=== PATIENT | female | born 1950 | race African-American/Black ===

== ENCOUNTER 2016-08-28 09:10 | Inpatient (IN) | payer MEDICARE, OTHER ==
[~2016-08-28] VITALS: Ht 160 cm; Wt 51.3 kg
[~2016-08-28 09:10] MED LIST: ACET325T9 PEG; ACET650S19 PEG; ALBU2.5V5 NEB; ALPR0.5T6 PO; AMLO5TAB2 PO; ASPI325T4 PO; ASPI81TA2 PO; ATOR20TA58 PO; CALC500T50 PO; CARV12.52 PO; CHOL100013 PO; CIPR250T30 PO; CLON0.2T PO; CLON1PAT3 TD; DEXT50DI3 IV; ENAL1.25 IV; ERGO500012 PO; FAMO20TA5 PO; FAMO20VI3 IVP; FURO20TA3 GT; FURO20TA3 PO; Ferrous Sulfate PEG; HYDR-2868 PO; HYDR20VI5 IV; INSU100I17 SQ; LISI40TA PO; METO10SO GT; METO25TA4 PO; Metoprolol Tartrate IV; ONDA4VIA4 IV; POTA20LI PEG; PRAV10TA2 PO; PRAV20TA2 PO; PRAZ1CAP PO; PRED20TA PO; SIMV20TA3 PEG; TIOT4MIS2 IH; VERA120T5 PEG; VERA180T4 PO; VERA240C2 PO; inhaler
[2016-08-28] MEDS ORDERED: DILTIAZEM 125 MG in IV DEXTROSE 5% 100 ML IV PRN (09:30)
[2016-08-28] MEDS ORDERED: ALBUTEROL SULFATE 2.5 MG/3 ML NEBU. NEB ONE (09:30)
[2016-08-28] MEDS ORDERED: methylPREDNISolone SOD SUCC PF 125 MG/2 ML VIAL. IV ONE (09:30)
[2016-08-28] MEDS ORDERED: IPRATRPIUM/ALBUTEROL 0.5/2.5MG 3 ML NEBU. NEB ONE (09:30)
--- NOTE | 2016-08-28 09:32 | PHYS DOC ---
Past Medical History Past Medical History: COPD, CVA, High Cholesterol, Hypertension, Other Additional Past Medical Histor: undergoing testing for COPD diagnosis, home oxygen @ [facility] Past Surgical History: Other Additional Past Surgical Histo: Pt states none - Gtube placement visualized Alcohol Use: None Drug Use: None Adult General Chief Complaint Chief Complaint: SHORTNESS OF BREATH HPI HPI Patient is a 66 year old female who presents with complaint of severe shortness of breath. Patient brought to the emergency department by EMS after they were contacted by patient's family. The patient was having shortness of breath at home. While laying in bed using a breathing treatment, EMS stated that the patient's O2 sats were 98%. However upon attempting to get up and walk the patient decided into the low 80s. Patient has history of COPD and follows a Dr. Fletcher for primary care. The patient denies any chest pain or fever but states that she is having severe difficulty breathing. Patient states that breathing treatments at home and by EMS have not help with symptoms. Review of Systems Review of Systems Constitutional: Denies fever or chills [] Eyes: Denies change in visual acuity, redness, or eye pain [] HENT: Denies nasal congestion or sore throat [] Respiratory: Shortness of breath, cough [] Cardiovascular: Denies chest pain or edema [] GI: Denies abdominal pain, nausea, vomiting, bloody stools or diarrhea [] : Denies dysuria or hematuria [] Musculoskeletal: Denies back pain or joint pain [] Integument: Denies rash or skin lesions [] Neurologic: Denies headache, focal weakness or sensory changes [] Current Medications Current Medications Current Medications Medications (Trade) Dose Ordered Sig/Michael Start Time Stop Time Status Last Admin Dose Admin Albuterol Sulfate 2.5 mg 2.5 mg 1X ONCE 08/28/16 09:30 08/28/16 09:31 DC Albuterol/ Ipratropium (Duoneb) 3 ml 1X ONCE 08/28/16 09:30 08/28/16 09:31 DC Diltiazem HCl/ Dextrose (Cardizem) 125 ml @ 0 mls/hr CONT PRN 08/28/16 09:30 UNV Methylprednisolone Sodium Succinate (Solu-Medrol 125mg Vial) 125 mg 1X ONCE 08/28/16 09:30 08/28/16 09:31 DC 08/28/16 09:38 125 MG Allergies Allergies Allergies Coded Allergies Type Severity Reaction Last Updated Verified I S O L A T I O N *CONTACT* Allergy Unknown 09/01/15 Yes No Known Medication Allergies Allergy Unknown 09/01/15 Yes Physical Exam Physical Exam Constitutional: Alert, afebrile, appears in moderate to severe respiratory distress. [] HENT: Normocephalic, atraumatic, bilateral external ears normal, oropharynx moist, no oral exudates, nose normal. [] Eyes: PERRLA, EOMI, conjunctiva normal, no discharge. [] Neck: Normal range of motion, no tenderness, supple, no stridor. [] Cardiovascular: Tachycardia, regular rhythm, no murmur [] Lungs & Thorax: Severely restricted air movement bilaterally, accessory muscle usage present, expiratory wheezes bilaterally [] Abdomen: Bowel sounds normal, soft, no tenderness, no masses, no pulsatile masses. [] Skin: Warm, dry, no erythema, no rash. [] Back: No tenderness, no CVA tenderness. [] Extremities: No tenderness, no cyanosis, no clubbing, ROM intact, no edema. [] Neurologic: Alert and oriented X 3, normal motor function, normal sensory function, no focal deficits noted. [] Current Patient Data Vital Signs Vital Signs Date Time Temp Pulse Resp B/P Pulse Ox O2 Delivery O2 Flow Rate FiO2 08/28/16 09:10 96.7 111 33 166/85 82 Aerosol Mask 10 96.7 EKG EKG Interpreted by me: Heart rate 102, sinus tachycardia, normal intervals, normal axis, no acute ST/T-wave abnormalities present [] Radiology/Procedures Radiology/Procedures [facility] [address] [place] [address] IMAGING REPORT Signed PATIENT: KATHY HARVEY ACCOUNT: [id number] : 1950 LOCATION: ER AGE: 66 SEX: F EXAM STATUS: PRE ER ORD. PHYSICIAN: FLO HANSON MD REASON: shortness of breath PROCEDURE: PORTABLE CHEST 1V Single view chest History:Shortness of breath for one day An AP view of the chest is submitted. Comparison: 02/24/2016 Findings: There is now small left pleural effusion. There is increased interstitial opacity bilaterally. Pericardial cardiac silhouette appears slightly more prominent. There is again likely emphysema. Impression: There is now small left pleural effusion. There is increased interstitial opacity which may be due to edema. Pericardial cardiac silhouette appears somewhat more prominent. There is again likely emphysema. DICTATED and SIGNED BY: MOHAN SIMON MD DATE: 08/28/16 0952 CC: FLO HANSON MD; OFELIA FLETCHER MD ~ [] Course & Med Decision Making Course & Med Decision Making Pertinent Labs and Imaging studies reviewed. (See chart for details) Patient was severely dyspneic and was initiated on BiPAP therapy which helped improve patient's oxygenation and work of breathing in the emergency department. ABG shows both hypercapnia and hypoxia. Patient will be admitted the hospital for further treatment with BiPAP, breathing treatments, and IV steroids. I spoke with Dr. Renee who is on-call for Dr. Fletcher and he accepted care patient in hospital. Consults were placed to Dr. Lion of cardiology and Dr. Hutchinson of pulmonology to follow patient in hospital. Critical care time excluding procedures: 55 minutes Dragon Disclaimer Dragon Disclaimer This electronic medical record was generated, in whole or in part, using a voice recognition dictation system. Departure Departure Impression: Primary Impression: Acute respiratory failure with hypoxia and hypercapnia Additional Impressions: COPD exacerbation Congestive heart failure Disposition: ADMITTED INPATIENT Admitting Physician: Mayra Renee Condition: CRITICAL Referrals: OFELIA FLETCHER MD (PCP) Problem Qualifiers Additional Impressions: Congestive heart failure Congestive heart failure type: unspecified congestive heart failure type Congestive heart failure chronicity: acute on chronic Qualified Code: I50.9 - Heart failure, unspecified FLO HANSON MD Aug 28, 2016 09:31
--- NOTE | 2016-08-28 09:55 | RAD ---
Single view chest History:Shortness of breath for one day An AP view of the chest is submitted. Comparison: 02/24/2016 Findings: There is now small left pleural effusion. There is increased interstitial opacity bilaterally. Pericardial cardiac silhouette appears slightly more prominent. There is again likely emphysema. Impression: There is now small left pleural effusion. There is increased interstitial opacity which may be due to edema. Pericardial cardiac silhouette appears somewhat more prominent. There is again likely emphysema.
[2016-08-28 10:54] LABS: HCO3 ABG 42 mmol/L (21-28); PH ABG 7.34 (7.35-7.45); PO2 ABG 99 mmHg (65-108); SAT O2 ABG 97 % (92-99)
[2016-08-28 10:55] LABS: PCO2 ABG 80 mmHg (35-46)
[2016-08-28 10:56] LABS: FIO2 ABG 100
--- NOTE | 2016-08-28 12:23 | EKG ---
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
[2016-08-28 12:36] LABS: CALCIUM 9.8 mg/dL (8.5-10.1); CREATININE 0.9 mg/dL (0.6-1.0); POTASSIUM 5.2 mmol/L (3.5-5.1)
[2016-08-28 12:39] LABS: BASO % 0 % (0-3); EOS % 0 % (0-3); HEMATOCRIT 38.3 % (36.0-47.0); HEMOGLOBIN 11.5 g/dL (12.0-15.5); LYMPH # 0.5 x10^3/uL (1.0-4.8); LYMPH % 4 % (24-48); MEAN CORPUSCULAR HEMOGLOBIN 26 pg (25-35); MEAN CORPUSCULAR HGB CONC 30 g/dL (31-37); MEAN CORPUSCULAR VOLUME 86 fL (79-100); MONO % 2 % (0-9); NEUT % 94 % (31-73); PLATELET COUNT 182 x10^3/uL (140-400); RED BLOOD COUNT 4.46 x10^6/uL (3.50-5.40); RED CELL DISTRIBUTION WIDTH 14.2 % (11.5-14.5); WHITE BLOOD COUNT 12.7 x10^3/uL (4.0-11.0)
[2016-08-28 12:43] LABS: TOTAL BILIRUBIN 0.7 mg/dL (0.2-1.0)
[2016-08-28 12:50] LABS: CKMB INDEX 1.1 % (0-4); CKMB MASS < 0.5 ng/mL (0.0-3.6); CREATINE KINASE 47 U/L (26-192)
[2016-08-28 13:16] LABS: ALBUMIN 3.6 g/dL (3.4-5.0); ALBUMIN/GLOBULIN RATIO 0.7 (1.0-1.7); TOTAL PROTEIN 8.5 g/dL (6.4-8.2)
--- NOTE | 2016-08-28 13:20 | ACF ---
Admission Forms Criteria RESPIRATORY FAILURE [facility] Clinical Indications for Admission to Inpatient Care (Place 'X' for any and all applicable criteria): Hospital admission is needed for appropriate care of the patient because of acute respiratory failure or insufficiency as indicated by ANY ONE of the following(1)(2)(3)(4)(5)(6)(7)(8): [X]I. Mechanical ventilation needed (acute invasive or noninvasive) [X]II. Severe ventilation deficit as indicated by ANY ONE of the following (9) [ ]a) Respiratory acidosis (pH less than 7.32 and partial pressure of carbon dioxide greater than 40 mm Hg (5.3 kPa)) [X]b) Partial pressure of carbon dioxide greater than 44 mm Hg (5.9 kPa ) (new) [ ]c) Airflow measurements less than 25% of predicted (eg, peak expiratory flow rate less than 100 L/minute) [ ]d) Forced vital capacity less than 15 mL/kg of ideal body weight, or 50% decrease in vital capacity from baseline [ ]III. Noncardiac pulmonary edema not resolving with rapid emergency treatment (8) [ ]IV. Severe respiratory distress as indicated by ANY ONE of the following: [ ]a) Severe tachypnea (respiratory rate greater than 30, greater than 45 for 6-month-old, greater than 60 for ) [ ]b) Severe hypoxemia (partial pressure of oxygen less than 50 mm Hg ( 6.7 kPa) on greater than 50% oxygen or partial pressure of oxygen to FIO2 ratio less than 200) [ ]c) Mental status deterioration from respiratory disease [ ]V. Airway obstruction or inadequate protection [A](10)(11) The original [employer] content created by [employer] has been revised. The portions of the content which have been revised are identified through the use of italic text or in bold, and [employer] has neither reviewed nor approved the modified material. All other unmodified content is copyright [employer]. Please see references footnoted in the original [employer] edition 2016 Admission Criteria Met?: Yes SHIVAM BELLAMY Aug 28, 2016 13:20
[2016-08-28 13:28] LABS: PLT ESTIMATE ADEQUATE (ADEQUATE)
[2016-08-28] MEDS ORDERED: IV NORMAL SALINE 1000ML BAG 1,000 ML IV SCH (13:55)
[2016-08-28] MEDS ORDERED: ONDANSETRON PF 4 MG/2 ML VIAL. IV PRN (14:00)
[2016-08-28] MEDS ORDERED: FUROSEMIDE 40 MG/4 ML VIAL IVP ONE (14:00)
[2016-08-28] MEDS ORDERED: ACETAMINOPHEN 650 MG/20.3 ML SOLUTION. PEG PRN (14:45)
[2016-08-28] MEDS ORDERED: ALBUTEROL SULFATE 2.5 MG/3 ML NEBU. ONE (14:49)
[2016-08-28] MEDS ORDERED: IPRATRPIUM/ALBUTEROL 0.5/2.5MG 3 ML NEBU. ONE (14:49)
[2016-08-28] MEDS: FUROSEMIDE 40 MG/4 ML VIAL IVP SCH (15:00)
--- NOTE | 2016-08-28 15:16 | PDOC ---
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
[2016-08-28] MEDS ORDERED: IPRATRPIUM/ALBUTEROL 0.5/2.5MG 3 ML NEBU. NEB SCH (16:00)
[2016-08-28] MEDS: CEFTRIAXONE SODIUM 1 GM in IV NORMAL SALINE 50ML 50 ML IV SCH (16:25)
[2016-08-28 17:23] VITALS: BP 134/76
[2016-08-28 19:15] VITALS: BP 135/77
[2016-08-28] MEDS: BUDESONIDE 0.5 MG/2 ML NEBU NEB SCH (20:47)
[2016-08-28] MEDS: IPRATRPIUM/ALBUTEROL 0.5/2.5MG 3 ML NEBU. NEB SCH (20:47)
[2016-08-28] MEDS: CARVEDILOL 12.5 MG TABLET PO SCH (21:03)
[2016-08-28] MEDS: FAMOTIDINE 20 MG TABLET. PO SCH (21:03)
[2016-08-28] MEDS: LISINOPRIL 40 MG TABLET. PO SCH (21:04)
[2016-08-28] MEDS: ATORVASTATIN CALCIUM 20 MG TABLET PO SCH (21:04)
[2016-08-28] MEDS: AMLODIPINE BESYLATE 5 MG TABLET PO SCH (21:04)
[2016-08-28 23:00] VITALS: BP 104/68
--- NOTE | 2016-08-28 23:29 | HP ---
ADMIT DATE: 08/28/2016 ADMISSION DIAGNOSIS: Acute on chronic systolic/diastolic heart failure. HISTORY OF PRESENT ILLNESS: This is a 66-year-old female with known emphysema and heart failure, who was brought in by EMS after her called because of shortness of breath. Her oxygen sats at home dropped into the 80s. Her turned up oxygen and got them to come back up, but with any activity they dropped again into the 80s. She has been having increased respiratory symptoms over the past 2 days despite using her nebulizer. The nebulizer has been ineffective in helping as has the treatment by EMS on the way to the ER. She denies any chest pain or acute cardiac symptoms though. PAST MEDICAL HISTORY: Significant for emphysema, past stroke, hyperlipidemia, hypertension, chronic respiratory failure on home oxygen, usually at 4 liters. PAST SURGICAL HISTORY: Includes a G-tube placement. She does eat despite the tube. Her really has not noticed any aspiration symptoms, but does admit that she has had some recent choking with oral feeds. She does have soft oral diet. Her PEG tube has been placed due to a neurogenic dysphagia after a prior stroke. She also has a history of osteoporosis and has a 20-year smoking history. SOCIAL HISTORY: Positive for tobacco use, being . FAMILY HISTORY: Noncontributory. VACCINES: Flu and pneumonia vaccines are up-to-date as of 02/2016. ALLERGIES: No known medication allergies. HOME MEDICATIONS: Tylenol p.r.n., albuterol neb solution q.i.d., amlodipine 5 mg b.i.d., aspirin 325 daily, atorvastatin 20 at bedtime, carvedilol 25 b.i.d., famotidine 20 b.i.d., furosemide 20 daily, lisinopril 40 b.i.d., potassium chloride 20 mEq per PEG daily. She did receive 40 mg Lasix IV in the ER along with being placed on BiPAP and is receiving methylprednisolone and neb treatment. REVIEW OF SYSTEMS: No recent cough or cold symptoms. Per her , she does not talk because of the BiPAP. He says she just has not had any chest pain. He did note some choking. He has not noted any other GI symptoms. He denies that she has had any falls or any focal weakness. He is unaware of her having any urinary troubles. She did not have any issues with her PEG. Her mental state has been baseline and she has been sleeping at baseline. LABORATORY DATA: White count is 12.7, hemoglobin is 11.5, platelets 182. ABG showed a pH of 7.34 with a pCO2 of 80, FiO2 of 100% and a pO2 of 99. Chemistries show an elevated potassium of 5.2, BUN of 26, creatinine 0.9, glucose 144. Troponins negative. Cardiac [place] [address], albumin is 3.7. IMAGING STUDIES: Chest x-ray shows some small left pleural effusion and interstitial opacity, likely due to edema. Emphysematous changes are present. Her cardiac silhouette is somewhat prominent. ASSESSMENT: 1. Acute on chronic respiratory failure. 2. Acute on chronic systolic/diastolic heart failure with elevated proBNP without evidence of acute myocardial infarction. 3. Emphysema with exacerbation. 4. Leukocytosis in a patient with the PEG that had some recent choking, cannot rule out aspiration pneumonia. 5. History of cerebrovascular accident with neurogenic dysphagia. PLAN: She is admitted. Cardiac and pulmonary consults have been requested. We will continue Lasix 40 mg IV due to her hyperkalemia and signs of heart failure. We will use budesonide and DuoNeb nebulized for her lungs. I do not see a need to continue IV Solu-Medrol at this point. We will cover with antibiotics. Continue her home meds with some minor changes. She is currently on BiPAP. She was initially to be sent to the ICU, but appears to be stable for CVC. She is not having much anxiety with the BiPAP. W Chance FLORENTINO MD DR: MATT/angela JOB#: [id number] / [id number]
[2016-08-29 03:00] VITALS: BP 105/57
[2016-08-29 05:49] LABS: BASO % 0 % (0-3); EOS % 0 % (0-3); LYMPH # 0.6 x10^3/uL (1.0-4.8); LYMPH % 4 % (24-48); MEAN CORPUSCULAR HEMOGLOBIN 26 pg (25-35); MEAN CORPUSCULAR HGB CONC 31 g/dL (31-37); MEAN CORPUSCULAR VOLUME 83 fL (79-100); MONO % 6 % (0-9); NEUT % 90 % (31-73); PLATELET COUNT 206 x10^3/uL (140-400); RED BLOOD COUNT 3.49 x10^6/uL (3.50-5.40); RED CELL DISTRIBUTION WIDTH 13.7 % (11.5-14.5); WHITE BLOOD COUNT 13.7 x10^3/uL (4.0-11.0)
[2016-08-29 06:10] LABS: GFR 67.3
[2016-08-29] MEDS: CARVEDILOL 12.5 MG TABLET PO SCH ×2 (06:26→21:17)
[2016-08-29 07:00] VITALS: BP 146/70
--- NOTE | 2016-08-29 08:10 | PDOC ---
PROGRESS NOTES Subjective Subjective Patient on Bipap and asking to have it removed. Feels she is breathing OK. Objective Objective Vital Signs Date Time Temp Pulse Resp B/P Pulse Ox O2 Delivery O2 Flow Rate FiO2 08/29/16 07:00 98.2 98 20 146/70 100 BiPAP/CPAP 98.2 08/28/16 23:00 10.0 Intake and Output 08/29/16 07:00 Intake Total 0 ml Balance 0 ml Intake Oral 0 ml # Voids 3 Physical Exam Abdomen: Normal bowel sounds, Soft, No tenderness Heart: Regular rate Extremities: No edema General: Alert, Oriented X3, No acute distress Lungs: Other (BS decreased throughout, no wheezes heard) Assessment Assessment Problems Medical Problems: (1) Acute respiratory failure with hypoxia and hypercapnia Status: Acute (2) Congestive heart failure Status: Acute (3) COPD exacerbation Status: Acute Plan Plan of Care 1. AE diastolic CHF - BNP quite elevated at admission and some fluid present on CXR. Now on Lasix 40IV BID. I's and O's inaccurate so difficult to determine amount of diuresis. Await further Cardiology input. Last Echo showed preserved EF and moderate pulmonary HTN. 2. Acute on chronic respiratory failure with COPD - hypoxic at admission and required Bipap. Appears to be doing better, hope to wean off Bipap to her usual O2 per NC. Continue nebs. Pulmonary consult pending. 3. chronic dysphagia from previous CVA - most recent video swallow showed aspiration with all liquids and foods. Continue NPO with TF, free water flushes added. 4. HTN - controlled, continue present meds. Comment Review of Relevant I have reviewed the following items chon (where applicable) has been applied. Labs Laboratory Tests Test 08/28/16 10:40 08/28/16 12:05 08/28/16 12:16 08/29/16 05:15 O2 Saturation 97% (92-99) Arterial Blood pH 7.34 (7.35-7.45) Arterial Blood pCO2 at Patient Temp 80mmHg (35-46) Arterial Blood pO2 at Patient Temp 99mmHg (65-108) Arterial Blood HCO3 42mmol/L (21-28) Arterial Blood Base Excess 13mmol/L (-3-3) FiO2 100 Troponin I Quantitative < 0.017ng/mL (0.000-0.055) White Blood Count 12.7x10^3/uL (4.0-11.0) 13.7x10^3/uL (4.0-11.0) Red Blood Count 4.46x10^6/uL (3.50-5.40) 3.49x10^6/uL (3.50-5.40) Hemoglobin 11.5g/dL (12.0-15.5) 9.0g/dL (12.0-15.5) Hematocrit 38.3% (36.0-47.0) 29.0% (36.0-47.0) Mean Corpuscular Volume 86fL (79-100) 83fL (79-100) Mean Corpuscular Hemoglobin 26pg (25-35) 26pg (25-35) Mean Corpuscular Hemoglobin Concent 30g/dL (31-37) 31g/dL (31-37) Red Cell Distribution Width 14.2% (11.5-14.5) 13.7% (11.5-14.5) Platelet Count 182x10^3/uL (140-400) 206x10^3/uL (140-400) Neutrophils (%) (Auto) 94% (31-73) 90% (31-73) Lymphocytes (%) (Auto) 4% (24-48) 4% (24-48) Monocytes (%) (Auto) 2% (0-9) 6% (0-9) Eosinophils (%) (Auto) 0% (0-3) 0% (0-3) Basophils (%) (Auto) 0% (0-3) 0% (0-3) Neutrophils # (Auto) 11.9x10^3uL (1.8-7.7) 12.4x10^3uL (1.8-7.7) Lymphocytes # (Auto) 0.5x10^3/uL (1.0-4.8) 0.6x10^3/uL (1.0-4.8) Monocytes # (Auto) 0.3x10^3/uL (0.0-1.1) 0.8x10^3/uL (0.0-1.1) Eosinophils # (Auto) 0.0x10^3/uL (0.0-0.7) 0.0x10^3/uL (0.0-0.7) Basophils # (Auto) 0.0x10^3/uL (0.0-0.2) 0.0x10^3/uL (0.0-0.2) Segmented Neutrophils % 90% (35-66) Band Neutrophils % 2% (0-9) Lymphocytes % 2% (24-48) Monocytes % 6% (0-10) Platelet Estimate Adequate (ADEQUATE) Sodium Level 142mmol/L (136-145) 147mmol/L (136-145) Potassium Level 5.2mmol/L (3.5-5.1) 4.0mmol/L (3.5-5.1) Chloride Level 101mmol/L (98-107) 101mmol/L (98-107) Carbon Dioxide Level 39mmol/L (21-32) 40mmol/L (21-32) Anion Gap 2 (6-14) 6 (6-14) Blood Urea Nitrogen 26mg/dL (7-20) 38mg/dL (7-20) Creatinine 0.9mg/dL (0.6-1.0) 1.0mg/dL (0.6-1.0) Estimated GFR (Cockcroft-Gault) 76.0 67.3 BUN/Creatinine Ratio 29 (6-20) Glucose Level 144mg/dL (70-99) 132mg/dL (70-99) Lactic Acid Level 1.9mmol/L (0.4-2.0) Calcium Level 9.8mg/dL (8.5-10.1) 9.0mg/dL (8.5-10.1) Total Bilirubin 0.7mg/dL (0.2-1.0) Aspartate Amino Transf (AST/SGOT) 14U/L (15-37) Alanine Aminotransferase (ALT/SGPT) 12U/L (14-59) Alkaline Phosphatase 55U/L (46-116) Creatine Kinase 47U/L (26-192) Creatine Kinase MB (Mass) < 0.5ng/mL (0.0-3.6) Creatine Kinase MB Relative Index 1.1% (0-4) SG-Pbk-S-Type Natriuretic Peptide 4659pg/mL (0-124) Total Protein 8.5g/dL (6.4-8.2) Albumin 3.6g/dL (3.4-5.0) Albumin/Globulin Ratio 0.7 (1.0-1.7) Laboratory Tests Test 08/28/16 10:40 08/28/16 12:05 08/28/16 12:16 08/29/16 05:15 O2 Saturation 97% (92-99) Arterial Blood pH 7.34 (7.35-7.45) Arterial Blood pCO2 at Patient Temp 80mmHg (35-46) Arterial Blood pO2 at Patient Temp 99mmHg (65-108) Arterial Blood HCO3 42mmol/L (21-28) Arterial Blood Base Excess 13mmol/L (-3-3) FiO2 100 Troponin I Quantitative < 0.017ng/mL (0.000-0.055) White Blood Count 12.7x10^3/uL (4.0-11.0) 13.7x10^3/uL (4.0-11.0) Red Blood Count 4.46x10^6/uL (3.50-5.40) 3.49x10^6/uL (3.50-5.40) Hemoglobin 11.5g/dL (12.0-15.5) 9.0g/dL (12.0-15.5) Hematocrit 38.3% (36.0-47.0) 29.0% (36.0-47.0) Mean Corpuscular Volume 86fL (79-100) 83fL (79-100) Mean Corpuscular Hemoglobin 26pg (25-35) 26pg (25-35) Mean Corpuscular Hemoglobin Concent 30g/dL (31-37) 31g/dL (31-37) Red Cell Distribution Width 14.2% (11.5-14.5) 13.7% (11.5-14.5) Platelet Count 182x10^3/uL (140-400) 206x10^3/uL (140-400) Neutrophils (%) (Auto) 94% (31-73) 90% (31-73) Lymphocytes (%) (Auto) 4% (24-48) 4% (24-48) Monocytes (%) (Auto) 2% (0-9) 6% (0-9) Eosinophils (%) (Auto) 0% (0-3) 0% (0-3) Basophils (%) (Auto) 0% (0-3) 0% (0-3) Neutrophils # (Auto) 11.9x10^3uL (1.8-7.7) 12.4x10^3uL (1.8-7.7) Lymphocytes # (Auto) 0.5x10^3/uL (1.0-4.8) 0.6x10^3/uL (1.0-4.8) Monocytes # (Auto) 0.3x10^3/uL (0.0-1.1) 0.8x10^3/uL (0.0-1.1) Eosinophils # (Auto) 0.0x10^3/uL (0.0-0.7) 0.0x10^3/uL (0.0-0.7) Basophils # (Auto) 0.0x10^3/uL (0.0-0.2) 0.0x10^3/uL (0.0-0.2) Segmented Neutrophils % 90% (35-66) Band Neutrophils % 2% (0-9) Lymphocytes % 2% (24-48) Monocytes % 6% (0-10) Platelet Estimate Adequate (ADEQUATE) Sodium Level 142mmol/L (136-145) 147mmol/L (136-145) Potassium Level 5.2mmol/L (3.5-5.1) 4.0mmol/L (3.5-5.1) Chloride Level 101mmol/L (98-107) 101mmol/L (98-107) Carbon Dioxide Level 39mmol/L (21-32) 40mmol/L (21-32) Anion Gap 2 (6-14) 6 (6-14) Blood Urea Nitrogen 26mg/dL (7-20) 38mg/dL (7-20) Creatinine 0.9mg/dL (0.6-1.0) 1.0mg/dL (0.6-1.0) Estimated GFR (Cockcroft-Gault) 76.0 67.3 BUN/Creatinine Ratio 29 (6-20) Glucose Level 144mg/dL (70-99) 132mg/dL (70-99) Lactic Acid Level 1.9mmol/L (0.4-2.0) Calcium Level 9.8mg/dL (8.5-10.1) 9.0mg/dL (8.5-10.1) Total Bilirubin 0.7mg/dL (0.2-1.0) Aspartate Amino Transf (AST/SGOT) 14U/L (15-37) Alanine Aminotransferase (ALT/SGPT) 12U/L (14-59) Alkaline Phosphatase 55U/L (46-116) Creatine Kinase 47U/L (26-192) Creatine Kinase MB (Mass) < 0.5ng/mL (0.0-3.6) Creatine Kinase MB Relative Index 1.1% (0-4) HZ-Tzr-S-Type Natriuretic Peptide 4659pg/mL (0-124) Total Protein 8.5g/dL (6.4-8.2) Albumin 3.6g/dL (3.4-5.0) Albumin/Globulin Ratio 0.7 (1.0-1.7) Medications Current Medications Albuterol/ Ipratropium (Duoneb) 3 ml 1X ONCE NEB Last administered on 15:03; Start 08/28/16 at 09:30; Stop 08/28/16 at 09:31; Status DC Methylprednisolone Sodium Succinate (Solu-Medrol 125mg Vial) 125 mg 1X ONCE IV Last administered on 08/28/16 09:38; Start 08/28/16 at 09:30; Stop 08/28/16 at 09:31; Status DC Albuterol Sulfate 2.5 mg 2.5 mg 1X ONCE NEB Last administered on 08/28/16 15: 04; Start 08/28/16 at 09:30; Stop 08/28/16 at 09:31; Status DC Diltiazem HCl/ Dextrose (Cardizem) 125 ml @ 0 mls/hr CONT PRN IV SEE I/O RECORD ; Start 08/28/16 at 09:30; Status UNV Ondansetron HCl 4 mg 4 mg PRN Q8HRS PRN IV NAUSEA/VOMITING; Start 08/28/16 at 14:00; Stop 08/29/16 at 13:59 Sodium Chloride (Iv Sodium Chloride 0.9% 1000ml Bag) 1,000 ml @ 50 mls/hr Q20H IV ; Start 08/28/16 at 13:55; Stop 08/28/16 at 17:54; Status DC Albuterol/ Ipratropium (Duoneb) 3 ml RTQID NEB ; Start 08/28/16 at 16:00; Stop 08/28/16 at 16:00; Status DC Furosemide (Lasix) 60 mg 1X ONCE IVP Last administered on 08/28/16 15:04; Start 08/28/16 at 14:00; Stop 08/28/16 at 14:07; Status DC Acetaminophen (Tylenol) 325 mg PRN Q6HRS PRN PEG MILD PAIN / TEMP; Start at 14:45 Amlodipine Besylate (Norvasc) 5 mg BID PO Last administered on 08/28/16 21:04 ; Start 08/28/16 at 21:00 Aspirin (Tobi Aspirin) 325 mg DAILYWBKFT PO ; Start 08/29/16 at 08:00 Atorvastatin Calcium (Lipitor) 20 mg QHS PO Last administered on 08/28/16 21: 04; Start 08/28/16 at 21:00 Carvedilol (Coreg) 25 mg BID@07,19 PO Last administered on 08/29/16 06:26; Start 08/28/16 at 19:00 Famotidine (Pepcid) 20 mg BID PO Last administered on 08/28/16 21:03; Start at 21:00 Lisinopril (Prinivil) 40 mg BID PO Last administered on 08/28/16 21:04; Start 08/28/16 at 21:00 Potassium Chloride (KCl Oral Soln) 20 meq DAILY PEG ; Start 08/29/16 at 09:00 Albuterol/ Ipratropium (Duoneb) 3 ml RTQID NEB Last administered on 08/28/16 20:47; Start 08/28/16 at 16:00 Budesonide (Pulmicort) 0.5 mg RTBID NEB Last administered on 08/28/16 20:47; Start 08/28/16 at 20:00 Furosemide (Lasix) 40 mg BID92 IVP Last administered on 08/28/16 15:00; Start 08/28/16 at 15:00 Albuterol/ Ipratropium (Duoneb) 3 ml STK-MED ONCE .ROUTE ; Start 08/28/16 at 14: 49; Stop 08/28/16 at 14:50; Status DC Albuterol Sulfate 2.5 mg 2.5 mg STK-MED ONCE .ROUTE ; Start 08/28/16 at 14:49; Stop 08/28/16 at 14:50; Status DC Ceftriaxone Sodium/Sodium Chloride (Rocephin/Iv Sodium Chloride 0.9% 50ml) 50 ml @ 100 mls/hr Q24H IV Last administered on 08/28/16t 16:25; Start 08/28/16 at 16:00 Active Scripts Active Cipro (Ciprofloxacin Hcl) 250 Mg Tablet 1 Tab PO BID 5 Days Atorvastatin Calcium 20 Mg Tablet 20 Mg PO QHS 30 Days Aspirin 325 Mg Tablet 325 Mg PO DAILYWBKFT 30 Days Furosemide 20 Mg Tablet 20 Mg GT DAILY 30 Days Potassium Chloride Oral Liquid (Potassium Chloride) 20 Meq/15 Ml Liquid 20 Meq PEG DAILY 30 Days Famotidine 20 Mg Tablet 20 Mg PO BID 30 Days Carvedilol 12.5 Mg Tablet 25 Mg PO BID@, 30 Days Acetaminophen 650 Mg/20.3 Ml Solution 325 Mg PEG PRN Q6HRS PRN 30 Days Albuterol Sulfate Neb Soln (Albuterol Sulfate) 2.5 Mg/3 Ml Vial.neb 2.5 Mg NEB RTQID 30 Days Vitals/I & O Vital Sign - Last 24 Hours 08/28/16 08/28/16 08/28/16 08/28/16 09:10 10:00 10:00 11:00 Temp 96.7 96.7 Pulse 111 102 106 Resp 33 28 23 B/P 166/85 158/97 140/73 Pulse Ox 82 100 98 95 O2 Delivery Aerosol Mask BiPAP/CPAP O2 Flow Rate 10 08/28/16 08/28/16 08/28/16 08/28/16 11:00 12:00 13:00 14:00 Pulse 100 104 106 Resp 23 22 26 B/P 91/60 124/70 128/77 Pulse Ox 100 95 94 96 O2 Delivery BiPAP/CPAP 08/28/16 08/28/16 08/28/16 08/28/16 15:07 17:14 17:23 17:57 Temp 98.4 98.4 Pulse 106 Resp 22 B/P 134/76 Pulse Ox 96 98 88 O2 Delivery BiPAP/CPAP BiPAP/CPAP BiPAP/CPAP Bi-pap 08/28/16 08/28/16 08/28/16 08/28/16 19:15 20:00 20:44 21:03 Temp 98.7 98.7 Pulse 96 96 Resp 22 B/P 135/77 135/77 Pulse Ox 86 88 O2 Delivery BiPAP/CPAP Bi-pap BiPAP/CPAP 08/28/16 08/28/16 08/28/16 08/28/16 21:04 21:04 23:00 23:43 Temp 98.5 98.5 Pulse 96 96 91 B/P 135/77 135/77 104/68 Pulse Ox 91 92 O2 Delivery BiPAP/CPAP BiPAP/CPAP O2 Flow Rate 10.0 08/29/16 08/29/16 08/29/16 08/29/16 02:15 03:00 04:24 06:26 Temp 98.5 98.5 Pulse 65 65 Resp 16 B/P 105/57 105/57 Pulse Ox 91 96 94 O2 Delivery BiPAP/CPAP BiPAP/CPAP BiPAP/CPAP 08/29/16 07:00 Temp 98.2 98.2 Pulse 98 Resp 20 B/P 146/70 Pulse Ox 100 O2 Delivery BiPAP/CPAP Intake and Output 08/28/16 08/28/16 08/29/16 15:00 23:00 07:00 Intake Total 0 ml Balance 0 ml OFELIA WISE MD Aug 29, 2016 08:10
[2016-08-29] MEDS: IPRATRPIUM/ALBUTEROL 0.5/2.5MG 3 ML NEBU. NEB SCH ×4 (08:27→18:08)
[2016-08-29] MEDS: BUDESONIDE 0.5 MG/2 ML NEBU NEB SCH ×2 (08:27→18:08)
[2016-08-29 08:42] LABS: HCO3 ABG 38 mmol/L (21-28); PCO2 ABG 50 mmHg (35-46); PO2 ABG 66 mmHg (65-108); SAT O2 ABG 92 % (92-99)
[2016-08-29 08:45] LABS: FIO2 ABG 55
[2016-08-29] MEDS: LISINOPRIL 40 MG TABLET. PO SCH ×2 (08:49→21:18)
[2016-08-29] MEDS: ASPIRIN 325 MG TABLET PO SCH (08:49)
[2016-08-29] MEDS: FAMOTIDINE 20 MG TABLET. PO SCH ×2 (08:49→21:17)
[2016-08-29] MEDS: AMLODIPINE BESYLATE 5 MG TABLET PO SCH ×2 (08:49→21:17)
[2016-08-29] MEDS: FUROSEMIDE 40 MG/4 ML VIAL IVP SCH ×2 (08:50→14:00)
[2016-08-29] MEDS: POTASSIUM CHLORIDE 20 MEQ/15 ML ORAL LIQUID. PEG SCH (08:50)
[2016-08-29 10:18] VITALS: BP 126/58
--- NOTE | 2016-08-29 11:32 | PDOC2 ---
RUBEN HENDRIX [employer] 08/29/16 1132: CARDIAC CONSULT DATE OF CONSULT Date of Consult DATE: 08/29/16 TIME: 11:22 REASON FOR CONSULT Reason for Consult: CHF REFERRING PHYSICIAN Referring Physician: Dr. Resendez SOURCE Source: Chart review, Patient HISTORY OF PRESENT ILLNESS HISTORY OF PRESENT ILLNESS This is a 66 yo female, with a history of oxygen dependent COPD and diastolic heart failure, who presented with complaints of shortness of breath. HPI obtain mainly from as patient is answering "no" to all questions and asking when she can go home. reports that she was using bathroom and became short of breath. Oxygen saturation dipped to the 60's. used home nebulizer treatment and called EMS. Patient denies any CP, palpitations, SOA, orthopnea, LE edema, dizziness, diaphoresis, or recent illness/fevers. reports breathing has been at baseline prior to this morning. Compliant with medications at home. Is on chronic tube feedings due to dysphagia. Presently requiring venti mask. PAST MEDICAL HISTORY Cardiovascular: CHF, HTN, Hyperlipidemia Pulmonary: COPD (4L NC ), Pneumonia CENTRAL NERVOUS SYSTEM: CVA Heme/Onc: Anemia NOS Hepatobiliary: No pertinent hx Psych: No pertinent hx Musculoskeletal: Osteoarthritis Rheumatologic: No pertinent hx Infectious disease: No pertinent hx ENT: No pertinent hx Renal/: No pertinent hx Endocrine: No pertinent hx Dermatology: No pertinent hx PAST SURGICAL HISTORY Past Surgical History PEG placement FAMILY HISTORY Family History: Hypertension SOCIAL HISTORY Smoke: No ALCOHOL: none Drugs: None Lives: with Family CURRENT MEDICATIONS CURRENT MEDICATIONS Current Medications Medications (Trade) Dose Ordered Sig/Michael Route PRN Reason Start Time Stop Time Status Last Admin Dose Admin Furosemide (Lasix) 60 mg 1X ONCE IVP 08/28/16 14:00 08/28/16 14:07 DC 08/28/16 15:04 Amlodipine Besylate (Norvasc) 5 mg BID PO 08/28/16 21:00 08/29/16 08:49 Aspirin (Tobi Aspirin) 325 mg DAILYWBKFT PO 08/29/16 08:00 08/29/16 08:49 Atorvastatin Calcium (Lipitor) 20 mg QHS PO 08/28/16 21:00 08/28/16 21:04 Carvedilol (Coreg) 25 mg BID@07,19 PO 08/28/16 19:00 08/29/16 06:26 Famotidine (Pepcid) 20 mg BID PO 08/28/16 21:00 08/29/16 08:49 Lisinopril (Prinivil) 40 mg BID PO 08/28/16 21:00 08/29/16 08:49 Potassium Chloride (KCl Oral Soln) 20 meq DAILY PEG 08/29/16 09:00 08/29/16 08:50 Albuterol/ Ipratropium (Duoneb) 3 ml RTQID NEB 08/28/16 16:00 08/29/16 10:57 Budesonide (Pulmicort) 0.5 mg RTBID NEB 08/28/16 20:00 08/29/16 08:27 Furosemide 40 mg 40 mg BID92 IVP 08/28/16 15:00 08/29/16 08:50 Ceftriaxone Sodium/Sodium Chloride (Rocephin/Iv Sodium Chloride 0.9% 50ml) 50 ml @ 100 mls/hr Q24H IV 08/28/16 16:00 08/28/16 16:25 ALLERGIES ALLERGIES: Coded Allergies: I S O L A T I O N *CONTACT* (Verified Allergy, Unknown, 09/01/15) vre + No Known Medication Allergies (Verified Allergy, Unknown, 09/01/15) ROS Review of System 4 point ROS conducted with pertinent positives noted above in HPI although patient somewhat uncooperative PHYSICAL EXAM General: Alert, Oriented X3, Cooperative, No acute distress HEENT: Atraumatic, Mucous membr. moist/pink Lungs: Clear to auscultation, Other (diminished bases ) Heart: Regular rate, Other (heart tones difficult to appreciate ) Abdomen: Soft, No tenderness Extremities: No edema, Normal pulses Skin: No significant lesion Neuro: Normal speech, Sensation intact Psych/Mental Status: Mental status NL, Mood NL MUSCULOSKELETAL: Osteoarthritic changes both hands VITALS VITALS Vital Signs Date Time Temp Pulse Resp B/P Pulse Ox O2 Delivery O2 Flow Rate FiO2 08/29/16 10:59 80 Venturi Mask 15.0 08/29/16 10:18 98.4 98 18 126/58 98.4 LABS Lab: Laboratory Tests Test 08/28/16 12:05 08/28/16 12:16 08/29/16 05:15 08/29/16 07:50 Troponin I Quantitative < 0.017ng/mL (0.000-0.055) White Blood Count 12.7x10^3/uL (4.0-11.0) 13.7x10^3/uL (4.0-11.0) Red Blood Count 4.46x10^6/uL (3.50-5.40) 3.49x10^6/uL (3.50-5.40) Hemoglobin 11.5g/dL (12.0-15.5) 9.0g/dL (12.0-15.5) Hematocrit 38.3% (36.0-47.0) 29.0% (36.0-47.0) Mean Corpuscular Volume 86fL (79-100) 83fL (79-100) Mean Corpuscular Hemoglobin 26pg (25-35) 26pg (25-35) Mean Corpuscular Hemoglobin Concent 30g/dL (31-37) 31g/dL (31-37) Red Cell Distribution Width 14.2% (11.5-14.5) 13.7% (11.5-14.5) Platelet Count 182x10^3/uL (140-400) 206x10^3/uL (140-400) Neutrophils (%) (Auto) 94% (31-73) 90% (31-73) Lymphocytes (%) (Auto) 4% (24-48) 4% (24-48) Monocytes (%) (Auto) 2% (0-9) 6% (0-9) Eosinophils (%) (Auto) 0% (0-3) 0% (0-3) Basophils (%) (Auto) 0% (0-3) 0% (0-3) Neutrophils # (Auto) 11.9x10^3uL (1.8-7.7) 12.4x10^3uL (1.8-7.7) Lymphocytes # (Auto) 0.5x10^3/uL (1.0-4.8) 0.6x10^3/uL (1.0-4.8) Monocytes # (Auto) 0.3x10^3/uL (0.0-1.1) 0.8x10^3/uL (0.0-1.1) Eosinophils # (Auto) 0.0x10^3/uL (0.0-0.7) 0.0x10^3/uL (0.0-0.7) Basophils # (Auto) 0.0x10^3/uL (0.0-0.2) 0.0x10^3/uL (0.0-0.2) Segmented Neutrophils % 90% (35-66) Band Neutrophils % 2% (0-9) Lymphocytes % 2% (24-48) Monocytes % 6% (0-10) Platelet Estimate Adequate (ADEQUATE) Sodium Level 142mmol/L (136-145) 147mmol/L (136-145) Potassium Level 5.2mmol/L (3.5-5.1) 4.0mmol/L (3.5-5.1) Chloride Level 101mmol/L (98-107) 101mmol/L (98-107) Carbon Dioxide Level 39mmol/L (21-32) 40mmol/L (21-32) Anion Gap 2 (6-14) 6 (6-14) Blood Urea Nitrogen 26mg/dL (7-20) 38mg/dL (7-20) Creatinine 0.9mg/dL (0.6-1.0) 1.0mg/dL (0.6-1.0) Estimated GFR (Cockcroft-Gault) 76.0 67.3 BUN/Creatinine Ratio 29 (6-20) Glucose Level 144mg/dL (70-99) 132mg/dL (70-99) Lactic Acid Level 1.9mmol/L (0.4-2.0) Calcium Level 9.8mg/dL (8.5-10.1) 9.0mg/dL (8.5-10.1) Total Bilirubin 0.7mg/dL (0.2-1.0) Aspartate Amino Transf (AST/SGOT) 14U/L (15-37) Alanine Aminotransferase (ALT/SGPT) 12U/L (14-59) Alkaline Phosphatase 55U/L (46-116) Creatine Kinase 47U/L (26-192) Creatine Kinase MB (Mass) < 0.5ng/mL (0.0-3.6) Creatine Kinase MB Relative Index 1.1% (0-4) ME-Lcw-D-Type Natriuretic Peptide 4659pg/mL (0-124) Total Protein 8.5g/dL (6.4-8.2) Albumin 3.6g/dL (3.4-5.0) Albumin/Globulin Ratio 0.7 (1.0-1.7) O2 Saturation 92% (92-99) Arterial Blood pH 7.50 (7.35-7.45) Arterial Blood pCO2 at Patient Temp 50mmHg (35-46) Arterial Blood pO2 at Patient Temp 66mmHg (65-108) Arterial Blood HCO3 38mmol/L (21-28) Arterial Blood Base Excess 13mmol/L (-3-3) FiO2 55 ECHOCARDIOGRAM ECHOCARDIOGRAM <Conclusion> Normal LV/RV systolic function. EF 65% Moderate pulmonary HTN. RVSP 58 mm Hg No significant valvular disease. Mild diastolic dysfunction. Suspect dyspnea/hypercapnea is related to underlying COPD rather than cardiac disease. DATE: 07/22/152004 ASSESSMENT/PLAN ASSESSMENT/PLAN 1. Acute on chronic diastolic heart failure 2. Acute on chronic respiratory failure 3. AE COPD 4. Hypertension 5. Prior CVA with dysphagia Recommendations Continue diuresis with monitoring of renal function repeat echo Supportive care from cardiovascular perspective management of respiratory failure/COPD exac per pulmonary Problems: BENITA REAGAN MD 08/29/16 2205: CARDIAC CONSULT ALLERGIES ALLERGIES: Coded Allergies: I S O L A T I O N *CONTACT* (Verified Allergy, Unknown, 09/01/15) vre + No Known Medication Allergies (Verified Allergy, Unknown, 09/01/15) ASSESSMENT/PLAN ASSESSMENT/PLAN Pt. seen and examined. Agree with above [employer] note. No acute cardiac issues. Presents with wheezing. Echo with severe pulmonary HTN Supportive care from CV perspective. Will follow along. Problems: RUBEN HENDRIX APRN Aug 29, 2016 11:32 BENITA REAGAN MD Aug 29, 2016 22:05
[2016-08-29 14:21] VITALS: BP 121/58
[2016-08-29] MEDS: CEFTRIAXONE SODIUM 1 GM in IV NORMAL SALINE 50ML 50 ML IV SCH (15:44)
--- NOTE | 2016-08-29 16:53 | CARD ---
APPROVED REPORT EXAM: Two-dimensional and M-mode echocardiogram with Doppler and color Doppler. Other Information Quality : Technically LimitedHR: 111bpm INDICATION CHF, COPD 2D DIMENSIONS RVDd2.3 (2.9-3.5cm)Left Atrium(2D)2.5 (1.6-4.0cm) IVSd1.0 (0.7-1.1cm)Aortic Root(2D)2.8 (2.0-3.7cm) LVDd3.7 (3.9-5.9cm)LVOT Diameter2.4 (1.8-2.4cm) PWd0.7 (0.7-1.1cm)LVDs2.1 (2.5-4.0cm) FS (%) 44.2 %SV45.5 ml LVEF(%)76.3 (>50%) Aortic Valve AoV Peak Luis.125.6cm/sAoV VTI24.0cm AO Peak GR.6.3mmHgLVOT VTI 22.69cm AO Mean GR.3mmHg Mitral Valve MV E [place]77.3cm/sMV DECEL [id number] MV A Foivopeb74.4cm/sE/A Ratio0.8 MV A [id number] TDI Medial E' P. V8.62cm/sE/Medial E'9.1 Tricuspid Valve TR P. Pljdswag253wb/sRAP AXEWPGVR1uvLy TR Peak Gr.89mmHg LEFT VENTRICLE The left ventricle cavity is small. There is normal left ventricular wall thickness. The Ejection Fra ction is >70%. Echo imaging reveals no regional wall motion abnormalities. Transmitral Doppler flow p attern is Grade I-abnormal relaxation pattern. RIGHT VENTRICLE The right ventricle is normal size. There is normal right ventricular wall thickness. The right ventr icular systolic function is normal. ATRIA The left atrium size is normal. The right atrium size is normal. The interatrial septum is intact wit h no evidence for an atrial septal defect or patent foramen ovale as noted on 2-D or Doppler imaging. AORTIC VALVE The aortic valve is poorly seen. Doppler and Color Flow revealed no significant aortic regurgitation. There is no significant aortic valvular stenosis. MITRAL VALVE The mitral valve is also poorly seen. There is no evidence of mitral valve prolapse. There is no mitr al valve stenosis. Doppler and Color Flow revealed no mitral valve regurgitation noted. TRICUSPID VALVE Doppler and Color Flow revealed mild to moderate tricuspid regurgitation.The pulmonary artery systoli c pressure is estimated at 94 mmHg. There is severe pulmonary hypertension. PULMONIC VALVE Doppler and Color Flow revealed no pulmonic valvular regurgitation. There is no pulmonic valvular jeremy nosis. GREAT VESSELS The aortic root is normal in size. The ascending aorta is normal in size. The pulmonary artery is nor mal. The IVC is normal in size and collapses >50% with inspiration. PERICARDIAL EFFUSION There is no evidence of significant pericardial effusion. Critical Notification Critical Value: No <Conclusion> The Ejection Fraction is >70%. Echo imaging reveals no regional wall motion abnormalities. Doppler and Color Flow revealed mild to moderate tricuspid regurgitation.The pulmonary artery systoli c pressure is estimated at 94 mmHg. There is severe pulmonary hypertension.
--- NOTE | 2016-08-29 17:17 | PDOC ---
PULMONARY PROGRESS NOTES Vitals Vital Signs Date Time Temp Pulse Resp B/P Pulse Ox O2 Delivery O2 Flow Rate FiO2 08/29/16 15:32 80 Venturi Mask 15.0 08/29/16 14:21 98.7 96 20 121/58 98.7 General: Alert, Oriented X4, No acute distress Lungs: Other Cardiovascular: S1 Abdomen: Soft, Non-tender Extremities: No Edema Labs Laboratory Tests Test 08/28/16 10:40 08/28/16 12:05 08/28/16 12:16 08/29/16 05:15 O2 Saturation 97% (92-99) Arterial Blood pH 7.34 (7.35-7.45) Arterial Blood pCO2 at Patient Temp 80mmHg (35-46) Arterial Blood pO2 at Patient Temp 99mmHg (65-108) Arterial Blood HCO3 42mmol/L (21-28) Arterial Blood Base Excess 13mmol/L (-3-3) FiO2 100 Troponin I Quantitative < 0.017ng/mL (0.000-0.055) White Blood Count 12.7x10^3/uL (4.0-11.0) 13.7x10^3/uL (4.0-11.0) Red Blood Count 4.46x10^6/uL (3.50-5.40) 3.49x10^6/uL (3.50-5.40) Hemoglobin 11.5g/dL (12.0-15.5) 9.0g/dL (12.0-15.5) Hematocrit 38.3% (36.0-47.0) 29.0% (36.0-47.0) Mean Corpuscular Volume 86fL (79-100) 83fL (79-100) Mean Corpuscular Hemoglobin 26pg (25-35) 26pg (25-35) Mean Corpuscular Hemoglobin Concent 30g/dL (31-37) 31g/dL (31-37) Red Cell Distribution Width 14.2% (11.5-14.5) 13.7% (11.5-14.5) Platelet Count 182x10^3/uL (140-400) 206x10^3/uL (140-400) Neutrophils (%) (Auto) 94% (31-73) 90% (31-73) Lymphocytes (%) (Auto) 4% (24-48) 4% (24-48) Monocytes (%) (Auto) 2% (0-9) 6% (0-9) Eosinophils (%) (Auto) 0% (0-3) 0% (0-3) Basophils (%) (Auto) 0% (0-3) 0% (0-3) Neutrophils # (Auto) 11.9x10^3uL (1.8-7.7) 12.4x10^3uL (1.8-7.7) Lymphocytes # (Auto) 0.5x10^3/uL (1.0-4.8) 0.6x10^3/uL (1.0-4.8) Monocytes # (Auto) 0.3x10^3/uL (0.0-1.1) 0.8x10^3/uL (0.0-1.1) Eosinophils # (Auto) 0.0x10^3/uL (0.0-0.7) 0.0x10^3/uL (0.0-0.7) Basophils # (Auto) 0.0x10^3/uL (0.0-0.2) 0.0x10^3/uL (0.0-0.2) Segmented Neutrophils % 90% (35-66) Band Neutrophils % 2% (0-9) Lymphocytes % 2% (24-48) Monocytes % 6% (0-10) Platelet Estimate Adequate (ADEQUATE) Sodium Level 142mmol/L (136-145) 147mmol/L (136-145) Potassium Level 5.2mmol/L (3.5-5.1) 4.0mmol/L (3.5-5.1) Chloride Level 101mmol/L (98-107) 101mmol/L (98-107) Carbon Dioxide Level 39mmol/L (21-32) 40mmol/L (21-32) Anion Gap 2 (6-14) 6 (6-14) Blood Urea Nitrogen 26mg/dL (7-20) 38mg/dL (7-20) Creatinine 0.9mg/dL (0.6-1.0) 1.0mg/dL (0.6-1.0) Estimated GFR (Cockcroft-Gault) 76.0 67.3 BUN/Creatinine Ratio 29 (6-20) Glucose Level 144mg/dL (70-99) 132mg/dL (70-99) Lactic Acid Level 1.9mmol/L (0.4-2.0) Calcium Level 9.8mg/dL (8.5-10.1) 9.0mg/dL (8.5-10.1) Total Bilirubin 0.7mg/dL (0.2-1.0) Aspartate Amino Transf (AST/SGOT) 14U/L (15-37) Alanine Aminotransferase (ALT/SGPT) 12U/L (14-59) Alkaline Phosphatase 55U/L (46-116) Creatine Kinase 47U/L (26-192) Creatine Kinase MB (Mass) < 0.5ng/mL (0.0-3.6) Creatine Kinase MB Relative Index 1.1% (0-4) GM-Klq-F-Type Natriuretic Peptide 4659pg/mL (0-124) Total Protein 8.5g/dL (6.4-8.2) Albumin 3.6g/dL (3.4-5.0) Albumin/Globulin Ratio 0.7 (1.0-1.7) Test 08/29/16 07:50 O2 Saturation 92% (92-99) Arterial Blood pH 7.50 (7.35-7.45) Arterial Blood pCO2 at Patient Temp 50mmHg (35-46) Arterial Blood pO2 at Patient Temp 66mmHg (65-108) Arterial Blood HCO3 38mmol/L (21-28) Arterial Blood Base Excess 13mmol/L (-3-3) FiO2 55 Laboratory Tests Test 08/29/16 05:15 08/29/16 07:50 White Blood Count 13.7x10^3/uL (4.0-11.0) Red Blood Count 3.49x10^6/uL (3.50-5.40) Hemoglobin 9.0g/dL (12.0-15.5) Hematocrit 29.0% (36.0-47.0) Mean Corpuscular Volume 83fL (79-100) Mean Corpuscular Hemoglobin 26pg (25-35) Mean Corpuscular Hemoglobin Concent 31g/dL (31-37) Red Cell Distribution Width 13.7% (11.5-14.5) Platelet Count 206x10^3/uL (140-400) Neutrophils (%) (Auto) 90% (31-73) Lymphocytes (%) (Auto) 4% (24-48) Monocytes (%) (Auto) 6% (0-9) Eosinophils (%) (Auto) 0% (0-3) Basophils (%) (Auto) 0% (0-3) Neutrophils # (Auto) 12.4x10^3uL (1.8-7.7) Lymphocytes # (Auto) 0.6x10^3/uL (1.0-4.8) Monocytes # (Auto) 0.8x10^3/uL (0.0-1.1) Eosinophils # (Auto) 0.0x10^3/uL (0.0-0.7) Basophils # (Auto) 0.0x10^3/uL (0.0-0.2) Sodium Level 147mmol/L (136-145) Potassium Level 4.0mmol/L (3.5-5.1) Chloride Level 101mmol/L (98-107) Carbon Dioxide Level 40mmol/L (21-32) Anion Gap 6 (6-14) Blood Urea Nitrogen 38mg/dL (7-20) Creatinine 1.0mg/dL (0.6-1.0) Estimated GFR (Cockcroft-Gault) 67.3 Glucose Level 132mg/dL (70-99) Calcium Level 9.0mg/dL (8.5-10.1) O2 Saturation 92% (92-99) Arterial Blood pH 7.50 (7.35-7.45) Arterial Blood pCO2 at Patient Temp 50mmHg (35-46) Arterial Blood pO2 at Patient Temp 66mmHg (65-108) Arterial Blood HCO3 38mmol/L (21-28) Arterial Blood Base Excess 13mmol/L (-3-3) FiO2 55 Medications Active Scripts Medications Dose Route/Sig Days Date Category Cipro (Ciprofloxacin Hcl) 250 Mg Tablet 1 Tab PO BID 5 02/26/16 Rx Atorvastatin Calcium 20 Mg Tablet 20 Mg PO QHS 30 02/26/16 Rx Aspirin 325 Mg Tablet 325 Mg PO DAILYWBKFT 30 02/26/16 Rx Furosemide 20 Mg Tablet 20 Mg GT DAILY 30 09/09/15 Rx Potassium Chloride Oral Liquid (Potassium Chloride) 20 Meq/15 Ml Liquid 20 Meq PEG DAILY 30 08/27/15 Rx Famotidine 20 Mg Tablet 20 Mg PO BID 30 08/27/15 Rx Carvedilol 12.5 Mg Tablet 25 Mg PO BID@, 30 08/27/15 Rx Acetaminophen 650 Mg/20.3 Ml Solution 325 Mg PEG PRN Q6HRS PRN 30 08/27/15 Rx Albuterol Sulfate Neb Soln (Albuterol Sulfate) 2.5 Mg/3 Ml Vial.neb 2.5 Mg NEB RTQID 30 08/04/15 Rx Impression . FULL CONSULT DICATED A/C RESP FAILURE MULTIFACTORIAL ACUTE HEART FAILURE POSSIBLE ASPIRATION PNEUMONIA THANKS LAUREL HAMILTON MD Aug 29, 2016 17:16
[2016-08-29 19:00] VITALS: BP 130/80
[2016-08-29] MEDS: ATORVASTATIN CALCIUM 20 MG TABLET PO SCH (21:17)
[2016-08-29 23:00] VITALS: BP 110/57
[2016-08-30] MEDS ORDERED: ALBUTEROL SULFATE 2.5 MG/3 ML NEBU. NEB ONE (02:15)
[2016-08-30 03:10] VITALS: BP 118/59
--- NOTE | 2016-08-30 05:54 | CONS ---
DATE OF CONSULTATION: 08/29/2016 ATTENDING PHYSICIAN: Mayra Renee MD. REASON FOR CONSULTATION: The patient is seen in pulmonary consultation at the request of Dr. Renee for acute on chronic hypercapnic hypoxemic respiratory failure. The patient initially presented, her pH was 7.34, PaCO2 of 80, pO2 of 99, bicarb of 42. The patient is a 66-year-old female well known to us from previous hospitalization in the Outpatient Department, presented with a 2-3 day history of increasing shortness of breath, decreased saturations at home. She normally wears 4 liters of oxygen supplementation. She presented and had a chest x-ray which revealed bilateral infiltrates compatible with CHF, left-sided effusion. She had an arterial blood gas as indicated above. She was placed on BiPAP. She is currently off of BiPAP. She states that she is feeling better. I was asked to see her in consultation. PAST MEDICAL HISTORY: 1. Chronic respiratory failure on 4 liters of oxygen supplementation secondary to COPD of the emphysematous type. 2. Tobacco dependence, quit many years ago. 3. Hyperlipidemia. 4. Hypertension. 5. Previous CVA, status post PEG tube placement. PAST SURGICAL HISTORY: Status post G-tube placement. SOCIAL HISTORY: She quit tobacco many years ago. CURRENT MEDICATIONS: List was reviewed. Please see the MRAD. REVIEW OF SYSTEMS: As indicated above, otherwise, a 10-point system was reviewed and negative. ALLERGIES: No known drug allergies. PHYSICAL EXAMINATION: VITAL SIGNS: The patient was off her BiPAP. She was on a Venturi mask, O2 saturation currently greater than 92%. HEENT: Eyes, the sclerae were nonicteric. NECK: Jugular venous distention was not elevated. No lymphadenopathy. CHEST: Full expansion. LUNGS: Crackles throughout both lung sanderson. No wheezes. CARDIOVASCULAR: Regular rate and rhythm with S1, S2, no S3. ABDOMEN: Soft, nontender, nondistended. PEG tube in place. EXTREMITIES: No clubbing, cyanosis or edema. NEUROLOGIC: The patient was awake, alert, following commands. A detailed neuro exam was not performed. LABORATORY DATA: White count was 12,000, hemoglobin and hematocrit were noted. Arterial blood gas as indicated above. Electrolytes were deranged. BUN was elevated. Creatinine was normal. BNP was elevated. Chest x-ray as indicated above. IMPRESSION: 1. Acute on chronic respiratory failure, multifactorial. 2. Acute on chronic systolic and diastolic heart failure. 3. Acute exacerbation of chronic obstructive pulmonary disease. 4. Leukocytosis. Possible aspiration pneumonia. 5. Cerebrovascular accident with subsequent neurogenic dysphagia, status post PEG tube placement. PLAN: 1. Recommend continued diuresis. 2. P.r.n. BiPAP. 3. Avoid increasing oxygen supplementation. 4. Agree with Dr. Renee, no need for steroids. 5. Continue empiric antibiotics. 6. Avoid salty foods, apparently the patient has been eating lots of at home. 7. Consult cardiology, already performed. I do appreciate the privilege in sharing this patient's care. LAUREL HAMILTON MD DR: PATRICIA/angela JOB#: [id number] / [id number]
--- NOTE | 2016-08-30 06:20 | PDOC ---
PULMONARY PROGRESS NOTES Subjective PT FEELS BETTER Vitals Vital Signs Date Time Temp Pulse Resp B/P Pulse Ox O2 Delivery O2 Flow Rate FiO2 08/30/16 03:10 97.2 84 22 118/59 96 Venturi Mask 97.2 08/30/16 02:12 15.0 ROS: No Nausea, No Chest Pain, No Abdominal Pain, No Increase Cough General: Alert, Oriented X4, No acute distress Lungs: Crackles Cardiovascular: S1, S2 Abdomen: Soft, Non-tender Neuro Exam: Alert Extremities: No Edema Skin: Warm Labs Laboratory Tests Test 08/28/16 10:40 08/28/16 12:05 08/28/16 12:16 08/29/16 05:15 O2 Saturation 97% (92-99) Arterial Blood pH 7.34 (7.35-7.45) Arterial Blood pCO2 at Patient Temp 80mmHg (35-46) Arterial Blood pO2 at Patient Temp 99mmHg (65-108) Arterial Blood HCO3 42mmol/L (21-28) Arterial Blood Base Excess 13mmol/L (-3-3) FiO2 100 Troponin I Quantitative < 0.017ng/mL (0.000-0.055) White Blood Count 12.7x10^3/uL (4.0-11.0) 13.7x10^3/uL (4.0-11.0) Red Blood Count 4.46x10^6/uL (3.50-5.40) 3.49x10^6/uL (3.50-5.40) Hemoglobin 11.5g/dL (12.0-15.5) 9.0g/dL (12.0-15.5) Hematocrit 38.3% (36.0-47.0) 29.0% (36.0-47.0) Mean Corpuscular Volume 86fL (79-100) 83fL (79-100) Mean Corpuscular Hemoglobin 26pg (25-35) 26pg (25-35) Mean Corpuscular Hemoglobin Concent 30g/dL (31-37) 31g/dL (31-37) Red Cell Distribution Width 14.2% (11.5-14.5) 13.7% (11.5-14.5) Platelet Count 182x10^3/uL (140-400) 206x10^3/uL (140-400) Neutrophils (%) (Auto) 94% (31-73) 90% (31-73) Lymphocytes (%) (Auto) 4% (24-48) 4% (24-48) Monocytes (%) (Auto) 2% (0-9) 6% (0-9) Eosinophils (%) (Auto) 0% (0-3) 0% (0-3) Basophils (%) (Auto) 0% (0-3) 0% (0-3) Neutrophils # (Auto) 11.9x10^3uL (1.8-7.7) 12.4x10^3uL (1.8-7.7) Lymphocytes # (Auto) 0.5x10^3/uL (1.0-4.8) 0.6x10^3/uL (1.0-4.8) Monocytes # (Auto) 0.3x10^3/uL (0.0-1.1) 0.8x10^3/uL (0.0-1.1) Eosinophils # (Auto) 0.0x10^3/uL (0.0-0.7) 0.0x10^3/uL (0.0-0.7) Basophils # (Auto) 0.0x10^3/uL (0.0-0.2) 0.0x10^3/uL (0.0-0.2) Segmented Neutrophils % 90% (35-66) Band Neutrophils % 2% (0-9) Lymphocytes % 2% (24-48) Monocytes % 6% (0-10) Platelet Estimate Adequate (ADEQUATE) Sodium Level 142mmol/L (136-145) 147mmol/L (136-145) Potassium Level 5.2mmol/L (3.5-5.1) 4.0mmol/L (3.5-5.1) Chloride Level 101mmol/L (98-107) 101mmol/L (98-107) Carbon Dioxide Level 39mmol/L (21-32) 40mmol/L (21-32) Anion Gap 2 (6-14) 6 (6-14) Blood Urea Nitrogen 26mg/dL (7-20) 38mg/dL (7-20) Creatinine 0.9mg/dL (0.6-1.0) 1.0mg/dL (0.6-1.0) Estimated GFR (Cockcroft-Gault) 76.0 67.3 BUN/Creatinine Ratio 29 (6-20) Glucose Level 144mg/dL (70-99) 132mg/dL (70-99) Lactic Acid Level 1.9mmol/L (0.4-2.0) Calcium Level 9.8mg/dL (8.5-10.1) 9.0mg/dL (8.5-10.1) Total Bilirubin 0.7mg/dL (0.2-1.0) Aspartate Amino Transf (AST/SGOT) 14U/L (15-37) Alanine Aminotransferase (ALT/SGPT) 12U/L (14-59) Alkaline Phosphatase 55U/L (46-116) Creatine Kinase 47U/L (26-192) Creatine Kinase MB (Mass) < 0.5ng/mL (0.0-3.6) Creatine Kinase MB Relative Index 1.1% (0-4) BJ-Tde-S-Type Natriuretic Peptide 4659pg/mL (0-124) Total Protein 8.5g/dL (6.4-8.2) Albumin 3.6g/dL (3.4-5.0) Albumin/Globulin Ratio 0.7 (1.0-1.7) Test 08/29/16 07:50 O2 Saturation 92% (92-99) Arterial Blood pH 7.50 (7.35-7.45) Arterial Blood pCO2 at Patient Temp 50mmHg (35-46) Arterial Blood pO2 at Patient Temp 66mmHg (65-108) Arterial Blood HCO3 38mmol/L (21-28) Arterial Blood Base Excess 13mmol/L (-3-3) FiO2 55 Laboratory Tests Test 08/29/16 07:50 O2 Saturation 92% (92-99) Arterial Blood pH 7.50 (7.35-7.45) Arterial Blood pCO2 at Patient Temp 50mmHg (35-46) Arterial Blood pO2 at Patient Temp 66mmHg (65-108) Arterial Blood HCO3 38mmol/L (21-28) Arterial Blood Base Excess 13mmol/L (-3-3) FiO2 55 Medications Active Scripts Medications Dose Route/Sig Days Date Category Cipro (Ciprofloxacin Hcl) 250 Mg Tablet 1 Tab PO BID 5 02/26/16 Rx Atorvastatin Calcium 20 Mg Tablet 20 Mg PO QHS 30 02/26/16 Rx Aspirin 325 Mg Tablet 325 Mg PO DAILYWBKFT 30 02/26/16 Rx Furosemide 20 Mg Tablet 20 Mg GT DAILY 30 09/09/15 Rx Potassium Chloride Oral Liquid (Potassium Chloride) 20 Meq/15 Ml Liquid 20 Meq PEG DAILY 30 08/27/15 Rx Famotidine 20 Mg Tablet 20 Mg PO BID 30 08/27/15 Rx Carvedilol 12.5 Mg Tablet 25 Mg PO BID@ 30 08/27/15 Rx Acetaminophen 650 Mg/20.3 Ml Solution 325 Mg PEG PRN Q6HRS PRN 30 08/27/15 Rx Albuterol Sulfate Neb Soln (Albuterol Sulfate) 2.5 Mg/3 Ml Vial.neb 2.5 Mg NEB RTQID 30 08/04/15 Rx Impression . 1. Acute on chronic respiratory failure, multifactorial. 2. Acute on chronic systolic and diastolic heart failure. 3. Acute exacerbation of chronic obstructive pulmonary disease. 4. Leukocytosis. Possible aspiration pneumonia. 5. Cerebrovascular accident with subsequent neurogenic dysphagia, status post PEG tube placement. Plan . CONTINUE THE SAME FOR NOW I THINK THIS IS MORE HEART FAILURE PT IMPROVING LAUREL HAMILTON MD Aug 30, 2016 06:20
[2016-08-30 06:26] LABS: CALCIUM 9.2 mg/dL (8.5-10.1); CREATININE 1.1 mg/dL (0.6-1.0); GFR 60.3; POTASSIUM 3.6 mmol/L (3.5-5.1)
[2016-08-30 07:00] VITALS: BP 114/69
--- NOTE | 2016-08-30 07:26 | PDOC ---
PROGRESS NOTES Subjective Subjective Patient reports breathing is a little better, admits she still has some cough and SOA. Objective Objective Vital Signs Date Time Temp Pulse Resp B/P Pulse Ox O2 Delivery O2 Flow Rate FiO2 08/30/16 03:10 97.2 84 22 118/59 96 Venturi Mask 97.2 08/30/16 02:12 15.0 Intake and Output 08/30/16 07:00 Intake Total 900 ml Output Total 1150 ml Balance -250 ml Intake Oral 0 ml Tube Feeding 500 ml Other 400 ml Output Urine Total 1150 ml # Voids 2 Physical Exam Abdomen: Normal bowel sounds, Soft, No tenderness Heart: Regular rate Extremities: No edema General: Alert, Oriented X3, No acute distress Lungs: Other (BS decreased throughout, otherwise CTA) Assessment Assessment Problems Medical Problems: (1) Acute respiratory failure with hypoxia and hypercapnia Status: Acute (2) Congestive heart failure Status: Acute (3) COPD exacerbation Status: Acute Plan Plan of Care 1. Acute on chronic respiratory failure with COPD - slowly improving, now tolerating Venti mask with 15L O2. Continue tx as per Pulmonary. 2. acute exacerbation of diastolic CHF - repeat Echo shows preserved EF and severe pulmonary HTN. Mild amount of diuresis charted yesterday. BUN increasing , will decrease Lasix to 1x daily and follow. Cardiology following. 3. HTN - controlled, continue present meds. 4. dysphagia, s/p CVA - stable, continue NPO with TF. Bedside swallow eval when her condition allows. Comment Review of Relevant I have reviewed the following items chon (where applicable) has been applied. Labs Laboratory Tests Test 08/28/16 10:40 08/28/16 12:05 08/28/16 12:16 08/29/16 05:15 O2 Saturation 97% (92-99) Arterial Blood pH 7.34 (7.35-7.45) Arterial Blood pCO2 at Patient Temp 80mmHg (35-46) Arterial Blood pO2 at Patient Temp 99mmHg (65-108) Arterial Blood HCO3 42mmol/L (21-28) Arterial Blood Base Excess 13mmol/L (-3-3) FiO2 100 Troponin I Quantitative < 0.017ng/mL (0.000-0.055) White Blood Count 12.7x10^3/uL (4.0-11.0) 13.7x10^3/uL (4.0-11.0) Red Blood Count 4.46x10^6/uL (3.50-5.40) 3.49x10^6/uL (3.50-5.40) Hemoglobin 11.5g/dL (12.0-15.5) 9.0g/dL (12.0-15.5) Hematocrit 38.3% (36.0-47.0) 29.0% (36.0-47.0) Mean Corpuscular Volume 86fL (79-100) 83fL (79-100) Mean Corpuscular Hemoglobin 26pg (25-35) 26pg (25-35) Mean Corpuscular Hemoglobin Concent 30g/dL (31-37) 31g/dL (31-37) Red Cell Distribution Width 14.2% (11.5-14.5) 13.7% (11.5-14.5) Platelet Count 182x10^3/uL (140-400) 206x10^3/uL (140-400) Neutrophils (%) (Auto) 94% (31-73) 90% (31-73) Lymphocytes (%) (Auto) 4% (24-48) 4% (24-48) Monocytes (%) (Auto) 2% (0-9) 6% (0-9) Eosinophils (%) (Auto) 0% (0-3) 0% (0-3) Basophils (%) (Auto) 0% (0-3) 0% (0-3) Neutrophils # (Auto) 11.9x10^3uL (1.8-7.7) 12.4x10^3uL (1.8-7.7) Lymphocytes # (Auto) 0.5x10^3/uL (1.0-4.8) 0.6x10^3/uL (1.0-4.8) Monocytes # (Auto) 0.3x10^3/uL (0.0-1.1) 0.8x10^3/uL (0.0-1.1) Eosinophils # (Auto) 0.0x10^3/uL (0.0-0.7) 0.0x10^3/uL (0.0-0.7) Basophils # (Auto) 0.0x10^3/uL (0.0-0.2) 0.0x10^3/uL (0.0-0.2) Segmented Neutrophils % 90% (35-66) Band Neutrophils % 2% (0-9) Lymphocytes % 2% (24-48) Monocytes % 6% (0-10) Platelet Estimate Adequate (ADEQUATE) Sodium Level 142mmol/L (136-145) 147mmol/L (136-145) Potassium Level 5.2mmol/L (3.5-5.1) 4.0mmol/L (3.5-5.1) Chloride Level 101mmol/L (98-107) 101mmol/L (98-107) Carbon Dioxide Level 39mmol/L (21-32) 40mmol/L (21-32) Anion Gap 2 (6-14) 6 (6-14) Blood Urea Nitrogen 26mg/dL (7-20) 38mg/dL (7-20) Creatinine 0.9mg/dL (0.6-1.0) 1.0mg/dL (0.6-1.0) Estimated GFR (Cockcroft-Gault) 76.0 67.3 BUN/Creatinine Ratio 29 (6-20) Glucose Level 144mg/dL (70-99) 132mg/dL (70-99) Lactic Acid Level 1.9mmol/L (0.4-2.0) Calcium Level 9.8mg/dL (8.5-10.1) 9.0mg/dL (8.5-10.1) Total Bilirubin 0.7mg/dL (0.2-1.0) Aspartate Amino Transf (AST/SGOT) 14U/L (15-37) Alanine Aminotransferase (ALT/SGPT) 12U/L (14-59) Alkaline Phosphatase 55U/L (46-116) Creatine Kinase 47U/L (26-192) Creatine Kinase MB (Mass) < 0.5ng/mL (0.0-3.6) Creatine Kinase MB Relative Index 1.1% (0-4) TC-Qke-S-Type Natriuretic Peptide 4659pg/mL (0-124) Total Protein 8.5g/dL (6.4-8.2) Albumin 3.6g/dL (3.4-5.0) Albumin/Globulin Ratio 0.7 (1.0-1.7) Test 08/29/16 07:50 08/30/16 04:20 O2 Saturation 92% (92-99) Arterial Blood pH 7.50 (7.35-7.45) Arterial Blood pCO2 at Patient Temp 50mmHg (35-46) Arterial Blood pO2 at Patient Temp 66mmHg (65-108) Arterial Blood HCO3 38mmol/L (21-28) Arterial Blood Base Excess 13mmol/L (-3-3) FiO2 55 Sodium Level 146mmol/L (136-145) Potassium Level 3.6mmol/L (3.5-5.1) Chloride Level 99mmol/L (98-107) Carbon Dioxide Level 42mmol/L (21-32) Anion Gap 5 (6-14) Blood Urea Nitrogen 44mg/dL (7-20) Creatinine 1.1mg/dL (0.6-1.0) Estimated GFR (Cockcroft-Gault) 60.3 Glucose Level 84mg/dL (70-99) Calcium Level 9.2mg/dL (8.5-10.1) Laboratory Tests Test 08/29/16 07:50 08/30/16 04:20 O2 Saturation 92% (92-99) Arterial Blood pH 7.50 (7.35-7.45) Arterial Blood pCO2 at Patient Temp 50mmHg (35-46) Arterial Blood pO2 at Patient Temp 66mmHg (65-108) Arterial Blood HCO3 38mmol/L (21-28) Arterial Blood Base Excess 13mmol/L (-3-3) FiO2 55 Sodium Level 146mmol/L (136-145) Potassium Level 3.6mmol/L (3.5-5.1) Chloride Level 99mmol/L (98-107) Carbon Dioxide Level 42mmol/L (21-32) Anion Gap 5 (6-14) Blood Urea Nitrogen 44mg/dL (7-20) Creatinine 1.1mg/dL (0.6-1.0) Estimated GFR (Cockcroft-Gault) 60.3 Glucose Level 84mg/dL (70-99) Calcium Level 9.2mg/dL (8.5-10.1) Microbiology 08/28/16 Blood Culture - Preliminary, Resulted NO GROWTH AFTER 1 DAY Medications Current Medications Albuterol/ Ipratropium (Duoneb) 3 ml 1X ONCE NEB Last administered on 15:03; Start 08/28/16 at 09:30; Stop 08/28/16 at 09:31; Status DC Methylprednisolone Sodium Succinate (Solu-Medrol 125mg Vial) 125 mg 1X ONCE IV Last administered on 08/28/16 09:38; Start 08/28/16 at 09:30; Stop 08/28/16 at 09:31; Status DC Albuterol Sulfate 2.5 mg 2.5 mg 1X ONCE NEB Last administered on 08/28/16 15: 04; Start 08/28/16 at 09:30; Stop 08/28/16 at 09:31; Status DC Diltiazem HCl/ Dextrose (Cardizem) 125 ml @ 0 mls/hr CONT PRN IV SEE I/O RECORD ; Start 08/28/16 at 09:30; Status UNV Ondansetron HCl 4 mg 4 mg PRN Q8HRS PRN IV NAUSEA/VOMITING; Start 08/28/16 at 14:00; Stop 08/29/16 at 13:59; Status DC Sodium Chloride (Iv Sodium Chloride 0.9% 1000ml Bag) 1,000 ml @ 50 mls/hr Q20H IV ; Start 08/28/16 at 13:55; Stop 08/28/16 at 17:54; Status DC Albuterol/ Ipratropium (Duoneb) 3 ml RTQID NEB ; Start 08/28/16 at 16:00; Stop 08/28/16 at 16:00; Status DC Furosemide (Lasix) 60 mg 1X ONCE IVP Last administered on 08/28/16 15:04; Start 08/28/16 at 14:00; Stop 08/28/16 at 14:07; Status DC Acetaminophen (Tylenol) 325 mg PRN Q6HRS PRN PEG MILD PAIN / TEMP; Start at 14:45 Amlodipine Besylate (Norvasc) 5 mg BID PO Last administered on 08/29/16 21:17 ; Start 08/28/16 at 21:00 Aspirin (Tobi Aspirin) 325 mg DAILYWBKFT PO Last administered on 08/29/16 08: 49; Start 08/29/16 at 08:00 Atorvastatin Calcium (Lipitor) 20 mg QHS PO Last administered on 08/29/16 21: 17; Start 08/28/16 at 21:00 Carvedilol (Coreg) 25 mg BID@07,19 PO Last administered on 08/29/16 21:17; Start 08/28/16 at 19:00 Famotidine (Pepcid) 20 mg BID PO Last administered on 08/29/16 21:17; Start at 21:00 Lisinopril (Prinivil) 40 mg BID PO Last administered on 08/29/16 21:18; Start 08/28/16 at 21:00 Potassium Chloride (KCl Oral Soln) 20 meq DAILY PEG Last administered on 08:50; Start 08/29/16 at 09:00 Albuterol/ Ipratropium (Duoneb) 3 ml RTQID NEB Last administered on 08/29/16 18:08; Start 08/28/16 at 16:00 Budesonide (Pulmicort) 0.5 mg RTBID NEB Last administered on 08/29/16 18:08; Start 08/28/16 at 20:00 Furosemide (Lasix) 40 mg BID92 IVP Last administered on 08/29/16 14:00; Start 08/28/16 at 15:00 Albuterol/ Ipratropium (Duoneb) 3 ml STK-MED ONCE .ROUTE ; Start 08/28/16 at 14: 49; Stop 08/28/16 at 14:50; Status DC Albuterol Sulfate 2.5 mg 2.5 mg STK-MED ONCE .ROUTE ; Start 08/28/16 at 14:49; Stop 08/28/16 at 14:50; Status DC Ceftriaxone Sodium/Sodium Chloride (Rocephin/Iv Sodium Chloride 0.9% 50ml) 50 ml @ 100 mls/hr Q24H IV Last administered on 08/29/16 15:44; Start 08/28/16 at 16:00 Albuterol Sulfate (Ventolin Neb Soln) 2.5 mg 1X ONCE NEB Last administered on 08/30/16 02:17; Start 08/30/16 at 02:15; Stop 08/30/16 at 02:34; Status DC Active Scripts Active Cipro (Ciprofloxacin Hcl) 250 Mg Tablet 1 Tab PO BID 5 Days Atorvastatin Calcium 20 Mg Tablet 20 Mg PO QHS 30 Days Aspirin 325 Mg Tablet 325 Mg PO DAILYWBKFT 30 Days Furosemide 20 Mg Tablet 20 Mg GT DAILY 30 Days Potassium Chloride Oral Liquid (Potassium Chloride) 20 Meq/15 Ml Liquid 20 Meq PEG DAILY 30 Days Famotidine 20 Mg Tablet 20 Mg PO BID 30 Days Carvedilol 12.5 Mg Tablet 25 Mg PO BID@ 30 Days Acetaminophen 650 Mg/20.3 Ml Solution 325 Mg PEG PRN Q6HRS PRN 30 Days Albuterol Sulfate Neb Soln (Albuterol Sulfate) 2.5 Mg/3 Ml Vial.neb 2.5 Mg NEB RTQID 30 Days Vitals/I & O Vital Sign - Last 24 Hours 08/29/16 08/29/16 08/29/16 08/29/16 07:51 08:28 08:49 08:49 Pulse 98 98 B/P 146/70 146/70 Pulse Ox 100 O2 Delivery Bi-pap Nasal Cannula O2 Flow Rate 4.0 4.0 08/29/16 08/29/16 08/29/16 08/29/16 10:18 10:59 14:21 15:32 Temp 98.4 98.7 98.4 98.7 Pulse 98 96 Resp 18 20 B/P 126/58 121/58 Pulse Ox 74 80 82 80 O2 Delivery Venturi Mask Venturi Mask Venturi Mask Venturi Mask O2 Flow Rate 15.0 15.0 08/29/16 08/29/16 08/29/16 08/29/16 18:09 19:00 20:00 21:17 Temp 97.9 97.9 Pulse 84 84 Resp 16 B/P 130/80 130/80 Pulse Ox 85 91 O2 Delivery Venturi Mask Venturi Mask Venturi Mask O2 Flow Rate 15.0 15.0 08/29/16 08/29/16 08/29/16 08/30/16 21:17 21:18 23:00 02:12 Temp 97.9 97.9 Pulse 84 84 88 Resp 22 B/P 130/80 130/80 110/57 Pulse Ox 89 93 O2 Delivery Venturi Mask Venturi Mask O2 Flow Rate 15.0 15.0 08/30/16 03:10 Temp 97.2 97.2 Pulse 84 Resp 22 B/P 118/59 Pulse Ox 96 O2 Delivery Venturi Mask Intake and Output 08/29/16 08/29/16 08/30/16 15:00 23:00 07:00 Intake Total 900 ml 0 ml Output Total 500 ml 200 ml 450 ml Balance 400 ml -200 ml -450 ml OFELIA WISE MD Aug 30, 2016 07:26
[2016-08-30] MEDS: IPRATRPIUM/ALBUTEROL 0.5/2.5MG 3 ML NEBU. NEB SCH ×4 (08:24→19:33)
[2016-08-30] MEDS: BUDESONIDE 0.5 MG/2 ML NEBU NEB SCH ×2 (08:25→19:33)
[2016-08-30] MEDS: FUROSEMIDE 40 MG/4 ML VIAL IVP SCH (09:14)
[2016-08-30] MEDS: CARVEDILOL 12.5 MG TABLET PO SCH ×2 (09:14→16:53)
[2016-08-30] MEDS: ASPIRIN 325 MG TABLET PO SCH (09:15)
[2016-08-30] MEDS: FAMOTIDINE 20 MG TABLET. PO SCH ×2 (09:16→20:25)
[2016-08-30] MEDS: AMLODIPINE BESYLATE 5 MG TABLET PO SCH ×2 (09:16→20:26)
[2016-08-30] MEDS: POTASSIUM CHLORIDE 20 MEQ/15 ML ORAL LIQUID. PEG SCH (09:17)
[2016-08-30] MEDS: LISINOPRIL 40 MG TABLET. PO SCH ×2 (09:18→20:25)
[2016-08-30 11:01] VITALS: BP 106/66
--- NOTE | 2016-08-30 11:05 | PDOC ---
RUBEN HENDRIX [place] APPRENTICE 08/30/16 1105: CARDIO Progress Notes Date and Time Date of Service 08/30/16 Time of Evaluation 1015 Subjective Subjective: No Chest Pain, Other (denies SOA, requiring venti mask. wanting to go home) Vitals Vitals Vital Signs Date Time Temp Pulse Resp B/P Pulse Ox O2 Delivery O2 Flow Rate FiO2 08/30/16 09:18 85 114/69 08/30/16 08:25 95 Venturi Mask 15.0 08/30/16 07:00 97.8 26 97.8 Weight Weight [ ] Input and Output Intake and Output Intake and Output 08/30/16 07:00 Intake Total 900 ml Output Total 1300 ml Balance -400 ml Intake Oral 0 ml Tube Feeding 500 ml Other 400 ml Output Urine Total 1300 ml # Voids 2 Laboratory Labs Laboratory Tests Test 08/30/16 04:20 Sodium Level 146mmol/L (136-145) Potassium Level 3.6mmol/L (3.5-5.1) Chloride Level 99mmol/L (98-107) Carbon Dioxide Level 42mmol/L (21-32) Anion Gap 5 (6-14) Blood Urea Nitrogen 44mg/dL (7-20) Creatinine 1.1mg/dL (0.6-1.0) Estimated GFR (Cockcroft-Gault) 60.3 Glucose Level 84mg/dL (70-99) Calcium Level 9.2mg/dL (8.5-10.1) Microbiology Micro Microbiology 08/28/16 Blood Culture - Preliminary, Resulted NO GROWTH AFTER 1 DAY Physical Exam HEENT: Neck Supple W Full Motion Chest: Symmetric LUNGS: Other (diminished bases ) Heart: S1S2, RRR Abdomen: Soft N/T Extremities: 2+ Dorsalis Pedis, Negative Nancy's Sign, No Calf Tenderness Neurology: alert, oriented, follow commands Assessment Assessment 1. Acute on chronic diastolic heart failure 2. Acute on chronic respiratory failure 3. AE COPD 4. Severe pulmonary hypertension 5. Prior CVA with dysphagia s/p PEG placement 6. ? aspiration PNA Recommendations repeat echo with preserved LV function and severe pulHTN continue diuresis/supportive care from cardiovascular perspective Will follow along BENITA REAGAN MD 08/30/16 1607: CARDIO Progress Notes Plan Plan Patient seen and examined. Agree with above nurse practitioner note. No acute events overnight. On 50% Ventimask she is saturating approximately 97% . She has decreased breath sounds throughout. No RV heave present. Labs and medications reviewed. Continue supportive care and diuresis as tolerated. She may ultimately benefit from repeat evaluation for consideration of pulmonary hypertension therapy for symptomatic benefit rather than any or telemetry benefit. Could consider right heart cath if requested by pulmonary service. Otherwise we will follow along peripherally. Thank you for this consultation. RUBEN HENDRIX APRN Aug 30, 2016 11:05 BENITA REAGAN MD Aug 30, 2016 16:07
[2016-08-30 15:01] VITALS: BP 105/61
[2016-08-30] MEDS: CEFTRIAXONE SODIUM 1 GM in IV NORMAL SALINE 50ML 50 ML IV SCH (16:52)
[2016-08-30 19:22] VITALS: BP 119/56
[2016-08-30] MEDS: ATORVASTATIN CALCIUM 20 MG TABLET PO SCH (20:25)
[2016-08-30 23:57] VITALS: BP 116/65
[2016-08-31] VITALS (7 sets, daily range): BP systolic 99–144; BP diastolic 53–71
[2016-08-31] MEDS ORDERED: ALBUTEROL SULFATE 2.5 MG/3 ML NEBU. NEB ONE (00:15)
[2016-08-31 06:33] LABS: CALCIUM 9.1 mg/dL (8.5-10.1); GFR 67.3; POTASSIUM 3.8 mmol/L (3.5-5.1)
--- NOTE | 2016-08-31 07:28 | PDOC ---
PROGRESS NOTES Subjective Subjective Patient restless, stating she wants to go home. Objective Objective Vital Signs Date Time Temp Pulse Resp B/P Pulse Ox O2 Delivery O2 Flow Rate FiO2 08/31/16 02:15 98.0 104 20 128/71 90 Venturi Mask 15.0 98.0 Intake and Output 08/31/16 07:00 Intake Total 0 ml Output Total 550 ml Balance -550 ml Intake Oral 0 ml Output Urine Total 550 ml # Voids 1 # Bowel Movements 3 Physical Exam Abdomen: Normal bowel sounds, Soft, No tenderness Heart: Regular rate Extremities: No edema General: Alert (recognizes me, knows she is in the hospital), No acute distress Lungs: Other (BS decreased throughout, no wheezes heard) Assessment Assessment Problems Medical Problems: (1) Acute respiratory failure with hypoxia and hypercapnia Status: Acute (2) Congestive heart failure Status: Acute (3) COPD exacerbation Status: Acute Plan Plan of Care 1. Acute on chronic respiratory failure with AE COPD - nursing reports patient was more agitated and confused overnight, ABG ordered to check for CO2 retention. Continue present tx, Pulmonary following. 2. AE diastolic CHF - stable on Lasix 40mg daily. I's and O's inaccurate. 3. HTN - controlled, continue present meds. 4. dysphagia, s/p CVA - continue NPO with TF. Last video swallow in June showed significant aspiration. Comment Review of Relevant I have reviewed the following items chon (where applicable) has been applied. Labs Laboratory Tests Test 08/29/16 07:50 08/30/16 04:20 08/31/16 05:28 O2 Saturation 92% (92-99) Arterial Blood pH 7.50 (7.35-7.45) Arterial Blood pCO2 at Patient Temp 50mmHg (35-46) Arterial Blood pO2 at Patient Temp 66mmHg (65-108) Arterial Blood HCO3 38mmol/L (21-28) Arterial Blood Base Excess 13mmol/L (-3-3) FiO2 55 Sodium Level 146mmol/L (136-145) 141mmol/L (136-145) Potassium Level 3.6mmol/L (3.5-5.1) 3.8mmol/L (3.5-5.1) Chloride Level 99mmol/L (98-107) 99mmol/L (98-107) Carbon Dioxide Level 42mmol/L (21-32) 37mmol/L (21-32) Anion Gap 5 (6-14) 5 (6-14) Blood Urea Nitrogen 44mg/dL (7-20) 43mg/dL (7-20) Creatinine 1.1mg/dL (0.6-1.0) 1.0mg/dL (0.6-1.0) Estimated GFR (Cockcroft-Gault) 60.3 67.3 Glucose Level 84mg/dL (70-99) 106mg/dL (70-99) Calcium Level 9.2mg/dL (8.5-10.1) 9.1mg/dL (8.5-10.1) Laboratory Tests Test 08/31/16 05:28 Sodium Level 141mmol/L (136-145) Potassium Level 3.8mmol/L (3.5-5.1) Chloride Level 99mmol/L (98-107) Carbon Dioxide Level 37mmol/L (21-32) Anion Gap 5 (6-14) Blood Urea Nitrogen 43mg/dL (7-20) Creatinine 1.0mg/dL (0.6-1.0) Estimated GFR (Cockcroft-Gault) 67.3 Glucose Level 106mg/dL (70-99) Calcium Level 9.1mg/dL (8.5-10.1) Microbiology 08/28/16 Blood Culture - Preliminary, Resulted NO GROWTH AFTER 2 DAYS Medications Current Medications Albuterol/ Ipratropium (Duoneb) 3 ml 1X ONCE NEB Last administered on 15:03; Start 08/28/16 at 09:30; Stop 08/28/16 at 09:31; Status DC Methylprednisolone Sodium Succinate (Solu-Medrol 125mg Vial) 125 mg 1X ONCE IV Last administered on 08/28/16 09:38; Start 08/28/16 at 09:30; Stop 08/28/16 at 09:31; Status DC Albuterol Sulfate 2.5 mg 2.5 mg 1X ONCE NEB Last administered on 08/28/16 15: 04; Start 08/28/16 at 09:30; Stop 08/28/16 at 09:31; Status DC Diltiazem HCl/ Dextrose (Cardizem) 125 ml @ 0 mls/hr CONT PRN IV SEE I/O RECORD ; Start 08/28/16 at 09:30; Status UNV Ondansetron HCl 4 mg 4 mg PRN Q8HRS PRN IV NAUSEA/VOMITING; Start 08/28/16 at 14:00; Stop 08/29/16 at 13:59; Status DC Sodium Chloride (Iv Sodium Chloride 0.9% 1000ml Bag) 1,000 ml @ 50 mls/hr Q20H IV ; Start 08/28/16 at 13:55; Stop 08/28/16 at 17:54; Status DC Albuterol/ Ipratropium (Duoneb) 3 ml RTQID NEB ; Start 08/28/16 at 16:00; Stop 08/28/16 at 16:00; Status DC Furosemide (Lasix) 60 mg 1X ONCE IVP Last administered on 08/28/16 15:04; Start 08/28/16 at 14:00; Stop 08/28/16 at 14:07; Status DC Acetaminophen (Tylenol) 325 mg PRN Q6HRS PRN PEG MILD PAIN / TEMP Last administered on 08/30/16 20:26; Start 08/28/16 at 14:45 Amlodipine Besylate (Norvasc) 5 mg BID PO Last administered on 08/30/16 20:26 ; Start 08/28/16 at 21:00 Aspirin (Tobi Aspirin) 325 mg DAILYWBKFT PO Last administered on 08/30/16 09: 15; Start 08/29/16 at 08:00 Atorvastatin Calcium (Lipitor) 20 mg QHS PO Last administered on 08/30/16 20: 25; Start 08/28/16 at 21:00 Carvedilol (Coreg) 25 mg BID@07,19 PO Last administered on 08/30/16 16:53; Start 08/28/16 at 19:00 Famotidine (Pepcid) 20 mg BID PO Last administered on 08/30/16 20:25; Start at 21:00 Lisinopril (Prinivil) 40 mg BID PO Last administered on 08/30/16 20:25; Start 08/28/16 at 21:00 Potassium Chloride (KCl Oral Soln) 20 meq DAILY PEG Last administered on 09:17; Start 08/29/16 at 09:00 Albuterol/ Ipratropium (Duoneb) 3 ml RTQID NEB Last administered on 08/30/16 19:33; Start 08/28/16 at 16:00 Budesonide (Pulmicort) 0.5 mg RTBID NEB Last administered on 08/30/16 19:33; Start 08/28/16 at 20:00 Furosemide (Lasix) 40 mg BID92 IVP Last administered on 08/29/16 14:00; Start 08/28/16 at 15:00; Stop 08/30/16 at 07:16; Status DC Albuterol/ Ipratropium (Duoneb) 3 ml STK-MED ONCE .ROUTE ; Start 08/28/16 at 14: 49; Stop 08/28/16 at 14:50; Status DC Albuterol Sulfate 2.5 mg 2.5 mg STK-MED ONCE .ROUTE ; Start 08/28/16 at 14:49; Stop 08/28/16 at 14:50; Status DC Ceftriaxone Sodium/Sodium Chloride (Rocephin/Iv Sodium Chloride 0.9% 50ml) 50 ml @ 100 mls/hr Q24H IV Last administered on 08/30/16 16:52; Start 08/28/16 at 16:00 Albuterol Sulfate (Ventolin Neb Soln) 2.5 mg 1X ONCE NEB Last administered on 08/30/16 02:17; Start 08/30/16 at 02:15; Stop 08/30/16 at 02:34; Status DC Furosemide (Lasix) 40 mg DAILY IVP Last administered on 08/30/16 09:14; Start 08/30/16 at 09:00 Albuterol Sulfate (Ventolin Neb Soln) 2.5 mg 1X ONCE NEB Last administered on 08/31/16 00:22; Start 08/31/16 at 00:15; Stop 08/31/16 at 00:16; Status DC Active Scripts Active Cipro (Ciprofloxacin Hcl) 250 Mg Tablet 1 Tab PO BID 5 Days Atorvastatin Calcium 20 Mg Tablet 20 Mg PO QHS 30 Days Aspirin 325 Mg Tablet 325 Mg PO DAILYWBKFT 30 Days Furosemide 20 Mg Tablet 20 Mg GT DAILY 30 Days Potassium Chloride Oral Liquid (Potassium Chloride) 20 Meq/15 Ml Liquid 20 Meq PEG DAILY 30 Days Famotidine 20 Mg Tablet 20 Mg PO BID 30 Days Carvedilol 12.5 Mg Tablet 25 Mg PO BID@ 30 Days Acetaminophen 650 Mg/20.3 Ml Solution 325 Mg PEG PRN Q6HRS PRN 30 Days Albuterol Sulfate Neb Soln (Albuterol Sulfate) 2.5 Mg/3 Ml Vial.neb 2.5 Mg NEB RTQID 30 Days Vitals/I & O Vital Sign - Last 24 Hours 08/30/16 08/30/16 08/30/16 08/30/16 08:00 08:25 09:14 09:16 Pulse 85 85 B/P 114/69 114/69 Pulse Ox 95 O2 Delivery Venturi Mask Venturi Mask O2 Flow Rate 15.0 15.0 08/30/16 08/30/16 08/30/16 08/30/16 09:18 11:01 13:14 15:01 Temp 97.6 97.5 97.6 97.5 Pulse 85 95 83 Resp 24 20 B/P 114/69 106/66 105/61 Pulse Ox 85 82 90 O2 Delivery Venturi Mask Venturi Mask Venturi Mask O2 Flow Rate 15.0 08/30/16 08/30/16 08/30/16 08/30/16 16:02 16:53 19:22 19:32 Temp 97.3 97.3 Pulse 83 96 Resp 18 B/P 105/61 119/56 Pulse Ox 87 90 O2 Delivery Venturi Mask Venturi Mask O2 Flow Rate 15.0 15.0 15.0 08/30/16 08/30/16 08/30/16 08/30/16 20:00 20:25 20:26 23:57 Temp 98.1 98.1 Pulse 83 83 95 Resp 18 B/P 105/61 105/61 116/65 Pulse Ox 82 O2 Delivery Venturi Mask Venturi Mask O2 Flow Rate 15.0 15.0 08/31/16 08/31/16 00:22 02:15 Temp 98.0 98.0 Pulse 104 Resp 20 B/P 128/71 Pulse Ox 95 90 O2 Delivery Venturi Mask Venturi Mask O2 Flow Rate 15.0 15.0 Intake and Output 08/30/16 08/30/16 08/31/16 15:00 23:00 07:00 Intake Total 0 ml Output Total 250 ml 300 ml Balance -250 ml -300 ml OFELIA WISE MD Aug 31, 2016 07:28
[2016-08-31] MEDS: BUDESONIDE 0.5 MG/2 ML NEBU NEB SCH ×2 (07:29→18:59)
[2016-08-31] MEDS: IPRATRPIUM/ALBUTEROL 0.5/2.5MG 3 ML NEBU. NEB SCH ×4 (07:29→18:58)
[2016-08-31] MEDS: FAMOTIDINE 20 MG TABLET. PO SCH ×2 (08:20→21:20)
[2016-08-31] MEDS: CARVEDILOL 12.5 MG TABLET PO SCH ×2 (08:20→21:20)
[2016-08-31] MEDS: ASPIRIN 325 MG TABLET PO SCH (08:21)
[2016-08-31] MEDS: POTASSIUM CHLORIDE 20 MEQ/15 ML ORAL LIQUID. PEG SCH (08:21)
[2016-08-31] MEDS: AMLODIPINE BESYLATE 5 MG TABLET PO SCH ×2 (08:22→21:20)
[2016-08-31] MEDS: LISINOPRIL 40 MG TABLET. PO SCH ×2 (08:22→21:20)
[2016-08-31] MEDS: FUROSEMIDE 40 MG/4 ML VIAL IVP SCH ×2 (08:23→12:11)
[2016-08-31 10:45] LABS: HCO3 ABG 36 mmol/L (21-28); PCO2 ABG 48 mmHg (35-46); PH ABG 7.49 (7.35-7.45); PO2 ABG 66 mmHg (65-108)
--- NOTE | 2016-08-31 11:44 | PDOC ---
PULMONARY PROGRESS NOTES Subjective PT FEELS BETTER Vitals Vital Signs Date Time Temp Pulse Resp B/P Pulse Ox O2 Delivery O2 Flow Rate FiO2 08/31/16 11:32 Venturi Mask 15.0 08/31/16 11:22 97.9 85 20 99/57 98 97.9 ROS: No Nausea, No Chest Pain, No Abdominal Pain, No Increase Cough General: Alert, Oriented X4, No acute distress Lungs: Crackles Cardiovascular: S1, S2 Abdomen: Soft, Non-tender Neuro Exam: Alert Extremities: No Edema Skin: Warm Labs Laboratory Tests Test 08/30/16 04:20 08/31/16 05:28 08/31/16 10:30 Sodium Level 146mmol/L (136-145) 141mmol/L (136-145) Potassium Level 3.6mmol/L (3.5-5.1) 3.8mmol/L (3.5-5.1) Chloride Level 99mmol/L (98-107) 99mmol/L (98-107) Carbon Dioxide Level 42mmol/L (21-32) 37mmol/L (21-32) Anion Gap 5 (6-14) 5 (6-14) Blood Urea Nitrogen 44mg/dL (7-20) 43mg/dL (7-20) Creatinine 1.1mg/dL (0.6-1.0) 1.0mg/dL (0.6-1.0) Estimated GFR (Cockcroft-Gault) 60.3 67.3 Glucose Level 84mg/dL (70-99) 106mg/dL (70-99) Calcium Level 9.2mg/dL (8.5-10.1) 9.1mg/dL (8.5-10.1) Arterial Blood pH 7.49 (7.35-7.45) Arterial Blood pCO2 at Patient Temp 48mmHg (35-46) Arterial Blood pO2 at Patient Temp 66mmHg (65-108) Arterial Blood HCO3 36mmol/L (21-28) Arterial Blood Base Excess 10mmol/L (-3-3) FiO2 50.0 Laboratory Tests Test 08/31/16 05:28 08/31/16 10:30 Sodium Level 141mmol/L (136-145) Potassium Level 3.8mmol/L (3.5-5.1) Chloride Level 99mmol/L (98-107) Carbon Dioxide Level 37mmol/L (21-32) Anion Gap 5 (6-14) Blood Urea Nitrogen 43mg/dL (7-20) Creatinine 1.0mg/dL (0.6-1.0) Estimated GFR (Cockcroft-Gault) 67.3 Glucose Level 106mg/dL (70-99) Calcium Level 9.1mg/dL (8.5-10.1) Arterial Blood pH 7.49 (7.35-7.45) Arterial Blood pCO2 at Patient Temp 48mmHg (35-46) Arterial Blood pO2 at Patient Temp 66mmHg (65-108) Arterial Blood HCO3 36mmol/L (21-28) Arterial Blood Base Excess 10mmol/L (-3-3) FiO2 50.0 Medications Active Scripts Medications Dose Route/Sig Days Date Category Cipro (Ciprofloxacin Hcl) 250 Mg Tablet 1 Tab PO BID 5 02/26/16 Rx Atorvastatin Calcium 20 Mg Tablet 20 Mg PO QHS 30 02/26/16 Rx Aspirin 325 Mg Tablet 325 Mg PO DAILYWBKFT 30 02/26/16 Rx Furosemide 20 Mg Tablet 20 Mg GT DAILY 30 09/09/15 Rx Potassium Chloride Oral Liquid (Potassium Chloride) 20 Meq/15 Ml Liquid 20 Meq PEG DAILY 30 08/27/15 Rx Famotidine 20 Mg Tablet 20 Mg PO BID 30 08/27/15 Rx Carvedilol 12.5 Mg Tablet 25 Mg PO BID@07,19 30 08/27/15 Rx Acetaminophen 650 Mg/20.3 Ml Solution 325 Mg PEG PRN Q6HRS PRN 30 08/27/15 Rx Albuterol Sulfate Neb Soln (Albuterol Sulfate) 2.5 Mg/3 Ml Vial.neb 2.5 Mg NEB RTQID 30 08/04/15 Rx Impression . 1. Acute on chronic respiratory failure, multifactorial. 2. Acute on chronic systolic and diastolic heart failure. 3. Acute exacerbation of chronic obstructive pulmonary disease. 4. Leukocytosis. Possible aspiration pneumonia. 5. Cerebrovascular accident with subsequent neurogenic dysphagia, status post PEG tube placement. Plan . SPOKE WITH SPEECH MAY NEED A VIDEO CONTINUE THE SAME FOR NOW HOME IN AM AFTER VIDEO LAUREL HAMILTON MD Aug 31, 2016 11:44
[2016-08-31] MEDS: ATORVASTATIN CALCIUM 20 MG TABLET PO SCH (21:20)
[2016-09-01 02:00] VITALS: BP 127/68
[2016-09-01] MEDS ORDERED: IPRATRPIUM/ALBUTEROL 0.5/2.5MG 3 ML NEBU. NEB ONE (02:30)
[2016-09-01 07:00] VITALS: BP 124/58
[2016-09-01] MEDS: IPRATRPIUM/ALBUTEROL 0.5/2.5MG 3 ML NEBU. NEB SCH ×2 (07:42→11:36)
[2016-09-01] MEDS: BUDESONIDE 0.5 MG/2 ML NEBU NEB SCH (07:43)
--- NOTE | 2016-09-01 08:15 | PDOC ---
PROGRESS NOTES Subjective Subjective Patient without complaint, ready to go home, states she feels much better. Objective Objective Vital Signs Date Time Temp Pulse Resp B/P Pulse Ox O2 Delivery O2 Flow Rate FiO2 09/01/16 07:45 96 Nasal Cannula 4.0 09/01/16 02:00 98.4 98 18 127/68 98.4 Intake and Output 09/01/16 07:00 Intake Total 900 ml Output Total 600 ml Balance 300 ml Intake Oral 0 ml Tube Feeding 500 ml Blood Product IV Normal Saline Flush 400 ml Output Urine Total 600 ml # Voids 1 # Bowel Movements 2 Physical Exam Abdomen: Normal bowel sounds, Soft, No tenderness Heart: Regular rate Extremities: No edema General: Alert, No acute distress Lungs: Other (BS decreased throughout, otherwise CTA) Assessment Assessment Problems Medical Problems: (1) Acute respiratory failure with hypoxia and hypercapnia Status: Acute (2) Congestive heart failure Status: Acute (3) COPD exacerbation Status: Acute Plan Plan of Care 1. Acute on chronic respiratory failure with AE COPD - improved, sats now OK on her usual 4L O2 per NC. Home today. 2. AE diastolic CHF - stable, home on po Lasix. 3. HTN - well controlled with present meds. 4. dysphagia, s/p CVA - video swallow today, continue NPO with TF, po only if video swallow shows it is safe for her. Comment Review of Relevant I have reviewed the following items chon (where applicable) has been applied. Labs Laboratory Tests Test 08/31/16 05:28 08/31/16 10:30 Sodium Level 141mmol/L (136-145) Potassium Level 3.8mmol/L (3.5-5.1) Chloride Level 99mmol/L (98-107) Carbon Dioxide Level 37mmol/L (21-32) Anion Gap 5 (6-14) Blood Urea Nitrogen 43mg/dL (7-20) Creatinine 1.0mg/dL (0.6-1.0) Estimated GFR (Cockcroft-Gault) 67.3 Glucose Level 106mg/dL (70-99) Calcium Level 9.1mg/dL (8.5-10.1) Arterial Blood pH 7.49 (7.35-7.45) Arterial Blood pCO2 at Patient Temp 48mmHg (35-46) Arterial Blood pO2 at Patient Temp 66mmHg (65-108) Arterial Blood HCO3 36mmol/L (21-28) Arterial Blood Base Excess 10mmol/L (-3-3) FiO2 50.0 Laboratory Tests Test 08/31/16 10:30 Arterial Blood pH 7.49 (7.35-7.45) Arterial Blood pCO2 at Patient Temp 48mmHg (35-46) Arterial Blood pO2 at Patient Temp 66mmHg (65-108) Arterial Blood HCO3 36mmol/L (21-28) Arterial Blood Base Excess 10mmol/L (-3-3) FiO2 50.0 Microbiology 08/28/16 Blood Culture - Preliminary, Resulted NO GROWTH AFTER 3 DAYS Medications Current Medications Albuterol/ Ipratropium (Duoneb) 3 ml 1X ONCE NEB Last administered on 15:03; Start 08/28/16 at 09:30; Stop 08/28/16 at 09:31; Status DC Methylprednisolone Sodium Succinate (Solu-Medrol 125mg Vial) 125 mg 1X ONCE IV Last administered on 08/28/16 09:38; Start 08/28/16 at 09:30; Stop 08/28/16 at 09:31; Status DC Albuterol Sulfate 2.5 mg 2.5 mg 1X ONCE NEB Last administered on 08/28/16 15: 04; Start 08/28/16 at 09:30; Stop 08/28/16 at 09:31; Status DC Diltiazem HCl/ Dextrose (Cardizem) 125 ml @ 0 mls/hr CONT PRN IV SEE I/O RECORD ; Start 08/28/16 at 09:30; Status UNV Ondansetron HCl 4 mg 4 mg PRN Q8HRS PRN IV NAUSEA/VOMITING; Start 08/28/16 at 14:00; Stop 08/29/16 at 13:59; Status DC Sodium Chloride (Iv Sodium Chloride 0.9% 1000ml Bag) 1,000 ml @ 50 mls/hr Q20H IV ; Start 08/28/16 at 13:55; Stop 08/28/16 at 17:54; Status DC Albuterol/ Ipratropium (Duoneb) 3 ml RTQID NEB ; Start 08/28/16 at 16:00; Stop 08/28/16 at 16:00; Status DC Furosemide (Lasix) 60 mg 1X ONCE IVP Last administered on 08/28/16 15:04; Start 08/28/16 at 14:00; Stop 08/28/16 at 14:07; Status DC Acetaminophen (Tylenol) 325 mg PRN Q6HRS PRN PEG MILD PAIN / TEMP Last administered on 08/30/16 20:26; Start 08/28/16 at 14:45 Amlodipine Besylate (Norvasc) 5 mg BID PO Last administered on 08/31/16 21:20 ; Start 08/28/16 at 21:00 Aspirin (Tobi Aspirin) 325 mg DAILYWBKFT PO Last administered on 08/31/16 08: 21; Start 08/29/16 at 08:00 Atorvastatin Calcium (Lipitor) 20 mg QHS PO Last administered on 08/31/16 21: 20; Start 08/28/16 at 21:00 Carvedilol (Coreg) 25 mg BID@07,19 PO Last administered on 08/31/16 21:20; Start 08/28/16 at 19:00 Famotidine (Pepcid) 20 mg BID PO Last administered on 08/31/16 21:20; Start at 21:00 Lisinopril (Prinivil) 40 mg BID PO Last administered on 08/31/16 21:20; Start 08/28/16 at 21:00 Potassium Chloride (KCl Oral Soln) 20 meq DAILY PEG Last administered on 08:21; Start 08/29/16 at 09:00 Albuterol/ Ipratropium (Duoneb) 3 ml RTQID NEB Last administered on 09/01/16 07:42; Start 08/28/16 at 16:00 Budesonide (Pulmicort) 0.5 mg RTBID NEB Last administered on 09/01/16 07:43; Start 08/28/16 at 20:00 Furosemide (Lasix) 40 mg BID92 IVP Last administered on 08/29/16 14:00; Start 08/28/16 at 15:00; Stop 08/30/16 at 07:16; Status DC Albuterol/ Ipratropium (Duoneb) 3 ml STK-MED ONCE .ROUTE ; Start 08/28/16 at 14: 49; Stop 08/28/16 at 14:50; Status DC Albuterol Sulfate 2.5 mg 2.5 mg STK-MED ONCE .ROUTE ; Start 08/28/16 at 14:49; Stop 08/28/16 at 14:50; Status DC Ceftriaxone Sodium/Sodium Chloride (Rocephin/Iv Sodium Chloride 0.9% 50ml) 50 ml @ 100 mls/hr Q24H IV Last administered on 08/30/16 16:52; Start 08/28/16 at 16:00; Stop 08/31/16 at 15:03; Status DC Albuterol Sulfate (Ventolin Neb Soln) 2.5 mg 1X ONCE NEB Last administered on 08/30/16 02:17; Start 08/30/16 at 02:15; Stop 08/30/16 at 02:34; Status DC Furosemide (Lasix) 40 mg DAILY IVP Last administered on 08/30/16 09:14; Start 08/30/16 at 09:00 Albuterol Sulfate (Ventolin Neb Soln) 2.5 mg 1X ONCE NEB Last administered on 08/31/16 00:22; Start 08/31/16 at 00:15; Stop 08/31/16 at 00:16; Status DC Albuterol/ Ipratropium (Duoneb) 3 ml 1X ONCE NEB Last administered on 02:15; Start 09/01/16 at 02:30; Stop 09/01/16 at 02:31; Status DC Active Scripts Active Cipro (Ciprofloxacin Hcl) 250 Mg Tablet 1 Tab PO BID 5 Days Atorvastatin Calcium 20 Mg Tablet 20 Mg PO QHS 30 Days Aspirin 325 Mg Tablet 325 Mg PO DAILYWBKFT 30 Days Furosemide 20 Mg Tablet 20 Mg GT DAILY 30 Days Potassium Chloride Oral Liquid (Potassium Chloride) 20 Meq/15 Ml Liquid 20 Meq PEG DAILY 30 Days Famotidine 20 Mg Tablet 20 Mg PO BID 30 Days Carvedilol 12.5 Mg Tablet 25 Mg PO BID@07,19 30 Days Acetaminophen 650 Mg/20.3 Ml Solution 325 Mg PEG PRN Q6HRS PRN 30 Days Albuterol Sulfate Neb Soln (Albuterol Sulfate) 2.5 Mg/3 Ml Vial.neb 2.5 Mg NEB RTQID 30 Days Vitals/I & O Vital Sign - Last 24 Hours 208/31/16 08/31/16 08/31/16 08:20 08:22 08:22 08:25 Pulse 93 93 93 94 B/P 128/71 128/71 128/71 105/53 08/31/16 08/31/16 08/31/16 08/31/16 10:40 11:22 11:32 12:45 Temp 97.9 97.9 Pulse 85 Resp 20 18 B/P 99/57 Pulse Ox 98 96 O2 Delivery Venturi Mask Venturi Mask Venturi Mask Nasal Cannula O2 Flow Rate 15.0 15.0 3.0 08/31/16 08/31/16 08/31/16 08/31/16 14:51 15:52 18:59 19:00 Temp 97.7 97.7 Pulse 87 Resp 18 B/P 107/57 Pulse Ox 96 94 98 98 O2 Delivery Nasal Cannula Nasal Cannula Nasal Cannula Nasal Cannula O2 Flow Rate 3.0 4.0 4.0 4.0 08/31/16 08/31/16 08/31/16 08/31/16 19:26 20:00 21:20 21:20 Temp 98.7 98.7 Pulse 91 91 91 Resp 18 B/P 112/60 112/60 112/60 Pulse Ox 94 O2 Delivery Nasal Cannula Nasal Cannula O2 Flow Rate 4.0 4.0 08/31/16 08/31/16 09/01/16 09/01/16 21:20 23:18 02:00 02:15 Temp 98.1 98.4 98.1 98.4 Pulse 91 90 98 Resp 18 18 B/P 112/60 144/54 127/68 Pulse Ox 96 89 94 O2 Delivery Nasal Cannula Nasal Cannula Nasal Cannula O2 Flow Rate 4.0 4.0 4.0 09/01/16 09/01/16 07:45 07:45 Pulse Ox 96 96 O2 Delivery Nasal Cannula Nasal Cannula O2 Flow Rate 4.0 4.0 Intake and Output 08/31/16 08/31/16 09/01/16 15:00 23:00 07:00 Intake Total 900 ml 0 ml Output Total 400 ml 200 ml Balance 500 ml 0 ml -200 ml OFELIA WISE MD Sep 01, 2016 08:15
[2016-09-01] MEDS: POTASSIUM CHLORIDE 20 MEQ/15 ML ORAL LIQUID. PEG SCH (09:00)
[2016-09-01] MEDS: FUROSEMIDE 40 MG/4 ML VIAL IVP SCH (09:00)
--- NOTE | 2016-09-01 09:40 | PDOC ---
PULMONARY PROGRESS NOTES Subjective PT FEELS BETTER Vitals Vital Signs Date Time Temp Pulse Resp B/P Pulse Ox O2 Delivery O2 Flow Rate FiO2 09/01/16 07:45 96 Nasal Cannula 4.0 09/01/16 07:00 98.5 89 18 124/58 98.5 ROS: No Nausea, No Chest Pain, No Abdominal Pain, No Increase Cough General: Alert, Oriented X4, No acute distress Lungs: Crackles Cardiovascular: S1, S2 Abdomen: Soft, Non-tender Neuro Exam: Alert Extremities: No Edema Skin: Warm Labs Laboratory Tests Test 08/31/16 05:28 08/31/16 10:30 Sodium Level 141mmol/L (136-145) Potassium Level 3.8mmol/L (3.5-5.1) Chloride Level 99mmol/L (98-107) Carbon Dioxide Level 37mmol/L (21-32) Anion Gap 5 (6-14) Blood Urea Nitrogen 43mg/dL (7-20) Creatinine 1.0mg/dL (0.6-1.0) Estimated GFR (Cockcroft-Gault) 67.3 Glucose Level 106mg/dL (70-99) Calcium Level 9.1mg/dL (8.5-10.1) Arterial Blood pH 7.49 (7.35-7.45) Arterial Blood pCO2 at Patient Temp 48mmHg (35-46) Arterial Blood pO2 at Patient Temp 66mmHg (65-108) Arterial Blood HCO3 36mmol/L (21-28) Arterial Blood Base Excess 10mmol/L (-3-3) FiO2 50.0 Laboratory Tests Test 08/31/16 10:30 Arterial Blood pH 7.49 (7.35-7.45) Arterial Blood pCO2 at Patient Temp 48mmHg (35-46) Arterial Blood pO2 at Patient Temp 66mmHg (65-108) Arterial Blood HCO3 36mmol/L (21-28) Arterial Blood Base Excess 10mmol/L (-3-3) FiO2 50.0 Medications Active Scripts Medications Dose Route/Sig Days Date Category Cipro (Ciprofloxacin Hcl) 250 Mg Tablet 1 Tab PO BID 5 02/26/16 Rx Atorvastatin Calcium 20 Mg Tablet 20 Mg PO QHS 30 02/26/16 Rx Aspirin 325 Mg Tablet 325 Mg PO DAILYWBKFT 30 02/26/16 Rx Furosemide 20 Mg Tablet 20 Mg GT DAILY 30 09/09/15 Rx Potassium Chloride Oral Liquid (Potassium Chloride) 20 Meq/15 Ml Liquid 20 Meq PEG DAILY 30 08/27/15 Rx Famotidine 20 Mg Tablet 20 Mg PO BID 30 08/27/15 Rx Carvedilol 12.5 Mg Tablet 25 Mg PO BID@, 30 08/27/15 Rx Acetaminophen 650 Mg/20.3 Ml Solution 325 Mg PEG PRN Q6HRS PRN 30 08/27/15 Rx Albuterol Sulfate Neb Soln (Albuterol Sulfate) 2.5 Mg/3 Ml Vial.neb 2.5 Mg NEB RTQID 30 08/04/15 Rx Impression . 1. Acute on chronic respiratory failure, multifactorial. 2. Acute on chronic systolic and diastolic heart failure. 3. Acute exacerbation of chronic obstructive pulmonary disease. 4. Leukocytosis. Possible aspiration pneumonia. 5. Cerebrovascular accident with subsequent neurogenic dysphagia, status post PEG tube placement. Plan . SPOKE WITH SPEECH MAY NEED A VIDEO CONTINUE THE SAME FOR NOW HOME IN AM AFTER VIDEO LAUREL HAMILTON MD Sep 01, 2016 09:40
[2016-09-01 11:00] VITALS: BP 93/59
[2016-09-01] MEDS: LISINOPRIL 40 MG TABLET. PO SCH (11:26)
[2016-09-01] MEDS: ASPIRIN 325 MG TABLET PO SCH (11:27)
[2016-09-01] MEDS: AMLODIPINE BESYLATE 5 MG TABLET PO SCH (11:28)
[2016-09-01] MEDS: CARVEDILOL 12.5 MG TABLET PO SCH (11:28)
[2016-09-01] MEDS: FAMOTIDINE 20 MG TABLET. PO SCH (11:29)
[2016-09-01] MEDS ORDERED: BARIUM SULFATE 40% (APPLE) 148 GM PWD. PO ONE (12:00)
[2016-09-01 14:53] VITALS: BP 155/50
--- NOTE | 2016-09-01 17:56 | DS ---
DATE OF DISCHARGE: 09/01/2016 CHIEF COMPLAINT: Hypoxia and shortness of air. HISTORY OF PRESENT ILLNESS: The patient is a 66-year-old female who was brought to the Emergency Room with the above complaint. The patient has chronic respiratory failure and is usually on oxygen at 4 liters per nasal cannula. Her family takes care of her at home. They began to notice several days prior to admission that her oxygen saturations were getting a little low. They gave her breathing treatments and turned up her oxygen somewhat; however, symptoms persisted and she began to have more respiratory problems, so they called EMS and she was brought to the Emergency Room. Initial evaluation there showed her to be significantly hypoxic with oxygen saturation of 82% on 10 liters of oxygen. Treatment was started and she was admitted for further treatment. HOSPITAL COURSE: The patient was admitted and seen in consultation by Cardiology and Pulmonary Medicine. It was felt that she was suffering from an acute exacerbation of COPD. There was also an element of diastolic congestive heart failure present. She was treated with increased dose of Lasix and had some improvement in her symptoms with this. Her hypoxia is much improved and she is now well saturated on her usual 4 liters of oxygen per nasal cannula. Dr. Hutchinson did not feel antibiotics or steroids were indicated for her, so she did not receive these. The patient has chronic dysphagia due to previous CVA. She received tube feedings for her nutrition. Her last video swallow in June as an outpatient showed that she was experiencing silent aspiration and she was therefore advised no oral intake at that time. It is unclear whether she has been eating since then, but the concern is for possible aspiration. She was kept n.p.o. with tube feedings while hospitalized. She is to have a video swallow today prior to discharge and further recommendations for nutrition will be as per speech pathology's recommendations after testing is completed. The patient has hypertension, which was controlled with her usual medication. She appears to be back to her baseline and will be discharged to home today where her family provides very good care for her. FINAL DIAGNOSES: 1. Acute on chronic respiratory failure with acute exacerbation of chronic obstructive pulmonary disease. 2. Acute exacerbation of diastolic congestive heart failure. 3. Hypertension. 4. Chronic dysphagia status post cerebrovascular accident. DISCHARGE MEDICATIONS: Aspirin 325 mg daily, albuterol nebulized treatments as needed, atorvastatin 20 mg at bedtime, carvedilol 25 mg b.i.d., famotidine 20 mg b.i.d., furosemide 20 mg daily, potassium liquid 20 mEq per PEG tube daily, tube feedings and free water flushes as previous. FOLLOWUP: With Dr. Wise as needed. The patient received her flu shot last fall. OFELIA WISE MD DR: ACE/angela JOB#: [id number] / [id number] [facility]
[2016-09-01] MEDS ORDERED: FAMOTIDINE 20 MG TABLET. PO SCH (21:00)
[2016-09-02] MEDS ORDERED: BARIUM SULFATE 40% (APPLE) 148 GM PWD. PO ONE (09:00)
== END 2016-09-01 16:00 | disposition home health service (06) | DRG 291 ==
LOC: ER 09:10 → ED HOLD 09:42 → 2 SOUTH 14:39
PROVIDERS: ADMIT Family Medicine; ATTEND Family Medicine
PROC: 5A09457 Assistance with Respiratory Ventilation, 24-96 Consecutive Hours, Continuous Positive Airway Pressure (ICD-10-PCS; principal; 2016-08-29)
DX: I11.0 Hypertensive heart disease with heart failure (principal); J69.0 Pneumonitis due to inhalation of food and vomit; J96.21 Acute and chronic respiratory failure with hypoxia; J96.22 Acute and chronic respiratory failure with hypercapnia; J44.1 Chronic obstructive pulmonary disease with (acute) exacerbation; J44.0 Chronic obstructive pulmonary disease with (acute) lower respiratory infection; I50.43 Acute on chronic combined systolic (congestive) and diastolic (congestive) heart failure; E78.00 Pure hypercholesterolemia, unspecified; E78.5 Hyperlipidemia, unspecified; I27.2 Other secondary pulmonary hypertension; M81.0 Age-related osteoporosis without current pathological fracture; Z82.49 Family history of ischemic heart disease and other diseases of the circulatory system; Z86.73 Personal history of transient ischemic attack (TIA), and cerebral infarction without residual deficits; Z93.1 Gastrostomy status; Z99.81 Dependence on supplemental oxygen; Z87.891 Personal history of nicotine dependence
CPT/HCPCS: 36415; 36600; 71010; 80048; 80053; 82553; 82805; 83605; 83880; 84484; 85007; 85027; 87040; 93005; 93306; 94640; 94660; 94760; 96374; 96375; J0696; J1940; J2930; J7620; 92610; 99291-25

== ENCOUNTER 2016-09-12 20:03 | Inpatient (IN) | payer OTHER ==
[~2016-09-12] VITALS: Ht 162.6 cm; Wt 63.2 kg
[2016-09-12 20:23] LABS: BASO % 0 % (0-3); EOS % 1 % (0-3); HEMATOCRIT 34.2 % (36.0-47.0); HEMOGLOBIN 10.4 g/dL (12.0-15.5); LYMPH # 0.8 x10^3/uL (1.0-4.8); LYMPH % 4 % (24-48); MEAN CORPUSCULAR HEMOGLOBIN 26 pg (25-35); MEAN CORPUSCULAR HGB CONC 31 g/dL (31-37); MEAN CORPUSCULAR VOLUME 85 fL (79-100); MONO % 4 % (0-9); NEUT % 91 % (31-73); PLATELET COUNT 339 x10^3/uL (140-400); RED BLOOD COUNT 4.03 x10^6/uL (3.50-5.40); RED CELL DISTRIBUTION WIDTH 14.6 % (11.5-14.5); WHITE BLOOD COUNT 19.6 x10^3/uL (4.0-11.0)
[2016-09-12 20:26] LABS: HCO3 ABG 38 mmol/L (21-28); PO2 ABG 82 mmHg (65-108); SAT O2 ABG 91 % (92-99)
[2016-09-12 20:44] LABS: CALCIUM 9.3 mg/dL (8.5-10.1); CREATININE 1.1 mg/dL (0.6-1.0); GFR 60.3; POTASSIUM 4.6 mmol/L (3.5-5.1)
[2016-09-12 20:44] LABS: BILIRUBIN,URINE NEGATIVE (NEG); GLUCOSE,URINE NEGATIVE (NEG); NITRITE,URINE NEGATIVE (NEG); PH,URINE 5.5; PROTEIN,URINE 100 mg/dL (NEG-TRACE); UROBILINOGEN,URINE 0.2 mg/dL (0.2 mg/dL)
[2016-09-12] MEDS ORDERED: HALOPERIDOL LACT 5 MG/ML VIAL. IVP PRN (20:45)
[2016-09-12] MEDS ORDERED: ONDANSETRON PF 4 MG/2 ML VIAL. IV PRN (20:45)
[2016-09-12] MEDS ORDERED: ETOMIDATE 20 MG/10 ML VIAL. IV ONE (20:45)
[2016-09-12] MEDS ORDERED: DIPHENHYDRAMINE 50 MG/ML VIAL IVP PRN (20:45)
[2016-09-12] MEDS ORDERED: SUCCINYLCHOLINE 200 MG/10 ML VIAL. IV ONE (20:45)
[2016-09-12] MEDS ORDERED: MIDAZOLAM PREMIX 100 ML IV ONE (20:46)
[2016-09-12 20:50] LABS: ALBUMIN 3.6 g/dL (3.4-5.0); ALBUMIN/GLOBULIN RATIO 0.8 (1.0-1.7); TOTAL BILIRUBIN 0.5 mg/dL (0.2-1.0); TOTAL PROTEIN 8.1 g/dL (6.4-8.2)
[2016-09-12] MEDS: MIDAZOLAM PREMIX 100 ML IV PRN (20:50)
[2016-09-12 20:51] LABS: BACTERIA,URINE FEW /HPF (0-FEW); RBC,URINE OCC /HPF (0-2); SQUAMOUS EPITHELIAL CELL,UR MOD /LPF
[2016-09-12 20:53] LABS: % EOS 1 % (0-5)
[2016-09-12 20:54] LABS: ANISOCYTOSIS SLIGHT; PLT ESTIMATE ADEQUATE (ADEQUATE)
[2016-09-12 21:00] LABS: PCO2 ABG 103 mmHg (35-46); PH ABG 7.18 (7.35-7.45)
[2016-09-12] MEDS ORDERED: FUROSEMIDE INJ 100 MG in IV NORMAL SALINE 100ML 100 ML IV PRN (21:00)
[2016-09-12] MEDS ORDERED: FUROSEMIDE 100 MG/10 ML VIAL IVP ONE (21:00)
--- NOTE | 2016-09-12 21:48 | PHYS DOC ---
Past Medical History Past Medical History: COPD, CVA, High Cholesterol, Hypertension, Other Additional Past Medical Histor: undergoing testing for COPD diagnosis, home oxygen @ [facility] Past Surgical History: Other Additional Past Surgical Histo: Pt states none - Gtube placement visualized Alcohol Use: None Drug Use: None Adult General Chief Complaint Chief Complaint: SHORTNESS OF BREATH HPI HPI C6-year-old female who appears much older than her stated age who has a history of multiple recent visits secondary to congestive heart failure presents secondary to respiratory distress. She was found with difficulty breathing at home. Patient is unable to provide any history secondary to her critical illness. There was no report of fever. [] Review of Systems Review of Systems Review of systems is unobtainable secondary to critical nature of the patient's illness Current Medications Current Medications Current Medications Medications (Trade) Dose Ordered Sig/Michael Start Time Stop Time Status Last Admin Dose Admin Diphenhydramine HCl (Benadryl) 25 mg PRN Q15MIN PRN 09/12/16 20:45 Etomidate (Amidate) 20 mg 1X ONCE 09/12/16 20:45 09/12/16 20:46 DC Fentanyl Citrate 50 mcg 50 mcg PRN Q1HR PRN 09/12/16 20:45 Haloperidol Lactate (Haldol) 2.5 mg PRN Q15MIN PRN 09/12/16 20:45 Midazolam HCl (Versed 100mg/ 100ml Premix) 100 ml @ 0 mls/hr CONT PRN 09/12/16 20:45 Ondansetron HCl (Zofran) 4 mg PRN Q8HRS PRN 09/12/16 20:45 09/13/16 20:44 Succinylcholine Chloride (Anectine) 50 mg 1X ONCE 09/12/16 20:45 09/12/16 20:46 DC Allergies Allergies Allergies Coded Allergies Type Severity Reaction Last Updated Verified I S O L A T I O N *CONTACT* Allergy Unknown 09/01/15 Yes No Known Medication Allergies Allergy Unknown 09/01/15 Yes Physical Exam Physical Exam Constitutional: Frail, critically ill severe respiratory distress] HENT: Normocephalic, atraumatic, bilateral external ears normal, oropharynx moist, no oral exudates, nose normal. [] Eyes: PERRLA, EOMI, conjunctiva normal, no discharge. [] Neck: Normal range of motion, no tenderness, supple, no stridor. [] Cardiovascular:Heart rate regular rhythm, no murmur [] Lungs & Thorax: Bibasilar rales no wheezes [] Abdomen: Bowel sounds normal, soft, no tenderness, no masses, no pulsatile masses, G-tube in place. [] Skin: Warm, dry, no erythema, no rash. [] Back: No tenderness, no CVA tenderness. [] Extremities: No tenderness, no cyanosis, no clubbing, ROM intact, no edema. [] Neurologic: Obtunded ,. [] Psychologic: Affect normal, judgement normal, mood normal. [] Current Patient Data Vital Signs Vital Signs Date Time Temp Pulse Resp B/P Pulse Ox O2 Delivery O2 Flow Rate FiO2 09/12/16 20:20 90 BiPAP/CPAP Lab Values Laboratory Tests Test 09/12/16 20:15 09/12/16 20:26 09/12/16 20:35 White Blood Count 19.6x10^3/uL (4.0-11.0) H Red Blood Count 4.03x10^6/uL (3.50-5.40) Hemoglobin 10.4g/dL (12.0-15.5) L Hematocrit 34.2% (36.0-47.0) L Mean Corpuscular Volume 85fL (79-100) Mean Corpuscular Hemoglobin 26pg (25-35) Mean Corpuscular Hemoglobin Concent 31g/dL (31-37) Red Cell Distribution Width 14.6% (11.5-14.5) H Platelet Count 339x10^3/uL (140-400) Neutrophils (%) (Auto) 91% (31-73) H Lymphocytes (%) (Auto) 4% (24-48) L Monocytes (%) (Auto) 4% (0-9) Eosinophils (%) (Auto) 1% (0-3) Basophils (%) (Auto) 0% (0-3) Neutrophils # (Auto) 17.8x10^3uL (1.8-7.7) H Lymphocytes # (Auto) 0.8x10^3/uL (1.0-4.8) L Monocytes # (Auto) 0.8x10^3/uL (0.0-1.1) Eosinophils # (Auto) 0.2x10^3/uL (0.0-0.7) Basophils # (Auto) 0.0x10^3/uL (0.0-0.2) Segmented Neutrophils % 89% (35-66) H Band Neutrophils % 2% (0-9) Lymphocytes % 4% (24-48) L Monocytes % 4% (0-10) Eosinophils % 1% (0-5) Platelet Estimate Adequate (ADEQUATE) Anisocytosis Slight Sodium Level 145mmol/L (136-145) Potassium Level 4.6mmol/L (3.5-5.1) Chloride Level 102mmol/L (98-107) Carbon Dioxide Level 39mmol/L (21-32) H Anion Gap 4 (6-14) L Blood Urea Nitrogen 29mg/dL (7-20) H Creatinine 1.1mg/dL (0.6-1.0) H Estimated GFR (Cockcroft-Gault) 60.3 BUN/Creatinine Ratio 26 (6-20) H Glucose Level 216mg/dL (70-99) H Lactic Acid Level 0.4mmol/L (0.4-2.0) Calcium Level 9.3mg/dL (8.5-10.1) Total Bilirubin 0.5mg/dL (0.2-1.0) Aspartate Amino Transferase (AST) 16U/L (15-37) Alanine Aminotransferase (ALT) 16U/L (14-59) Alkaline Phosphatase 57U/L (46-116) Troponin I Quantitative < 0.017ng/mL (0.000-0.055) YD-Col-J-Type Natriuretic Peptide 1569pg/mL (0-124) H Total Protein 8.1g/dL (6.4-8.2) Albumin 3.6g/dL (3.4-5.0) Albumin/Globulin Ratio 0.8 (1.0-1.7) L O2 Saturation 91% (92-99) L Arterial Blood pH 7.18 (7.35-7.45) *L Arterial Blood pCO2 at Patient Temp 103mmHg (35-46) *H Arterial Blood pO2 at Patient Temp 82mmHg (65-108) Arterial Blood HCO3 38mmol/L (21-28) H Arterial Blood Base Excess 7mmol/L (-3-3) H FiO2 70.0 Urine Collection Type U cath Urine Color Yellow Urine Clarity Clear Urine pH 5.5 Urine Specific [place] 1.025 Urine Protein 100mg/dL (NEG-TRACE) Urine Glucose (UA) Negativemg/dL (NEG) Urine Ketones (Stick) Negativemg/dL (NEG) Urine Blood Negative (NEG) Urine Nitrite Negative (NEG) Urine Bilirubin Negative (NEG) Urine Urobilinogen Dipstick 0.2mg/dL (0.2 mg/dL) Urine Leukocyte Esterase Small (NEG) Urine RBC Occ/HPF (0-2) Urine WBC 1-4/HPF (0-4) Urine Squamous Epithelial Cells Mod/LPF Urine Amorphous Sediment Present/HPF Urine Bacteria Few/HPF (0-FEW) Urine Hyaline Casts Moderate/HPF Urine Mucus Mod/LPF Laboratory Tests 09/12/16 20:15 Laboratory Tests 09/12/16 20:15 EKG EKG [EKG: Normal sinus rhythm rate of [address]-T changes] Radiology/Procedures Radiology/Procedures [] Impressions: Chest x-ray: Hyperinflated lungs no infiltrate Course & Med Decision Making Course & Med Decision Making Pertinent Labs and Imaging studies reviewed. (See chart for details) [ED course: Evaluation reveals a critically ill 66-year-old female in severe respiratory distress. Patient was immediately placed on BiPAP on arrival to our emergency department approximately 15 minutes after being placed on BiPAP a blood gas was performed which showed a pH of 7.1 and a PCO2 of greater than 100. At this time given the fact that she was still in a fair bit of distress on the BiPAP we elected to intubate the patient. Using rapid sequence intubation patient was given 20 mg of etomidate followed by 50 mg of succinylcholine then using a 4 Duglas blade and a 7.5 ET tube the patient was intubated. Cuff was inflated and good color change on the CO2 detector was noted. Given the patient's history of congestive heart failure patient was given an IV bolus of Lasix. Later, the patient was noted to have an elevated white blood cell count so broad-spectrum antibiotic was infused. I spoke with Dr. Morales who agreed to accept the patient to the ICU. CRITICAL CARE time was 30 minutes - time exclusive of any procedures performed. Care included medical management, x-ray/lab interpretation, discussions with the patient and their family as well as appropriate medical consultants.] Daniele Disclaimer Dragon Disclaimer This electronic medical record was generated, in whole or in part, using a voice recognition dictation system. Departure Departure Impression: Primary Impression: Acute on chronic respiratory failure Disposition: ADMITTED INPATIENT Admitting Physician: Awais Negro Condition: CRITICAL Referrals: OFELIA WISE MD (PCP) Problem Qualifiers Primary Impression: Acute on chronic respiratory failure Respiratory failure complication: hypercapnia Qualified Code: J96.22 - Acute and chronic respiratory failure with hypercapnia MAGDI THOMSON DO Sep 12, 2016 21:47
[2016-09-12] MEDS ORDERED: LEVOFLOXACIN PER PHARMACY MC PRN (22:00)
[2016-09-12 22:17] LABS: BASE EXCESS COOX 6 mmol/L (-3-3); CARBON MONOXIDE 0.3 % (0.0-1.9); HCO3 COOX 31 mmol/L (21-28); METHEMOGLOBIN 0.7 % (0.0-1.9); OXYHEMOGLOBIN 97.6 %; PCO2 COOX 46 mmHg (35-46); PH COOX 7.45 (7.35-7.45); PO2 COOX 175 mmHg (65-108); SAT O2 COOX 99 % (92-99); TOTAL HEMOGLOBIN 10.6 g/dL
[2016-09-12] MEDS ORDERED: IV NORMAL SALINE 500ML BAG 500 ML IV ONE ×2 (22:30)
[2016-09-12 23:00] VITALS: BP 68/48
[2016-09-12 23:15] VITALS: BP 68/44
[2016-09-12 23:30] VITALS: BP 67/49
[2016-09-12] MEDS ORDERED: FUROSEMIDE 20 MG/2 ML VIAL IVP ONE (23:30)
[2016-09-12] MEDS ORDERED: IV NORMAL SALINE 1000ML BAG 1,000 ML IV ONE (23:30)
[2016-09-12 23:45] VITALS: BP 73/52
[2016-09-12] MEDS: NOREPINEPHRINE VIAL 8 MG in IV NORMAL SALINE 250ML 250 ML IV PRN (23:53)
[2016-09-13] VITALS (26 sets, daily range): BP systolic 86–133; BP diastolic 58–87
[2016-09-13 03:08] LABS: BASO % 0 % (0-3); EOS % 0 % (0-3); HEMATOCRIT 29.4 % (36.0-47.0); HEMOGLOBIN 9.2 g/dL (12.0-15.5); LYMPH # 0.9 x10^3/uL (1.0-4.8); LYMPH % 7 % (24-48); MEAN CORPUSCULAR HEMOGLOBIN 26 pg (25-35); MEAN CORPUSCULAR HGB CONC 31 g/dL (31-37); MEAN CORPUSCULAR VOLUME 84 fL (79-100); MONO % 8 % (0-9); NEUT % 85 % (31-73); PLATELET COUNT 279 x10^3/uL (140-400); RED BLOOD COUNT 3.52 x10^6/uL (3.50-5.40); RED CELL DISTRIBUTION WIDTH 14.3 % (11.5-14.5); WHITE BLOOD COUNT 13.1 x10^3/uL (4.0-11.0)
[2016-09-13 03:33] LABS: ALBUMIN 3.1 g/dL (3.4-5.0); ALBUMIN/GLOBULIN RATIO 0.9 (1.0-1.7); CALCIUM 8.5 mg/dL (8.5-10.1); CREATININE 1.4 mg/dL (0.6-1.0); GFR 45.7; POTASSIUM 4.1 mmol/L (3.5-5.1); TOTAL BILIRUBIN 0.8 mg/dL (0.2-1.0); TOTAL PROTEIN 6.4 g/dL (6.4-8.2)
[2016-09-13] MEDS: MIDAZOLAM PREMIX 100 ML IV PRN ×2 (06:36→15:57)
--- NOTE | 2016-09-13 07:25 | EKG ---
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
--- NOTE | 2016-09-13 08:00 | PDOC ---
Infectious Disease Note ROS ROS GEN: Denies fevers, chills, sweats HEENT: Denies blurred vision, sore throat CV: Denies chest pain RESP: Denies shortness of air, cough GI: Denies n/v/d NEURO: Denies confusion, dizziness MSK: Denies weakness, joint pain/swelling Vital Sign Vital Signs Vital Signs Date Time Temp Pulse Resp B/P Pulse Ox O2 Delivery O2 Flow Rate FiO2 09/13/16 06:00 105 18 95/60 98 Ventilator 09/13/16 04:00 98.6 98.6 Physical Exam PHYSICAL EXAM GENERAL: NAD, Alert HEENT: PERRL, OC/OP NECK: Supple, no JVD, no LN LUNGS: Clear HEART: S1S2, no gallop, no murmur ABD: Soft, NT, no organomegaly, no rebound EXT: No edema, no cyanosis PROJECT CONTROL MANAGER: Alert, oriented x 3, no focal neurologic deficit SKIN: No rash IV: ok Labs Lab Laboratory Tests Test 09/12/16 20:15 09/12/16 20:26 09/12/16 20:35 09/12/16 22:17 White Blood Count 19.6x10^3/uL (4.0-11.0) Red Blood Count 4.03x10^6/uL (3.50-5.40) Hemoglobin 10.4g/dL (12.0-15.5) Hematocrit 34.2% (36.0-47.0) Mean Corpuscular Volume 85fL (79-100) Mean Corpuscular Hemoglobin 26pg (25-35) Mean Corpuscular Hemoglobin Concent 31g/dL (31-37) Red Cell Distribution Width 14.6% (11.5-14.5) Platelet Count 339x10^3/uL (140-400) Neutrophils (%) (Auto) 91% (31-73) Lymphocytes (%) (Auto) 4% (24-48) Monocytes (%) (Auto) 4% (0-9) Eosinophils (%) (Auto) 1% (0-3) Basophils (%) (Auto) 0% (0-3) Neutrophils # (Auto) 17.8x10^3uL (1.8-7.7) Lymphocytes # (Auto) 0.8x10^3/uL (1.0-4.8) Monocytes # (Auto) 0.8x10^3/uL (0.0-1.1) Eosinophils # (Auto) 0.2x10^3/uL (0.0-0.7) Basophils # (Auto) 0.0x10^3/uL (0.0-0.2) Segmented Neutrophils % 89% (35-66) Band Neutrophils % 2% (0-9) Lymphocytes % 4% (24-48) Monocytes % 4% (0-10) Eosinophils % 1% (0-5) Platelet Estimate Adequate (ADEQUATE) Anisocytosis Slight Sodium Level 145mmol/L (136-145) Potassium Level 4.6mmol/L (3.5-5.1) Chloride Level 102mmol/L (98-107) Carbon Dioxide Level 39mmol/L (21-32) Anion Gap 4 (6-14) Blood Urea Nitrogen 29mg/dL (7-20) Creatinine 1.1mg/dL (0.6-1.0) Estimated GFR (Cockcroft-Gault) 60.3 BUN/Creatinine Ratio 26 (6-20) Glucose Level 216mg/dL (70-99) Lactic Acid Level 0.4mmol/L (0.4-2.0) Calcium Level 9.3mg/dL (8.5-10.1) Total Bilirubin 0.5mg/dL (0.2-1.0) Aspartate Amino Transf (AST/SGOT) 16U/L (15-37) Alanine Aminotransferase (ALT/SGPT) 16U/L (14-59) Alkaline Phosphatase 57U/L (46-116) Troponin I Quantitative < 0.017ng/mL (0.000-0.055) SV-Ksa-N-Type Natriuretic Peptide 1569pg/mL (0-124) Total Protein 8.1g/dL (6.4-8.2) Albumin 3.6g/dL (3.4-5.0) Albumin/Globulin Ratio 0.8 (1.0-1.7) Procalcitonin < 0.10ng/mL (0.00-0.10) O2 Saturation 91% (92-99) 99% (92-99) Arterial Blood pH 7.18 (7.35-7.45) 7.45 (7.35-7.45) Arterial Blood pCO2 at Patient Temp 103mmHg (35-46) 46mmHg (35-46) Arterial Blood pO2 at Patient Temp 82mmHg (65-108) 175mmHg (65-108) Arterial Blood HCO3 38mmol/L (21-28) 31mmol/L (21-28) Arterial Blood Base Excess 7mmol/L (-3-3) 6mmol/L (-3-3) FiO2 70.0 70.0 Urine Collection Type U cath Urine Color Yellow Urine Clarity Clear Urine pH 5.5 Urine Specific [place] 1.025 Urine Protein 100mg/dL (NEG-TRACE) Urine Glucose (UA) Negativemg/dL (NEG) Urine Ketones (Stick) Negativemg/dL (NEG) Urine Blood Negative (NEG) Urine Nitrite Negative (NEG) Urine Bilirubin Negative (NEG) Urine Urobilinogen Dipstick 0.2mg/dL (0.2 mg/dL) Urine Leukocyte Esterase Small (NEG) Urine RBC Occ/HPF (0-2) Urine WBC 1-4/HPF (0-4) Urine Squamous Epithelial Cells Mod/LPF Urine Amorphous Sediment Present/HPF Urine Bacteria Few/HPF (0-FEW) Urine Hyaline Casts Moderate/HPF Urine Mucus Mod/LPF Oxyhemoglobin 97.6% Methemoglobin 0.7% (0.0-1.9) Carbon Monoxide, Quantitative 0.3% (0.0-1.9) Test 09/13/16 02:50 White Blood Count 13.1x10^3/uL (4.0-11.0) Red Blood Count 3.52x10^6/uL (3.50-5.40) Hemoglobin 9.2g/dL (12.0-15.5) Hematocrit 29.4% (36.0-47.0) Mean Corpuscular Volume 84fL (79-100) Mean Corpuscular Hemoglobin 26pg (25-35) Mean Corpuscular Hemoglobin Concent 31g/dL (31-37) Red Cell Distribution Width 14.3% (11.5-14.5) Platelet Count 279x10^3/uL (140-400) Neutrophils (%) (Auto) 85% (31-73) Lymphocytes (%) (Auto) 7% (24-48) Monocytes (%) (Auto) 8% (0-9) Eosinophils (%) (Auto) 0% (0-3) Basophils (%) (Auto) 0% (0-3) Neutrophils # (Auto) 11.1x10^3uL (1.8-7.7) Lymphocytes # (Auto) 0.9x10^3/uL (1.0-4.8) Monocytes # (Auto) 1.1x10^3/uL (0.0-1.1) Eosinophils # (Auto) 0.0x10^3/uL (0.0-0.7) Basophils # (Auto) 0.0x10^3/uL (0.0-0.2) Sodium Level 145mmol/L (136-145) Potassium Level 4.1mmol/L (3.5-5.1) Chloride Level 104mmol/L (98-107) Carbon Dioxide Level 30mmol/L (21-32) Anion Gap 11 (6-14) Blood Urea Nitrogen 30mg/dL (7-20) Creatinine 1.4mg/dL (0.6-1.0) Estimated GFR (Cockcroft-Gault) 45.7 BUN/Creatinine Ratio 21 (6-20) Glucose Level 149mg/dL (70-99) Calcium Level 8.5mg/dL (8.5-10.1) Total Bilirubin 0.8mg/dL (0.2-1.0) Aspartate Amino Transf (AST/SGOT) 20U/L (15-37) Alanine Aminotransferase (ALT/SGPT) 14U/L (14-59) Alkaline Phosphatase 47U/L (46-116) Troponin I Quantitative < 0.017ng/mL (0.000-0.055) Total Protein 6.4g/dL (6.4-8.2) Albumin 3.1g/dL (3.4-5.0) Albumin/Globulin Ratio 0.9 (1.0-1.7) Objective Assessment Sepsis - POA Resp failure - Intubated NANCY Leukocytosis Plan Plan of Care Given distant h/o VRE and recent hospitalization will add Zyvox Add Zosyn with h/o Proteus and cover aspiration and recent hospitalization F/u labs and cults Influenza screen Critically ill Thank you 35 min CC time # [id number] MARY ANN VÁZQUEZ MD Sep 13, 2016 08:00
--- NOTE | 2016-09-13 08:00 | RAD ---
Portable chest, 09/12/2016: History: Shortness of breath, check tube placements Comparison is made to a study from 08/28/2016. An ET tube has its tip located approximately 2.5 cm above the foreign. An NG tube extends into the stomach. The heart size is normal. There is calcific plaquing of the aorta. Emphysematous changes are present in the lungs. There are prominent pulmonary markings, particularly in the upper chest, unchanged since the previous exam. Blunting of the lateral costophrenic angles is probably due to scarring although a small amount of pleural fluid cannot be excluded. There is no evidence of pneumothorax. IMPRESSION: 1. The ET tube and NG tube are in satisfactory positions. 2. Unchanged prominence of the pulmonary markings suggesting fibrosis. Portable abdomen, 09/12/2016: History: Check tube placements A supine view the upper abdomen demonstrates an NG tube extending into the body of the stomach. There is also a gastrostomy tube projected over the left upper quadrant. There is very little bowel gas in the upper abdomen. IMPRESSION: The NG tube extends into the body of the stomach.
--- NOTE | 2016-09-13 08:02 | RAD ---
Portable chest, 09/13/2016: History: Intubation, congestive heart failure Comparison is made to yesterday's exam. The tip of the ET tube lies approximately 2.5 cm above the foreign. The NG tube extends into the stomach. The heart is within normal limits in size. There are emphysematous changes in the lungs. Prominent pulmonary markings again suggest fibrosis. No acute consolidation is seen. There is no evidence of pneumothorax. There is unchanged blunting of the lateral costophrenic angles compatible with scarring versus a small amount of pleural fluid. IMPRESSION: No significant change since yesterday's study.
[2016-09-13 08:57] LABS: OBC FLU VALID
[2016-09-13 08:59] LABS: HCO3 ABG 27 mmol/L (21-28); PCO2 ABG 29 mmHg (35-46); PO2 ABG 69 mmHg (65-108); SAT O2 ABG 95 % (92-99)
[2016-09-13 09:03] LABS: FIO2 ABG 40
[2016-09-13] MEDS: HEPARIN PF for SUB-Q USE 5,000 UNIT/0.5 ML VIAL. SQ SCH ×2 (09:46→20:58)
[2016-09-13] MEDS: CHLORHEXIDINE 0.12% 15 ML MOUTHWASH. MM SCH ×2 (09:47→20:52)
[2016-09-13] MEDS: PANTOPRAZOLE IV PUSH 40 MG VIAL. IVP SCH (09:47)
--- NOTE | 2016-09-13 09:52 | PDOC ---
PULMONARY PROGRESS NOTES Vitals Vital Signs Date Time Temp Pulse Resp B/P Pulse Ox O2 Delivery O2 Flow Rate FiO2 09/13/16 09:10 98 Ventilator 09/13/16 09:00 107 18 95/59 09/13/16 07:00 100.3 100.3 General: Alert, Oriented X4, No acute distress Lungs: Crackles Cardiovascular: S1, S2 Abdomen: Soft, Non-tender Extremities: No Edema Labs Laboratory Tests Test 09/12/16 20:15 09/12/16 20:26 09/12/16 20:35 09/12/16 22:17 White Blood Count 19.6x10^3/uL (4.0-11.0) Red Blood Count 4.03x10^6/uL (3.50-5.40) Hemoglobin 10.4g/dL (12.0-15.5) Hematocrit 34.2% (36.0-47.0) Mean Corpuscular Volume 85fL (79-100) Mean Corpuscular Hemoglobin 26pg (25-35) Mean Corpuscular Hemoglobin Concent 31g/dL (31-37) Red Cell Distribution Width 14.6% (11.5-14.5) Platelet Count 339x10^3/uL (140-400) Neutrophils (%) (Auto) 91% (31-73) Lymphocytes (%) (Auto) 4% (24-48) Monocytes (%) (Auto) 4% (0-9) Eosinophils (%) (Auto) 1% (0-3) Basophils (%) (Auto) 0% (0-3) Neutrophils # (Auto) 17.8x10^3uL (1.8-7.7) Lymphocytes # (Auto) 0.8x10^3/uL (1.0-4.8) Monocytes # (Auto) 0.8x10^3/uL (0.0-1.1) Eosinophils # (Auto) 0.2x10^3/uL (0.0-0.7) Basophils # (Auto) 0.0x10^3/uL (0.0-0.2) Segmented Neutrophils % 89% (35-66) Band Neutrophils % 2% (0-9) Lymphocytes % 4% (24-48) Monocytes % 4% (0-10) Eosinophils % 1% (0-5) Platelet Estimate Adequate (ADEQUATE) Anisocytosis Slight Sodium Level 145mmol/L (136-145) Potassium Level 4.6mmol/L (3.5-5.1) Chloride Level 102mmol/L (98-107) Carbon Dioxide Level 39mmol/L (21-32) Anion Gap 4 (6-14) Blood Urea Nitrogen 29mg/dL (7-20) Creatinine 1.1mg/dL (0.6-1.0) Estimated GFR (Cockcroft-Gault) 60.3 BUN/Creatinine Ratio 26 (6-20) Glucose Level 216mg/dL (70-99) Lactic Acid Level 0.4mmol/L (0.4-2.0) Calcium Level 9.3mg/dL (8.5-10.1) Total Bilirubin 0.5mg/dL (0.2-1.0) Aspartate Amino Transf (AST/SGOT) 16U/L (15-37) Alanine Aminotransferase (ALT/SGPT) 16U/L (14-59) Alkaline Phosphatase 57U/L (46-116) Troponin I Quantitative < 0.017ng/mL (0.000-0.055) WN-Ewb-R-Type Natriuretic Peptide 1569pg/mL (0-124) Total Protein 8.1g/dL (6.4-8.2) Albumin 3.6g/dL (3.4-5.0) Albumin/Globulin Ratio 0.8 (1.0-1.7) Procalcitonin < 0.10ng/mL (0.00-0.10) O2 Saturation 91% (92-99) 99% (92-99) Arterial Blood pH 7.18 (7.35-7.45) 7.45 (7.35-7.45) Arterial Blood pCO2 at Patient Temp 103mmHg (35-46) 46mmHg (35-46) Arterial Blood pO2 at Patient Temp 82mmHg (65-108) 175mmHg (65-108) Arterial Blood HCO3 38mmol/L (21-28) 31mmol/L (21-28) Arterial Blood Base Excess 7mmol/L (-3-3) 6mmol/L (-3-3) FiO2 70.0 70.0 Urine Collection Type U cath Urine Color Yellow Urine Clarity Clear Urine pH 5.5 Urine Specific [place] 1.025 Urine Protein 100mg/dL (NEG-TRACE) Urine Glucose (UA) Negativemg/dL (NEG) Urine Ketones (Stick) Negativemg/dL (NEG) Urine Blood Negative (NEG) Urine Nitrite Negative (NEG) Urine Bilirubin Negative (NEG) Urine Urobilinogen Dipstick 0.2mg/dL (0.2 mg/dL) Urine Leukocyte Esterase Small (NEG) Urine RBC Occ/HPF (0-2) Urine WBC 1-4/HPF (0-4) Urine Squamous Epithelial Cells Mod/LPF Urine Amorphous Sediment Present/HPF Urine Bacteria Few/HPF (0-FEW) Urine Hyaline Casts Moderate/HPF Urine Mucus Mod/LPF Oxyhemoglobin 97.6% Methemoglobin 0.7% (0.0-1.9) Carbon Monoxide, Quantitative 0.3% (0.0-1.9) Test 09/13/16 02:50 09/13/16 08:15 09/13/16 08:50 09/13/16 08:54 White Blood Count 13.1x10^3/uL (4.0-11.0) Red Blood Count 3.52x10^6/uL (3.50-5.40) Hemoglobin 9.2g/dL (12.0-15.5) Hematocrit 29.4% (36.0-47.0) Mean Corpuscular Volume 84fL (79-100) Mean Corpuscular Hemoglobin 26pg (25-35) Mean Corpuscular Hemoglobin Concent 31g/dL (31-37) Red Cell Distribution Width 14.3% (11.5-14.5) Platelet Count 279x10^3/uL (140-400) Neutrophils (%) (Auto) 85% (31-73) Lymphocytes (%) (Auto) 7% (24-48) Monocytes (%) (Auto) 8% (0-9) Eosinophils (%) (Auto) 0% (0-3) Basophils (%) (Auto) 0% (0-3) Neutrophils # (Auto) 11.1x10^3uL (1.8-7.7) Lymphocytes # (Auto) 0.9x10^3/uL (1.0-4.8) Monocytes # (Auto) 1.1x10^3/uL (0.0-1.1) Eosinophils # (Auto) 0.0x10^3/uL (0.0-0.7) Basophils # (Auto) 0.0x10^3/uL (0.0-0.2) Sodium Level 145mmol/L (136-145) Potassium Level 4.1mmol/L (3.5-5.1) Chloride Level 104mmol/L (98-107) Carbon Dioxide Level 30mmol/L (21-32) Anion Gap 11 (6-14) Blood Urea Nitrogen 30mg/dL (7-20) Creatinine 1.4mg/dL (0.6-1.0) Estimated GFR (Cockcroft-Gault) 45.7 BUN/Creatinine Ratio 21 (6-20) Glucose Level 149mg/dL (70-99) Calcium Level 8.5mg/dL (8.5-10.1) Total Bilirubin 0.8mg/dL (0.2-1.0) Aspartate Amino Transf (AST/SGOT) 20U/L (15-37) Alanine Aminotransferase (ALT/SGPT) 14U/L (14-59) Alkaline Phosphatase 47U/L (46-116) Troponin I Quantitative < 0.017ng/mL (0.000-0.055) 0.026ng/mL (0.000-0.055) Total Protein 6.4g/dL (6.4-8.2) Albumin 3.1g/dL (3.4-5.0) Albumin/Globulin Ratio 0.9 (1.0-1.7) Influenza Type A Antigen Negative (NEGATIVE) Influenza Type B Antigen Negative (NEGATIVE) O2 Saturation 95% (92-99) Arterial Blood pH 7.60 (7.35-7.45) Arterial Blood pCO2 at Patient Temp 29mmHg (35-46) Arterial Blood pO2 at Patient Temp 69mmHg (65-108) Arterial Blood HCO3 27mmol/L (21-28) Arterial Blood Base Excess 6mmol/L (-3-3) FiO2 40 Laboratory Tests Test 09/12/16 20:15 09/12/16 20:26 09/12/16 20:35 09/12/16 22:17 White Blood Count 19.6x10^3/uL (4.0-11.0) Red Blood Count 4.03x10^6/uL (3.50-5.40) Hemoglobin 10.4g/dL (12.0-15.5) Hematocrit 34.2% (36.0-47.0) Mean Corpuscular Volume 85fL (79-100) Mean Corpuscular Hemoglobin 26pg (25-35) Mean Corpuscular Hemoglobin Concent 31g/dL (31-37) Red Cell Distribution Width 14.6% (11.5-14.5) Platelet Count 339x10^3/uL (140-400) Neutrophils (%) (Auto) 91% (31-73) Lymphocytes (%) (Auto) 4% (24-48) Monocytes (%) (Auto) 4% (0-9) Eosinophils (%) (Auto) 1% (0-3) Basophils (%) (Auto) 0% (0-3) Neutrophils # (Auto) 17.8x10^3uL (1.8-7.7) Lymphocytes # (Auto) 0.8x10^3/uL (1.0-4.8) Monocytes # (Auto) 0.8x10^3/uL (0.0-1.1) Eosinophils # (Auto) 0.2x10^3/uL (0.0-0.7) Basophils # (Auto) 0.0x10^3/uL (0.0-0.2) Segmented Neutrophils % 89% (35-66) Band Neutrophils % 2% (0-9) Lymphocytes % 4% (24-48) Monocytes % 4% (0-10) Eosinophils % 1% (0-5) Platelet Estimate Adequate (ADEQUATE) Anisocytosis Slight Sodium Level 145mmol/L (136-145) Potassium Level 4.6mmol/L (3.5-5.1) Chloride Level 102mmol/L (98-107) Carbon Dioxide Level 39mmol/L (21-32) Anion Gap 4 (6-14) Blood Urea Nitrogen 29mg/dL (7-20) Creatinine 1.1mg/dL (0.6-1.0) Estimated GFR (Cockcroft-Gault) 60.3 BUN/Creatinine Ratio 26 (6-20) Glucose Level 216mg/dL (70-99) Lactic Acid Level 0.4mmol/L (0.4-2.0) Calcium Level 9.3mg/dL (8.5-10.1) Total Bilirubin 0.5mg/dL (0.2-1.0) Aspartate Amino Transf (AST/SGOT) 16U/L (15-37) Alanine Aminotransferase (ALT/SGPT) 16U/L (14-59) Alkaline Phosphatase 57U/L (46-116) Troponin I Quantitative < 0.017ng/mL (0.000-0.055) MY-Pcb-Q-Type Natriuretic Peptide 1569pg/mL (0-124) Total Protein 8.1g/dL (6.4-8.2) Albumin 3.6g/dL (3.4-5.0) Albumin/Globulin Ratio 0.8 (1.0-1.7) Procalcitonin < 0.10ng/mL (0.00-0.10) O2 Saturation 91% (92-99) 99% (92-99) Arterial Blood pH 7.18 (7.35-7.45) 7.45 (7.35-7.45) Arterial Blood pCO2 at Patient Temp 103mmHg (35-46) 46mmHg (35-46) Arterial Blood pO2 at Patient Temp 82mmHg (65-108) 175mmHg (65-108) Arterial Blood HCO3 38mmol/L (21-28) 31mmol/L (21-28) Arterial Blood Base Excess 7mmol/L (-3-3) 6mmol/L (-3-3) FiO2 70.0 70.0 Urine Collection Type U cath Urine Color Yellow Urine Clarity Clear Urine pH 5.5 Urine Specific [place] 1.025 Urine Protein 100mg/dL (NEG-TRACE) Urine Glucose (UA) Negativemg/dL (NEG) Urine Ketones (Stick) Negativemg/dL (NEG) Urine Blood Negative (NEG) Urine Nitrite Negative (NEG) Urine Bilirubin Negative (NEG) Urine Urobilinogen Dipstick 0.2mg/dL (0.2 mg/dL) Urine Leukocyte Esterase Small (NEG) Urine RBC Occ/HPF (0-2) Urine WBC 1-4/HPF (0-4) Urine Squamous Epithelial Cells Mod/LPF Urine Amorphous Sediment Present/HPF Urine Bacteria Few/HPF (0-FEW) Urine Hyaline Casts Moderate/HPF Urine Mucus Mod/LPF Oxyhemoglobin 97.6% Methemoglobin 0.7% (0.0-1.9) Carbon Monoxide, Quantitative 0.3% (0.0-1.9) Test 09/13/16 02:50 09/13/16 08:15 09/13/16 08:50 09/13/16 08:54 White Blood Count 13.1x10^3/uL (4.0-11.0) Red Blood Count 3.52x10^6/uL (3.50-5.40) Hemoglobin 9.2g/dL (12.0-15.5) Hematocrit 29.4% (36.0-47.0) Mean Corpuscular Volume 84fL (79-100) Mean Corpuscular Hemoglobin 26pg (25-35) Mean Corpuscular Hemoglobin Concent 31g/dL (31-37) Red Cell Distribution Width 14.3% (11.5-14.5) Platelet Count 279x10^3/uL (140-400) Neutrophils (%) (Auto) 85% (31-73) Lymphocytes (%) (Auto) 7% (24-48) Monocytes (%) (Auto) 8% (0-9) Eosinophils (%) (Auto) 0% (0-3) Basophils (%) (Auto) 0% (0-3) Neutrophils # (Auto) 11.1x10^3uL (1.8-7.7) Lymphocytes # (Auto) 0.9x10^3/uL (1.0-4.8) Monocytes # (Auto) 1.1x10^3/uL (0.0-1.1) Eosinophils # (Auto) 0.0x10^3/uL (0.0-0.7) Basophils # (Auto) 0.0x10^3/uL (0.0-0.2) Sodium Level 145mmol/L (136-145) Potassium Level 4.1mmol/L (3.5-5.1) Chloride Level 104mmol/L (98-107) Carbon Dioxide Level 30mmol/L (21-32) Anion Gap 11 (6-14) Blood Urea Nitrogen 30mg/dL (7-20) Creatinine 1.4mg/dL (0.6-1.0) Estimated GFR (Cockcroft-Gault) 45.7 BUN/Creatinine Ratio 21 (6-20) Glucose Level 149mg/dL (70-99) Calcium Level 8.5mg/dL (8.5-10.1) Total Bilirubin 0.8mg/dL (0.2-1.0) Aspartate Amino Transf (AST/SGOT) 20U/L (15-37) Alanine Aminotransferase (ALT/SGPT) 14U/L (14-59) Alkaline Phosphatase 47U/L (46-116) Troponin I Quantitative < 0.017ng/mL (0.000-0.055) 0.026ng/mL (0.000-0.055) Total Protein 6.4g/dL (6.4-8.2) Albumin 3.1g/dL (3.4-5.0) Albumin/Globulin Ratio 0.9 (1.0-1.7) Influenza Type A Antigen Negative (NEGATIVE) Influenza Type B Antigen Negative (NEGATIVE) O2 Saturation 95% (92-99) Arterial Blood pH 7.60 (7.35-7.45) Arterial Blood pCO2 at Patient Temp 29mmHg (35-46) Arterial Blood pO2 at Patient Temp 69mmHg (65-108) Arterial Blood HCO3 27mmol/L (21-28) Arterial Blood Base Excess 6mmol/L (-3-3) FiO2 40 Medications Active Scripts Medications Dose Route/Sig Days Date Category Atorvastatin Calcium 20 Mg Tablet 20 Mg PO QHS 30 02/26/16 Rx Aspirin 325 Mg Tablet 325 Mg PO DAILYWBKFT 30 02/26/16 Rx Furosemide 20 Mg Tablet 20 Mg GT DAILY 30 09/09/15 Rx Potassium Chloride Oral Liquid (Potassium Chloride) 20 Meq/15 Ml Liquid 20 Meq PEG DAILY 30 08/27/15 Rx Famotidine 20 Mg Tablet 20 Mg PO BID 30 08/27/15 Rx Carvedilol 12.5 Mg Tablet 25 Mg PO BID@ 30 08/27/15 Rx Acetaminophen 650 Mg/20.3 Ml Solution 325 Mg PEG PRN Q6HRS PRN 30 08/27/15 Rx Albuterol Sulfate Neb Soln (Albuterol Sulfate) 2.5 Mg/3 Ml Vial.neb 2.5 Mg NEB RTQID 30 08/04/15 Rx Impression . full note dictated resp failure multifactorial LAUREL HAMILTON MD Sep 13, 2016 09:52
[2016-09-13] MEDS: PIPERACILLIN/TAZOBACTAM 3.375 GM in IV NORMAL SALINE 50ML 50 ML IV SCH ×2 (11:05→17:38)
--- NOTE | 2016-09-13 12:35 | PDOC2 ---
RUBEN HENDRIX PLODDING OPERATOR 09/13/16 1235: CARDIAC CONSULT DATE OF CONSULT Date of Consult DATE: 09/13/16 TIME: 12:26 REASON FOR CONSULT Reason for Consult: CHF REFERRING PHYSICIAN Referring Physician: Dr. Song SOURCE Source: Caregiver, Chart review HISTORY OF PRESENT ILLNESS HISTORY OF PRESENT ILLNESS This is a 66 yo female, with a history of oxygen dependent COPD and diastolic heart failure, who presented secondary to shortness of breath and hypoxia. HPI obtained from chart review and daughter as patient is intubated and unable to provide. Patient apparently had cough with sputum production that began yesterday morning. Daughter went to work, when she cam home she noticed more breathing rapidly; oxygen saturations were in the low 70's; EMS was called. Patient is respiratory distress upon arrival to ED. Initially placed on BiPAP, but eventually required intubation. Family reports breathing has been at baseline prior to today. Has been compliant with medications. No report of CP, palpitations, orthopnea, LE edema, or fevers/illness. Is on chronic tube feedings due to dysphagia secondary to CVA. PAST MEDICAL HISTORY Past Medical History Cardiovascular: CHF, HTN, Hyperlipidemia Pulmonary: COPD (4L [place] ), Pneumonia CENTRAL NERVOUS SYSTEM: CVA Heme/Onc: Anemia NOS Hepatobiliary: No pertinent hx Psych: No pertinent hx Musculoskeletal: Osteoarthritis Rheumatologic: No pertinent hx Infectious disease: No pertinent hx ENT: No pertinent hx Renal/: No pertinent hx Endocrine: No pertinent hx Dermatology: No pertinent hx PAST SURGICAL HISTORY Past Surgical History PEG placement FAMILY HISTORY Family History Hypertension SOCIAL HISTORY Social History Smoke: No ALCOHOL: none Drugs: None Lives: with Family CURRENT MEDICATIONS CURRENT MEDICATIONS Current Medications Medications (Trade) Dose Ordered Sig/Michael Route PRN Reason Start Time Stop Time Status Last Admin Dose Admin Furosemide (Lasix) 100 mg 1X ONCE IVP 09/12/16 21:00 09/12/16 21:01 DC 09/12/16 21:34 Etomidate (Amidate) 20 mg 1X ONCE IV 09/12/16 20:45 09/12/16 20:46 DC 09/12/16 20:42 Succinylcholine Chloride (Anectine) 50 mg 1X ONCE IV 09/12/16 20:45 09/12/16 20:46 DC 09/12/16 20:42 Chlorhexidine Gluconate 15 ml 15 ml BID MM 09/13/16 09:00 09/13/16 09:47 Midazolam HCl (Versed 100mg/ 100ml Premix) 100 ml @ 0 mls/hr CONT PRN IV PER PROTOCOL 09/12/16 20:45 09/13/16 06:36 Heparin Sodium (Porcine) 5000 unit 5,000 unit Q12HR SQ 09/13/16 09:00 09/13/16 09:46 Levofloxacin/ Dextrose 100 ml @ 100 mls/hr ONCE ONCE IV 09/12/16 22:00 09/12/16 22:59 DC 09/12/16 22:05 Sodium Chloride 500 ml @ 0 mls/hr 1X ONCE IV 09/12/16 22:30 09/12/16 22:31 DC 09/12/16 22:10 Sodium Chloride (Iv Sodium Chloride 0.9% 1000ml Bag) 1,000 ml @ 999 mls/hr 1X ONCE IV 09/12/16 23:30 09/13/16 00:30 DC 09/12/16 23:41 Furosemide 20 mg 20 mg 1X ONCE IVP 09/12/16 23:30 09/12/16 23:31 DC 09/13/16 00:49 Norepinephrine Bitartrate 8 mg/ Sodium Chloride 258 ml @ 0 mls/hr CONT PRN IV SEE I/O RECORD 09/12/16 23:30 09/12/16 23:53 Linezolid 300 ml @ 300 mls/hr Q12HR IV 09/13/16 09:00 09/13/16 09:59 Piperacillin Sod/ Tazobactam Sod/ Sodium Chloride (Zosyn/Iv Sodium Chloride 0.9% 50ml) 50 ml @ 100 mls/hr Q6HRS IV 09/13/16 07:45 09/13/16 11:05 Pantoprazole Sodium (Protonix Vial) 40 mg DAILYAC IVP 09/13/16 09:00 09/13/16 09:47 ALLERGIES ALLERGIES: Coded Allergies: I S O L A T I O N *CONTACT* (Verified Allergy, Unknown, 09/01/15) vre + No Known Medication Allergies (Verified Allergy, Unknown, 09/01/15) ROS Review of System unobtainable PHYSICAL EXAM General: No acute distress, Other (sedated ) HEENT: Atraumatic, Mucous membr. moist/pink Lungs: Other (mechanical ventilation) Abdomen: Soft Extremities: No cyanosis, No edema, Normal pulses Skin: No significant lesion Neuro: Other (unable to assess ) Psych/Mental Status: Other MUSCULOSKELETAL: Osteoarthritic changes both hands VITALS VITALS Vital Signs Date Time Temp Pulse Resp B/P Pulse Ox O2 Delivery O2 Flow Rate FiO2 09/13/16 11:00 98 Ventilator 09/13/16 11:00 100.8 101 14 104/69 100.8 LABS Lab: Laboratory Tests Test 09/12/16 20:15 09/12/16 20:26 09/12/16 20:35 09/12/16 22:17 White Blood Count 19.6x10^3/uL (4.0-11.0) Red Blood Count 4.03x10^6/uL (3.50-5.40) Hemoglobin 10.4g/dL (12.0-15.5) Hematocrit 34.2% (36.0-47.0) Mean Corpuscular Volume 85fL (79-100) Mean Corpuscular Hemoglobin 26pg (25-35) Mean Corpuscular Hemoglobin Concent 31g/dL (31-37) Red Cell Distribution Width 14.6% (11.5-14.5) Platelet Count 339x10^3/uL (140-400) Neutrophils (%) (Auto) 91% (31-73) Lymphocytes (%) (Auto) 4% (24-48) Monocytes (%) (Auto) 4% (0-9) Eosinophils (%) (Auto) 1% (0-3) Basophils (%) (Auto) 0% (0-3) Neutrophils # (Auto) 17.8x10^3uL (1.8-7.7) Lymphocytes # (Auto) 0.8x10^3/uL (1.0-4.8) Monocytes # (Auto) 0.8x10^3/uL (0.0-1.1) Eosinophils # (Auto) 0.2x10^3/uL (0.0-0.7) Basophils # (Auto) 0.0x10^3/uL (0.0-0.2) Segmented Neutrophils % 89% (35-66) Band Neutrophils % 2% (0-9) Lymphocytes % 4% (24-48) Monocytes % 4% (0-10) Eosinophils % 1% (0-5) Platelet Estimate Adequate (ADEQUATE) Anisocytosis Slight Sodium Level 145mmol/L (136-145) Potassium Level 4.6mmol/L (3.5-5.1) Chloride Level 102mmol/L (98-107) Carbon Dioxide Level 39mmol/L (21-32) Anion Gap 4 (6-14) Blood Urea Nitrogen 29mg/dL (7-20) Creatinine 1.1mg/dL (0.6-1.0) Estimated GFR (Cockcroft-Gault) 60.3 BUN/Creatinine Ratio 26 (6-20) Glucose Level 216mg/dL (70-99) Lactic Acid Level 0.4mmol/L (0.4-2.0) Calcium Level 9.3mg/dL (8.5-10.1) Total Bilirubin 0.5mg/dL (0.2-1.0) Aspartate Amino Transf (AST/SGOT) 16U/L (15-37) Alanine Aminotransferase (ALT/SGPT) 16U/L (14-59) Alkaline Phosphatase 57U/L (46-116) Troponin I Quantitative < 0.017ng/mL (0.000-0.055) RO-Qob-W-Type Natriuretic Peptide 1569pg/mL (0-124) Total Protein 8.1g/dL (6.4-8.2) Albumin 3.6g/dL (3.4-5.0) Albumin/Globulin Ratio 0.8 (1.0-1.7) Procalcitonin < 0.10ng/mL (0.00-0.10) O2 Saturation 91% (92-99) 99% (92-99) Arterial Blood pH 7.18 (7.35-7.45) 7.45 (7.35-7.45) Arterial Blood pCO2 at Patient Temp 103mmHg (35-46) 46mmHg (35-46) Arterial Blood pO2 at Patient Temp 82mmHg (65-108) 175mmHg (65-108) Arterial Blood HCO3 38mmol/L (21-28) 31mmol/L (21-28) Arterial Blood Base Excess 7mmol/L (-3-3) 6mmol/L (-3-3) FiO2 70.0 70.0 Urine Collection Type U cath Urine Color Yellow Urine Clarity Clear Urine pH 5.5 Urine Specific [place] 1.025 Urine Protein 100mg/dL (NEG-TRACE) Urine Glucose (UA) Negativemg/dL (NEG) Urine Ketones (Stick) Negativemg/dL (NEG) Urine Blood Negative (NEG) Urine Nitrite Negative (NEG) Urine Bilirubin Negative (NEG) Urine Urobilinogen Dipstick 0.2mg/dL (0.2 mg/dL) Urine Leukocyte Esterase Small (NEG) Urine RBC Occ/HPF (0-2) Urine WBC 1-4/HPF (0-4) Urine Squamous Epithelial Cells Mod/LPF Urine Amorphous Sediment Present/HPF Urine Bacteria Few/HPF (0-FEW) Urine Hyaline Casts Moderate/HPF Urine Mucus Mod/LPF Oxyhemoglobin 97.6% Methemoglobin 0.7% (0.0-1.9) Carbon Monoxide, Quantitative 0.3% (0.0-1.9) Test 09/12/16 22:55 09/13/16 02:50 09/13/16 08:15 09/13/16 08:50 Nasal Screen MRSA (PCR) Negative (Negative) White Blood Count 13.1x10^3/uL (4.0-11.0) Red Blood Count 3.52x10^6/uL (3.50-5.40) Hemoglobin 9.2g/dL (12.0-15.5) Hematocrit 29.4% (36.0-47.0) Mean Corpuscular Volume 84fL (79-100) Mean Corpuscular Hemoglobin 26pg (25-35) Mean Corpuscular Hemoglobin Concent 31g/dL (31-37) Red Cell Distribution Width 14.3% (11.5-14.5) Platelet Count 279x10^3/uL (140-400) Neutrophils (%) (Auto) 85% (31-73) Lymphocytes (%) (Auto) 7% (24-48) Monocytes (%) (Auto) 8% (0-9) Eosinophils (%) (Auto) 0% (0-3) Basophils (%) (Auto) 0% (0-3) Neutrophils # (Auto) 11.1x10^3uL (1.8-7.7) Lymphocytes # (Auto) 0.9x10^3/uL (1.0-4.8) Monocytes # (Auto) 1.1x10^3/uL (0.0-1.1) Eosinophils # (Auto) 0.0x10^3/uL (0.0-0.7) Basophils # (Auto) 0.0x10^3/uL (0.0-0.2) Sodium Level 145mmol/L (136-145) Potassium Level 4.1mmol/L (3.5-5.1) Chloride Level 104mmol/L (98-107) Carbon Dioxide Level 30mmol/L (21-32) Anion Gap 11 (6-14) Blood Urea Nitrogen 30mg/dL (7-20) Creatinine 1.4mg/dL (0.6-1.0) Estimated GFR (Cockcroft-Gault) 45.7 BUN/Creatinine Ratio 21 (6-20) Glucose Level 149mg/dL (70-99) Calcium Level 8.5mg/dL (8.5-10.1) Total Bilirubin 0.8mg/dL (0.2-1.0) Aspartate Amino Transf (AST/SGOT) 20U/L (15-37) Alanine Aminotransferase (ALT/SGPT) 14U/L (14-59) Alkaline Phosphatase 47U/L (46-116) Troponin I Quantitative < 0.017ng/mL (0.000-0.055) 0.026ng/mL (0.000-0.055) Total Protein 6.4g/dL (6.4-8.2) Albumin 3.1g/dL (3.4-5.0) Albumin/Globulin Ratio 0.9 (1.0-1.7) Influenza Type A Antigen Negative (NEGATIVE) Influenza Type B Antigen Negative (NEGATIVE) Test 09/13/16 08:54 O2 Saturation 95% (92-99) Arterial Blood pH 7.60 (7.35-7.45) Arterial Blood pCO2 at Patient Temp 29mmHg (35-46) Arterial Blood pO2 at Patient Temp 69mmHg (65-108) Arterial Blood HCO3 27mmol/L (21-28) Arterial Blood Base Excess 6mmol/L (-3-3) FiO2 40 ECHOCARDIOGRAM ECHOCARDIOGRAM <Conclusion> The Ejection Fraction is >70%. Echo imaging reveals no regional wall motion abnormalities. Doppler and Color Flow revealed mild to moderate tricuspid regurgitation.The pulmonary artery systolic pressure is estimated at 94 mmHg. There is severe pulmonary hypertension. DATE: 08/29/16 1651 ASSESSMENT/PLAN ASSESSMENT/PLAN 1. Acute on chronic diastolic heart failure 2. Acute on chronic respiratory failure s/p intubation 3. Leukocytosis with sepsis 4. UTI 5. Hypotension 6. Severe pulmonary hypertension 7. NANCY 8. Prior CVA with dysphagia s/p PEG placement Recommendations Pressors for BP support- titrate as necessary Small left pl effusion noted on CXR- no aggressive diuresis warranted at this time IV antibiotic therapy per ID Supportive care from CV perspective Problems: BENITA REAGAN MD 09/13/160: CARDIAC CONSULT ALLERGIES ALLERGIES: Coded Allergies: I S O L A T I O N *CONTACT* (Verified Allergy, Unknown, 09/01/15) vre + No Known Medication Allergies (Verified Allergy, Unknown, 09/01/15) ASSESSMENT/PLAN ASSESSMENT/PLAN Pt. seen and examined. Agree with above SERVICE SPECIALIST note. 66 y.o with acute resp failure. No significant volume overload by exam acute presentation more consistent with infectious issues Given need for vasopressors, would defer aggressive diuiresis. Fio2 is low a 40 % on vent Supportive care. Known severe pulm htn. Will follow along. Problems: RUBEN HENDRIX APRN Sep 13, 2016 12:35 BENITA REAGAN MD Sep 13, 2016 22:30
--- NOTE | 2016-09-13 22:17 | ACF ---
Admission Forms Criteria RESPIRATORY FAILURE [facility] Clinical Indications for Admission to Inpatient Care (Place 'X' for any and all applicable criteria): Hospital admission is needed for appropriate care of the patient because of acute respiratory failure or insufficiency as indicated by ANY ONE of the following(1)(2)(3)(4)(5)(6)(7)(8): [X]I. Mechanical ventilation needed (acute invasive or noninvasive) [X]II. Severe ventilation deficit as indicated by ANY ONE of the following (9) [X]a) Respiratory acidosis (pH less than 7.32 and partial pressure of carbon dioxide greater than 40 mm Hg (5.3 kPa)) [X]b) Partial pressure of carbon dioxide greater than 44 mm Hg (5.9 kPa ) (new) [ ]c) Airflow measurements less than 25% of predicted (eg, peak expiratory flow rate less than 100 L/minute) [ ]d) Forced vital capacity less than 15 mL/kg of ideal body weight, or 50% decrease in vital capacity from baseline [ ]III. Noncardiac pulmonary edema not resolving with rapid emergency treatment (8) [ ]IV. Severe respiratory distress as indicated by ANY ONE of the following: [ ]a) Severe tachypnea (respiratory rate greater than 30, greater than 45 for 6-month-old, greater than 60 for ) [ ]b) Severe hypoxemia (partial pressure of oxygen less than 50 mm Hg ( 6.7 kPa) on greater than 50% oxygen or partial pressure of oxygen to FIO2 ratio less than 200) [ ]c) Mental status deterioration from respiratory disease [ ]V. Airway obstruction or inadequate protection [A](10)(11) The original [employer] content created by [employer] has been revised. The portions of the content which have been revised are identified through the use of italic text or in bold, and [facility] has neither reviewed nor approved the modified material. All other unmodified content is copyright [employer]. Please see references footnoted in the original [employer] edition 2016 Admission Criteria Met?: Yes JONEL STOREY Sep 13, 2016 22:17
--- NOTE | 2016-09-13 22:22 | HP ---
ADMIT DATE: 09/12/2016 ADMISSION DIAGNOSIS: Acute on chronic respiratory failure. HISTORY OF PRESENT ILLNESS: This is a 66-year-old -[place] female who sees Dr. Fletcher who became acutely dyspneic and short of breath. She denied any associated chest pain. Her daughter reports some flu-like symptoms may have preceded this. She was having trouble breathing and brought to the Emergency Room where she was seen and evaluated. Her blood gas there showed a pH of only 7.15 after being initially placed on BiPAP. She was intubated and admitted into the Intensive Care Unit. She was seen this morning, still sedated and on the ventilator. After being admitted to the Intensive Care Unit, she was noted to be hypotensive. She received a fluid bolus and was started on Levophed. Her pressures have been maintaining adequate since then. No family was available when I rounded on her this morning to give additional history. She is being seen by Infectious Disease, Pulmonary and Cardiology. There is a history of cough that was productive that began yesterday morning that her daughter noticed before she went to work and when she came home from work, she found her mother having difficulty breathing with low oxygen saturations. PAST MEDICAL HISTORY: CHF, hypertension, hyperlipidemia, COPD, chronic respiratory failure, treated with 4 liters nasal cannula oxygen and previous pneumonia, CVA, anemia, osteoarthritis, neurogenic dysphagia. PAST SURGICAL HISTORY: Includes PEG placement. ALLERGIES: She has no known drug allergies. ROUTINE HOME MEDICATIONS: Include Tylenol 325 per PEG q.6 hours p.r.n. pain or temp, albuterol nebulized 2.5 mg q.i.d., aspirin 325 daily with breakfast, atorvastatin 20 mg at bedtime, carvedilol 25 mg b.i.d., famotidine 20 mg b.i.d., furosemide 20 mg daily and potassium chloride 20 mEq per PEG daily. FAMILY HISTORY: Noncontributory. SOCIAL HISTORY: No tobacco use, no alcohol use. She lives with family. REVIEW OF SYSTEMS: PULMONARY: As above. CARDIAC: No apparent chest pain. GASTROINTESTINAL: Negative for nausea, vomiting or diarrhea. GENITOURINARY: Negative for incontinence. She does get comfort foods in addition to her PEG feedings. There is a history of aspiration. Post-stroke, she has had some generalized weakness and dependency in her care. She has arthritic changes that limited her mobility. PHYSICAL EXAMINATION: VITAL SIGNS: Temperature of 100.3 this morning. GENERAL: She is sedated. She is intubated, but comfortable. HEENT: Eyes are closed. There is no sinus congestion. NECK: Supple. No bruit heard. HEART: Regular rate and rhythm. LUNGS: Clear anteriorly. ABDOMEN: Soft, nondistended, without hepatosplenomegaly or other masses noted. SKIN: She has ____ lower extremities, but there is no clubbing, cyanosis or peripheral edema noted. There is no sign of skin breakdown. LABORATORY DATA: Show white count of 19.6, hemoglobin of 10.4, hematocrit of 34.2, platelets at 339. Initial arterial blood gas pH 7.18 with a pCO2 of 103 and a pO2 of 82 on 70% FiO2. Chemistry showed BUN of 30, creatinine of 1.4, glucose 149, albumin of 3.1. Procalcitonin is less than 0.1. Initial cardiac enzymes are negative. Lactic acid 1.3. MRSA nasal screen is negative. Influenza A and B are negative. Urinalysis is nonspecific, small amount of leukocyte esterase is present, moderate squamous epithelial cells are present. IMAGING: Her chest x-ray shows her ET and NG in satisfactory positions, calcific plaque in the aorta was present, emphysematous changes in both lungs, prominent pulmonary markings are present, suggestive of fibrosis. Abdominal series shows gastrostomy tube and NG tube in appropriate places. Additional lab show her proBNP now only be 1569. ASSESSMENT: 1. Acute respiratory failure on chronic respiratory failure. Etiology is not clear, but appears to be upper respiratory infection. No evidence per x-ray of aspiration, but her white count is elevated and she has a history of this. 2. Acute on chronic diastolic heart failure with elevated proBNP. 3. Hypotension appears to be due to hypovolemia, fluids were replaced, but she is requiring Levophed to maintain her pressure, ____ fluid overload or too much with her history of heart failure. 4. At this point, there is no evidence of sepsis based on her normal lactic acid and normal procalcitonin, but she does have a leukocytosis and fever and is tachycardic. Blood cultures were ordered. PLAN: She is intubated. She is sedated and appropriate consults have been obtained and intensive care is required. Further studies and investigations are undergoing. She will be covered with broad spectrum antibiotics, await cultures and additional cardiac enzymes. She is at risk for ischemic bowel issues due to her low blood pressures at the time of admission. W Chance FLORENTINO MD DR: MATT/angela JOB#: [id number] / [id number]
[2016-09-14] VITALS (24 sets, daily range): BP systolic 91–132; BP diastolic 55–74
[2016-09-14] MEDS: PIPERACILLIN/TAZOBACTAM 3.375 GM in IV NORMAL SALINE 50ML 50 ML IV SCH ×5 (00:08→23:59)
[2016-09-14] MEDS: MIDAZOLAM PREMIX 100 ML IV PRN ×2 (03:25→17:41)
[2016-09-14] MEDS: METOCLOPRAMIDE HCL 10 MG/2 ML VIAL. IV SCH ×5 (06:00→23:59)
[2016-09-14 06:20] LABS: BASO # 0.1 x10^3/uL (0.0-0.2); BASO % 0 % (0-3); EOS % 0 % (0-3); HEMATOCRIT 27.3 % (36.0-47.0); HEMOGLOBIN 8.9 g/dL (12.0-15.5); LYMPH # 0.9 x10^3/uL (1.0-4.8); LYMPH % 8 % (24-48); MEAN CORPUSCULAR HEMOGLOBIN 27 pg (25-35); MEAN CORPUSCULAR HGB CONC 33 g/dL (31-37); MEAN CORPUSCULAR VOLUME 82 fL (79-100); MONO % 10 % (0-9); NEUT % 82 % (31-73); PLATELET COUNT 220 x10^3/uL (140-400); RED BLOOD COUNT 3.35 x10^6/uL (3.50-5.40); RED CELL DISTRIBUTION WIDTH 14.5 % (11.5-14.5); WHITE BLOOD COUNT 12.2 x10^3/uL (4.0-11.0)
[2016-09-14 06:30] LABS: CALCIUM 8.6 mg/dL (8.5-10.1); CREATININE 1.2 mg/dL (0.6-1.0); GFR 54.6; POTASSIUM 3.3 mmol/L (3.5-5.1)
--- NOTE | 2016-09-14 06:57 | PDOC ---
Infectious Disease Note Subjective Subjective Intubated ROS ROS unobtainable Vital Sign Vital Signs Vital Signs Date Time Temp Pulse Resp B/P Pulse Ox O2 Delivery O2 Flow Rate FiO2 09/14/16 06:00 94 14 106/68 97 Ventilator 09/14/16 04:00 98.1 98.1 Physical Exam PHYSICAL EXAM GENERAL: Sedated HEENT: PERRL, OC/OP ETT, OGT NECK: Supple, no JVD, no LN LUNGS: Clear HEART: S1S2, no gallop, no murmur ABD: Soft, NT, mild distension, no rebound, PEG EXT: No edema, no cyanosis [employer]: Sedated SKIN: No rash IV: ok Labs Lab Laboratory Tests Test 09/13/16 08:15 09/13/16 08:50 09/13/16 08:54 09/13/16 13:00 Influenza Type A Antigen Negative (NEGATIVE) Influenza Type B Antigen Negative (NEGATIVE) Troponin I Quantitative 0.026ng/mL (0.000-0.055) O2 Saturation 95% (92-99) Arterial Blood pH 7.60 (7.35-7.45) Arterial Blood pCO2 at Patient Temp 29mmHg (35-46) Arterial Blood pO2 at Patient Temp 69mmHg (65-108) Arterial Blood HCO3 27mmol/L (21-28) Arterial Blood Base Excess 6mmol/L (-3-3) FiO2 40 Lactic Acid Level 1.3mmol/L (0.4-2.0) Test 09/14/16 06:05 Sodium Level 144mmol/L (136-145) Potassium Level 3.3mmol/L (3.5-5.1) Chloride Level 102mmol/L (98-107) Carbon Dioxide Level 35mmol/L (21-32) Anion Gap 7 (6-14) Blood Urea Nitrogen 19mg/dL (7-20) Creatinine 1.2mg/dL (0.6-1.0) Estimated GFR (Cockcroft-Gault) 54.6 Glucose Level 122mg/dL (70-99) Calcium Level 8.6mg/dL (8.5-10.1) Objective Assessment Sepsis - POA -off pressors Resp failure - Intubated NANCY - better Leukocytosis Plan Plan of Care Cont Zyvox/Zosyn/Levoflox (increase dose) F/u labs and cults Critically ill MARY ANN VÁZQUEZ MD Sep 14, 2016 06:57
[2016-09-14 07:55] LABS: HCO3 ABG 35 mmol/L (21-28); PCO2 ABG 52 mmHg (35-46); PH ABG 7.44 (7.35-7.45); PO2 ABG 65 mmHg (65-108); SAT O2 ABG 91 % (92-99)
[2016-09-14 07:57] LABS: FIO2 ABG 40
[2016-09-14] MEDS ORDERED: POTASSIUM CHLORIDE 20 MEQ/15 ML ORAL LIQUID. PO ONE (08:00)
[2016-09-14 08:08] LABS: MAGNESIUM 1.8 mg/dL (1.8-2.4); PHOSPHORUS 2.6 mg/dL (2.6-4.7)
[2016-09-14] MEDS: PANTOPRAZOLE IV PUSH 40 MG VIAL. IVP SCH (08:24)
[2016-09-14] MEDS: CHLORHEXIDINE 0.12% 15 ML MOUTHWASH. MM SCH ×2 (08:25→21:00)
[2016-09-14] MEDS: HEPARIN PF for SUB-Q USE 5,000 UNIT/0.5 ML VIAL. SQ SCH ×2 (08:26→21:06)
--- NOTE | 2016-09-14 09:04 | CONS ---
DATE OF CONSULTATION: 09/13/2016 PATIENT'S ROOM: ICU 16. REQUESTING PHYSICIAN: Dr. Renee. REASON FOR CONSULTATION: Positive sepsis screen. HISTORY OF PRESENT ILLNESS: The patient is a 66-year-old -[place] female. Currently, she is intubated, sedated, and unable to provide any past medical history; history of present illness is obtained mainly from the chart and also reviewing of previous admissions. 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 Also has a history of previous urinary tract infection with Klebsiella back in 02/2016, resistant to ampicillin. She was recently here and discharge approximately, dated 09/01/2016 secondary to ozues-yi-ijdpnwo respiratory failure and nkwal-yb-oevdksv systolic and diastolic heart failure. She is now brought back to the Emergency Room last evening for apparent shortness of air. She subsequently was intubated and did not have a fever at the time of her presentation. Blood pressures have been in the 60s or 40s. She is on 4 mcg of Levophed and was intubated. White blood cell count on arrival was 19.61. She was placed on levofloxacin. PAST MEDICAL HISTORY: Again is positive for that history of previous VRE, history of Proteus as mentioned above, congestive heart failure, hyperlipidemia, hypertension, COPD, pneumonia, and previous CVA. PAST SURGICAL HISTORY: Positive for PEG tube placement. REVIEW OF SYSTEMS: Unobtainable. ALLERGIES: No known drug allergies. FAMILY HISTORY: Positive for hypertension. SOCIAL HISTORY: Quit tobacco many years ago. CURRENT MEDICATIONS: Include levofloxacin and heparin. Other meds are available and have been reviewed in the chart. PHYSICAL EXAMINATION: VITAL SIGNS: Temperature is 96 axillary, pulse 105, respirations 18, blood pressure currently 95/60, and satting 98% on the ventilator. She is sedated. HEENT: Pupils are small, reactive with normal conjunctivae. NECK: Supple. LUNGS: Decreased at the bases, but clear. HEART: S1, S2. ABDOMEN: Soft, nontender, and nondistended with a PEG tube in place. Armstrong is in place. EXTREMITIES: Thin. No clubbing or cyanosis. No gross edema. SKIN: Warm to touch without signs of rash. Peripheral IVs are clean. LABORATORY DATA: White count today of 13.1, hemoglobin 9.2, platelets of 279, and neutrophils were 85%. Creatinine has increased to 1.4, glucose of 149. Normal liver function study tests. Troponin was normal. Procalcitonin less than 0.10. BNP was 1569. Urinalysis was questionable for UTI. She does have a moderate amount of squamous cells. Influenza screen from the 08/18/2016 was negative. IMAGING: Chest x-ray: There is no official report, but by my eye, she has hyperventilation, but appears to be clear otherwise. IMPRESSION: 1. Sepsis present on admission. 2. Respiratory failure, currently intubated. 3. Acute kidney injury that is kind of worsened than when she arrived here. 4. Leukocytosis. RECOMMENDATIONS: Given her recent hospitalization history of VRE in the past, we will have her on Zyvox. Additionally, we will add Zosyn given a history of Proteus in the past and we will cover____ aspiration as well as her recent hospitalization. We will follow up on laboratory values as well as cultures. She is critically ill. I spent 35 minutes in critical care time. Thank you for allowing me to participate in this patient's care. If you have any questions, please do not hesitate to contact me. Also, I will try and obtain an influenza screen and I did review her previous admission and previous records. MARY ANN VÁZQUEZ MD DR: LAUREN/angela JOB#: [id number] / [id number]
--- NOTE | 2016-09-14 11:33 | RAD ---
Portable chest, 09/14/2016: History: Follow-up CHF, intubation Comparison is made to yesterday's study. The tip of the ET tube lies 3 cm above the foreign. An NG tube extends to the level of the gastric cardia. A sidehole lies in the distal esophagus. The tube has pulled back somewhat since the 09/12/2016 KUB. The heart size is normal. Emphysematous changes are present. Prominent pulmonary markings are unchanged, again suggesting fibrosis. No acute consolidation is seen. There is unchanged blunting of the lateral costophrenic angles. IMPRESSION: 1. The NG tube has been pulled back slightly with its tip now lying at the level of the gastric cardia. 2. The ET tube is in satisfactory position. 3. Stable cardiopulmonary findings.
--- NOTE | 2016-09-14 12:01 | PDOC ---
CARDIO Progress Notes Date and Time Date of Service 09/14/16 Time of Evaluation 1340 Vitals Vitals Vital Signs Date Time Temp Pulse Resp B/P Pulse Ox O2 Delivery O2 Flow Rate FiO2 09/14/16 11:28 95 Ventilator 09/14/16 06:00 94 14 106/68 09/14/16 04:00 98.1 98.1 Weight Weight [ ] Input and Output Intake and Output Intake and Output 09/14/16 07:00 Intake Total 1823 ml Output Total 800 ml Balance 1023 ml IV Total 1215 ml Tube Feeding 608 ml Output Urine Total 550 ml Gastric Drainage Total 250 ml Laboratory Labs Laboratory Tests Test 09/13/16 13:00 09/14/16 06:05 09/14/16 07:50 Lactic Acid Level 1.3mmol/L (0.4-2.0) White Blood Count 12.2x10^3/uL (4.0-11.0) Red Blood Count 3.35x10^6/uL (3.50-5.40) Hemoglobin 8.9g/dL (12.0-15.5) Hematocrit 27.3% (36.0-47.0) Mean Corpuscular Volume 82fL (79-100) Mean Corpuscular Hemoglobin 27pg (25-35) Mean Corpuscular Hemoglobin Concent 33g/dL (31-37) Red Cell Distribution Width 14.5% (11.5-14.5) Platelet Count 220x10^3/uL (140-400) Neutrophils (%) (Auto) 82% (31-73) Lymphocytes (%) (Auto) 8% (24-48) Monocytes (%) (Auto) 10% (0-9) Eosinophils (%) (Auto) 0% (0-3) Basophils (%) (Auto) 0% (0-3) Neutrophils # (Auto) 10.0x10^3uL (1.8-7.7) Lymphocytes # (Auto) 0.9x10^3/uL (1.0-4.8) Monocytes # (Auto) 1.2x10^3/uL (0.0-1.1) Eosinophils # (Auto) 0.0x10^3/uL (0.0-0.7) Basophils # (Auto) 0.1x10^3/uL (0.0-0.2) Sodium Level 144mmol/L (136-145) Potassium Level 3.3mmol/L (3.5-5.1) Chloride Level 102mmol/L (98-107) Carbon Dioxide Level 35mmol/L (21-32) Anion Gap 7 (6-14) Blood Urea Nitrogen 19mg/dL (7-20) Creatinine 1.2mg/dL (0.6-1.0) Estimated GFR (Cockcroft-Gault) 54.6 Glucose Level 122mg/dL (70-99) Calcium Level 8.6mg/dL (8.5-10.1) Phosphorus Level 2.6mg/dL (2.6-4.7) Magnesium Level 1.8mg/dL (1.8-2.4) O2 Saturation 91% (92-99) Arterial Blood pH 7.44 (7.35-7.45) Arterial Blood pCO2 at Patient Temp 52mmHg (35-46) Arterial Blood pO2 at Patient Temp 65mmHg (65-108) Arterial Blood HCO3 35mmol/L (21-28) Arterial Blood Base Excess 9mmol/L (-3-3) FiO2 40 Microbiology Micro Microbiology 09/13/16 Blood Culture - Preliminary, Resulted NO GROWTH AFTER 1 DAY 09/12/16 Urine Culture - Preliminary, Resulted 09/12/16 Urine Culture Result 1 (CANDICE) - Preliminary, Resulted Physical Exam HEENT: Neck Supple W Full Motion Chest: Symmetric LUNGS: Other (mechanical ventilation) Heart: S1S2, RRR, other (tele SR/ST) Abdomen: Other (soft) Extremities: 2+ Dorsalis Pedis, No Edema Neurology: other (sedated) Assessment Assessment 1. Acute on chronic diastolic heart failure 2. Acute on chronic respiratory failure with AE COPD- s/p intubation 3. Leukocytosis with sepsis 4. UTI 5. Hypotension 6. Severe pulmonary hypertension 7. NANCY 8. Prior CVA with dysphagia s/p PEG placement Recommendations off pressors- maintaining low pressures. IV antibiotic therapy per ID continue supportive care from CV perspective RUBEN HENDRIX APRN Sep 14, 2016 12:01
--- NOTE | 2016-09-14 13:01 | CONS ---
DATE OF CONSULTATION: 09/13/2016 ATTENDING PHYSICIAN: Dr. Awais Negro. REASON FOR CONSULTATION: The patient is seen in pulmonary consultation at the request of Dr. Negro for acute on chronic respiratory failure requiring mechanical ventilation. HISTORY OF PRESENT ILLNESS: The patient is a 65-year-old female that was actually hospitalized in early part of this month. At that time, she had acute on chronic respiratory failure, multifactorial to systolic and diastolic heart failure along with underlying chronic obstructive pulmonary disease. She was on BiPAP at that time and did well. She was diuresed. She was discharged home. The patient represented with complaints of shortness of air. She was in great difficulty in the Emergency Department. An arterial blood gas was obtained which revealed a pH of 7.18, pCO2 of 103, and pO2 of 82; this was on BiPAP. The patient was intubated this morning. She was intubated and placed on mechanical ventilation. This morning, she had a pH of 7.60 with pCO2 of 29. Since then the ventilation has been decreased. She is currently on 40% of FiO2. She is sedated. She is requiring some Levophed. She has also been seen by Infectious Disease Service, started on Zosyn for sepsis. She has had previous Proteus infection. 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 PAST SURGICAL HISTORY: Status post PEG tube placement. SOCIAL HISTORY: She quit tobacco many years ago. MEDICATIONS: List was reviewed. Please see the MRAD. REVIEW OF SYSTEMS: Unobtainable secondary to the patient's condition. ALLERGIES: No known drug allergies listed. PHYSICAL EXAMINATION: GENERAL: The patient was currently sedated. She had a T-max of 100.8. She was receiving IV fluids and Levophed. HEENT: Eyes, the sclerae were nonicteric. NECK: Jugular venous distention was not elevated. No lymphadenopathy and endotracheal tube orally placed. LUNGS: Anteriorly were clear. No wheezes. CARDIOVASCULAR: Regular rate and rhythm with S1, S2, no S3. ABDOMEN: Soft, nontender, nondistended. EXTREMITIES: No clubbing, cyanosis or edema. PEG in place. NEUROLOGIC: The patient was sedated. LABORATORY DATA: Continue with labs, arterial blood gases as indicated above. White count was elevated. UA was noted. BUN was elevated. Creatinine was elevated. BNP was elevated. Influenza screen was negative. MRSA screen was likewise negative. UA was positive. IMAGING: Chest x-ray reveals some increased lung markings compatible with pulmonary fibrosis. IMPRESSION: 1. Acute on chronic hypercapnic hypoxemic respiratory failure, multifactorial. 2. Acute exacerbation of chronic obstructive pulmonary disease. 3. Sepsis, present upon admission. 4. Fever secondary to above. 5. Urinary tract infection causing sepsis. 6. Cerebrovascular accident status post percutaneous endoscopic gastrostomy tube placement. 7. History of Proteus infection. 8. Acute on chronic kidney failure. 9. Leukocytosis. 10. Severe secondary pulmonary hypertension with previous pulmonary artery pressure estimated at 94 mmHg. PLAN: 1. Decrease tidal volume and respiratory rate to normalize pH. 1. Continue empiric antibiotics. 2. Intravenous fluids and intravenous Levophed. 3. Follow blood cultures. 4. Cardiology has been consulted. 5. Antibiotics per Infectious Disease Service. 6. Deep venous thrombosis and gastrointestinal prophylaxes. I do appreciate the privilege in sharing in the patient's care. Total cumulative critical care time of 40 minutes. LAUREL HAMILTON MD DR: PATRICIA/angela JOB#: [id number] / [id number]
--- NOTE | 2016-09-14 14:39 | PDOC ---
PULMONARY PROGRESS NOTES Subjective Sedated Vitals Vital Signs Date Time Temp Pulse Resp B/P Pulse Ox O2 Delivery O2 Flow Rate FiO2 09/14/16 13:29 94 Ventilator 09/14/16 06:00 94 14 106/68 09/14/16 04:00 98.1 98.1 Lungs: Clear Cardiovascular: S1, S2 Abdomen: Soft, Non-tender Extremities: No Edema Labs Laboratory Tests Test 09/12/16 20:15 09/12/16 20:26 09/12/16 20:35 09/12/16 22:17 White Blood Count 19.6x10^3/uL (4.0-11.0) Red Blood Count 4.03x10^6/uL (3.50-5.40) Hemoglobin 10.4g/dL (12.0-15.5) Hematocrit 34.2% (36.0-47.0) Mean Corpuscular Volume 85fL (79-100) Mean Corpuscular Hemoglobin 26pg (25-35) Mean Corpuscular Hemoglobin Concent 31g/dL (31-37) Red Cell Distribution Width 14.6% (11.5-14.5) Platelet Count 339x10^3/uL (140-400) Neutrophils (%) (Auto) 91% (31-73) Lymphocytes (%) (Auto) 4% (24-48) Monocytes (%) (Auto) 4% (0-9) Eosinophils (%) (Auto) 1% (0-3) Basophils (%) (Auto) 0% (0-3) Neutrophils # (Auto) 17.8x10^3uL (1.8-7.7) Lymphocytes # (Auto) 0.8x10^3/uL (1.0-4.8) Monocytes # (Auto) 0.8x10^3/uL (0.0-1.1) Eosinophils # (Auto) 0.2x10^3/uL (0.0-0.7) Basophils # (Auto) 0.0x10^3/uL (0.0-0.2) Segmented Neutrophils % 89% (35-66) Band Neutrophils % 2% (0-9) Lymphocytes % 4% (24-48) Monocytes % 4% (0-10) Eosinophils % 1% (0-5) Platelet Estimate Adequate (ADEQUATE) Anisocytosis Slight Sodium Level 145mmol/L (136-145) Potassium Level 4.6mmol/L (3.5-5.1) Chloride Level 102mmol/L (98-107) Carbon Dioxide Level 39mmol/L (21-32) Anion Gap 4 (6-14) Blood Urea Nitrogen 29mg/dL (7-20) Creatinine 1.1mg/dL (0.6-1.0) Estimated GFR (Cockcroft-Gault) 60.3 BUN/Creatinine Ratio 26 (6-20) Glucose Level 216mg/dL (70-99) Lactic Acid Level 0.4mmol/L (0.4-2.0) Calcium Level 9.3mg/dL (8.5-10.1) Total Bilirubin 0.5mg/dL (0.2-1.0) Aspartate Amino Transf (AST/SGOT) 16U/L (15-37) Alanine Aminotransferase (ALT/SGPT) 16U/L (14-59) Alkaline Phosphatase 57U/L (46-116) Troponin I Quantitative < 0.017ng/mL (0.000-0.055) OI-Cwi-I-Type Natriuretic Peptide 1569pg/mL (0-124) Total Protein 8.1g/dL (6.4-8.2) Albumin 3.6g/dL (3.4-5.0) Albumin/Globulin Ratio 0.8 (1.0-1.7) Procalcitonin < 0.10ng/mL (0.00-0.10) O2 Saturation 91% (92-99) 99% (92-99) Arterial Blood pH 7.18 (7.35-7.45) 7.45 (7.35-7.45) Arterial Blood pCO2 at Patient Temp 103mmHg (35-46) 46mmHg (35-46) Arterial Blood pO2 at Patient Temp 82mmHg (65-108) 175mmHg (65-108) Arterial Blood HCO3 38mmol/L (21-28) 31mmol/L (21-28) Arterial Blood Base Excess 7mmol/L (-3-3) 6mmol/L (-3-3) FiO2 70.0 70.0 Urine Collection Type U cath Urine Color Yellow Urine Clarity Clear Urine pH 5.5 Urine Specific [place] 1.025 Urine Protein 100mg/dL (NEG-TRACE) Urine Glucose (UA) Negativemg/dL (NEG) Urine Ketones (Stick) Negativemg/dL (NEG) Urine Blood Negative (NEG) Urine Nitrite Negative (NEG) Urine Bilirubin Negative (NEG) Urine Urobilinogen Dipstick 0.2mg/dL (0.2 mg/dL) Urine Leukocyte Esterase Small (NEG) Urine RBC Occ/HPF (0-2) Urine WBC 1-4/HPF (0-4) Urine Squamous Epithelial Cells Mod/LPF Urine Amorphous Sediment Present/HPF Urine Bacteria Few/HPF (0-FEW) Urine Hyaline Casts Moderate/HPF Urine Mucus Mod/LPF Oxyhemoglobin 97.6% Methemoglobin 0.7% (0.0-1.9) Carbon Monoxide, Quantitative 0.3% (0.0-1.9) Test 09/12/16 22:55 09/13/16 02:50 09/13/16 08:15 09/13/16 08:50 Nasal Screen MRSA (PCR) Negative (Negative) White Blood Count 13.1x10^3/uL (4.0-11.0) Red Blood Count 3.52x10^6/uL (3.50-5.40) Hemoglobin 9.2g/dL (12.0-15.5) Hematocrit 29.4% (36.0-47.0) Mean Corpuscular Volume 84fL (79-100) Mean Corpuscular Hemoglobin 26pg (25-35) Mean Corpuscular Hemoglobin Concent 31g/dL (31-37) Red Cell Distribution Width 14.3% (11.5-14.5) Platelet Count 279x10^3/uL (140-400) Neutrophils (%) (Auto) 85% (31-73) Lymphocytes (%) (Auto) 7% (24-48) Monocytes (%) (Auto) 8% (0-9) Eosinophils (%) (Auto) 0% (0-3) Basophils (%) (Auto) 0% (0-3) Neutrophils # (Auto) 11.1x10^3uL (1.8-7.7) Lymphocytes # (Auto) 0.9x10^3/uL (1.0-4.8) Monocytes # (Auto) 1.1x10^3/uL (0.0-1.1) Eosinophils # (Auto) 0.0x10^3/uL (0.0-0.7) Basophils # (Auto) 0.0x10^3/uL (0.0-0.2) Sodium Level 145mmol/L (136-145) Potassium Level 4.1mmol/L (3.5-5.1) Chloride Level 104mmol/L (98-107) Carbon Dioxide Level 30mmol/L (21-32) Anion Gap 11 (6-14) Blood Urea Nitrogen 30mg/dL (7-20) Creatinine 1.4mg/dL (0.6-1.0) Estimated GFR (Cockcroft-Gault) 45.7 BUN/Creatinine Ratio 21 (6-20) Glucose Level 149mg/dL (70-99) Calcium Level 8.5mg/dL (8.5-10.1) Total Bilirubin 0.8mg/dL (0.2-1.0) Aspartate Amino Transf (AST/SGOT) 20U/L (15-37) Alanine Aminotransferase (ALT/SGPT) 14U/L (14-59) Alkaline Phosphatase 47U/L (46-116) Troponin I Quantitative < 0.017ng/mL (0.000-0.055) 0.026ng/mL (0.000-0.055) Total Protein 6.4g/dL (6.4-8.2) Albumin 3.1g/dL (3.4-5.0) Albumin/Globulin Ratio 0.9 (1.0-1.7) Influenza Type A Antigen Negative (NEGATIVE) Influenza Type B Antigen Negative (NEGATIVE) Test 09/13/16 08:54 09/13/16 13:00 09/14/16 06:05 09/14/16 07:50 O2 Saturation 95% (92-99) 91% (92-99) Arterial Blood pH 7.60 (7.35-7.45) 7.44 (7.35-7.45) Arterial Blood pCO2 at Patient Temp 29mmHg (35-46) 52mmHg (35-46) Arterial Blood pO2 at Patient Temp 69mmHg (65-108) 65mmHg (65-108) Arterial Blood HCO3 27mmol/L (21-28) 35mmol/L (21-28) Arterial Blood Base Excess 6mmol/L (-3-3) 9mmol/L (-3-3) FiO2 40 40 Lactic Acid Level 1.3mmol/L (0.4-2.0) White Blood Count 12.2x10^3/uL (4.0-11.0) Red Blood Count 3.35x10^6/uL (3.50-5.40) Hemoglobin 8.9g/dL (12.0-15.5) Hematocrit 27.3% (36.0-47.0) Mean Corpuscular Volume 82fL (79-100) Mean Corpuscular Hemoglobin 27pg (25-35) Mean Corpuscular Hemoglobin Concent 33g/dL (31-37) Red Cell Distribution Width 14.5% (11.5-14.5) Platelet Count 220x10^3/uL (140-400) Neutrophils (%) (Auto) 82% (31-73) Lymphocytes (%) (Auto) 8% (24-48) Monocytes (%) (Auto) 10% (0-9) Eosinophils (%) (Auto) 0% (0-3) Basophils (%) (Auto) 0% (0-3) Neutrophils # (Auto) 10.0x10^3uL (1.8-7.7) Lymphocytes # (Auto) 0.9x10^3/uL (1.0-4.8) Monocytes # (Auto) 1.2x10^3/uL (0.0-1.1) Eosinophils # (Auto) 0.0x10^3/uL (0.0-0.7) Basophils # (Auto) 0.1x10^3/uL (0.0-0.2) Sodium Level 144mmol/L (136-145) Potassium Level 3.3mmol/L (3.5-5.1) Chloride Level 102mmol/L (98-107) Carbon Dioxide Level 35mmol/L (21-32) Anion Gap 7 (6-14) Blood Urea Nitrogen 19mg/dL (7-20) Creatinine 1.2mg/dL (0.6-1.0) Estimated GFR (Cockcroft-Gault) 54.6 Glucose Level 122mg/dL (70-99) Calcium Level 8.6mg/dL (8.5-10.1) Phosphorus Level 2.6mg/dL (2.6-4.7) Magnesium Level 1.8mg/dL (1.8-2.4) Laboratory Tests Test 09/14/16 06:05 09/14/16 07:50 White Blood Count 12.2x10^3/uL (4.0-11.0) Red Blood Count 3.35x10^6/uL (3.50-5.40) Hemoglobin 8.9g/dL (12.0-15.5) Hematocrit 27.3% (36.0-47.0) Mean Corpuscular Volume 82fL (79-100) Mean Corpuscular Hemoglobin 27pg (25-35) Mean Corpuscular Hemoglobin Concent 33g/dL (31-37) Red Cell Distribution Width 14.5% (11.5-14.5) Platelet Count 220x10^3/uL (140-400) Neutrophils (%) (Auto) 82% (31-73) Lymphocytes (%) (Auto) 8% (24-48) Monocytes (%) (Auto) 10% (0-9) Eosinophils (%) (Auto) 0% (0-3) Basophils (%) (Auto) 0% (0-3) Neutrophils # (Auto) 10.0x10^3uL (1.8-7.7) Lymphocytes # (Auto) 0.9x10^3/uL (1.0-4.8) Monocytes # (Auto) 1.2x10^3/uL (0.0-1.1) Eosinophils # (Auto) 0.0x10^3/uL (0.0-0.7) Basophils # (Auto) 0.1x10^3/uL (0.0-0.2) Sodium Level 144mmol/L (136-145) Potassium Level 3.3mmol/L (3.5-5.1) Chloride Level 102mmol/L (98-107) Carbon Dioxide Level 35mmol/L (21-32) Anion Gap 7 (6-14) Blood Urea Nitrogen 19mg/dL (7-20) Creatinine 1.2mg/dL (0.6-1.0) Estimated GFR (Cockcroft-Gault) 54.6 Glucose Level 122mg/dL (70-99) Calcium Level 8.6mg/dL (8.5-10.1) Phosphorus Level 2.6mg/dL (2.6-4.7) Magnesium Level 1.8mg/dL (1.8-2.4) O2 Saturation 91% (92-99) Arterial Blood pH 7.44 (7.35-7.45) Arterial Blood pCO2 at Patient Temp 52mmHg (35-46) Arterial Blood pO2 at Patient Temp 65mmHg (65-108) Arterial Blood HCO3 35mmol/L (21-28) Arterial Blood Base Excess 9mmol/L (-3-3) FiO2 40 Medications Active Scripts Medications Dose Route/Sig Days Date Category Atorvastatin Calcium 20 Mg Tablet 20 Mg PO QHS 30 02/26/16 Rx Aspirin 325 Mg Tablet 325 Mg PO DAILYWBKFT 30 02/26/16 Rx Furosemide 20 Mg Tablet 20 Mg GT DAILY 30 09/09/15 Rx Potassium Chloride Oral Liquid (Potassium Chloride) 20 Meq/15 Ml Liquid 20 Meq PEG DAILY 30 08/27/15 Rx Famotidine 20 Mg Tablet 20 Mg PO BID 30 08/27/15 Rx Carvedilol 12.5 Mg Tablet 25 Mg PO BID@, 30 08/27/15 Rx Acetaminophen 650 Mg/20.3 Ml Solution 325 Mg PEG PRN Q6HRS PRN 30 08/27/15 Rx Albuterol Sulfate Neb Soln (Albuterol Sulfate) 2.5 Mg/3 Ml Vial.neb 2.5 Mg NEB RTQID 30 08/04/15 Rx Impression . Resp failure multifactorial Sepsis POA AECOPD Plan . continue the same antibx per ID GI and DVT proph add erythromycin for GI motility tube feeding LAUREL HAMILTON MD Sep 14, 2016 14:39
--- NOTE | 2016-09-14 14:59 | PDOC ---
PROGRESS NOTES Subjective Subjective She remains sedated and intubated, she is off pressor support, her BP is normal , her urine function has improved but she did not tolerate tube feeding very well and her rate has been slowed and erythromycin added Objective Objective Vital Signs Date Time Temp Pulse Resp B/P Pulse Ox O2 Delivery O2 Flow Rate FiO2 09/14/16 13:29 94 Ventilator 09/14/16 06:00 94 14 106/68 09/14/16 04:00 98.1 98.1 Intake and Output 09/14/16 07:00 Intake Total 1823 ml Output Total 800 ml Balance 1023 ml IV Total 1215 ml Tube Feeding 608 ml Output Urine Total 550 ml Gastric Drainage Total 250 ml Physical Exam Abdomen: Normal bowel sounds, Soft Heart: Regular rate Extremities: No clubbing, No cyanosis, No edema General: Other (sedated and non responsive to touch stimulus) HEENT: Other (intubated) Lungs: Clear to auscultation Skin: No breakdown Assessment Assessment Problems Medical Problems: (1) Acute on chronic respiratory failure Status: Acute (2) CHF (congestive heart failure), NYHA class III Status: Acute (3) Respiratory failure Status: Acute Plan Plan of Care await cultures, continue empiric antibiotics, continue vent support but with her severe COPD weaning may be slow, tube feeds as tolerated and meds via PEG, additional fluids via IV until tolerating maintenance TF Comment Review of Relevant I have reviewed the following items chon (where applicable) has been applied. Labs Laboratory Tests Test 09/12/16 20:15 09/12/16 20:26 09/12/16 20:35 09/12/16 22:17 White Blood Count 19.6x10^3/uL (4.0-11.0) Red Blood Count 4.03x10^6/uL (3.50-5.40) Hemoglobin 10.4g/dL (12.0-15.5) Hematocrit 34.2% (36.0-47.0) Mean Corpuscular Volume 85fL (79-100) Mean Corpuscular Hemoglobin 26pg (25-35) Mean Corpuscular Hemoglobin Concent 31g/dL (31-37) Red Cell Distribution Width 14.6% (11.5-14.5) Platelet Count 339x10^3/uL (140-400) Neutrophils (%) (Auto) 91% (31-73) Lymphocytes (%) (Auto) 4% (24-48) Monocytes (%) (Auto) 4% (0-9) Eosinophils (%) (Auto) 1% (0-3) Basophils (%) (Auto) 0% (0-3) Neutrophils # (Auto) 17.8x10^3uL (1.8-7.7) Lymphocytes # (Auto) 0.8x10^3/uL (1.0-4.8) Monocytes # (Auto) 0.8x10^3/uL (0.0-1.1) Eosinophils # (Auto) 0.2x10^3/uL (0.0-0.7) Basophils # (Auto) 0.0x10^3/uL (0.0-0.2) Segmented Neutrophils % 89% (35-66) Band Neutrophils % 2% (0-9) Lymphocytes % 4% (24-48) Monocytes % 4% (0-10) Eosinophils % 1% (0-5) Platelet Estimate Adequate (ADEQUATE) Anisocytosis Slight Sodium Level 145mmol/L (136-145) Potassium Level 4.6mmol/L (3.5-5.1) Chloride Level 102mmol/L (98-107) Carbon Dioxide Level 39mmol/L (21-32) Anion Gap 4 (6-14) Blood Urea Nitrogen 29mg/dL (7-20) Creatinine 1.1mg/dL (0.6-1.0) Estimated GFR (Cockcroft-Gault) 60.3 BUN/Creatinine Ratio 26 (6-20) Glucose Level 216mg/dL (70-99) Lactic Acid Level 0.4mmol/L (0.4-2.0) Calcium Level 9.3mg/dL (8.5-10.1) Total Bilirubin 0.5mg/dL (0.2-1.0) Aspartate Amino Transf (AST/SGOT) 16U/L (15-37) Alanine Aminotransferase (ALT/SGPT) 16U/L (14-59) Alkaline Phosphatase 57U/L (46-116) Troponin I Quantitative < 0.017ng/mL (0.000-0.055) RY-Pya-B-Type Natriuretic Peptide 1569pg/mL (0-124) Total Protein 8.1g/dL (6.4-8.2) Albumin 3.6g/dL (3.4-5.0) Albumin/Globulin Ratio 0.8 (1.0-1.7) Procalcitonin < 0.10ng/mL (0.00-0.10) O2 Saturation 91% (92-99) 99% (92-99) Arterial Blood pH 7.18 (7.35-7.45) 7.45 (7.35-7.45) Arterial Blood pCO2 at Patient Temp 103mmHg (35-46) 46mmHg (35-46) Arterial Blood pO2 at Patient Temp 82mmHg (65-108) 175mmHg (65-108) Arterial Blood HCO3 38mmol/L (21-28) 31mmol/L (21-28) Arterial Blood Base Excess 7mmol/L (-3-3) 6mmol/L (-3-3) FiO2 70.0 70.0 Urine Collection Type U cath Urine Color Yellow Urine Clarity Clear Urine pH 5.5 Urine Specific [place] 1.025 Urine Protein 100mg/dL (NEG-TRACE) Urine Glucose (UA) Negativemg/dL (NEG) Urine Ketones (Stick) Negativemg/dL (NEG) Urine Blood Negative (NEG) Urine Nitrite Negative (NEG) Urine Bilirubin Negative (NEG) Urine Urobilinogen Dipstick 0.2mg/dL (0.2 mg/dL) Urine Leukocyte Esterase Small (NEG) Urine RBC Occ/HPF (0-2) Urine WBC 1-4/HPF (0-4) Urine Squamous Epithelial Cells Mod/LPF Urine Amorphous Sediment Present/HPF Urine Bacteria Few/HPF (0-FEW) Urine Hyaline Casts Moderate/HPF Urine Mucus Mod/LPF Oxyhemoglobin 97.6% Methemoglobin 0.7% (0.0-1.9) Carbon Monoxide, Quantitative 0.3% (0.0-1.9) Test 09/12/16 22:55 09/13/16 02:50 09/13/16 08:15 09/13/16 08:50 Nasal Screen MRSA (PCR) Negative (Negative) White Blood Count 13.1x10^3/uL (4.0-11.0) Red Blood Count 3.52x10^6/uL (3.50-5.40) Hemoglobin 9.2g/dL (12.0-15.5) Hematocrit 29.4% (36.0-47.0) Mean Corpuscular Volume 84fL (79-100) Mean Corpuscular Hemoglobin 26pg (25-35) Mean Corpuscular Hemoglobin Concent 31g/dL (31-37) Red Cell Distribution Width 14.3% (11.5-14.5) Platelet Count 279x10^3/uL (140-400) Neutrophils (%) (Auto) 85% (31-73) Lymphocytes (%) (Auto) 7% (24-48) Monocytes (%) (Auto) 8% (0-9) Eosinophils (%) (Auto) 0% (0-3) Basophils (%) (Auto) 0% (0-3) Neutrophils # (Auto) 11.1x10^3uL (1.8-7.7) Lymphocytes # (Auto) 0.9x10^3/uL (1.0-4.8) Monocytes # (Auto) 1.1x10^3/uL (0.0-1.1) Eosinophils # (Auto) 0.0x10^3/uL (0.0-0.7) Basophils # (Auto) 0.0x10^3/uL (0.0-0.2) Sodium Level 145mmol/L (136-145) Potassium Level 4.1mmol/L (3.5-5.1) Chloride Level 104mmol/L (98-107) Carbon Dioxide Level 30mmol/L (21-32) Anion Gap 11 (6-14) Blood Urea Nitrogen 30mg/dL (7-20) Creatinine 1.4mg/dL (0.6-1.0) Estimated GFR (Cockcroft-Gault) 45.7 BUN/Creatinine Ratio 21 (6-20) Glucose Level 149mg/dL (70-99) Calcium Level 8.5mg/dL (8.5-10.1) Total Bilirubin 0.8mg/dL (0.2-1.0) Aspartate Amino Transf (AST/SGOT) 20U/L (15-37) Alanine Aminotransferase (ALT/SGPT) 14U/L (14-59) Alkaline Phosphatase 47U/L (46-116) Troponin I Quantitative < 0.017ng/mL (0.000-0.055) 0.026ng/mL (0.000-0.055) Total Protein 6.4g/dL (6.4-8.2) Albumin 3.1g/dL (3.4-5.0) Albumin/Globulin Ratio 0.9 (1.0-1.7) Influenza Type A Antigen Negative (NEGATIVE) Influenza Type B Antigen Negative (NEGATIVE) Test 09/13/16 08:54 09/13/16 13:00 09/14/16 06:05 09/14/16 07:50 O2 Saturation 95% (92-99) 91% (92-99) Arterial Blood pH 7.60 (7.35-7.45) 7.44 (7.35-7.45) Arterial Blood pCO2 at Patient Temp 29mmHg (35-46) 52mmHg (35-46) Arterial Blood pO2 at Patient Temp 69mmHg (65-108) 65mmHg (65-108) Arterial Blood HCO3 27mmol/L (21-28) 35mmol/L (21-28) Arterial Blood Base Excess 6mmol/L (-3-3) 9mmol/L (-3-3) FiO2 40 40 Lactic Acid Level 1.3mmol/L (0.4-2.0) White Blood Count 12.2x10^3/uL (4.0-11.0) Red Blood Count 3.35x10^6/uL (3.50-5.40) Hemoglobin 8.9g/dL (12.0-15.5) Hematocrit 27.3% (36.0-47.0) Mean Corpuscular Volume 82fL (79-100) Mean Corpuscular Hemoglobin 27pg (25-35) Mean Corpuscular Hemoglobin Concent 33g/dL (31-37) Red Cell Distribution Width 14.5% (11.5-14.5) Platelet Count 220x10^3/uL (140-400) Neutrophils (%) (Auto) 82% (31-73) Lymphocytes (%) (Auto) 8% (24-48) Monocytes (%) (Auto) 10% (0-9) Eosinophils (%) (Auto) 0% (0-3) Basophils (%) (Auto) 0% (0-3) Neutrophils # (Auto) 10.0x10^3uL (1.8-7.7) Lymphocytes # (Auto) 0.9x10^3/uL (1.0-4.8) Monocytes # (Auto) 1.2x10^3/uL (0.0-1.1) Eosinophils # (Auto) 0.0x10^3/uL (0.0-0.7) Basophils # (Auto) 0.1x10^3/uL (0.0-0.2) Sodium Level 144mmol/L (136-145) Potassium Level 3.3mmol/L (3.5-5.1) Chloride Level 102mmol/L (98-107) Carbon Dioxide Level 35mmol/L (21-32) Anion Gap 7 (6-14) Blood Urea Nitrogen 19mg/dL (7-20) Creatinine 1.2mg/dL (0.6-1.0) Estimated GFR (Cockcroft-Gault) 54.6 Glucose Level 122mg/dL (70-99) Calcium Level 8.6mg/dL (8.5-10.1) Phosphorus Level 2.6mg/dL (2.6-4.7) Magnesium Level 1.8mg/dL (1.8-2.4) Laboratory Tests Test 09/14/16 06:05 09/14/16 07:50 White Blood Count 12.2x10^3/uL (4.0-11.0) Red Blood Count 3.35x10^6/uL (3.50-5.40) Hemoglobin 8.9g/dL (12.0-15.5) Hematocrit 27.3% (36.0-47.0) Mean Corpuscular Volume 82fL (79-100) Mean Corpuscular Hemoglobin 27pg (25-35) Mean Corpuscular Hemoglobin Concent 33g/dL (31-37) Red Cell Distribution Width 14.5% (11.5-14.5) Platelet Count 220x10^3/uL (140-400) Neutrophils (%) (Auto) 82% (31-73) Lymphocytes (%) (Auto) 8% (24-48) Monocytes (%) (Auto) 10% (0-9) Eosinophils (%) (Auto) 0% (0-3) Basophils (%) (Auto) 0% (0-3) Neutrophils # (Auto) 10.0x10^3uL (1.8-7.7) Lymphocytes # (Auto) 0.9x10^3/uL (1.0-4.8) Monocytes # (Auto) 1.2x10^3/uL (0.0-1.1) Eosinophils # (Auto) 0.0x10^3/uL (0.0-0.7) Basophils # (Auto) 0.1x10^3/uL (0.0-0.2) Sodium Level 144mmol/L (136-145) Potassium Level 3.3mmol/L (3.5-5.1) Chloride Level 102mmol/L (98-107) Carbon Dioxide Level 35mmol/L (21-32) Anion Gap 7 (6-14) Blood Urea Nitrogen 19mg/dL (7-20) Creatinine 1.2mg/dL (0.6-1.0) Estimated GFR (Cockcroft-Gault) 54.6 Glucose Level 122mg/dL (70-99) Calcium Level 8.6mg/dL (8.5-10.1) Phosphorus Level 2.6mg/dL (2.6-4.7) Magnesium Level 1.8mg/dL (1.8-2.4) O2 Saturation 91% (92-99) Arterial Blood pH 7.44 (7.35-7.45) Arterial Blood pCO2 at Patient Temp 52mmHg (35-46) Arterial Blood pO2 at Patient Temp 65mmHg (65-108) Arterial Blood HCO3 35mmol/L (21-28) Arterial Blood Base Excess 9mmol/L (-3-3) FiO2 40 Microbiology 09/13/16 Blood Culture - Preliminary, Resulted NO GROWTH AFTER 1 DAY 09/12/16 Urine Culture - Final, Complete 09/12/16 Urine Culture Result 1 (CANDICE) - Final, Complete Medications Current Medications Furosemide (Lasix) 100 mg 1X ONCE IVP Last administered on 09/12/16 21:34; Start 09/12/16 at 21:00; Stop 09/12/16 at 21:01; Status DC Etomidate (Amidate) 20 mg 1X ONCE IV Last administered on 09/12/16 20:42; Start 09/12/16 at 20:45; Stop 09/12/16 at 20:46; Status DC Succinylcholine Chloride 50 mg 50 mg 1X ONCE IV Last administered on 20:42; Start 09/12/16 at 20:45; Stop 09/12/16 at 20:46; Status DC Midazolam HCl (Versed 100mg/ 100ml Premix) 100 ml @ As Directed STK-MED ONCE IV ; Start 09/12/16 at 20:46; Stop 09/12/16 at 20:47; Status DC Ondansetron HCl (Zofran) 4 mg PRN Q8HRS PRN IV NAUSEA/VOMITING; Start 09/12/16 at 20:45; Stop 09/13/16 at 20:44; Status DC Fentanyl Citrate (Fentanyl 2ml Vial) 50 mcg PRN Q1HR PRN IV COMM; Start at 20:45 Chlorhexidine Gluconate 15 ml 15 ml BID MM Last administered on 09/14/16 08:25 ; Start 09/13/16 at 09:00 Midazolam HCl (Versed 100mg/ 100ml Premix) 100 ml @ 0 mls/hr CONT PRN IV PER PROTOCOL Last administered on 09/14/16 03:25; Start 09/12/16 at 20:45 Haloperidol Lactate (Haldol) 2.5 mg PRN Q15MIN PRN IVP AGITATION, DELIRIUM; Start 09/12/16 at 20:45 Diphenhydramine HCl (Benadryl) 25 mg PRN Q15MIN PRN IVP EPS Symptoms; Start at 20:45 Heparin Sodium (Porcine) 5000 unit 5,000 unit Q12HR SQ Last administered on 09/14 08:26; Start 09/13/16 at 09:00 Furosemide/Sodium Chloride (Lasix Drip/Iv Sodium Chloride 0.9% 100ml) 100 ml @ 0 mls/hr CONT PRN IV SEE I/O RECORD; Start 09/12/16 at 21:00; Stop 09/12/16 at 21:36; Status DC Albuterol Sulfate (Ventolin Neb Soln) 2.5 mg PRN Q4HRS PRN NEB SHORTNESS OF BREATH; Start 09/12/16 at 21:45 Levofloxacin/ Dextrose 1 each 1 each PRN DAILY PRN MC SEE COMMENTS; Start 09/12 at 22:00; Stop 09/14/16 at 06:56; Status DC Levofloxacin/ Dextrose 100 ml @ 100 mls/hr ONCE ONCE IV Last administered on 09/12/16 22:05; Start 09/12/16 at 22:00; Stop 09/12/16 at 22:59; Status DC Sodium Chloride 500 ml @ 0 mls/hr 1X ONCE IV Last administered on 09/12/16 22 :10; Start 09/12/16 at 22:30; Stop 09/12/16 at 22:31; Status DC Levofloxacin/ Dextrose 50 ml @ 50 mls/hr Q24H IV Last administered on 22:27; Start 09/13/16 at 22:00; Stop 09/14/16 at 06:56; Status DC Sodium Chloride 500 ml @ 0 mls/hr 1X ONCE IV ; Start 09/12/16 at 22:30; Stop at 22:31; Status DC Sodium Chloride (Iv Sodium Chloride 0.9% 1000ml Bag) 1,000 ml @ 999 mls/hr 1X ONCE IV Last administered on 09/12/16 23:41; Start 09/12/16 at 23:30; Stop at 00:30; Status DC Furosemide 20 mg 20 mg 1X ONCE IVP Last administered on 09/13/16 00:49; Start 09/12/16 at 23:30; Stop 09/12/16 at 23:31; Status DC Norepinephrine Bitartrate 8 mg/ Sodium Chloride 258 ml @ 0 mls/hr CONT PRN IV SEE I/O RECORD Last administered on 09/12/16 23:53; Start 09/12/16 at 23:30 Linezolid 300 ml @ 300 mls/hr Q12HR IV Last administered on 09/14/16 08:25; Start 09/13/16 at 09:00 Piperacillin Sod/ Tazobactam Sod/ Sodium Chloride (Zosyn/Iv Sodium Chloride 0.9 % 50ml) 50 ml @ 100 mls/hr Q6HRS IV Last administered on 09/14/16 13:34; Start 09/13/16 at 07:45 Pantoprazole Sodium 40 mg 40 mg DAILYAC IVP Last administered on 09/14/16 08:24 ; Start 09/13/16 at 09:00 Levofloxacin/ Dextrose (LEVAQUIN 500mg PREMIX) 100 ml @ 100 mls/hr Q24H IV Last administered on 09/14/16 08:24; Start 09/14/16 at 07:00 Potassium Chloride (KCl Oral Soln) 40 meq 1X ONCE PO Last administered on 08:24; Start 09/14/16 at 08:00; Stop 09/14/16 at 08:01; Status DC Erythromycin (E-Mycin) 250 mg QIDACHS PO ; Start 09/14/16 at 16:30 Active Scripts Active Atorvastatin Calcium 20 Mg Tablet 20 Mg PO QHS 30 Days Aspirin 325 Mg Tablet 325 Mg PO [id number] 30 Days Furosemide 20 Mg Tablet 20 Mg GT DAILY 30 Days Potassium Chloride Oral Liquid (Potassium Chloride) 20 Meq/15 Ml Liquid 20 Meq PEG DAILY 30 Days Famotidine 20 Mg Tablet 20 Mg PO BID 30 Days Carvedilol 12.5 Mg Tablet 25 Mg PO BID@,19 30 Days Acetaminophen 650 Mg/20.3 Ml Solution 325 Mg PEG PRN Q6HRS PRN 30 Days Albuterol Sulfate Neb Soln (Albuterol Sulfate) 2.5 Mg/3 Ml Vial.neb 2.5 Mg NEB RTQID 30 Days Vitals/I & O Vital Sign - Last 24 Hours 09/13/16 09/13/16 09/13/16 09/13/16 14:54 15:00 16:00 16:00 Temp 98.9 98.9 Pulse 98 98 Resp 14 14 B/P 115/73 119/75 Pulse Ox 98 98 98 O2 Delivery Ventilator Ventilator Ventilator Mechanical Ventilator 09/13/16 09/13/16 09/13/16 09/13/16 17:00 17:27 18:00 19:00 Pulse 98 104 92 Resp 14 14 14 B/P 133/81 131/82 122/75 Pulse Ox 97 98 96 O2 Delivery Ventilator Ventilator Ventilator Ventilator 09/13/16 09/13/16 09/13/16 09/13/16 19:16 20:00 20:00 21:00 Temp 98.5 98.5 Pulse 92 90 Resp 14 14 B/P 127/87 131/74 Pulse Ox 96 100 97 O2 Delivery Ventilator Ventilator Mechanical Ventilator Ventilator 09/13/16 09/13/16 09/13/1617 21:00 21:15 22:00 23:00 Pulse 91 96 Resp 16 16 B/P 119/72 121/73 119/72 Pulse Ox 99 96 97 O2 Delivery Ventilator Ventilator Ventilator 09/13/16 09/14/16 09/14/16 09/14/16 23:39 00:00 00:00 01:00 Temp 97.7 97.7 Pulse 95 92 Resp 14 16 B/P 107/66 117/69 Pulse Ox 96 96 98 O2 Delivery Ventilator Mechanical Ventilator Ventilator Ventilator 09/14/16 09/14/16 09/14/16 09/14/16 01:02 02:00 03:00 03:18 Pulse 92 93 Resp 16 14 B/P 123/72 127/74 Pulse Ox 97 98 96 97 O2 Delivery Ventilator Ventilator Ventilator Ventilator 09/14/16 09/14/16 09/14/16 09/14/16 04:00 04:00 05:00 05:10 Temp 98.1 98.1 Pulse 94 94 Resp 14 14 B/P 122/72 128/74 Pulse Ox 97 97 96 O2 Delivery Ventilator Mechanical Ventilator Ventilator Ventilator 09/14/16 09/14/16 09/14/16 09/14/16 06:00 07:39 11:28 13:29 Pulse 94 Resp 14 B/P 106/68 Pulse Ox 97 96 95 94 O2 Delivery Ventilator Ventilator Ventilator Ventilator Intake and Output 09/13/16 09/13/16 09/14/16 15:00 23:00 07:00 Intake Total 370 ml 256 ml 1197 ml Output Total 150 ml 155 ml 495 ml Balance 220 ml 101 ml 702 ml Sissy FLORENTINO MD Sep 14, 2016 14:59
[2016-09-14] MEDS: ALBUTEROL SULFATE 2.5 MG/3 ML NEBU. NEB PRN (15:46)
[2016-09-14] MEDS ORDERED: METOCLOPRAMIDE HCL 10 MG/2 ML VIAL. IV PRN (17:30)
[2016-09-14] MEDS: ERYTHROMYCIN BASE 250 MG TABLET PO SCH ×2 (17:36→21:06)
[2016-09-14] MEDS: IV DEXTROSE 5%-LACT RINGERS 1,000 ML IV SCH (17:39)
[2016-09-14] MEDS: ERYTHROMYCIN ETHYLSUCCINATE 200 MG/5 ML PEG SCH (23:58)
[2016-09-15] VITALS (24 sets, daily range): BP systolic 93–125; BP diastolic 52–68
[2016-09-15 04:31] LABS: HEMATOCRIT 25.7 % (36.0-47.0); HEMOGLOBIN 8.3 g/dL (12.0-15.5); RED BLOOD COUNT 3.11 x10^6/uL (3.50-5.40); RED CELL DISTRIBUTION WIDTH 14.2 % (11.5-14.5); WHITE BLOOD COUNT 13.4 x10^3/uL (4.0-11.0)
[2016-09-15 04:38] LABS: CALCIUM 8.4 mg/dL (8.5-10.1); GFR 67.3; POTASSIUM 3.6 mmol/L (3.5-5.1)
[2016-09-15] MEDS: MIDAZOLAM PREMIX 100 ML IV PRN (04:55)
[2016-09-15] MEDS: ERYTHROMYCIN ETHYLSUCCINATE 200 MG/5 ML PEG SCH ×4 (05:42→23:50)
[2016-09-15] MEDS: METOCLOPRAMIDE HCL 10 MG/2 ML VIAL. IV SCH ×4 (05:42→23:52)
[2016-09-15] MEDS: PIPERACILLIN/TAZOBACTAM 3.375 GM in IV NORMAL SALINE 50ML 50 ML IV SCH ×4 (05:43→23:50)
[2016-09-15] MEDS: PANTOPRAZOLE IV PUSH 40 MG VIAL. IVP SCH (07:54)
[2016-09-15] MEDS: CHLORHEXIDINE 0.12% 15 ML MOUTHWASH. MM SCH ×2 (08:17→21:57)
[2016-09-15] MEDS: HEPARIN PF for SUB-Q USE 5,000 UNIT/0.5 ML VIAL. SQ SCH ×2 (08:21→21:58)
--- NOTE | 2016-09-15 08:30 | PDOC ---
Infectious Disease Note Subjective Subjective Intubated ROS ROS Unobtainable Vital Sign Vital Signs Vital Signs Date Time Temp Pulse Resp B/P Pulse Ox O2 Delivery O2 Flow Rate FiO2 09/15/16 08:15 99 Ventilator 09/15/16 08:00 97.9 103 16 97/61 97.9 Physical Exam PHYSICAL EXAM GENERAL: Sedated HEENT: PERRL, OC/OP ETT, OGT NECK: Supple, no JVD, no LN LUNGS: Clear HEART: S1S2, no gallop, no murmur ABD: Soft, NT, mild distension, no rebound, PEG EXT: No edema, no cyanosis LIAISON OFFICER: Sedated SKIN: No rash IV: ok Labs Lab Laboratory Tests Test 09/15/16 04:15 White Blood Count 13.4x10^3/uL (4.0-11.0) Red Blood Count 3.11x10^6/uL (3.50-5.40) Hemoglobin 8.3g/dL (12.0-15.5) Hematocrit 25.7% (36.0-47.0) Mean Corpuscular Volume 83fL (79-100) Mean Corpuscular Hemoglobin 27pg (25-35) Mean Corpuscular Hemoglobin Concent 32g/dL (31-37) Red Cell Distribution Width 14.2% (11.5-14.5) Platelet Count 201x10^3/uL (140-400) Sodium Level 144mmol/L (136-145) Potassium Level 3.6mmol/L (3.5-5.1) Chloride Level 105mmol/L (98-107) Carbon Dioxide Level 34mmol/L (21-32) Anion Gap 5 (6-14) Blood Urea Nitrogen 13mg/dL (7-20) Creatinine 1.0mg/dL (0.6-1.0) Estimated GFR (Cockcroft-Gault) 67.3 Glucose Level 154mg/dL (70-99) Calcium Level 8.4mg/dL (8.5-10.1) Objective Assessment Sepsis - POA -off pressors Resp failure - Intubated NANCY - better Leukocytosis -mild increase/Low 99.6 Plan Plan of Care Cont Zyvox/Zosyn/Levoflox (increase dose) F/u labs and cults Monitor Temp and labs. If spikes will adjust abx. F/u WBC in am Critically ill MARY ANN VÁZQUEZ MD Sep 15, 2016 08:30
--- NOTE | 2016-09-15 08:43 | PDOC ---
PROGRESS NOTES Subjective Subjective Patient remains sedated and intubated but tolerating tube feeds, rate recently increased but not at goal yet. Objective Objective Vital Signs Date Time Temp Pulse Resp B/P Pulse Ox O2 Delivery O2 Flow Rate FiO2 09/15/16 08:15 99 Ventilator 09/15/16 08:00 97.9 103 16 97/61 97.9 Intake and Output 09/15/16 07:00 Intake Total 2486 ml Output Total 1185 ml Balance 1301 ml IV Total 1487 ml Tube Feeding 999 ml Output Urine Total 435 ml Gastric Drainage Total 750 ml Physical Exam Abdomen: Soft, No hepatosplenomegaly, No masses, Other (PEG site healthy) Heart: Normal S1, Normal S2, No murmurs, Other (Tachycardic) Extremities: No clubbing, No cyanosis, No edema General: Other (Patient is sedated, unresponsive to touch) Lungs: Clear to auscultation, Other (Intubated) Assessment Assessment Problems Medical Problems: (1) Acute on chronic respiratory failure Status: Acute (2) CHF (congestive heart failure), NYHA class III Status: Acute (3) Respiratory failure Status: Acute Plan Plan of Care Medical Problems: (1) Acute on chronic respiratory failure- await culture results, continue Linezolid/Zosyn/Levaquin, may be slow to wean off of vent given hx of COPD Status: Acute (2) CHF (congestive heart failure), NYHA class III Status: Acute (3) Respiratory failure Status: Acute Comment Review of Relevant I have reviewed the following items chon (where applicable) has been applied. Labs Laboratory Tests Test 09/13/16 08:50 09/13/16 08:54 09/13/16 13:00 09/14/16 06:05 Troponin I Quantitative 0.026ng/mL (0.000-0.055) O2 Saturation 95% (92-99) Arterial Blood pH 7.60 (7.35-7.45) Arterial Blood pCO2 at Patient Temp 29mmHg (35-46) Arterial Blood pO2 at Patient Temp 69mmHg (65-108) Arterial Blood HCO3 27mmol/L (21-28) Arterial Blood Base Excess 6mmol/L (-3-3) FiO2 40 Lactic Acid Level 1.3mmol/L (0.4-2.0) White Blood Count 12.2x10^3/uL (4.0-11.0) Red Blood Count 3.35x10^6/uL (3.50-5.40) Hemoglobin 8.9g/dL (12.0-15.5) Hematocrit 27.3% (36.0-47.0) Mean Corpuscular Volume 82fL (79-100) Mean Corpuscular Hemoglobin 27pg (25-35) Mean Corpuscular Hemoglobin Concent 33g/dL (31-37) Red Cell Distribution Width 14.5% (11.5-14.5) Platelet Count 220x10^3/uL (140-400) Neutrophils (%) (Auto) 82% (31-73) Lymphocytes (%) (Auto) 8% (24-48) Monocytes (%) (Auto) 10% (0-9) Eosinophils (%) (Auto) 0% (0-3) Basophils (%) (Auto) 0% (0-3) Neutrophils # (Auto) 10.0x10^3uL (1.8-7.7) Lymphocytes # (Auto) 0.9x10^3/uL (1.0-4.8) Monocytes # (Auto) 1.2x10^3/uL (0.0-1.1) Eosinophils # (Auto) 0.0x10^3/uL (0.0-0.7) Basophils # (Auto) 0.1x10^3/uL (0.0-0.2) Sodium Level 144mmol/L (136-145) Potassium Level 3.3mmol/L (3.5-5.1) Chloride Level 102mmol/L (98-107) Carbon Dioxide Level 35mmol/L (21-32) Anion Gap 7 (6-14) Blood Urea Nitrogen 19mg/dL (7-20) Creatinine 1.2mg/dL (0.6-1.0) Estimated GFR (Cockcroft-Gault) 54.6 Glucose Level 122mg/dL (70-99) Calcium Level 8.6mg/dL (8.5-10.1) Phosphorus Level 2.6mg/dL (2.6-4.7) Magnesium Level 1.8mg/dL (1.8-2.4) Test 09/14/16 07:50 09/15/16 04:15 O2 Saturation 91% (92-99) Arterial Blood pH 7.44 (7.35-7.45) Arterial Blood pCO2 at Patient Temp 52mmHg (35-46) Arterial Blood pO2 at Patient Temp 65mmHg (65-108) Arterial Blood HCO3 35mmol/L (21-28) Arterial Blood Base Excess 9mmol/L (-3-3) FiO2 40 White Blood Count 13.4x10^3/uL (4.0-11.0) Red Blood Count 3.11x10^6/uL (3.50-5.40) Hemoglobin 8.3g/dL (12.0-15.5) Hematocrit 25.7% (36.0-47.0) Mean Corpuscular Volume 83fL (79-100) Mean Corpuscular Hemoglobin 27pg (25-35) Mean Corpuscular Hemoglobin Concent 32g/dL (31-37) Red Cell Distribution Width 14.2% (11.5-14.5) Platelet Count 201x10^3/uL (140-400) Sodium Level 144mmol/L (136-145) Potassium Level 3.6mmol/L (3.5-5.1) Chloride Level 105mmol/L (98-107) Carbon Dioxide Level 34mmol/L (21-32) Anion Gap 5 (6-14) Blood Urea Nitrogen 13mg/dL (7-20) Creatinine 1.0mg/dL (0.6-1.0) Estimated GFR (Cockcroft-Gault) 67.3 Glucose Level 154mg/dL (70-99) Calcium Level 8.4mg/dL (8.5-10.1) Laboratory Tests Test 09/15/16 04:15 White Blood Count 13.4x10^3/uL (4.0-11.0) Red Blood Count 3.11x10^6/uL (3.50-5.40) Hemoglobin 8.3g/dL (12.0-15.5) Hematocrit 25.7% (36.0-47.0) Mean Corpuscular Volume 83fL (79-100) Mean Corpuscular Hemoglobin 27pg (25-35) Mean Corpuscular Hemoglobin Concent 32g/dL (31-37) Red Cell Distribution Width 14.2% (11.5-14.5) Platelet Count 201x10^3/uL (140-400) Sodium Level 144mmol/L (136-145) Potassium Level 3.6mmol/L (3.5-5.1) Chloride Level 105mmol/L (98-107) Carbon Dioxide Level 34mmol/L (21-32) Anion Gap 5 (6-14) Blood Urea Nitrogen 13mg/dL (7-20) Creatinine 1.0mg/dL (0.6-1.0) Estimated GFR (Cockcroft-Gault) 67.3 Glucose Level 154mg/dL (70-99) Calcium Level 8.4mg/dL (8.5-10.1) Microbiology 09/13/16 Blood Culture - Preliminary, Resulted NO GROWTH AFTER 1 DAY 09/12/16 Urine Culture - Final, Complete 09/12/16 Urine Culture Result 1 (CANDICE) - Final, Complete Medications Current Medications Furosemide (Lasix) 100 mg 1X ONCE IVP Last administered on 09/12/16 21:34; Start 09/12/16 at 21:00; Stop 09/12/16 at 21:01; Status DC Etomidate (Amidate) 20 mg 1X ONCE IV Last administered on 09/12/16 20:42; Start 09/12/16 at 20:45; Stop 09/12/16 at 20:46; Status DC Succinylcholine Chloride 50 mg 50 mg 1X ONCE IV Last administered on 20:42; Start 09/12/16 at 20:45; Stop 09/12/16 at 20:46; Status DC Midazolam HCl (Versed 100mg/ 100ml Premix) 100 ml @ As Directed STK-MED ONCE IV ; Start 09/12/16 at 20:46; Stop 09/12/16 at 20:47; Status DC Ondansetron HCl (Zofran) 4 mg PRN Q8HRS PRN IV NAUSEA/VOMITING; Start 09/12/16 at 20:45; Stop 09/13/16 at 20:44; Status DC Fentanyl Citrate (Fentanyl 2ml Vial) 50 mcg PRN Q1HR PRN IV COMM; Start at 20:45 Chlorhexidine Gluconate 15 ml 15 ml BID MM Last administered on 09/15/16 08:17 ; Start 09/13/16 at 09:00 Midazolam HCl (Versed 100mg/ 100ml Premix) 100 ml @ 0 mls/hr CONT PRN IV PER PROTOCOL Last administered on 09/15/16 04:55; Start 09/12/16 at 20:45 Haloperidol Lactate (Haldol) 2.5 mg PRN Q15MIN PRN IVP AGITATION, DELIRIUM; Start 09/12/16 at 20:45 Diphenhydramine HCl (Benadryl) 25 mg PRN Q15MIN PRN IVP EPS Symptoms; Start at 20:45 Heparin Sodium (Porcine) 5000 unit 5,000 unit Q12HR SQ Last administered on 09/15 08:21; Start 09/13/16 at 09:00 Furosemide/Sodium Chloride (Lasix Drip/Iv Sodium Chloride 0.9% 100ml) 100 ml @ 0 mls/hr CONT PRN IV SEE I/O RECORD; Start 09/12/16 at 21:00; Stop 09/12/16 at 21:36; Status DC Albuterol Sulfate (Ventolin Neb Soln) 2.5 mg PRN Q4HRS PRN NEB SHORTNESS OF BREATH Last administered on 09/14/16 15:46; Start 09/12/16 at 21:45 Levofloxacin/ Dextrose 1 each 1 each PRN DAILY PRN MC SEE COMMENTS; Start 09/12 at 22:00; Stop 09/14/16 at 06:56; Status DC Levofloxacin/ Dextrose 100 ml @ 100 mls/hr ONCE ONCE IV Last administered on 09/12/16 22:05; Start 09/12/16 at 22:00; Stop 09/12/16 at 22:59; Status DC Sodium Chloride 500 ml @ 0 mls/hr 1X ONCE IV Last administered on 09/12/16 22 :10; Start 09/12/16 at 22:30; Stop 09/12/16 at 22:31; Status DC Levofloxacin/ Dextrose 50 ml @ 50 mls/hr Q24H IV Last administered on 22:27; Start 09/13/16 at 22:00; Stop 09/14/16 at 06:56; Status DC Sodium Chloride 500 ml @ 0 mls/hr 1X ONCE IV ; Start 09/12/16 at 22:30; Stop at 22:31; Status DC Sodium Chloride (Iv Sodium Chloride 0.9% 1000ml Bag) 1,000 ml @ 999 mls/hr 1X ONCE IV Last administered on 09/12/16 23:41; Start 09/12/16 at 23:30; Stop at 00:30; Status DC Furosemide 20 mg 20 mg 1X ONCE IVP Last administered on 09/13/16 00:49; Start 09/12/16 at 23:30; Stop 09/12/16 at 23:31; Status DC Norepinephrine Bitartrate 8 mg/ Sodium Chloride 258 ml @ 0 mls/hr CONT PRN IV SEE I/O RECORD Last administered on 09/12/16 23:53; Start 09/12/16 at 23:30 Linezolid 300 ml @ 300 mls/hr Q12HR IV Last administered on 09/15/16 08:18; Start 09/13/16 at 09:00 Piperacillin Sod/ Tazobactam Sod/ Sodium Chloride (Zosyn/Iv Sodium Chloride 0.9 % 50ml) 50 ml @ 100 mls/hr Q6HRS IV Last administered on 09/15/16 05:43; Start 09/13/16 at 07:45 Pantoprazole Sodium 40 mg 40 mg DAILYAC IVP Last administered on 09/15/16 07:54 ; Start 09/13/16 at 09:00 Levofloxacin/ Dextrose (LEVAQUIN 500mg PREMIX) 100 ml @ 100 mls/hr Q24H IV Last administered on 09/15/16 06:48; Start 09/14/16 at 07:00 Potassium Chloride (KCl Oral Soln) 40 meq 1X ONCE PO Last administered on 08:24; Start 09/14/16 at 08:00; Stop 09/14/16 at 08:01; Status DC Erythromycin 250 mg 250 mg QIDACHS PO Last administered on 09/14/16 17:36; Start 09/14/16 at 16:30; Stop 09/14/16 at 21:17; Status DC Dextrose/Lactated Ringer's (Iv D5%-Lr) 1,000 ml @ 60 mls/hr [id number] IV Last administered on 09/14/16 17:39; Start 09/14/16 at 15:00 Metoclopramide HCl (Reglan) 10 mg PRN Q6HRS PRN IV NAUSEA/VOMITING Last administered on 09/14/16 17:35; Start 09/14/16 at 17:30; Stop 09/15/16 at 00:00; Status DC Metoclopramide HCl (Reglan) 5 mg Q6H IV Last administered on 09/15/16 05:42; Start 09/14/16 at 00:00 Erythromycin Ethylsuccinate (E.e.s. 200) 200 mg Q6HRS PEG Last administered on 09/15/16 05:42; Start 09/15/16 at 00:00 Active Scripts Active Atorvastatin Calcium 20 Mg Tablet 20 Mg PO QHS 30 Days Aspirin 325 Mg Tablet 325 Mg PO DAILYWBKFT 30 Days Furosemide 20 Mg Tablet 20 Mg GT DAILY 30 Days Potassium Chloride Oral Liquid (Potassium Chloride) 20 Meq/15 Ml Liquid 20 Meq PEG DAILY 30 Days Famotidine 20 Mg Tablet 20 Mg PO BID 30 Days Carvedilol 12.5 Mg Tablet 25 Mg PO BID@ 30 Days Acetaminophen 650 Mg/20.3 Ml Solution 325 Mg PEG PRN Q6HRS PRN 30 Days Albuterol Sulfate Neb Soln (Albuterol Sulfate) 2.5 Mg/3 Ml Vial.neb 2.5 Mg NEB RTQID 30 Days Vitals/I & O Vital Sign - Last 24 Hours 09/14/16 09/14/16 09/14/16 09/14/16 09:00 10:00 11:00 11:28 Pulse 94 94 94 Resp 14 14 14 B/P 100/63 101/67 132/63 Pulse Ox 97 97 97 95 O2 Delivery Ventilator Ventilator Ventilator Ventilator 09/14/16 09/14/16 09/14/16 09/14/16 12:00 12:00 13:00 13:29 Temp 97.2 97.2 Pulse 94 94 Resp 14 14 B/P 104/65 107/67 Pulse Ox 97 97 94 O2 Delivery Mechanical Ventilator Ventilator Ventilator Ventilator 09/14/16 09/14/16 09/14/16 09/14/16 14:00 15:00 15:46 16:00 Pulse 94 94 Resp 14 14 B/P 119/69 106/68 Pulse Ox 97 97 95 O2 Delivery Ventilator Ventilator Ventilator Mechanical Ventilator 3/08/0209/14/16 09/14/16 09/14/16 16:00 17:00 17:31 18:00 Temp 98.1 98.1 Pulse 94 94 94 Resp 14 14 14 B/P 123/71 115/72 111/66 Pulse Ox 97 97 93 97 O2 Delivery Ventilator Ventilator Ventilator Ventilator 09/14/16 09/14/16 09/14/16 09/14/16 19:00 20:00 20:00 20:30 Temp 97.7 97.7 Pulse 114 114 Resp 14 17 B/P 101/55 101/59 Pulse Ox 93 94 98 O2 Delivery Ventilator Mechanical Ventilator Ventilator Ventilator 09/14/16 09/14/16 09/14/16 09/14/16 21:00 22:00 23:00 23:44 Pulse 114 110 110 Resp 16 14 14 B/P 95/59 104/60 98/62 Pulse Ox 94 95 95 95 O2 Delivery Ventilator Ventilator Ventilator Ventilator 09/15/16 09/15/16 09/15/16 09/15/16 00:00 00:00 01:00 02:00 Temp 97.6 97.6 Pulse 103 103 103 Resp 16 14 14 B/P 121/63 110/60 95/57 Pulse Ox 95 95 98 O2 Delivery Mechanical Ventilator Ventilator Ventilator Ventilator 09/15/16 09/15/16 09/15/16 09/15/16 02:05 03:00 04:00 04:00 Temp 99.6 99.6 Pulse 101 102 Resp 14 14 B/P 104/62 100/60 Pulse Ox 99 96 95 O2 Delivery Ventilator Ventilator Mechanical Ventilator Ventilator 09/15/16 09/15/16 09/15/16 09/15/16 04:04 05:00 05:44 06:00 Pulse 102 101 Resp 14 14 B/P 100/57 116/66 Pulse Ox 96 96 99 96 O2 Delivery Ventilator Ventilator Ventilator Ventilator 09/15/16 09/15/16 09/15/16 07:00 08:00 08:15 Temp 97.9 97.9 Pulse 102 103 Resp 14 16 B/P 93/57 97/61 Pulse Ox 97 98 99 O2 Delivery Ventilator Ventilator Ventilator Intake and Output 09/14/16 09/14/16 09/15/16 15:00 23:00 07:00 Intake Total 500 ml 255 ml 1731 ml Output Total 500 ml 520 ml 165 ml Balance 0 ml -265 ml 1566 ml Sissy FLORENTINO MD Sep 15, 2016 08:43
[2016-09-15 09:21] LABS: HCO3 ABG 35 mmol/L (21-28); PH ABG 7.38 (7.35-7.45); PO2 ABG 67 mmHg (65-108); SAT O2 ABG 92 % (92-99)
[2016-09-15 09:33] LABS: PCO2 ABG 60 mmHg (35-46)
[2016-09-15 09:34] LABS: FIO2 ABG 40
--- NOTE | 2016-09-15 15:15 | PDOC ---
RUBEN HENDRIX DIVISION DIRECTOR 09/15/16 1515: CARDIO Progress Notes Date and Time Date of Service 09/15/16 Time of Evaluation 1315 Subjective Subjective: Other (intubated; sedation off) Vitals Vitals Vital Signs Date Time Temp Pulse Resp B/P Pulse Ox O2 Delivery O2 Flow Rate FiO2 09/15/16 12:37 98 Ventilator 09/15/16 11:56 98.7 101 17 125/68 98.7 Weight Weight [ ] Input and Output Intake and Output Intake and Output 09/15/16 07:00 Intake Total 2486 ml Output Total 1185 ml Balance 1301 ml IV Total 1487 ml Tube Feeding 999 ml Output Urine Total 435 ml Gastric Drainage Total 750 ml Laboratory Labs Laboratory Tests Test 09/15/16 04:15 09/15/16 09:14 White Blood Count 13.4x10^3/uL (4.0-11.0) Red Blood Count 3.11x10^6/uL (3.50-5.40) Hemoglobin 8.3g/dL (12.0-15.5) Hematocrit 25.7% (36.0-47.0) Mean Corpuscular Volume 83fL (79-100) Mean Corpuscular Hemoglobin 27pg (25-35) Mean Corpuscular Hemoglobin Concent 32g/dL (31-37) Red Cell Distribution Width 14.2% (11.5-14.5) Platelet Count 201x10^3/uL (140-400) Sodium Level 144mmol/L (136-145) Potassium Level 3.6mmol/L (3.5-5.1) Chloride Level 105mmol/L (98-107) Carbon Dioxide Level 34mmol/L (21-32) Anion Gap 5 (6-14) Blood Urea Nitrogen 13mg/dL (7-20) Creatinine 1.0mg/dL (0.6-1.0) Estimated GFR (Cockcroft-Gault) 67.3 Glucose Level 154mg/dL (70-99) Calcium Level 8.4mg/dL (8.5-10.1) O2 Saturation 92% (92-99) Arterial Blood pH 7.38 (7.35-7.45) Arterial Blood pCO2 at Patient Temp 60mmHg (35-46) Arterial Blood pO2 at Patient Temp 67mmHg (65-108) Arterial Blood HCO3 35mmol/L (21-28) Arterial Blood Base Excess 8mmol/L (-3-3) FiO2 40 Microbiology Micro Microbiology 09/13/16 Blood Culture - Preliminary, Resulted NO GROWTH AFTER 2 DAYS 09/12/16 Urine Culture - Final, Complete 09/12/16 Urine Culture Result 1 (CANDICE) - Final, Complete Physical Exam HEENT: Neck Supple W Full Motion, Other (NG in place) Chest: Symmetric LUNGS: Other (mechanical ventilation) Heart: S1S2, RRR, other (tele SR/ST) Abdomen: Other (soft) Extremities: 2+ Dorsalis Pedis, No Edema Neurology: other (sedation off-not waking up, yet) Assessment Assessment 1. Acute on chronic diastolic heart failure, compensated 2. Acute on chronic respiratory failure with AE COPD- s/p intubation 3. Leukocytosis with sepsis 4. UTI 5. Hypotension 6. Severe pulmonary hypertension 7. NANCY 8. Prior CVA with dysphagia s/p PEG placement Recommendations maintaining low-normotensive pressure. Hold antiHTN therapy IV antibiotic therapy per ID remains intubation-per pulm continue supportive care from CV perspective LUCILA STEEL MD 09/15/16 1639: CARDIO Progress Notes Assessment Assessment Patient seen and examined. Agree with FOUNDRY EQUIPMENT MECHANIC's assessment and plan. Acute on chronic diastolic heart failure better compensated. Continue vent management per pulmonary team and intravenous antibiotics for sepsis per ID team. RUBEN HENDRIX APRN Sep 15, 2016 15:15 LUCILA STEEL MD Sep 15, 2016 16:39
--- NOTE | 2016-09-15 16:50 | PDOC ---
PULMONARY PROGRESS NOTES Subjective Sedated Vitals Vital Signs Date Time Temp Pulse Resp B/P Pulse Ox O2 Delivery O2 Flow Rate FiO2 09/15/16 16:00 100.1 106 19 106/60 96 Ventilator 100.1 Lungs: Clear Cardiovascular: S1, S2 Abdomen: Soft, Non-tender Extremities: No Edema Labs Laboratory Tests Test 09/14/16 06:05 09/14/16 07:50 09/15/16 04:15 09/15/16 09:14 White Blood Count 12.2x10^3/uL (4.0-11.0) 13.4x10^3/uL (4.0-11.0) Red Blood Count 3.35x10^6/uL (3.50-5.40) 3.11x10^6/uL (3.50-5.40) Hemoglobin 8.9g/dL (12.0-15.5) 8.3g/dL (12.0-15.5) Hematocrit 27.3% (36.0-47.0) 25.7% (36.0-47.0) Mean Corpuscular Volume 82fL (79-100) 83fL (79-100) Mean Corpuscular Hemoglobin 27pg (25-35) 27pg (25-35) Mean Corpuscular Hemoglobin Concent 33g/dL (31-37) 32g/dL (31-37) Red Cell Distribution Width 14.5% (11.5-14.5) 14.2% (11.5-14.5) Platelet Count 220x10^3/uL (140-400) 201x10^3/uL (140-400) Neutrophils (%) (Auto) 82% (31-73) Lymphocytes (%) (Auto) 8% (24-48) Monocytes (%) (Auto) 10% (0-9) Eosinophils (%) (Auto) 0% (0-3) Basophils (%) (Auto) 0% (0-3) Neutrophils # (Auto) 10.0x10^3uL (1.8-7.7) Lymphocytes # (Auto) 0.9x10^3/uL (1.0-4.8) Monocytes # (Auto) 1.2x10^3/uL (0.0-1.1) Eosinophils # (Auto) 0.0x10^3/uL (0.0-0.7) Basophils # (Auto) 0.1x10^3/uL (0.0-0.2) Sodium Level 144mmol/L (136-145) 144mmol/L (136-145) Potassium Level 3.3mmol/L (3.5-5.1) 3.6mmol/L (3.5-5.1) Chloride Level 102mmol/L (98-107) 105mmol/L (98-107) Carbon Dioxide Level 35mmol/L (21-32) 34mmol/L (21-32) Anion Gap 7 (6-14) 5 (6-14) Blood Urea Nitrogen 19mg/dL (7-20) 13mg/dL (7-20) Creatinine 1.2mg/dL (0.6-1.0) 1.0mg/dL (0.6-1.0) Estimated GFR (Cockcroft-Gault) 54.6 67.3 Glucose Level 122mg/dL (70-99) 154mg/dL (70-99) Calcium Level 8.6mg/dL (8.5-10.1) 8.4mg/dL (8.5-10.1) Phosphorus Level 2.6mg/dL (2.6-4.7) Magnesium Level 1.8mg/dL (1.8-2.4) O2 Saturation 91% (92-99) 92% (92-99) Arterial Blood pH 7.44 (7.35-7.45) 7.38 (7.35-7.45) Arterial Blood pCO2 at Patient Temp 52mmHg (35-46) 60mmHg (35-46) Arterial Blood pO2 at Patient Temp 65mmHg (65-108) 67mmHg (65-108) Arterial Blood HCO3 35mmol/L (21-28) 35mmol/L (21-28) Arterial Blood Base Excess 9mmol/L (-3-3) 8mmol/L (-3-3) FiO2 40 40 Laboratory Tests Test 09/15/16 04:15 09/15/16 09:14 White Blood Count 13.4x10^3/uL (4.0-11.0) Red Blood Count 3.11x10^6/uL (3.50-5.40) Hemoglobin 8.3g/dL (12.0-15.5) Hematocrit 25.7% (36.0-47.0) Mean Corpuscular Volume 83fL (79-100) Mean Corpuscular Hemoglobin 27pg (25-35) Mean Corpuscular Hemoglobin Concent 32g/dL (31-37) Red Cell Distribution Width 14.2% (11.5-14.5) Platelet Count 201x10^3/uL (140-400) Sodium Level 144mmol/L (136-145) Potassium Level 3.6mmol/L (3.5-5.1) Chloride Level 105mmol/L (98-107) Carbon Dioxide Level 34mmol/L (21-32) Anion Gap 5 (6-14) Blood Urea Nitrogen 13mg/dL (7-20) Creatinine 1.0mg/dL (0.6-1.0) Estimated GFR (Cockcroft-Gault) 67.3 Glucose Level 154mg/dL (70-99) Calcium Level 8.4mg/dL (8.5-10.1) O2 Saturation 92% (92-99) Arterial Blood pH 7.38 (7.35-7.45) Arterial Blood pCO2 at Patient Temp 60mmHg (35-46) Arterial Blood pO2 at Patient Temp 67mmHg (65-108) Arterial Blood HCO3 35mmol/L (21-28) Arterial Blood Base Excess 8mmol/L (-3-3) FiO2 40 Medications Active Scripts Medications Dose Route/Sig Days Date Category Atorvastatin Calcium 20 Mg Tablet 20 Mg PO QHS 30 02/26/16 Rx Aspirin 325 Mg Tablet 325 Mg PO DAILYWBKFT 30 02/26/16 Rx Furosemide 20 Mg Tablet 20 Mg GT DAILY 30 09/09/15 Rx Potassium Chloride Oral Liquid (Potassium Chloride) 20 Meq/15 Ml Liquid 20 Meq PEG DAILY 30 08/27/15 Rx Famotidine 20 Mg Tablet 20 Mg PO BID 30 08/27/15 Rx Carvedilol 12.5 Mg Tablet 25 Mg PO BID@07,19 30 08/27/15 Rx Acetaminophen 650 Mg/20.3 Ml Solution 325 Mg PEG PRN Q6HRS PRN 30 08/27/15 Rx Albuterol Sulfate Neb Soln (Albuterol Sulfate) 2.5 Mg/3 Ml Vial.neb 2.5 Mg NEB RTQID 30 08/04/15 Rx Impression . 1. Acute on chronic hypercapnic hypoxemic respiratory failure, multifactorial. 2. Acute exacerbation of chronic obstructive pulmonary disease. 3. Sepsis, present upon admission. 4. Fever secondary to above. 5. Urinary tract infection causing sepsis. 6. Cerebrovascular accident status post percutaneous endoscopic gastrostomy tube placement. 7. History of Proteus infection. 8. Acute on chronic kidney failure. 9. Leukocytosis. 10. Severe secondary pulmonary hypertension with previous pulmonary artery pressure estimated at 94 mmHg. Plan . will hold sedation if needed to sedate will start Diprivan case d/w RT antibx per ID GI and DVT proph add erythromycin for GI motility tube feeding LAUREL HAMILTON MD Sep 15, 2016 16:50
[2016-09-15] MEDS: IV DEXTROSE 5%-LACT RINGERS 1,000 ML IV SCH (17:05)
[2016-09-15] MEDS ORDERED: PROPOFOL 100 ML IV PRN (19:00)
[2016-09-15] MEDS ORDERED: MIDAZOLAM PREMIX 100 ML IV PRN (22:00)
[2016-09-16] VITALS (22 sets, daily range): BP systolic 97–122; BP diastolic 55–68
[2016-09-16 05:11] LABS: BASO % 0 % (0-3); EOS % 1 % (0-3); HEMATOCRIT 27.9 % (36.0-47.0); HEMOGLOBIN 8.6 g/dL (12.0-15.5); LYMPH # 1.3 x10^3/uL (1.0-4.8); LYMPH % 9 % (24-48); MEAN CORPUSCULAR HEMOGLOBIN 26 pg (25-35); MEAN CORPUSCULAR HGB CONC 31 g/dL (31-37); MEAN CORPUSCULAR VOLUME 84 fL (79-100); MONO % 11 % (0-9); NEUT % 79 % (31-73); PLATELET COUNT 194 x10^3/uL (140-400); RED BLOOD COUNT 3.32 x10^6/uL (3.50-5.40); RED CELL DISTRIBUTION WIDTH 14.6 % (11.5-14.5); WHITE BLOOD COUNT 14.8 x10^3/uL (4.0-11.0)
[2016-09-16 05:27] LABS: ALBUMIN 2.2 g/dL (3.4-5.0); ALBUMIN/GLOBULIN RATIO 0.5 (1.0-1.7); CALCIUM 8.5 mg/dL (8.5-10.1); CREATININE 0.9 mg/dL (0.6-1.0); POTASSIUM 3.9 mmol/L (3.5-5.1); TOTAL BILIRUBIN 0.4 mg/dL (0.2-1.0); TOTAL PROTEIN 6.3 g/dL (6.4-8.2)
[2016-09-16] MEDS: ERYTHROMYCIN ETHYLSUCCINATE 200 MG/5 ML PEG SCH ×4 (05:50→23:39)
[2016-09-16] MEDS: PIPERACILLIN/TAZOBACTAM 3.375 GM in IV NORMAL SALINE 50ML 50 ML IV SCH (05:50)
[2016-09-16] MEDS: METOCLOPRAMIDE HCL 10 MG/2 ML VIAL. IV SCH ×4 (05:51→23:39)
--- NOTE | 2016-09-16 07:45 | PDOC ---
Infectious Disease Note Subjective Subjective Intubated Vital Sign Vital Signs Vital Signs Date Time Temp Pulse Resp B/P Pulse Ox O2 Delivery O2 Flow Rate FiO2 09/16/16 06:00 106 25 105/59 94 Ventilator 09/16/16 04:00 99.2 99.2 Physical Exam PHYSICAL EXAM GENERAL: Sedated but moves head a little HEENT: PERRL, OC/OP ETT, OGT NECK: Supple, no JVD, no LN LUNGS: Clear HEART: S1S2, no gallop, no murmur ABD: Soft, NT, mild distension, no rebound, PEG EXT: No edema, no cyanosis WEBLOGIC ADMINISTRATOR: Sedated SKIN: No rash IV: ok Labs Lab Laboratory Tests Test 09/15/16 09:14 09/16/16 04:54 O2 Saturation 92% (92-99) Arterial Blood pH 7.38 (7.35-7.45) Arterial Blood pCO2 at Patient Temp 60mmHg (35-46) Arterial Blood pO2 at Patient Temp 67mmHg (65-108) Arterial Blood HCO3 35mmol/L (21-28) Arterial Blood Base Excess 8mmol/L (-3-3) FiO2 40 White Blood Count 14.8x10^3/uL (4.0-11.0) Red Blood Count 3.32x10^6/uL (3.50-5.40) Hemoglobin 8.6g/dL (12.0-15.5) Hematocrit 27.9% (36.0-47.0) Mean Corpuscular Volume 84fL (79-100) Mean Corpuscular Hemoglobin 26pg (25-35) Mean Corpuscular Hemoglobin Concent 31g/dL (31-37) Red Cell Distribution Width 14.6% (11.5-14.5) Platelet Count 194x10^3/uL (140-400) Neutrophils (%) (Auto) 79% (31-73) Lymphocytes (%) (Auto) 9% (24-48) Monocytes (%) (Auto) 11% (0-9) Eosinophils (%) (Auto) 1% (0-3) Basophils (%) (Auto) 0% (0-3) Neutrophils # (Auto) 11.7x10^3uL (1.8-7.7) Lymphocytes # (Auto) 1.3x10^3/uL (1.0-4.8) Monocytes # (Auto) 1.6x10^3/uL (0.0-1.1) Eosinophils # (Auto) 0.2x10^3/uL (0.0-0.7) Basophils # (Auto) 0.0x10^3/uL (0.0-0.2) Sodium Level 145mmol/L (136-145) Potassium Level 3.9mmol/L (3.5-5.1) Chloride Level 105mmol/L (98-107) Carbon Dioxide Level 37mmol/L (21-32) Anion Gap 3 (6-14) Blood Urea Nitrogen 10mg/dL (7-20) Creatinine 0.9mg/dL (0.6-1.0) Estimated GFR (Cockcroft-Gault) 76.0 BUN/Creatinine Ratio 11 (6-20) Glucose Level 148mg/dL (70-99) Calcium Level 8.5mg/dL (8.5-10.1) Total Bilirubin 0.4mg/dL (0.2-1.0) Aspartate Amino Transf (AST/SGOT) 15U/L (15-37) Alanine Aminotransferase (ALT/SGPT) 14U/L (14-59) Alkaline Phosphatase 41U/L (46-116) Total Protein 6.3g/dL (6.4-8.2) Albumin 2.2g/dL (3.4-5.0) Albumin/Globulin Ratio 0.5 (1.0-1.7) Objective Assessment Sepsis - POA -off pressors Resp failure - Intubated -CXR clear NANCY - better Leukocytosis -mild increase/Low 99.6 ? Constipation/Gastroparesis Plan Plan of Care Check KUB and procalcitonin Cont Zyvox D/c Zosyn/Levoflox (increase dose) Begin Cefepime/Flagyl/Fluconazole Repeat Blood cults/Urine F/u labs in am Monitor Temp Critically ill MARY ANN VÁZQUEZ MD Sep 16, 2016 07:45
[2016-09-16] MEDS: ALBUTEROL SULFATE 2.5 MG/3 ML NEBU. NEB PRN ×2 (08:06→16:26)
[2016-09-16 08:48] LABS: HCO3 ABG 35 mmol/L (21-28); PH ABG 7.35 (7.35-7.45); PO2 ABG 67 mmHg (65-108); SAT O2 ABG 91 % (92-99)
[2016-09-16] MEDS ORDERED: FAMOTIDINE 20 MG/2 ML VIAL IVP SCH (09:00)
[2016-09-16 09:13] LABS: FIO2 ABG 40; PCO2 ABG 66 mmHg (35-46)
[2016-09-16] MEDS: PANTOPRAZOLE IV PUSH 40 MG VIAL. IVP SCH (09:51)
[2016-09-16] MEDS: HEPARIN PF for SUB-Q USE 5,000 UNIT/0.5 ML VIAL. SQ SCH ×2 (09:53→21:01)
[2016-09-16] MEDS: FLUCONAZOLE 200MG/100ML PREMIX 100 ML IV SCH (09:54)
[2016-09-16] MEDS: CHLORHEXIDINE 0.12% 15 ML MOUTHWASH. MM SCH ×2 (09:55→20:13)
[2016-09-16] MEDS ORDERED: DOCUSATE SODIUM 283 MG/5 ML ENEMA. PR ONE (10:00)
--- NOTE | 2016-09-16 10:15 | RAD ---
Portable abdomen, 09/16/2016: History: Abdominal pain and distention An NG tube extends into the proximal aspect of the stomach. A sidehole lies at the level of the GE junction. A gastrostomy tube tip is projected over the body of the stomach. The abdominal gas pattern is unremarkable without evidence of obstruction. No organomegaly is seen. Extensive arterial calcifications are present. IMPRESSION: 1. A gastrostomy tube and NG tube are in place as described above. 2. No acute abdominal abnormality is detected.
--- NOTE | 2016-09-16 10:43 | PDOC ---
CARDIO Progress Notes Date and Time Date of Service 09/16/16 Time of Evaluation 0901 Subjective Subjective: Other (no chnage; intubated. Sedation off; minimally responsive to painful stimuli) Vitals Vitals Vital Signs Date Time Temp Pulse Resp B/P Pulse Ox O2 Delivery O2 Flow Rate FiO2 09/16/16 08:06 94 Ventilator 09/16/16 06:00 106 25 105/59 09/16/16 04:00 99.2 99.2 Weight Weight [ ] Input and Output Intake and Output Intake and Output 09/16/16 07:00 Intake Total 3241 ml Output Total 833 ml Balance 2408 ml IV Total 2088 ml Tube Feeding 1013 ml Other 140 ml Output Urine Total 833 ml Gastric Drainage Total 0 ml Laboratory Labs Laboratory Tests Test 09/16/16 04:54 09/16/16 08:00 White Blood Count 14.8x10^3/uL (4.0-11.0) Red Blood Count 3.32x10^6/uL (3.50-5.40) Hemoglobin 8.6g/dL (12.0-15.5) Hematocrit 27.9% (36.0-47.0) Mean Corpuscular Volume 84fL (79-100) Mean Corpuscular Hemoglobin 26pg (25-35) Mean Corpuscular Hemoglobin Concent 31g/dL (31-37) Red Cell Distribution Width 14.6% (11.5-14.5) Platelet Count 194x10^3/uL (140-400) Neutrophils (%) (Auto) 79% (31-73) Lymphocytes (%) (Auto) 9% (24-48) Monocytes (%) (Auto) 11% (0-9) Eosinophils (%) (Auto) 1% (0-3) Basophils (%) (Auto) 0% (0-3) Neutrophils # (Auto) 11.7x10^3uL (1.8-7.7) Lymphocytes # (Auto) 1.3x10^3/uL (1.0-4.8) Monocytes # (Auto) 1.6x10^3/uL (0.0-1.1) Eosinophils # (Auto) 0.2x10^3/uL (0.0-0.7) Basophils # (Auto) 0.0x10^3/uL (0.0-0.2) Sodium Level 145mmol/L (136-145) Potassium Level 3.9mmol/L (3.5-5.1) Chloride Level 105mmol/L (98-107) Carbon Dioxide Level 37mmol/L (21-32) Anion Gap 3 (6-14) Blood Urea Nitrogen 10mg/dL (7-20) Creatinine 0.9mg/dL (0.6-1.0) Estimated GFR (Cockcroft-Gault) 76.0 BUN/Creatinine Ratio 11 (6-20) Glucose Level 148mg/dL (70-99) Calcium Level 8.5mg/dL (8.5-10.1) Total Bilirubin 0.4mg/dL (0.2-1.0) Aspartate Amino Transf (AST/SGOT) 15U/L (15-37) Alanine Aminotransferase (ALT/SGPT) 14U/L (14-59) Alkaline Phosphatase 41U/L (46-116) Total Protein 6.3g/dL (6.4-8.2) Albumin 2.2g/dL (3.4-5.0) Albumin/Globulin Ratio 0.5 (1.0-1.7) Procalcitonin < 0.10ng/mL (0.00-0.10) O2 Saturation 91% (92-99) Arterial Blood pH 7.35 (7.35-7.45) Arterial Blood pCO2 at Patient Temp 66mmHg (35-46) Arterial Blood pO2 at Patient Temp 67mmHg (65-108) Arterial Blood HCO3 35mmol/L (21-28) Arterial Blood Base Excess 8mmol/L (-3-3) FiO2 40 Microbiology Micro Microbiology 09/13/16 Blood Culture - Preliminary, Resulted NO GROWTH AFTER 3 DAYS 09/12/16 Urine Culture - Final, Complete 09/12/16 Urine Culture Result 1 (CANDICE) - Final, Complete Physical Exam HEENT: Neck Supple W Full Motion, Other (NG in place) Chest: Symmetric LUNGS: Other (intubated with mechanical ventilation) Heart: S1S2, RRR, other (tele SR/ST) Abdomen: Other (soft) Extremities: 2+ Dorsalis Pedis, No Edema Neurology: other (sedation off- minimally responsive to painful stimuli) Assessment Assessment 1. Acute on chronic diastolic heart failure, compensated 2. Acute on chronic respiratory failure with AE COPD- s/p intubation 3. Leukocytosis with sepsis, POA 4. Fevers 5. Hypotension 6. Severe pulmonary hypertension 7. NANCY 8. Prior CVA with dysphagia s/p PEG placement Recommendations Resume coreg with BP consistently adequate IV antibiotic therapy per ID remains intubation-per pulm continue supportive care from CV perspective Will follow along peripherally. Please call with questions. RUBEN HENDRIX APRN Sep 16, 2016 10:43
[2016-09-16] MEDS: CEFEPIME HCL 1 GM in IV NORMAL SALINE 50ML 50 ML IV SCH ×3 (11:07→23:08)
[2016-09-16] MEDS: METRONIDAZOLE 500mg PREMIX 100 ML IV SCH ×3 (11:07→23:33)
[2016-09-16] MEDS: IV DEXTROSE 5%-LACT RINGERS 1,000 ML IV SCH (12:53)
--- NOTE | 2016-09-16 13:08 | PDOC ---
PROGRESS NOTES Subjective Subjective She is assisting vent with less sedation, tolerating TF now at 45 cc/hr, getting supplemental IVF Objective Objective Vital Signs Date Time Temp Pulse Resp B/P Pulse Ox O2 Delivery O2 Flow Rate FiO2 09/16/16 12:23 93 Ventilator 09/16/16 06:00 106 25 105/59 09/16/16 04:00 99.2 99.2 Intake and Output 09/16/16 07:00 Intake Total 3241 ml Output Total 833 ml Balance 2408 ml IV Total 2088 ml Tube Feeding 1013 ml Other 140 ml Output Urine Total 833 ml Gastric Drainage Total 0 ml Physical Exam Abdomen: Soft, Other (PEG site unremarkable) Heart: No murmurs Extremities: No clubbing, No cyanosis General: Other (sedated) HEENT: Atraumatic, Other (intubated) Neck: No JVD Skin: No breakdown Assessment Assessment Problems Medical Problems: (1) Acute on chronic respiratory failure Status: Acute (2) CHF (congestive heart failure), NYHA class III Status: Acute (3) Respiratory failure Status: Acute Plan Plan of Care cont vent support, wean per pulm, discussed with family, discussed with Dr. Peña Comment Review of Relevant I have reviewed the following items chon (where applicable) has been applied. Labs Laboratory Tests Test 09/15/16 04:15 09/15/16 09:14 09/16/16 04:54 09/16/16 08:00 White Blood Count 13.4x10^3/uL (4.0-11.0) 14.8x10^3/uL (4.0-11.0) Red Blood Count 3.11x10^6/uL (3.50-5.40) 3.32x10^6/uL (3.50-5.40) Hemoglobin 8.3g/dL (12.0-15.5) 8.6g/dL (12.0-15.5) Hematocrit 25.7% (36.0-47.0) 27.9% (36.0-47.0) Mean Corpuscular Volume 83fL (79-100) 84fL (79-100) Mean Corpuscular Hemoglobin 27pg (25-35) 26pg (25-35) Mean Corpuscular Hemoglobin Concent 32g/dL (31-37) 31g/dL (31-37) Red Cell Distribution Width 14.2% (11.5-14.5) 14.6% (11.5-14.5) Platelet Count 201x10^3/uL (140-400) 194x10^3/uL (140-400) Sodium Level 144mmol/L (136-145) 145mmol/L (136-145) Potassium Level 3.6mmol/L (3.5-5.1) 3.9mmol/L (3.5-5.1) Chloride Level 105mmol/L (98-107) 105mmol/L (98-107) Carbon Dioxide Level 34mmol/L (21-32) 37mmol/L (21-32) Anion Gap 5 (6-14) 3 (6-14) Blood Urea Nitrogen 13mg/dL (7-20) 10mg/dL (7-20) Creatinine 1.0mg/dL (0.6-1.0) 0.9mg/dL (0.6-1.0) Estimated GFR (Cockcroft-Gault) 67.3 76.0 Glucose Level 154mg/dL (70-99) 148mg/dL (70-99) Calcium Level 8.4mg/dL (8.5-10.1) 8.5mg/dL (8.5-10.1) O2 Saturation 92% (92-99) 91% (92-99) Arterial Blood pH 7.38 (7.35-7.45) 7.35 (7.35-7.45) Arterial Blood pCO2 at Patient Temp 60mmHg (35-46) 66mmHg (35-46) Arterial Blood pO2 at Patient Temp 67mmHg (65-108) 67mmHg (65-108) Arterial Blood HCO3 35mmol/L (21-28) 35mmol/L (21-28) Arterial Blood Base Excess 8mmol/L (-3-3) 8mmol/L (-3-3) FiO2 40 40 Neutrophils (%) (Auto) 79% (31-73) Lymphocytes (%) (Auto) 9% (24-48) Monocytes (%) (Auto) 11% (0-9) Eosinophils (%) (Auto) 1% (0-3) Basophils (%) (Auto) 0% (0-3) Neutrophils # (Auto) 11.7x10^3uL (1.8-7.7) Lymphocytes # (Auto) 1.3x10^3/uL (1.0-4.8) Monocytes # (Auto) 1.6x10^3/uL (0.0-1.1) Eosinophils # (Auto) 0.2x10^3/uL (0.0-0.7) Basophils # (Auto) 0.0x10^3/uL (0.0-0.2) BUN/Creatinine Ratio 11 (6-20) Total Bilirubin 0.4mg/dL (0.2-1.0) Aspartate Amino Transf (AST/SGOT) 15U/L (15-37) Alanine Aminotransferase (ALT/SGPT) 14U/L (14-59) Alkaline Phosphatase 41U/L (46-116) Total Protein 6.3g/dL (6.4-8.2) Albumin 2.2g/dL (3.4-5.0) Albumin/Globulin Ratio 0.5 (1.0-1.7) Procalcitonin < 0.10ng/mL (0.00-0.10) Laboratory Tests Test 09/16/16 04:54 09/16/16 08:00 White Blood Count 14.8x10^3/uL (4.0-11.0) Red Blood Count 3.32x10^6/uL (3.50-5.40) Hemoglobin 8.6g/dL (12.0-15.5) Hematocrit 27.9% (36.0-47.0) Mean Corpuscular Volume 84fL (79-100) Mean Corpuscular Hemoglobin 26pg (25-35) Mean Corpuscular Hemoglobin Concent 31g/dL (31-37) Red Cell Distribution Width 14.6% (11.5-14.5) Platelet Count 194x10^3/uL (140-400) Neutrophils (%) (Auto) 79% (31-73) Lymphocytes (%) (Auto) 9% (24-48) Monocytes (%) (Auto) 11% (0-9) Eosinophils (%) (Auto) 1% (0-3) Basophils (%) (Auto) 0% (0-3) Neutrophils # (Auto) 11.7x10^3uL (1.8-7.7) Lymphocytes # (Auto) 1.3x10^3/uL (1.0-4.8) Monocytes # (Auto) 1.6x10^3/uL (0.0-1.1) Eosinophils # (Auto) 0.2x10^3/uL (0.0-0.7) Basophils # (Auto) 0.0x10^3/uL (0.0-0.2) Sodium Level 145mmol/L (136-145) Potassium Level 3.9mmol/L (3.5-5.1) Chloride Level 105mmol/L (98-107) Carbon Dioxide Level 37mmol/L (21-32) Anion Gap 3 (6-14) Blood Urea Nitrogen 10mg/dL (7-20) Creatinine 0.9mg/dL (0.6-1.0) Estimated GFR (Cockcroft-Gault) 76.0 BUN/Creatinine Ratio 11 (6-20) Glucose Level 148mg/dL (70-99) Calcium Level 8.5mg/dL (8.5-10.1) Total Bilirubin 0.4mg/dL (0.2-1.0) Aspartate Amino Transf (AST/SGOT) 15U/L (15-37) Alanine Aminotransferase (ALT/SGPT) 14U/L (14-59) Alkaline Phosphatase 41U/L (46-116) Total Protein 6.3g/dL (6.4-8.2) Albumin 2.2g/dL (3.4-5.0) Albumin/Globulin Ratio 0.5 (1.0-1.7) Procalcitonin < 0.10ng/mL (0.00-0.10) O2 Saturation 91% (92-99) Arterial Blood pH 7.35 (7.35-7.45) Arterial Blood pCO2 at Patient Temp 66mmHg (35-46) Arterial Blood pO2 at Patient Temp 67mmHg (65-108) Arterial Blood HCO3 35mmol/L (21-28) Arterial Blood Base Excess 8mmol/L (-3-3) FiO2 40 Microbiology 09/13/16 Blood Culture - Preliminary, Resulted NO GROWTH AFTER 3 DAYS 09/12/16 Urine Culture - Final, Complete 09/12/16 Urine Culture Result 1 (CANDICE) - Final, Complete Medications Current Medications Furosemide (Lasix) 100 mg 1X ONCE IVP Last administered on 09/12/16 21:34; Start 09/12/16 at 21:00; Stop 09/12/16 at 21:01; Status DC Etomidate (Amidate) 20 mg 1X ONCE IV Last administered on 09/12/16 20:42; Start 09/12/16 at 20:45; Stop 09/12/16 at 20:46; Status DC Succinylcholine Chloride 50 mg 50 mg 1X ONCE IV Last administered on 20:42; Start 09/12/16 at 20:45; Stop 09/12/16 at 20:46; Status DC Midazolam HCl (Versed 100mg/ 100ml Premix) 100 ml @ As Directed STK-MED ONCE IV ; Start 09/12/16 at 20:46; Stop 09/12/16 at 20:47; Status DC Ondansetron HCl (Zofran) 4 mg PRN Q8HRS PRN IV NAUSEA/VOMITING; Start 09/12/16 at 20:45; Stop 09/13/16 at 20:44; Status DC Fentanyl Citrate (Fentanyl 2ml Vial) 50 mcg PRN Q1HR PRN IV COMM; Start at 20:45 Chlorhexidine Gluconate 15 ml 15 ml BID MM Last administered on 09/15/16 21:57 ; Start 09/13/16 at 09:00; Stop 09/15/16 at 21:58; Status DC Midazolam HCl (Versed 100mg/ 100ml Premix) 100 ml @ 0 mls/hr CONT PRN IV PER PROTOCOL Last administered on 09/15/16 04:55; Start 09/12/16 at 20:45; Stop 09/15 at 19:09; Status DC Haloperidol Lactate (Haldol) 2.5 mg PRN Q15MIN PRN IVP AGITATION, DELIRIUM; Start 09/12/16 at 20:45 Diphenhydramine HCl (Benadryl) 25 mg PRN Q15MIN PRN IVP EPS Symptoms; Start at 20:45 Heparin Sodium (Porcine) 5000 unit 5,000 unit Q12HR SQ Last administered on 09/16 09:53; Start 09/13/16 at 09:00 Furosemide/Sodium Chloride (Lasix Drip/Iv Sodium Chloride 0.9% 100ml) 100 ml @ 0 mls/hr CONT PRN IV SEE I/O RECORD; Start 09/12/16 at 21:00; Stop 09/12/16 at 21:36; Status DC Albuterol Sulfate (Ventolin Neb Soln) 2.5 mg PRN Q4HRS PRN NEB SHORTNESS OF BREATH Last administered on 09/16/16 08:06; Start 09/12/16 at 21:45 Levofloxacin/ Dextrose 1 each 1 each PRN DAILY PRN MC SEE COMMENTS; Start 09/12 at 22:00; Stop 09/14/16 at 06:56; Status DC Levofloxacin/ Dextrose 100 ml @ 100 mls/hr ONCE ONCE IV Last administered on 09/12/16 22:05; Start 09/12/16 at 22:00; Stop 09/12/16 at 22:59; Status DC Sodium Chloride 500 ml @ 0 mls/hr 1X ONCE IV Last administered on 09/12/16 22 :10; Start 09/12/16 at 22:30; Stop 09/12/16 at 22:31; Status DC Levofloxacin/ Dextrose 50 ml @ 50 mls/hr Q24H IV Last administered on 22:27; Start 09/13/16 at 22:00; Stop 09/14/16 at 06:56; Status DC Sodium Chloride 500 ml @ 0 mls/hr 1X ONCE IV ; Start 09/12/16 at 22:30; Stop at 22:31; Status DC Sodium Chloride (Iv Sodium Chloride 0.9% 1000ml Bag) 1,000 ml @ 999 mls/hr 1X ONCE IV Last administered on 09/12/16 23:41; Start 09/12/16 at 23:30; Stop at 00:30; Status DC Furosemide 20 mg 20 mg 1X ONCE IVP Last administered on 09/13/16 00:49; Start 09/12/16 at 23:30; Stop 09/12/16 at 23:31; Status DC Norepinephrine Bitartrate 8 mg/ Sodium Chloride 258 ml @ 0 mls/hr CONT PRN IV SEE I/O RECORD Last administered on 09/12/16 23:53; Start 09/12/16 at 23:30 Linezolid 300 ml @ 300 mls/hr Q12HR IV Last administered on 09/16/16 11:07; Start 09/13/16 at 09:00 Piperacillin Sod/ Tazobactam Sod/ Sodium Chloride (Zosyn/Iv Sodium Chloride 0.9 % 50ml) 50 ml @ 100 mls/hr Q6HRS IV Last administered on 09/16/16 05:50; Start 09/13/16 at 07:45; Stop 09/16/16 at 07:44; Status DC Pantoprazole Sodium 40 mg 40 mg DAILYAC IVP Last administered on 09/16/16 09:51 ; Start 09/13/16 at 09:00 Levofloxacin/ Dextrose (LEVAQUIN 500mg PREMIX) 100 ml @ 100 mls/hr Q24H IV Last administered on 09/16/16 06:31; Start 09/14/16 at 07:00; Stop 09/16/16 at 07: 44; Status DC Potassium Chloride (KCl Oral Soln) 40 meq 1X ONCE PO Last administered on 08:24; Start 09/14/16 at 08:00; Stop 09/14/16 at 08:01; Status DC Erythromycin 250 mg 250 mg QIDACHS PO Last administered on 09/14/16 17:36; Start 09/14/16 at 16:30; Stop 09/14/16 at 21:17; Status DC Dextrose/Lactated Ringer's (Iv D5%-Lr) 1,000 ml @ 60 mls/hr [id number] IV Last administered on 09/16/16 12:53; Start 09/14/16 at 15:00 Metoclopramide HCl (Reglan) 10 mg PRN Q6HRS PRN IV NAUSEA/VOMITING Last administered on 09/14/16 17:35; Start 09/14/16 at 17:30; Stop 09/15/16 at 00:00; Status DC Metoclopramide HCl (Reglan) 5 mg Q6H IV Last administered on 09/16/16 12:47; Start 09/14/16 at 00:00 Erythromycin Ethylsuccinate 200 mg 200 mg Q6HRS PEG Last administered on 12:51; Start 09/15/16 at 00:00 Propofol (Diprivan) 100 ml @ 0 mls/hr CONT PRN IV SEE I/O RECORD; Start at 19:00 Chlorhexidine Gluconate (Peridex) 15 ml BID MM Last administered on 09/16/16 09 :55; Start 09/16/16 at 09:00 Famotidine 20 mg 20 mg DAILY IVP Last administered on 09/16/16 09:51; Start 09/16/16 at 09:00 Midazolam HCl 100 ml @ 0 mls/hr CONT PRN IV PER PROTOCOL; Start 09/15/16 at 22: 00 Metronidazole 100 ml @ 100 mls/hr Q8HRS IV Last administered on 09/16/16 11:07 ; Start 09/16/16 at 08:00 Cefepime HCl 1 gm/ Sodium Chloride 50 ml @ 100 mls/hr Q8HRS IV Last administered on 09/16/16 11:07; Start 09/16/16 at 08:00 Fluconazole/ Sodium Chloride (Diflucan 200mg/ 100ml Premix) 100 ml @ 100 mls/ hr Q24H IV Last administered on 09/16/16 09:54; Start 09/16/16 at 09:00 Docusate Sodium (Enemeez) 283 mg 1X ONCE [place] Last administered on 09/16/16 12: 37; Start 09/16/16 at 10:00; Stop 09/16/16 at 10:01; Status DC Active Scripts Active Atorvastatin Calcium 20 Mg Tablet 20 Mg PO QHS 30 Days Aspirin 325 Mg Tablet 325 Mg PO [id number] 30 Days Furosemide 20 Mg Tablet 20 Mg GT DAILY 30 Days Potassium Chloride Oral Liquid (Potassium Chloride) 20 Meq/15 Ml Liquid 20 Meq PEG DAILY 30 Days Famotidine 20 Mg Tablet 20 Mg PO BID 30 Days Carvedilol 12.5 Mg Tablet 25 Mg PO BID@07,19 30 Days Acetaminophen 650 Mg/20.3 Ml Solution 325 Mg PEG PRN Q6HRS PRN 30 Days Albuterol Sulfate Neb Soln (Albuterol Sulfate) 2.5 Mg/3 Ml Vial.neb 2.5 Mg NEB RTQID 30 Days Vitals/I & O Vital Sign - Last 24 Hours 09/15/16 09/15/16 09/15/16 09/15/16 13:33 14:00 15:00 15:54 Pulse 104 106 Resp 14 18 B/P 112/65 121/63 Pulse Ox 98 96 96 96 O2 Delivery Ventilator Ventilator Ventilator Ventilator 09/15/16 09/15/16 09/15/16 09/15/16 16:00 16:00 17:00 18:00 Temp 100.1 100.1 Pulse 106 114 110 Resp 19 18 18 B/P 106/60 101/52 103/56 Pulse Ox 96 95 95 O2 Delivery Ventilator Mechanical Ventilator Ventilator Ventilator 09/15/16 09/15/16 09/15/16 09/15/16 19:00 20:00 20:00 20:08 Temp 99.4 99.4 Pulse 110 109 Resp 18 16 B/P 103/56 114/66 Pulse Ox 95 95 95 O2 Delivery Ventilator Ventilator Mechanical Ventilator Ventilator 09/15/16 09/15/16 09/15/16 09/15/16 21:00 21:54 22:00 23:00 Pulse 108 106 108 Resp 15 18 18 B/P 117/64 121/62 124/64 Pulse Ox 96 95 96 96 O2 Delivery Ventilator Ventilator Ventilator Ventilator 09/15/16 09/16/16 09/16/16 09/16/16 23:32 00:00 00:00 01:00 Temp 99.7 99.7 Pulse 104 104 Resp 19 17 B/P 117/62 116/62 Pulse Ox 96 95 96 O2 Delivery Ventilator Mechanical Ventilator Ventilator Ventilator 09/16/16 09/16/16 09/16/16 09/16/16 01:22 02:00 03:00 03:01 Pulse 105 104 Resp 15 22 B/P 116/62 113/64 Pulse Ox 95 96 98 98 O2 Delivery Ventilator Ventilator Ventilator Ventilator 09/16/16 09/16/16 09/16/16 09/16/16 04:00 04:00 05:00 05:12 Temp 99.2 99.2 Pulse 104 104 Resp 16 14 B/P 110/62 113/63 Pulse Ox 99 94 95 O2 Delivery Ventilator Mechanical Ventilator Ventilator Ventilator 09/16/16 09/16/16 09/16/16 06:00 08:06 12:23 Pulse 106 Resp 25 B/P 105/59 Pulse Ox 94 94 93 O2 Delivery Ventilator Ventilator Ventilator Intake and Output 09/15/16 09/15/16 09/16/16 15:00 23:00 07:00 Intake Total 470 ml 1113 ml 1658 ml Output Total 270 ml 250 ml 313 ml Balance 200 ml 863 ml 1345 ml Sissy FLORENTINO MD Sep 16, 2016 13:07
--- NOTE | 2016-09-16 14:56 | PDOC ---
PULMONARY PROGRESS NOTES Subjective OFF SEDATION FOR 48 HOURS Vitals Vital Signs Date Time Temp Pulse Resp B/P Pulse Ox O2 Delivery O2 Flow Rate FiO2 09/16/16 14:23 92 Ventilator 09/16/16 06:00 106 25 105/59 09/16/16 04:00 99.2 99.2 Lungs: Clear Cardiovascular: S1, S2 Abdomen: Soft, Non-tender Extremities: No Edema Labs Laboratory Tests Test 09/15/16 04:15 09/15/16 09:14 09/16/16 04:54 09/16/16 08:00 White Blood Count 13.4x10^3/uL (4.0-11.0) 14.8x10^3/uL (4.0-11.0) Red Blood Count 3.11x10^6/uL (3.50-5.40) 3.32x10^6/uL (3.50-5.40) Hemoglobin 8.3g/dL (12.0-15.5) 8.6g/dL (12.0-15.5) Hematocrit 25.7% (36.0-47.0) 27.9% (36.0-47.0) Mean Corpuscular Volume 83fL (79-100) 84fL (79-100) Mean Corpuscular Hemoglobin 27pg (25-35) 26pg (25-35) Mean Corpuscular Hemoglobin Concent 32g/dL (31-37) 31g/dL (31-37) Red Cell Distribution Width 14.2% (11.5-14.5) 14.6% (11.5-14.5) Platelet Count 201x10^3/uL (140-400) 194x10^3/uL (140-400) Sodium Level 144mmol/L (136-145) 145mmol/L (136-145) Potassium Level 3.6mmol/L (3.5-5.1) 3.9mmol/L (3.5-5.1) Chloride Level 105mmol/L (98-107) 105mmol/L (98-107) Carbon Dioxide Level 34mmol/L (21-32) 37mmol/L (21-32) Anion Gap 5 (6-14) 3 (6-14) Blood Urea Nitrogen 13mg/dL (7-20) 10mg/dL (7-20) Creatinine 1.0mg/dL (0.6-1.0) 0.9mg/dL (0.6-1.0) Estimated GFR (Cockcroft-Gault) 67.3 76.0 Glucose Level 154mg/dL (70-99) 148mg/dL (70-99) Calcium Level 8.4mg/dL (8.5-10.1) 8.5mg/dL (8.5-10.1) O2 Saturation 92% (92-99) 91% (92-99) Arterial Blood pH 7.38 (7.35-7.45) 7.35 (7.35-7.45) Arterial Blood pCO2 at Patient Temp 60mmHg (35-46) 66mmHg (35-46) Arterial Blood pO2 at Patient Temp 67mmHg (65-108) 67mmHg (65-108) Arterial Blood HCO3 35mmol/L (21-28) 35mmol/L (21-28) Arterial Blood Base Excess 8mmol/L (-3-3) 8mmol/L (-3-3) FiO2 40 40 Neutrophils (%) (Auto) 79% (31-73) Lymphocytes (%) (Auto) 9% (24-48) Monocytes (%) (Auto) 11% (0-9) Eosinophils (%) (Auto) 1% (0-3) Basophils (%) (Auto) 0% (0-3) Neutrophils # (Auto) 11.7x10^3uL (1.8-7.7) Lymphocytes # (Auto) 1.3x10^3/uL (1.0-4.8) Monocytes # (Auto) 1.6x10^3/uL (0.0-1.1) Eosinophils # (Auto) 0.2x10^3/uL (0.0-0.7) Basophils # (Auto) 0.0x10^3/uL (0.0-0.2) BUN/Creatinine Ratio 11 (6-20) Total Bilirubin 0.4mg/dL (0.2-1.0) Aspartate Amino Transf (AST/SGOT) 15U/L (15-37) Alanine Aminotransferase (ALT/SGPT) 14U/L (14-59) Alkaline Phosphatase 41U/L (46-116) Total Protein 6.3g/dL (6.4-8.2) Albumin 2.2g/dL (3.4-5.0) Albumin/Globulin Ratio 0.5 (1.0-1.7) Procalcitonin < 0.10ng/mL (0.00-0.10) Laboratory Tests Test 09/16/16 04:54 09/16/16 08:00 White Blood Count 14.8x10^3/uL (4.0-11.0) Red Blood Count 3.32x10^6/uL (3.50-5.40) Hemoglobin 8.6g/dL (12.0-15.5) Hematocrit 27.9% (36.0-47.0) Mean Corpuscular Volume 84fL (79-100) Mean Corpuscular Hemoglobin 26pg (25-35) Mean Corpuscular Hemoglobin Concent 31g/dL (31-37) Red Cell Distribution Width 14.6% (11.5-14.5) Platelet Count 194x10^3/uL (140-400) Neutrophils (%) (Auto) 79% (31-73) Lymphocytes (%) (Auto) 9% (24-48) Monocytes (%) (Auto) 11% (0-9) Eosinophils (%) (Auto) 1% (0-3) Basophils (%) (Auto) 0% (0-3) Neutrophils # (Auto) 11.7x10^3uL (1.8-7.7) Lymphocytes # (Auto) 1.3x10^3/uL (1.0-4.8) Monocytes # (Auto) 1.6x10^3/uL (0.0-1.1) Eosinophils # (Auto) 0.2x10^3/uL (0.0-0.7) Basophils # (Auto) 0.0x10^3/uL (0.0-0.2) Sodium Level 145mmol/L (136-145) Potassium Level 3.9mmol/L (3.5-5.1) Chloride Level 105mmol/L (98-107) Carbon Dioxide Level 37mmol/L (21-32) Anion Gap 3 (6-14) Blood Urea Nitrogen 10mg/dL (7-20) Creatinine 0.9mg/dL (0.6-1.0) Estimated GFR (Cockcroft-Gault) 76.0 BUN/Creatinine Ratio 11 (6-20) Glucose Level 148mg/dL (70-99) Calcium Level 8.5mg/dL (8.5-10.1) Total Bilirubin 0.4mg/dL (0.2-1.0) Aspartate Amino Transf (AST/SGOT) 15U/L (15-37) Alanine Aminotransferase (ALT/SGPT) 14U/L (14-59) Alkaline Phosphatase 41U/L (46-116) Total Protein 6.3g/dL (6.4-8.2) Albumin 2.2g/dL (3.4-5.0) Albumin/Globulin Ratio 0.5 (1.0-1.7) Procalcitonin < 0.10ng/mL (0.00-0.10) O2 Saturation 91% (92-99) Arterial Blood pH 7.35 (7.35-7.45) Arterial Blood pCO2 at Patient Temp 66mmHg (35-46) Arterial Blood pO2 at Patient Temp 67mmHg (65-108) Arterial Blood HCO3 35mmol/L (21-28) Arterial Blood Base Excess 8mmol/L (-3-3) FiO2 40 Medications Active Scripts Medications Dose Route/Sig Days Date Category Atorvastatin Calcium 20 Mg Tablet 20 Mg PO QHS 30 02/26/16 Rx Aspirin 325 Mg Tablet 325 Mg PO DAILYWBKFT 30 02/26/16 Rx Furosemide 20 Mg Tablet 20 Mg GT DAILY 30 09/09/15 Rx Potassium Chloride Oral Liquid (Potassium Chloride) 20 Meq/15 Ml Liquid 20 Meq PEG DAILY 30 08/27/15 Rx Famotidine 20 Mg Tablet 20 Mg PO BID 30 08/27/15 Rx Carvedilol 12.5 Mg Tablet 25 Mg PO BID@ 30 08/27/15 Rx Acetaminophen 650 Mg/20.3 Ml Solution 325 Mg PEG PRN Q6HRS PRN 30 08/27/15 Rx Albuterol Sulfate Neb Soln (Albuterol Sulfate) 2.5 Mg/3 Ml Vial.neb 2.5 Mg NEB RTQID 30 08/04/15 Rx Impression . 1. Acute on chronic hypercapnic hypoxemic respiratory failure, multifactorial. 2. Acute exacerbation of chronic obstructive pulmonary disease. 3. Sepsis, present upon admission. 4. Fever secondary to above. 5. Urinary tract infection causing sepsis. 6. Cerebrovascular accident status post percutaneous endoscopic gastrostomy tube placement. 7. History of Proteus infection. 8. Acute on chronic kidney failure. 9. Leukocytosis. 10. Severe secondary pulmonary hypertension with previous pulmonary artery pressure estimated at 94 mmHg. Plan . will hold sedation has been off for 48 hours not responding yet d/w family wean once awake case d/w RT antibx per ID GI and DVT proph add erythromycin for GI motility tube feeding LAUREL HAMILTON MD Sep 16, 2016 14:56
[2016-09-16] MEDS: ALBUTEROL SULFATE 2.5 MG/3 ML NEBU. IH SCH (20:07)
[2016-09-16 21:59] LABS: BILIRUBIN,URINE NEGATIVE (NEG); GLUCOSE,URINE NEGATIVE (NEG); PH,URINE 5.5; PROTEIN,URINE NEGATIVE (NEG-TRACE)
[2016-09-16 22:00] LABS: BACTERIA,URINE 0 /HPF (0-FEW); NITRITE,URINE NEGATIVE (NEG); RBC,URINE 0 /HPF (0-2); SQUAMOUS EPITHELIAL CELL,UR OCC /LPF; WBC,URINE 0 /HPF (0-4)
[2016-09-17] VITALS (29 sets, daily range): BP systolic 81–183; BP diastolic 49–88
[2016-09-17] MEDS ORDERED: DOPAMINE 400 MG/10 ML IV ONE (05:00)
[2016-09-17] MEDS ORDERED: EPINEPHRINE 1 MG/10 ML DISP.SYRIN. ONE (05:00)
[2016-09-17] MEDS: IV DEXTROSE 5%-LACT RINGERS 1,000 ML IV SCH (05:36)
[2016-09-17] MEDS: METRONIDAZOLE 500mg PREMIX 100 ML IV SCH ×3 (05:37→22:36)
[2016-09-17] MEDS: METOCLOPRAMIDE HCL 10 MG/2 ML VIAL. IV SCH ×4 (05:37→23:50)
[2016-09-17] MEDS: ERYTHROMYCIN ETHYLSUCCINATE 200 MG/5 ML PEG SCH ×4 (05:37→23:50)
[2016-09-17 05:54] LABS: BASO % 0 % (0-3); EOS % 1 % (0-3); HEMATOCRIT 25.9 % (36.0-47.0); HEMOGLOBIN 7.9 g/dL (12.0-15.5); LYMPH # 0.8 x10^3/uL (1.0-4.8); LYMPH % 5 % (24-48); MEAN CORPUSCULAR HEMOGLOBIN 26 pg (25-35); MEAN CORPUSCULAR HGB CONC 31 g/dL (31-37); MEAN CORPUSCULAR VOLUME 86 fL (79-100); MONO % 10 % (0-9); NEUT % 84 % (31-73); PLATELET COUNT 168 x10^3/uL (140-400); RED BLOOD COUNT 3.03 x10^6/uL (3.50-5.40); WHITE BLOOD COUNT 15.2 x10^3/uL (4.0-11.0)
[2016-09-17 06:10] LABS: CALCIUM 8.4 mg/dL (8.5-10.1); CREATININE 0.8 mg/dL (0.6-1.0); GFR 87.1
[2016-09-17 06:15] LABS: POTASSIUM 5.2 mmol/L (3.5-5.1)
[2016-09-17] MEDS: CEFEPIME HCL 1 GM in IV NORMAL SALINE 50ML 50 ML IV SCH ×3 (06:42→22:36)
[2016-09-17] MEDS: ALBUTEROL SULFATE 2.5 MG/3 ML NEBU. IH SCH ×3 (07:52→21:00)
[2016-09-17] MEDS: PANTOPRAZOLE IV PUSH 40 MG VIAL. IVP SCH (08:37)
[2016-09-17] MEDS: FLUCONAZOLE 200MG/100ML PREMIX 100 ML IV SCH (08:37)
[2016-09-17] MEDS: CHLORHEXIDINE 0.12% 15 ML MOUTHWASH. MM SCH ×2 (08:37→21:17)
[2016-09-17] MEDS: HEPARIN PF for SUB-Q USE 5,000 UNIT/0.5 ML VIAL. SQ SCH ×2 (08:42→21:18)
[2016-09-17 08:52] LABS: HCO3 ABG 36 mmol/L (21-28); PH ABG 7.32 (7.35-7.45); PO2 ABG 54 mmHg (65-108); SAT O2 ABG 87 % (92-99)
[2016-09-17 09:00] LABS: FIO2 ABG 65; PCO2 ABG 72 mmHg (35-46)
--- NOTE | 2016-09-17 09:40 | PDOC ---
PROGRESS NOTES Subjective Subjective Patient became more agitated last evening with dropping o2 sats. Patient now sedated with continued intubation. No purposeful activity while off sedation for > 48hrs. Objective Objective Vital Signs Date Time Temp Pulse Resp B/P Pulse Ox O2 Delivery O2 Flow Rate FiO2 09/17/16 09:00 106 28 94/49 98 Ventilator 09/17/16 08:00 99.0 99.0 Intake and Output 09/17/16 07:00 Intake Total 1756.47 ml Output Total 740 ml Balance 1016.47 ml Intake Oral 0 ml IV Total 1171.47 ml Tube Feeding 435 ml Other 150 ml Output Urine Total 740 ml Physical Exam Abdomen: Normal bowel sounds Heart: Regular rate General: Other (sedated) Lungs: Clear to auscultation Assessment Assessment Problems Medical Problems: (1) Acute on chronic respiratory failure Status: Acute (2) CHF (congestive heart failure), NYHA class III Status: Acute (3) Respiratory failure Status: Acute 1. Acute on chronic diastolic heart failure, compensated 2. Acute on chronic respiratory failure with AE COPD- s/p intubation 3. Leukocytosis with sepsis, POA 4. Fevers 5. Hypotension 6. Severe pulmonary hypertension 7. NANCY 8. Prior CVA with dysphagia s/p PEG placement Plan Plan of Care Continue supportive care Consult palliative care for direction Comment Review of Relevant I have reviewed the following items chon (where applicable) has been applied. Labs Laboratory Tests Test 09/16/16 04:54 09/16/16 08:00 09/16/16 11:10 09/17/16 05:00 White Blood Count 14.8x10^3/uL (4.0-11.0) 15.2x10^3/uL (4.0-11.0) Red Blood Count 3.32x10^6/uL (3.50-5.40) 3.03x10^6/uL (3.50-5.40) Hemoglobin 8.6g/dL (12.0-15.5) 7.9g/dL (12.0-15.5) Hematocrit 27.9% (36.0-47.0) 25.9% (36.0-47.0) Mean Corpuscular Volume 84fL (79-100) 86fL (79-100) Mean Corpuscular Hemoglobin 26pg (25-35) 26pg (25-35) Mean Corpuscular Hemoglobin Concent 31g/dL (31-37) 31g/dL (31-37) Red Cell Distribution Width 14.6% (11.5-14.5) 15.0% (11.5-14.5) Platelet Count 194x10^3/uL (140-400) 168x10^3/uL (140-400) Neutrophils (%) (Auto) 79% (31-73) 84% (31-73) Lymphocytes (%) (Auto) 9% (24-48) 5% (24-48) Monocytes (%) (Auto) 11% (0-9) 10% (0-9) Eosinophils (%) (Auto) 1% (0-3) 1% (0-3) Basophils (%) (Auto) 0% (0-3) 0% (0-3) Neutrophils # (Auto) 11.7x10^3uL (1.8-7.7) 12.8x10^3uL (1.8-7.7) Lymphocytes # (Auto) 1.3x10^3/uL (1.0-4.8) 0.8x10^3/uL (1.0-4.8) Monocytes # (Auto) 1.6x10^3/uL (0.0-1.1) 1.5x10^3/uL (0.0-1.1) Eosinophils # (Auto) 0.2x10^3/uL (0.0-0.7) 0.1x10^3/uL (0.0-0.7) Basophils # (Auto) 0.0x10^3/uL (0.0-0.2) 0.0x10^3/uL (0.0-0.2) Sodium Level 145mmol/L (136-145) 137mmol/L (136-145) Potassium Level 3.9mmol/L (3.5-5.1) 5.2mmol/L (3.5-5.1) Chloride Level 105mmol/L (98-107) 104mmol/L (98-107) Carbon Dioxide Level 37mmol/L (21-32) 28mmol/L (21-32) Anion Gap 3 (6-14) 5 (6-14) Blood Urea Nitrogen 10mg/dL (7-20) 17mg/dL (7-20) Creatinine 0.9mg/dL (0.6-1.0) 0.8mg/dL (0.6-1.0) Estimated GFR (Cockcroft-Gault) 76.0 87.1 BUN/Creatinine Ratio 11 (6-20) Glucose Level 148mg/dL (70-99) 151mg/dL (70-99) Calcium Level 8.5mg/dL (8.5-10.1) 8.4mg/dL (8.5-10.1) Total Bilirubin 0.4mg/dL (0.2-1.0) Aspartate Amino Transf (AST/SGOT) 15U/L (15-37) Alanine Aminotransferase (ALT/SGPT) 14U/L (14-59) Alkaline Phosphatase 41U/L (46-116) Total Protein 6.3g/dL (6.4-8.2) Albumin 2.2g/dL (3.4-5.0) Albumin/Globulin Ratio 0.5 (1.0-1.7) Procalcitonin < 0.10ng/mL (0.00-0.10) O2 Saturation 91% (92-99) Arterial Blood pH 7.35 (7.35-7.45) Arterial Blood pCO2 at Patient Temp 66mmHg (35-46) Arterial Blood pO2 at Patient Temp 67mmHg (65-108) Arterial Blood HCO3 35mmol/L (21-28) Arterial Blood Base Excess 8mmol/L (-3-3) FiO2 40 Urine Collection Type Unknown Urine Color Yellow Urine Clarity Cloudy Urine pH 5.5 Urine Specific [place] 1.020 Urine Protein Negativemg/dL (NEG-TRACE) Urine Glucose (UA) Negativemg/dL (NEG) Urine Ketones (Stick) Negativemg/dL (NEG) Urine Blood Negative (NEG) Urine Nitrite Negative (NEG) Urine Bilirubin Negative (NEG) Urine Urobilinogen Dipstick 1.0mg/dL (0.2 mg/dL) Urine Leukocyte Esterase Negative (NEG) Urine RBC 0/HPF (0-2) Urine WBC 0/HPF (0-4) Urine Squamous Epithelial Cells Occ/LPF Urine Bacteria 0/HPF (0-FEW) Test 09/17/16 08:00 O2 Saturation 87% (92-99) Arterial Blood pH 7.32 (7.35-7.45) Arterial Blood pCO2 at Patient Temp 72mmHg (35-46) Arterial Blood pO2 at Patient Temp 54mmHg (65-108) Arterial Blood HCO3 36mmol/L (21-28) Arterial Blood Base Excess 9mmol/L (-3-3) FiO2 65 Laboratory Tests Test 09/16/16 11:10 09/17/16 05:00 09/17/16 08:00 Urine Collection Type Unknown Urine Color Yellow Urine Clarity Cloudy Urine pH 5.5 Urine Specific [place] 1.020 Urine Protein Negativemg/dL (NEG-TRACE) Urine Glucose (UA) Negativemg/dL (NEG) Urine Ketones (Stick) Negativemg/dL (NEG) Urine Blood Negative (NEG) Urine Nitrite Negative (NEG) Urine Bilirubin Negative (NEG) Urine Urobilinogen Dipstick 1.0mg/dL (0.2 mg/dL) Urine Leukocyte Esterase Negative (NEG) Urine RBC 0/HPF (0-2) Urine WBC 0/HPF (0-4) Urine Squamous Epithelial Cells Occ/LPF Urine Bacteria 0/HPF (0-FEW) White Blood Count 15.2x10^3/uL (4.0-11.0) Red Blood Count 3.03x10^6/uL (3.50-5.40) Hemoglobin 7.9g/dL (12.0-15.5) Hematocrit 25.9% (36.0-47.0) Mean Corpuscular Volume 86fL (79-100) Mean Corpuscular Hemoglobin 26pg (25-35) Mean Corpuscular Hemoglobin Concent 31g/dL (31-37) Red Cell Distribution Width 15.0% (11.5-14.5) Platelet Count 168x10^3/uL (140-400) Neutrophils (%) (Auto) 84% (31-73) Lymphocytes (%) (Auto) 5% (24-48) Monocytes (%) (Auto) 10% (0-9) Eosinophils (%) (Auto) 1% (0-3) Basophils (%) (Auto) 0% (0-3) Neutrophils # (Auto) 12.8x10^3uL (1.8-7.7) Lymphocytes # (Auto) 0.8x10^3/uL (1.0-4.8) Monocytes # (Auto) 1.5x10^3/uL (0.0-1.1) Eosinophils # (Auto) 0.1x10^3/uL (0.0-0.7) Basophils # (Auto) 0.0x10^3/uL (0.0-0.2) Sodium Level 137mmol/L (136-145) Potassium Level 5.2mmol/L (3.5-5.1) Chloride Level 104mmol/L (98-107) Carbon Dioxide Level 28mmol/L (21-32) Anion Gap 5 (6-14) Blood Urea Nitrogen 17mg/dL (7-20) Creatinine 0.8mg/dL (0.6-1.0) Estimated GFR (Cockcroft-Gault) 87.1 Glucose Level 151mg/dL (70-99) Calcium Level 8.4mg/dL (8.5-10.1) O2 Saturation 87% (92-99) Arterial Blood pH 7.32 (7.35-7.45) Arterial Blood pCO2 at Patient Temp 72mmHg (35-46) Arterial Blood pO2 at Patient Temp 54mmHg (65-108) Arterial Blood HCO3 36mmol/L (21-28) Arterial Blood Base Excess 9mmol/L (-3-3) FiO2 65 Microbiology 09/16/16 Blood Culture - Preliminary, Resulted NO GROWTH AFTER 1 DAY 09/12/16 Urine Culture - Final, Complete 09/12/16 Urine Culture Result 1 (CANDICE) - Final, Complete Medications Current Medications Furosemide (Lasix) 100 mg 1X ONCE IVP Last administered on 09/12/16 21:34; Start 09/12/16 at 21:00; Stop 09/12/16 at 21:01; Status DC Etomidate (Amidate) 20 mg 1X ONCE IV Last administered on 09/12/16 20:42; Start 09/12/16 at 20:45; Stop 09/12/16 at 20:46; Status DC Succinylcholine Chloride 50 mg 50 mg 1X ONCE IV Last administered on 20:42; Start 09/12/16 at 20:45; Stop 09/12/16 at 20:46; Status DC Midazolam HCl (Versed 100mg/ 100ml Premix) 100 ml @ As Directed STK-MED ONCE IV ; Start 09/12/16 at 20:46; Stop 09/12/16 at 20:47; Status DC Ondansetron HCl (Zofran) 4 mg PRN Q8HRS PRN IV NAUSEA/VOMITING; Start 09/12/16 at 20:45; Stop 09/13/16 at 20:44; Status DC Fentanyl Citrate (Fentanyl 2ml Vial) 50 mcg PRN Q1HR PRN IV COMM; Start at 20:45 Chlorhexidine Gluconate 15 ml 15 ml BID MM Last administered on 09/15/16 21:57 ; Start 09/13/16 at 09:00; Stop 09/15/16 at 21:58; Status DC Midazolam HCl (Versed 100mg/ 100ml Premix) 100 ml @ 0 mls/hr CONT PRN IV PER PROTOCOL Last administered on 09/15/16 04:55; Start 09/12/16 at 20:45; Stop 09/15 at 19:09; Status DC Haloperidol Lactate (Haldol) 2.5 mg PRN Q15MIN PRN IVP AGITATION, DELIRIUM; Start 09/12/16 at 20:45 Diphenhydramine HCl (Benadryl) 25 mg PRN Q15MIN PRN IVP EPS Symptoms; Start at 20:45 Heparin Sodium (Porcine) 5000 unit 5,000 unit Q12HR SQ Last administered on 09/17 08:42; Start 09/13/16 at 09:00 Furosemide/Sodium Chloride (Lasix Drip/Iv Sodium Chloride 0.9% 100ml) 100 ml @ 0 mls/hr CONT PRN IV SEE I/O RECORD; Start 09/12/16 at 21:00; Stop 09/12/16 at 21:36; Status DC Albuterol Sulfate (Ventolin Neb Soln) 2.5 mg PRN Q4HRS PRN NEB SHORTNESS OF BREATH Last administered on 09/16/16 16:26; Start 09/12/16 at 21:45 Levofloxacin/ Dextrose 1 each 1 each PRN DAILY PRN MC SEE COMMENTS; Start 09/12 at 22:00; Stop 09/14/16 at 06:56; Status DC Levofloxacin/ Dextrose 100 ml @ 100 mls/hr ONCE ONCE IV Last administered on 09/12/16 22:05; Start 09/12/16 at 22:00; Stop 09/12/16 at 22:59; Status DC Sodium Chloride 500 ml @ 0 mls/hr 1X ONCE IV Last administered on 09/12/16 22 :10; Start 09/12/16 at 22:30; Stop 09/12/16 at 22:31; Status DC Levofloxacin/ Dextrose 50 ml @ 50 mls/hr Q24H IV Last administered on 22:27; Start 09/13/16 at 22:00; Stop 09/14/16 at 06:56; Status DC Sodium Chloride 500 ml @ 0 mls/hr 1X ONCE IV ; Start 09/12/16 at 22:30; Stop at 22:31; Status DC Sodium Chloride (Iv Sodium Chloride 0.9% 1000ml Bag) 1,000 ml @ 999 mls/hr 1X ONCE IV Last administered on 09/12/16 23:41; Start 09/12/16 at 23:30; Stop at 00:30; Status DC Furosemide 20 mg 20 mg 1X ONCE IVP Last administered on 09/13/16 00:49; Start 09/12/16 at 23:30; Stop 09/12/16 at 23:31; Status DC Norepinephrine Bitartrate 8 mg/ Sodium Chloride 258 ml @ 0 mls/hr CONT PRN IV SEE I/O RECORD Last administered on 09/12/16 23:53; Start 09/12/16 at 23:30 Linezolid 300 ml @ 300 mls/hr Q12HR IV Last administered on 09/17/16 08:37; Start 09/13/16 at 09:00 Piperacillin Sod/ Tazobactam Sod/ Sodium Chloride (Zosyn/Iv Sodium Chloride 0.9 % 50ml) 50 ml @ 100 mls/hr Q6HRS IV Last administered on 09/16/16 05:50; Start 09/13/16 at 07:45; Stop 09/16/16 at 07:44; Status DC Pantoprazole Sodium 40 mg 40 mg DAILYAC IVP Last administered on 09/17/16 08:37 ; Start 09/13/16 at 09:00 Levofloxacin/ Dextrose (LEVAQUIN 500mg PREMIX) 100 ml @ 100 mls/hr Q24H IV Last administered on 09/16/16 06:31; Start 09/14/16 at 07:00; Stop 09/16/16 at 07: 44; Status DC Potassium Chloride (KCl Oral Soln) 40 meq 1X ONCE PO Last administered on 08:24; Start 09/14/16 at 08:00; Stop 09/14/16 at 08:01; Status DC Erythromycin 250 mg 250 mg QIDACHS PO Last administered on 09/14/16 17:36; Start 09/14/16 at 16:30; Stop 09/14/16 at 21:17; Status DC Dextrose/Lactated Ringer's (Iv D5%-Lr) 1,000 ml @ 60 mls/hr [id number] IV Last administered on 09/17/16 05:36; Start 09/14/16 at 15:00 Metoclopramide HCl (Reglan) 10 mg PRN Q6HRS PRN IV NAUSEA/VOMITING Last administered on 09/14/16 17:35; Start 09/14/16 at 17:30; Stop 09/15/16 at 00:00; Status DC Metoclopramide HCl (Reglan) 5 mg Q6H IV Last administered on 09/17/16 05:37; Start 09/14/16 at 00:00 Erythromycin Ethylsuccinate 200 mg 200 mg Q6HRS PEG Last administered on 05:37; Start 09/15/16 at 00:00 Propofol (Diprivan) 100 ml @ 0 mls/hr CONT PRN IV SEE I/O RECORD Last administered on 09/16/16 20:06; Start 09/15/16 at 19:00 Chlorhexidine Gluconate (Peridex) 15 ml BID MM Last administered on 09/17/16 08 :37; Start 09/16/16 at 09:00 Famotidine 20 mg 20 mg DAILY IVP Last administered on 09/16/16 09:51; Start 09/16/16 at 09:00; Stop 09/17/16 at 08:13; Status DC Midazolam HCl 100 ml @ 0 mls/hr CONT PRN IV PER PROTOCOL; Start 09/15/16 at 22: 00 Metronidazole 100 ml @ 100 mls/hr Q8HRS IV Last administered on 09/17/16 05:37 ; Start 09/16/16 at 08:00 Cefepime HCl 1 gm/ Sodium Chloride 50 ml @ 100 mls/hr Q8HRS IV Last administered on 09/17/16 06:42; Start 09/16/16 at 08:00 Fluconazole/ Sodium Chloride (Diflucan 200mg/ 100ml Premix) 100 ml @ 100 mls/ hr Q24H IV Last administered on 09/17/16 08:37; Start 09/16/16 at 09:00 Docusate Sodium (Enemeez) 283 mg 1X ONCE [place] Last administered on 09/16/16 12: 37; Start 09/16/16 at 10:00; Stop 09/16/16 at 10:01; Status DC Albuterol Sulfate (Ventolin Neb Soln) 2.5 mg TID IH Last administered on 07:52; Start 09/16/16 at 21:00 Active Scripts Active Atorvastatin Calcium 20 Mg Tablet 20 Mg PO QHS 30 Days Aspirin 325 Mg Tablet 325 Mg PO [id number] 30 Days Furosemide 20 Mg Tablet 20 Mg GT DAILY 30 Days Potassium Chloride Oral Liquid (Potassium Chloride) 20 Meq/15 Ml Liquid 20 Meq PEG DAILY 30 Days Famotidine 20 Mg Tablet 20 Mg PO BID 30 Days Carvedilol 12.5 Mg Tablet 25 Mg PO BID@, 30 Days Acetaminophen 650 Mg/20.3 Ml Solution 325 Mg PEG PRN Q6HRS PRN 30 Days Albuterol Sulfate Neb Soln (Albuterol Sulfate) 2.5 Mg/3 Ml Vial.neb 2.5 Mg NEB RTQID 30 Days Vitals/I & O Vital Sign - Last 24 Hours 09/16/16 09/16/16 09/16/16 09/16/16 10:00 11:00 12:00 12:00 Temp 98.7 98.7 Pulse 106 102 102 Resp 36 19 35 B/P 120/64 114/65 122/68 Pulse Ox 99 98 94 O2 Delivery Ventilator Ventilator Mechanical Ventilator Ventilator 09/16/16 09/16/16 09/16/16 09/16/16 12:23 13:00 14:00 14:23 Pulse 102 102 Resp 34 30 B/P 119/65 107/59 Pulse Ox 93 94 94 92 O2 Delivery Ventilator Ventilator Ventilator Ventilator 09/16/16 09/16/16 09/16/16 09/16/16 15:00 16:00 16:00 16:00 Temp 98.7 98.7 Pulse 106 108 109 Resp 28 22 30 B/P 113/63 114/61 104/68 Pulse Ox 93 92 100 O2 Delivery Ventilator Mechanical Ventilator Ventilator Ventilator 09/16/16 09/16/16 09/16/16 09/16/16 16:18 16:26 18:17 19:32 Temp 100.8 100.8 Pulse 120 Resp 16 B/P 111/67 Pulse Ox 92 91 89 86 O2 Delivery Ventilator Ventilator Ventilator Ventilator 09/16/16 09/16/16 09/16/16 09/16/16 20:00 20:00 20:05 21:00 Pulse 119 114 Resp 17 19 B/P 121/65 106/57 Pulse Ox 80 85 97 O2 Delivery Mechanical Ventilator Ventilator Ventilator Ventilator 09/16/16 09/16/16 09/16/16 09/16/16 22:00 22:41 23:00 23:59 Temp 101.0 101.0 Pulse 114 112 Resp 17 17 B/P 97/55 99/55 Pulse Ox 98 99 97 O2 Delivery Ventilator Ventilator Ventilator Mechanical Ventilator 09/17/16 09/17/16 09/17/16 09/17/16 00:00 01:00 01:30 02:00 Pulse 114 114 114 Resp 17 B/P 116/59 97/55 105/69 Pulse Ox 100 95 99 100 O2 Delivery Ventilator Ventilator Ventilator 09/17/16 09/17/16 09/17/16 09/17/16 03:00 03:00 04:00 04:00 Temp 98.6 98.6 Pulse 105 102 Resp 17 15 B/P 112/62 108/61 Pulse Ox 98 100 98 O2 Delivery Ventilator Ventilator Mechanical Ventilator Ventilator 09/17/16 09/17/16 09/17/16 09/17/16 05:00 05:40 06:00 07:00 Pulse 103 105 104 Resp 17 15 25 B/P 104/57 106/57 93/57 Pulse Ox 99 100 100 95 O2 Delivery Ventilator Ventilator Ventilator Ventilator 09/17/16 09/17/16 09/17/16 09/17/16 07:53 08:00 08:00 08:40 Temp 99.0 99.0 Pulse 105 Resp 28 B/P 97/55 Pulse Ox 85 95 100 O2 Delivery Ventilator Mechanical Ventilator Ventilator Ventilator 09/17/16 09:00 Pulse 106 Resp 28 B/P 94/49 Pulse Ox 98 O2 Delivery Ventilator Intake and Output 09/16/16 09/16/16 09/17/16 15:00 23:00 07:00 Intake Total 90 ml 0 ml 1666.47 ml Output Total 300 ml 230 ml 210 ml Balance -210 ml -230 ml 1456.47 ml MATTHEW GRANDA MD Sep 17, 2016 09:40
--- NOTE | 2016-09-17 10:19 | PDOC ---
Infectious Disease Note Subjective Subjective Fever Tmax 101.0, afebrile so far today Sedated Remains intubated/vent. FiO2 75% ROS ROS unobtainable Vital Sign Vital Signs Vital Signs Date Time Temp Pulse Resp B/P Pulse Ox O2 Delivery O2 Flow Rate FiO2 09/17/16 09:00 106 28 94/49 98 Ventilator 09/17/16 08:00 99.0 99.0 Physical Exam PHYSICAL EXAM GENERAL: Intubated and sedated HEENT: pupils nonreactive, ETT. 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: Unresponsive to verbal and tactile stimuli, on sedation SKIN: No rash IV: ok Labs Lab Laboratory Tests Test 09/16/16 11:10 09/17/16 05:00 09/17/16 08:00 Urine Collection Type Unknown Urine Color Yellow Urine Clarity Cloudy Urine pH 5.5 Urine Specific [place] 1.020 Urine Protein Negativemg/dL (NEG-TRACE) Urine Glucose (UA) Negativemg/dL (NEG) Urine Ketones (Stick) Negativemg/dL (NEG) Urine Blood Negative (NEG) Urine Nitrite Negative (NEG) Urine Bilirubin Negative (NEG) Urine Urobilinogen Dipstick 1.0mg/dL (0.2 mg/dL) Urine Leukocyte Esterase Negative (NEG) Urine RBC 0/HPF (0-2) Urine WBC 0/HPF (0-4) Urine Squamous Epithelial Cells Occ/LPF Urine Bacteria 0/HPF (0-FEW) White Blood Count 15.2x10^3/uL (4.0-11.0) Red Blood Count 3.03x10^6/uL (3.50-5.40) Hemoglobin 7.9g/dL (12.0-15.5) Hematocrit 25.9% (36.0-47.0) Mean Corpuscular Volume 86fL (79-100) Mean Corpuscular Hemoglobin 26pg (25-35) Mean Corpuscular Hemoglobin Concent 31g/dL (31-37) Red Cell Distribution Width 15.0% (11.5-14.5) Platelet Count 168x10^3/uL (140-400) Neutrophils (%) (Auto) 84% (31-73) Lymphocytes (%) (Auto) 5% (24-48) Monocytes (%) (Auto) 10% (0-9) Eosinophils (%) (Auto) 1% (0-3) Basophils (%) (Auto) 0% (0-3) Neutrophils # (Auto) 12.8x10^3uL (1.8-7.7) Lymphocytes # (Auto) 0.8x10^3/uL (1.0-4.8) Monocytes # (Auto) 1.5x10^3/uL (0.0-1.1) Eosinophils # (Auto) 0.1x10^3/uL (0.0-0.7) Basophils # (Auto) 0.0x10^3/uL (0.0-0.2) Sodium Level 137mmol/L (136-145) Potassium Level 5.2mmol/L (3.5-5.1) Chloride Level 104mmol/L (98-107) Carbon Dioxide Level 28mmol/L (21-32) Anion Gap 5 (6-14) Blood Urea Nitrogen 17mg/dL (7-20) Creatinine 0.8mg/dL (0.6-1.0) Estimated GFR (Cockcroft-Gault) 87.1 Glucose Level 151mg/dL (70-99) Calcium Level 8.4mg/dL (8.5-10.1) O2 Saturation 87% (92-99) Arterial Blood pH 7.32 (7.35-7.45) Arterial Blood pCO2 at Patient Temp 72mmHg (35-46) Arterial Blood pO2 at Patient Temp 54mmHg (65-108) Arterial Blood HCO3 36mmol/L (21-28) Arterial Blood Base Excess 9mmol/L (-3-3) FiO2 65 Micro 3/3. BLOOD CULTURE Preliminary NO GROWTH AFTER 1 DAY Objective Assessment Sepsis - POA -off pressors -procalcitonin <0.10 Resp failure - Intubated -CXR clear NANCY - better Leukocytosis Plan Plan of Care Zyvox, cefepime, Flagyl & fluconazole CBC in am Monitor Temp Critically ill Attending Co-Sign The patient was seen and interviewed as well as examined at the bedside. The chart was reviewed. The case was discussed. Agree with the plan of care. d/w ADELIA Harrison APRN Sep 17, 2016 10:18 IQRA TAN MD Sep 17, 2016 14:36
--- NOTE | 2016-09-17 16:09 | PDOC ---
PULMONARY PROGRESS NOTES Subjective RE SEDATED YESTERDAY Vitals Vital Signs Date Time Temp Pulse Resp B/P Pulse Ox O2 Delivery O2 Flow Rate FiO2 09/17/16 15:10 85 Ventilator 09/17/16 15:00 103 27 95/53 09/17/16 12:00 98.6 98.6 Lungs: Clear Cardiovascular: S1, S2 Abdomen: Soft, Non-tender Extremities: No Edema Labs Laboratory Tests Test 09/16/16 04:54 09/16/16 08:00 09/16/16 11:10 09/17/16 05:00 White Blood Count 14.8x10^3/uL (4.0-11.0) 15.2x10^3/uL (4.0-11.0) Red Blood Count 3.32x10^6/uL (3.50-5.40) 3.03x10^6/uL (3.50-5.40) Hemoglobin 8.6g/dL (12.0-15.5) 7.9g/dL (12.0-15.5) Hematocrit 27.9% (36.0-47.0) 25.9% (36.0-47.0) Mean Corpuscular Volume 84fL (79-100) 86fL (79-100) Mean Corpuscular Hemoglobin 26pg (25-35) 26pg (25-35) Mean Corpuscular Hemoglobin Concent 31g/dL (31-37) 31g/dL (31-37) Red Cell Distribution Width 14.6% (11.5-14.5) 15.0% (11.5-14.5) Platelet Count 194x10^3/uL (140-400) 168x10^3/uL (140-400) Neutrophils (%) (Auto) 79% (31-73) 84% (31-73) Lymphocytes (%) (Auto) 9% (24-48) 5% (24-48) Monocytes (%) (Auto) 11% (0-9) 10% (0-9) Eosinophils (%) (Auto) 1% (0-3) 1% (0-3) Basophils (%) (Auto) 0% (0-3) 0% (0-3) Neutrophils # (Auto) 11.7x10^3uL (1.8-7.7) 12.8x10^3uL (1.8-7.7) Lymphocytes # (Auto) 1.3x10^3/uL (1.0-4.8) 0.8x10^3/uL (1.0-4.8) Monocytes # (Auto) 1.6x10^3/uL (0.0-1.1) 1.5x10^3/uL (0.0-1.1) Eosinophils # (Auto) 0.2x10^3/uL (0.0-0.7) 0.1x10^3/uL (0.0-0.7) Basophils # (Auto) 0.0x10^3/uL (0.0-0.2) 0.0x10^3/uL (0.0-0.2) Sodium Level 145mmol/L (136-145) 137mmol/L (136-145) Potassium Level 3.9mmol/L (3.5-5.1) 5.2mmol/L (3.5-5.1) Chloride Level 105mmol/L (98-107) 104mmol/L (98-107) Carbon Dioxide Level 37mmol/L (21-32) 28mmol/L (21-32) Anion Gap 3 (6-14) 5 (6-14) Blood Urea Nitrogen 10mg/dL (7-20) 17mg/dL (7-20) Creatinine 0.9mg/dL (0.6-1.0) 0.8mg/dL (0.6-1.0) Estimated GFR (Cockcroft-Gault) 76.0 87.1 BUN/Creatinine Ratio 11 (6-20) Glucose Level 148mg/dL (70-99) 151mg/dL (70-99) Calcium Level 8.5mg/dL (8.5-10.1) 8.4mg/dL (8.5-10.1) Total Bilirubin 0.4mg/dL (0.2-1.0) Aspartate Amino Transf (AST/SGOT) 15U/L (15-37) Alanine Aminotransferase (ALT/SGPT) 14U/L (14-59) Alkaline Phosphatase 41U/L (46-116) Total Protein 6.3g/dL (6.4-8.2) Albumin 2.2g/dL (3.4-5.0) Albumin/Globulin Ratio 0.5 (1.0-1.7) Procalcitonin < 0.10ng/mL (0.00-0.10) O2 Saturation 91% (92-99) Arterial Blood pH 7.35 (7.35-7.45) Arterial Blood pCO2 at Patient Temp 66mmHg (35-46) Arterial Blood pO2 at Patient Temp 67mmHg (65-108) Arterial Blood HCO3 35mmol/L (21-28) Arterial Blood Base Excess 8mmol/L (-3-3) FiO2 40 Urine Collection Type Unknown Urine Color Yellow Urine Clarity Cloudy Urine pH 5.5 Urine Specific [place] 1.020 Urine Protein Negativemg/dL (NEG-TRACE) Urine Glucose (UA) Negativemg/dL (NEG) Urine Ketones (Stick) Negativemg/dL (NEG) Urine Blood Negative (NEG) Urine Nitrite Negative (NEG) Urine Bilirubin Negative (NEG) Urine Urobilinogen Dipstick 1.0mg/dL (0.2 mg/dL) Urine Leukocyte Esterase Negative (NEG) Urine RBC 0/HPF (0-2) Urine WBC 0/HPF (0-4) Urine Squamous Epithelial Cells Occ/LPF Urine Bacteria 0/HPF (0-FEW) Test 09/17/16 08:00 O2 Saturation 87% (92-99) Arterial Blood pH 7.32 (7.35-7.45) Arterial Blood pCO2 at Patient Temp 72mmHg (35-46) Arterial Blood pO2 at Patient Temp 54mmHg (65-108) Arterial Blood HCO3 36mmol/L (21-28) Arterial Blood Base Excess 9mmol/L (-3-3) FiO2 65 Laboratory Tests Test 09/17/16 05:00 09/17/16 08:00 White Blood Count 15.2x10^3/uL (4.0-11.0) Red Blood Count 3.03x10^6/uL (3.50-5.40) Hemoglobin 7.9g/dL (12.0-15.5) Hematocrit 25.9% (36.0-47.0) Mean Corpuscular Volume 86fL (79-100) Mean Corpuscular Hemoglobin 26pg (25-35) Mean Corpuscular Hemoglobin Concent 31g/dL (31-37) Red Cell Distribution Width 15.0% (11.5-14.5) Platelet Count 168x10^3/uL (140-400) Neutrophils (%) (Auto) 84% (31-73) Lymphocytes (%) (Auto) 5% (24-48) Monocytes (%) (Auto) 10% (0-9) Eosinophils (%) (Auto) 1% (0-3) Basophils (%) (Auto) 0% (0-3) Neutrophils # (Auto) 12.8x10^3uL (1.8-7.7) Lymphocytes # (Auto) 0.8x10^3/uL (1.0-4.8) Monocytes # (Auto) 1.5x10^3/uL (0.0-1.1) Eosinophils # (Auto) 0.1x10^3/uL (0.0-0.7) Basophils # (Auto) 0.0x10^3/uL (0.0-0.2) Sodium Level 137mmol/L (136-145) Potassium Level 5.2mmol/L (3.5-5.1) Chloride Level 104mmol/L (98-107) Carbon Dioxide Level 28mmol/L (21-32) Anion Gap 5 (6-14) Blood Urea Nitrogen 17mg/dL (7-20) Creatinine 0.8mg/dL (0.6-1.0) Estimated GFR (Cockcroft-Gault) 87.1 Glucose Level 151mg/dL (70-99) Calcium Level 8.4mg/dL (8.5-10.1) O2 Saturation 87% (92-99) Arterial Blood pH 7.32 (7.35-7.45) Arterial Blood pCO2 at Patient Temp 72mmHg (35-46) Arterial Blood pO2 at Patient Temp 54mmHg (65-108) Arterial Blood HCO3 36mmol/L (21-28) Arterial Blood Base Excess 9mmol/L (-3-3) FiO2 65 Medications Active Scripts Medications Dose Route/Sig Days Date Category Atorvastatin Calcium 20 Mg Tablet 20 Mg PO QHS 30 02/26/16 Rx Aspirin 325 Mg Tablet 325 Mg PO DAILYWBKFT 30 02/26/16 Rx Furosemide 20 Mg Tablet 20 Mg GT DAILY 30 2/24/16 Rx Potassium Chloride Oral Liquid (Potassium Chloride) 20 Meq/15 Ml Liquid 20 Meq PEG DAILY 30 08/27/15 Rx Famotidine 20 Mg Tablet 20 Mg PO BID 30 08/27/15 Rx Carvedilol 12.5 Mg Tablet 25 Mg PO BID@ 30 08/27/15 Rx Acetaminophen 650 Mg/20.3 Ml Solution 325 Mg PEG PRN Q6HRS PRN 30 08/27/15 Rx Albuterol Sulfate Neb Soln (Albuterol Sulfate) 2.5 Mg/3 Ml Vial.neb 2.5 Mg NEB RTQID 30 08/04/15 Rx Impression . 1. Acute on chronic hypercapnic hypoxemic respiratory failure, multifactorial. 2. Acute exacerbation of chronic obstructive pulmonary disease. 3. Sepsis, present upon admission. 4. Fever secondary to above. 5. Urinary tract infection causing sepsis. 6. Cerebrovascular accident status post percutaneous endoscopic gastrostomy tube placement. 7. History of Proteus infection. 8. Acute on chronic kidney failure. 9. Leukocytosis. 10. Severe secondary pulmonary hypertension with previous pulmonary artery pressure estimated at 94 mmHg. Plan . did trail this am, did not do well will try in am d/w family case d/w RT antibx per ID GI and DVT proph add erythromycin for GI motility tube feeding LAUREL HAMILTON MD Sep 17, 2016 16:09
[2016-09-17] MEDS ORDERED: DOPAMINE 400MG/250ML PREMIX 250 ML IV PRN ×2 (18:30)
--- NOTE | 2016-09-17 18:36 | EKG ---
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 RI6.0 Electronically Signed On 09-19-2016 14:07:12 HEAVY TRUCK TECHNICIAN by Lopez Wilson
--- NOTE | 2016-09-17 18:37 | VNOTE ---
CALL BACK NOTE CALL BACK Microbiology 09/16/16 Blood Culture - Preliminary, Resulted NO GROWTH AFTER 1 DAY 09/12/16 Urine Culture - Final, Complete 09/12/16 Urine Culture Result 1 (CANDICE) - Final, Complete 66-year-old female reportedly admitted for acute respiratory failure. MARTHA THAKKAR called around 1830 on September 17, 2016. I responded to the CODE BLUE. The patient had suffered a bradycardic PEA arrest. The patient was already intubated. Chest compressions and epinephrine had been given prior to my arrival. I ordered the administration of atropine as well. See nursing documentation for code details. We were able to recover return of spontaneous circulation. The patient currently is on an norepinephrine drip run peripherally. I recommended the nursing staff page primary doctor and online marketing director doctor for further evaluation workup and care. YANELIS ANGELO MD Sep 17, 2016 18:37
[2016-09-17 18:41] LABS: BASO # 0.1 x10^3/uL (0.0-0.2); BASO % 1 % (0-3); EOS % 1 % (0-3); HEMATOCRIT 23.9 % (36.0-47.0); HEMOGLOBIN 7.1 g/dL (12.0-15.5); LYMPH # 2.1 x10^3/uL (1.0-4.8); LYMPH % 15 % (24-48); MEAN CORPUSCULAR HEMOGLOBIN 26 pg (25-35); MEAN CORPUSCULAR HGB CONC 30 g/dL (31-37); MEAN CORPUSCULAR VOLUME 88 fL (79-100); MONO % 9 % (0-9); NEUT % 75 % (31-73); PLATELET COUNT 155 x10^3/uL (140-400); RED BLOOD COUNT 2.73 x10^6/uL (3.50-5.40); RED CELL DISTRIBUTION WIDTH 15.3 % (11.5-14.5); WHITE BLOOD COUNT 14.2 x10^3/uL (4.0-11.0)
[2016-09-17] MEDS ORDERED: CONTRAST GIVEN MC PRN (18:45)
[2016-09-17 18:56] LABS: CALCIUM 8.1 mg/dL (8.5-10.1); CREATININE 1.3 mg/dL (0.6-1.0); GFR 49.7; MAGNESIUM 2.2 mg/dL (1.8-2.4); POTASSIUM 4.5 mmol/L (3.5-5.1)
[2016-09-17] MEDS ORDERED: IOHEXOL 300 MG/ML 75 ML VIAL IV ONE (19:00)
[2016-09-17 19:11] LABS: BODY TEMP ABG 99.4 DEG; CORRECTED PCO2 ABG 75 mmHg; CORRECTED PH ABG 7.25; CORRECTED PO2 ABG 57 mmHg; HCO3 ABG 32 mmol/L (21-28); PH ABG 7.25 (7.35-7.45); PO2 ABG 56 mmHg (65-108); SAT O2 ABG 85 % (92-99)
[2016-09-17 19:21] LABS: PCO2 ABG 74 mmHg (35-46)
[2016-09-17 20:56] LABS: HCO3 ABG 33 mmol/L (21-28); PCO2 ABG 55 mmHg (35-46); PO2 ABG 107 mmHg (65-108); SAT O2 ABG 98 % (92-99)
[2016-09-17 20:57] LABS: FIO2 ABG 100; PH ABG 7.39 (7.35-7.45)
[2016-09-17] MEDS: NOREPINEPHRINE VIAL 8 MG in IV NORMAL SALINE 250ML 250 ML IV PRN (23:51)
[2016-09-18] VITALS (27 sets, daily range): BP systolic 86–132; BP diastolic 54–68
[2016-09-18] MEDS: IV NORMAL SALINE 1000ML BAG 1,000 ML IV SCH ×2 (02:30→15:00)
[2016-09-18 05:30] LABS: BASO # 0.1 x10^3/uL (0.0-0.2); BASO % 0 % (0-3); EOS % 0 % (0-3); HEMATOCRIT 22.9 % (36.0-47.0); HEMOGLOBIN 7.1 g/dL (12.0-15.5); LYMPH # 1.1 x10^3/uL (1.0-4.8); LYMPH % 7 % (24-48); MEAN CORPUSCULAR HEMOGLOBIN 26 pg (25-35); MEAN CORPUSCULAR HGB CONC 31 g/dL (31-37); MEAN CORPUSCULAR VOLUME 84 fL (79-100); MONO % 10 % (0-9); NEUT % 83 % (31-73); PLATELET COUNT 172 x10^3/uL (140-400); RED BLOOD COUNT 2.73 x10^6/uL (3.50-5.40); RED CELL DISTRIBUTION WIDTH 14.9 % (11.5-14.5); WHITE BLOOD COUNT 17.3 x10^3/uL (4.0-11.0)
[2016-09-18] MEDS: CEFEPIME HCL 1 GM in IV NORMAL SALINE 50ML 50 ML IV SCH ×3 (05:47→21:31)
[2016-09-18] MEDS: ERYTHROMYCIN ETHYLSUCCINATE 200 MG/5 ML PEG SCH ×4 (05:48→23:46)
[2016-09-18] MEDS: METRONIDAZOLE 500mg PREMIX 100 ML IV SCH ×3 (05:48→21:32)
[2016-09-18] MEDS: METOCLOPRAMIDE HCL 10 MG/2 ML VIAL. IV SCH ×4 (05:48→23:46)
[2016-09-18] MEDS: ALBUTEROL SULFATE 2.5 MG/3 ML NEBU. IH SCH ×3 (07:26→20:14)
[2016-09-18] MEDS: PANTOPRAZOLE IV PUSH 40 MG VIAL. IVP SCH (07:30)
[2016-09-18 07:39] LABS: HCO3 ABG 31 mmol/L (21-28); PCO2 ABG 46 mmHg (35-46); PH ABG 7.44 (7.35-7.45); PO2 ABG 322 mmHg (65-108); SAT O2 ABG 99 % (92-99)
--- NOTE | 2016-09-18 07:49 | PDOC ---
PROGRESS NOTES Subjective Subjective Patient seen and examined Objective Objective Vital Signs Date Time Temp Pulse Resp B/P Pulse Ox O2 Delivery O2 Flow Rate FiO2 09/18/16 07:27 Ventilator 09/18/16 07:00 106 24 102/62 100 09/18/16 04:00 99.5 99.5 Intake and Output 09/18/16 07:00 Intake Total 4266 ml Output Total 810 ml Balance 3456 ml IV Total 1152 ml Tube Feeding 1000 ml Other 2114 ml Output Urine Total 810 ml Physical Exam Abdomen: Normal bowel sounds Heart: Regular rate General: Other (intubated) Lungs: Other (decreased breath sounds) Assessment Assessment Problems Medical Problems: (1) Acute on chronic respiratory failure Status: Acute (2) CHF (congestive heart failure), NYHA class III Status: Acute (3) Respiratory failure Status: Acute Assessment Assessment 1. Acute on chronic diastolic heart failure, compensated 2. Acute on chronic respiratory failure with AE COPD- remains intubated. Continue as per pulmonary. Family discussing plan of care. DNR status. 3. Leukocytosis with sepsis, POA 4. Fevers 5. Hypotension 6. Severe pulmonary hypertension 7. NANCY 8. Prior CVA with dysphagia s/p PEG placement Comment Review of Relevant I have reviewed the following items chon (where applicable) has been applied. Labs Laboratory Tests Test 09/16/16 08:00 09/16/16 11:10 09/17/16 05:00 09/17/16 08:00 O2 Saturation 91% (92-99) 87% (92-99) Arterial Blood pH 7.35 (7.35-7.45) 7.32 (7.35-7.45) Arterial Blood pCO2 at Patient Temp 66mmHg (35-46) 72mmHg (35-46) Arterial Blood pO2 at Patient Temp 67mmHg (65-108) 54mmHg (65-108) Arterial Blood HCO3 35mmol/L (21-28) 36mmol/L (21-28) Arterial Blood Base Excess 8mmol/L (-3-3) 9mmol/L (-3-3) FiO2 40 65 Urine Collection Type Unknown Urine Color Yellow Urine Clarity Cloudy Urine pH 5.5 Urine Specific [place] 1.020 Urine Protein Negativemg/dL (NEG-TRACE) Urine Glucose (UA) Negativemg/dL (NEG) Urine Ketones (Stick) Negativemg/dL (NEG) Urine Blood Negative (NEG) Urine Nitrite Negative (NEG) Urine Bilirubin Negative (NEG) Urine Urobilinogen Dipstick 1.0mg/dL (0.2 mg/dL) Urine Leukocyte Esterase Negative (NEG) Urine RBC 0/HPF (0-2) Urine WBC 0/HPF (0-4) Urine Squamous Epithelial Cells Occ/LPF Urine Bacteria 0/HPF (0-FEW) White Blood Count 15.2x10^3/uL (4.0-11.0) Red Blood Count 3.03x10^6/uL (3.50-5.40) Hemoglobin 7.9g/dL (12.0-15.5) Hematocrit 25.9% (36.0-47.0) Mean Corpuscular Volume 86fL (79-100) Mean Corpuscular Hemoglobin 26pg (25-35) Mean Corpuscular Hemoglobin Concent 31g/dL (31-37) Red Cell Distribution Width 15.0% (11.5-14.5) Platelet Count 168x10^3/uL (140-400) Neutrophils (%) (Auto) 84% (31-73) Lymphocytes (%) (Auto) 5% (24-48) Monocytes (%) (Auto) 10% (0-9) Eosinophils (%) (Auto) 1% (0-3) Basophils (%) (Auto) 0% (0-3) Neutrophils # (Auto) 12.8x10^3uL (1.8-7.7) Lymphocytes # (Auto) 0.8x10^3/uL (1.0-4.8) Monocytes # (Auto) 1.5x10^3/uL (0.0-1.1) Eosinophils # (Auto) 0.1x10^3/uL (0.0-0.7) Basophils # (Auto) 0.0x10^3/uL (0.0-0.2) Sodium Level 137mmol/L (136-145) Potassium Level 5.2mmol/L (3.5-5.1) Chloride Level 104mmol/L (98-107) Carbon Dioxide Level 28mmol/L (21-32) Anion Gap 5 (6-14) Blood Urea Nitrogen 17mg/dL (7-20) Creatinine 0.8mg/dL (0.6-1.0) Estimated GFR (Cockcroft-Gault) 87.1 Glucose Level 151mg/dL (70-99) Calcium Level 8.4mg/dL (8.5-10.1) Test 09/17/16 18:30 09/17/16 18:55 09/17/16 20:35 09/18/16 05:00 White Blood Count 14.2x10^3/uL (4.0-11.0) 17.3x10^3/uL (4.0-11.0) Red Blood Count 2.73x10^6/uL (3.50-5.40) 2.73x10^6/uL (3.50-5.40) Hemoglobin 7.1g/dL (12.0-15.5) 7.1g/dL (12.0-15.5) Hematocrit 23.9% (36.0-47.0) 22.9% (36.0-47.0) Mean Corpuscular Volume 88fL (79-100) 84fL (79-100) Mean Corpuscular Hemoglobin 26pg (25-35) 26pg (25-35) Mean Corpuscular Hemoglobin Concent 30g/dL (31-37) 31g/dL (31-37) Red Cell Distribution Width 15.3% (11.5-14.5) 14.9% (11.5-14.5) Platelet Count 155x10^3/uL (140-400) 172x10^3/uL (140-400) Neutrophils (%) (Auto) 75% (31-73) 83% (31-73) Lymphocytes (%) (Auto) 15% (24-48) 7% (24-48) Monocytes (%) (Auto) 9% (0-9) 10% (0-9) Eosinophils (%) (Auto) 1% (0-3) 0% (0-3) Basophils (%) (Auto) 1% (0-3) 0% (0-3) Neutrophils # (Auto) 10.7x10^3uL (1.8-7.7) 14.3x10^3uL (1.8-7.7) Lymphocytes # (Auto) 2.1x10^3/uL (1.0-4.8) 1.1x10^3/uL (1.0-4.8) Monocytes # (Auto) 1.2x10^3/uL (0.0-1.1) 1.8x10^3/uL (0.0-1.1) Eosinophils # (Auto) 0.1x10^3/uL (0.0-0.7) 0.0x10^3/uL (0.0-0.7) Basophils # (Auto) 0.1x10^3/uL (0.0-0.2) 0.1x10^3/uL (0.0-0.2) Sodium Level 141mmol/L (136-145) Potassium Level 4.5mmol/L (3.5-5.1) Chloride Level 104mmol/L (98-107) Carbon Dioxide Level 26mmol/L (21-32) Anion Gap 11 (6-14) Blood Urea Nitrogen 22mg/dL (7-20) Creatinine 1.3mg/dL (0.6-1.0) Estimated GFR (Cockcroft-Gault) 49.7 Glucose Level 381mg/dL (70-99) Lactic Acid Level 9.4mmol/L (0.4-2.0) 2.5mmol/L (0.4-2.0) Calcium Level 8.1mg/dL (8.5-10.1) Magnesium Level 2.2mg/dL (1.8-2.4) O2 Saturation 85% (92-99) 98% (92-99) Arterial Blood pH 7.25 (7.35-7.45) 7.39 (7.35-7.45) Arterial Blood pH (Temp corrected) 7.25 Arterial Blood pCO2 at Patient Temp 74mmHg (35-46) 55mmHg (35-46) Arterial Blood pCO2 (Temp correct) 75mmHg Arterial Blood pO2 at Patient Temp 56mmHg (65-108) 107mmHg (65-108) Arterial Blood pO2 (Temp corrected) 57mmHg Arterial Blood HCO3 32mmol/L (21-28) 33mmol/L (21-28) Arterial Blood Base Excess 3mmol/L (-3-3) 7mmol/L (-3-3) FiO2 100 Laboratory Tests Test 09/17/16 08:00 09/17/16 18:30 09/17/16 18:55 09/17/16 20:35 O2 Saturation 87% (92-99) 85% (92-99) 98% (92-99) Arterial Blood pH 7.32 (7.35-7.45) 7.25 (7.35-7.45) 7.39 (7.35-7.45) Arterial Blood pCO2 at Patient Temp 72mmHg (35-46) 74mmHg (35-46) 55mmHg (35-46) Arterial Blood pO2 at Patient Temp 54mmHg (65-108) 56mmHg (65-108) 107mmHg (65-108) Arterial Blood HCO3 36mmol/L (21-28) 32mmol/L (21-28) 33mmol/L (21-28) Arterial Blood Base Excess 9mmol/L (-3-3) 3mmol/L (-3-3) 7mmol/L (-3-3) FiO2 65 100 White Blood Count 14.2x10^3/uL (4.0-11.0) Red Blood Count 2.73x10^6/uL (3.50-5.40) Hemoglobin 7.1g/dL (12.0-15.5) Hematocrit 23.9% (36.0-47.0) Mean Corpuscular Volume 88fL (79-100) Mean Corpuscular Hemoglobin 26pg (25-35) Mean Corpuscular Hemoglobin Concent 30g/dL (31-37) Red Cell Distribution Width 15.3% (11.5-14.5) Platelet Count 155x10^3/uL (140-400) Neutrophils (%) (Auto) 75% (31-73) Lymphocytes (%) (Auto) 15% (24-48) Monocytes (%) (Auto) 9% (0-9) Eosinophils (%) (Auto) 1% (0-3) Basophils (%) (Auto) 1% (0-3) Neutrophils # (Auto) 10.7x10^3uL (1.8-7.7) Lymphocytes # (Auto) 2.1x10^3/uL (1.0-4.8) Monocytes # (Auto) 1.2x10^3/uL (0.0-1.1) Eosinophils # (Auto) 0.1x10^3/uL (0.0-0.7) Basophils # (Auto) 0.1x10^3/uL (0.0-0.2) Sodium Level 141mmol/L (136-145) Potassium Level 4.5mmol/L (3.5-5.1) Chloride Level 104mmol/L (98-107) Carbon Dioxide Level 26mmol/L (21-32) Anion Gap 11 (6-14) Blood Urea Nitrogen 22mg/dL (7-20) Creatinine 1.3mg/dL (0.6-1.0) Estimated GFR (Cockcroft-Gault) 49.7 Glucose Level 381mg/dL (70-99) Lactic Acid Level 9.4mmol/L (0.4-2.0) Calcium Level 8.1mg/dL (8.5-10.1) Magnesium Level 2.2mg/dL (1.8-2.4) Arterial Blood pH (Temp corrected) 7.25 Arterial Blood pCO2 (Temp correct) 75mmHg Arterial Blood pO2 (Temp corrected) 57mmHg Test 09/18/16 05:00 White Blood Count 17.3x10^3/uL (4.0-11.0) Red Blood Count 2.73x10^6/uL (3.50-5.40) Hemoglobin 7.1g/dL (12.0-15.5) Hematocrit 22.9% (36.0-47.0) Mean Corpuscular Volume 84fL (79-100) Mean Corpuscular Hemoglobin 26pg (25-35) Mean Corpuscular Hemoglobin Concent 31g/dL (31-37) Red Cell Distribution Width 14.9% (11.5-14.5) Platelet Count 172x10^3/uL (140-400) Neutrophils (%) (Auto) 83% (31-73) Lymphocytes (%) (Auto) 7% (24-48) Monocytes (%) (Auto) 10% (0-9) Eosinophils (%) (Auto) 0% (0-3) Basophils (%) (Auto) 0% (0-3) Neutrophils # (Auto) 14.3x10^3uL (1.8-7.7) Lymphocytes # (Auto) 1.1x10^3/uL (1.0-4.8) Monocytes # (Auto) 1.8x10^3/uL (0.0-1.1) Eosinophils # (Auto) 0.0x10^3/uL (0.0-0.7) Basophils # (Auto) 0.1x10^3/uL (0.0-0.2) Lactic Acid Level 2.5mmol/L (0.4-2.0) Microbiology 09/16/16 Blood Culture - Preliminary, Resulted NO GROWTH AFTER 1 DAY 09/12/16 Urine Culture - Final, Complete 09/12/16 Urine Culture Result 1 (CANDICE) - Final, Complete Medications Current Medications Furosemide (Lasix) 100 mg 1X ONCE IVP Last administered on 09/12/16 21:34; Start 09/12/16 at 21:00; Stop 09/12/16 at 21:01; Status DC Etomidate (Amidate) 20 mg 1X ONCE IV Last administered on 09/12/16 20:42; Start 09/12/16 at 20:45; Stop 09/12/16 at 20:46; Status DC Succinylcholine Chloride 50 mg 50 mg 1X ONCE IV Last administered on 20:42; Start 09/12/16 at 20:45; Stop 09/12/16 at 20:46; Status DC Midazolam HCl (Versed 100mg/ 100ml Premix) 100 ml @ As Directed STK-MED ONCE IV ; Start 09/12/16 at 20:46; Stop 09/12/16 at 20:47; Status DC Ondansetron HCl (Zofran) 4 mg PRN Q8HRS PRN IV NAUSEA/VOMITING; Start 09/12/16 at 20:45; Stop 09/13/16 at 20:44; Status DC Fentanyl Citrate (Fentanyl 2ml Vial) 50 mcg PRN Q1HR PRN IV COMM; Start at 20:45 Chlorhexidine Gluconate 15 ml 15 ml BID MM Last administered on 09/15/16 21:57 ; Start 09/13/16 at 09:00; Stop 09/15/16 at 21:58; Status DC Midazolam HCl (Versed 100mg/ 100ml Premix) 100 ml @ 0 mls/hr CONT PRN IV PER PROTOCOL Last administered on 09/15/16 04:55; Start 09/12/16 at 20:45; Stop 09/15 at 19:09; Status DC Haloperidol Lactate (Haldol) 2.5 mg PRN Q15MIN PRN IVP AGITATION, DELIRIUM; Start 09/12/16 at 20:45 Diphenhydramine HCl (Benadryl) 25 mg PRN Q15MIN PRN IVP EPS Symptoms; Start at 20:45 Heparin Sodium (Porcine) 5000 unit 5,000 unit Q12HR SQ Last administered on 09/17 21:18; Start 09/13/16 at 09:00 Furosemide/Sodium Chloride (Lasix Drip/Iv Sodium Chloride 0.9% 100ml) 100 ml @ 0 mls/hr CONT PRN IV SEE I/O RECORD; Start 09/12/16 at 21:00; Stop 09/12/16 at 21:36; Status DC Albuterol Sulfate (Ventolin Neb Soln) 2.5 mg PRN Q4HRS PRN NEB SHORTNESS OF BREATH Last administered on 09/16/16 16:26; Start 09/12/16 at 21:45 Levofloxacin/ Dextrose 1 each 1 each PRN DAILY PRN MC SEE COMMENTS; Start 09/12 at 22:00; Stop 09/14/16 at 06:56; Status DC Levofloxacin/ Dextrose 100 ml @ 100 mls/hr ONCE ONCE IV Last administered on 09/12/16 22:05; Start 09/12/16 at 22:00; Stop 09/12/16 at 22:59; Status DC Sodium Chloride 500 ml @ 0 mls/hr 1X ONCE IV Last administered on 09/12/16 22 :10; Start 09/12/16 at 22:30; Stop 09/12/16 at 22:31; Status DC Levofloxacin/ Dextrose 50 ml @ 50 mls/hr Q24H IV Last administered on 22:27; Start 09/13/16 at 22:00; Stop 09/14/16 at 06:56; Status DC Sodium Chloride 500 ml @ 0 mls/hr 1X ONCE IV ; Start 09/12/16 at 22:30; Stop at 22:31; Status DC Sodium Chloride (Iv Sodium Chloride 0.9% 1000ml Bag) 1,000 ml @ 999 mls/hr 1X ONCE IV Last administered on 09/12/16 23:41; Start 09/12/16 at 23:30; Stop at 00:30; Status DC Furosemide 20 mg 20 mg 1X ONCE IVP Last administered on 09/13/16 00:49; Start 09/12/16 at 23:30; Stop 09/12/16 at 23:31; Status DC Norepinephrine Bitartrate 8 mg/ Sodium Chloride 258 ml @ 0 mls/hr CONT PRN IV SEE I/O RECORD Last administered on 09/17/16 23:51; Start 09/12/16 at 23:30 Linezolid 300 ml @ 300 mls/hr Q12HR IV Last administered on 09/17/16 21:17; Start 09/13/16 at 09:00 Piperacillin Sod/ Tazobactam Sod/ Sodium Chloride (Zosyn/Iv Sodium Chloride 0.9 % 50ml) 50 ml @ 100 mls/hr Q6HRS IV Last administered on 09/16/16 05:50; Start 09/13/16 at 07:45; Stop 09/16/16 at 07:44; Status DC Pantoprazole Sodium 40 mg 40 mg DAILYAC IVP Last administered on 09/17/16 08:37 ; Start 09/13/16 at 09:00 Levofloxacin/ Dextrose (LEVAQUIN 500mg PREMIX) 100 ml @ 100 mls/hr Q24H IV Last administered on 09/16/16 06:31; Start 09/14/16 at 07:00; Stop 09/16/16 at 07: 44; Status DC Potassium Chloride (KCl Oral Soln) 40 meq 1X ONCE PO Last administered on 08:24; Start 09/14/16 at 08:00; Stop 09/14/16 at 08:01; Status DC Erythromycin 250 mg 250 mg QIDACHS PO Last administered on 09/14/16 17:36; Start 09/14/16 at 16:30; Stop 09/14/16 at 21:17; Status DC Dextrose/Lactated Ringer's (Iv D5%-Lr) 1,000 ml @ 60 mls/hr [id number] IV Last administered on 09/17/16 05:36; Start 09/14/16 at 15:00; Stop 09/18/16 at 02:21; Status DC Metoclopramide HCl (Reglan) 10 mg PRN Q6HRS PRN IV NAUSEA/VOMITING Last administered on 09/14/16 17:35; Start 09/14/16 at 17:30; Stop 09/15/16 at 00:00; Status DC Metoclopramide HCl (Reglan) 5 mg Q6H IV Last administered on 09/18/16 05:48; Start 09/14/16 at 00:00 Erythromycin Ethylsuccinate 200 mg 200 mg Q6HRS PEG Last administered on 05:48; Start 09/15/16 at 00:00 Propofol (Diprivan) 100 ml @ 0 mls/hr CONT PRN IV SEE I/O RECORD Last administered on 09/16/16 20:06; Start 09/15/16 at 19:00 Chlorhexidine Gluconate (Peridex) 15 ml BID MM Last administered on 09/17/16 21 :17; Start 09/16/16 at 09:00 Famotidine 20 mg 20 mg DAILY IVP Last administered on 09/16/16 09:51; Start 09/16/16 at 09:00; Stop 09/17/16 at 08:13; Status DC Midazolam HCl 100 ml @ 0 mls/hr CONT PRN IV PER PROTOCOL; Start 09/15/16 at 22: 00 Metronidazole 100 ml @ 100 mls/hr Q8HRS IV Last administered on 09/18/16 05:48 ; Start 09/16/16 at 08:00 Cefepime HCl 1 gm/ Sodium Chloride 50 ml @ 100 mls/hr Q8HRS IV Last administered on 09/18/16 05:47; Start 09/16/16 at 08:00 Fluconazole/ Sodium Chloride (Diflucan 200mg/ 100ml Premix) 100 ml @ 100 mls/ hr Q24H IV Last administered on 09/17/16 08:37; Start 09/16/16 at 09:00 Docusate Sodium (Enemeez) 283 mg 1X ONCE DE Last administered on 09/16/16 12: 37; Start 09/16/16 at 10:00; Stop 09/16/16 at 10:01; Status DC Albuterol Sulfate 2.5 mg 2.5 mg TID IH Last administered on 09/18/16 07:26; Start 09/16/16 at 21:00 Dopamine HCl/ Dextrose 250 ml @ 10.717 mls/ hr CONT PRN IV SEE I/O RECORD; Start 09/17/16 at 18:30 Dopamine HCl/ Dextrose 250 ml @ 10.717 mls/ hr CONT PRN IV SEE I/O RECORD; Start 09/17/16 at 18:30; Status UNV Iohexol (Omnipaque 300 Mg/ml) 75 ml 1X ONCE IV ; Start 09/17/16 at 19:00; Stop 09/17/16 at 19:01; Status DC Info 1 each 1 each PRN DAILY PRN MC SEE COMMENTS; Start 09/17/16 at 18:45; Stop 09/19/16 at 18:44 Sodium Chloride (Iv Sodium Chloride 0.9% 1000ml Bag) 1,000 ml @ 80 mls/hr [id number] IV Last administered on 09/18/16 02:30; Start 09/18/16 at 02:30 Active Scripts Active Atorvastatin Calcium 20 Mg Tablet 20 Mg PO QHS 30 Days Aspirin 325 Mg Tablet 325 Mg PO [id number] 30 Days Furosemide 20 Mg Tablet 20 Mg GT DAILY 30 Days Potassium Chloride Oral Liquid (Potassium Chloride) 20 Meq/15 Ml Liquid 20 Meq PEG DAILY 30 Days Famotidine 20 Mg Tablet 20 Mg PO BID 30 Days Carvedilol 12.5 Mg Tablet 25 Mg PO BID@07,19 30 Days Acetaminophen 650 Mg/20.3 Ml Solution 325 Mg PEG PRN Q6HRS PRN 30 Days Albuterol Sulfate Neb Soln (Albuterol Sulfate) 2.5 Mg/3 Ml Vial.neb 2.5 Mg NEB RTQID 30 Days Vitals/I & O Vital Sign - Last 24 Hours 09/17/16 09/17/16 09/17/16 09/17/16 07:53 08:00 08:00 08:40 Temp 99.0 99.0 Pulse 105 Resp 28 B/P 97/55 Pulse Ox 85 95 100 O2 Delivery Ventilator Mechanical Ventilator Ventilator Ventilator 09/17/16 09/17/16 09/17/16 09/17/16 09:00 10:00 11:00 11:54 Pulse 106 107 107 Resp 28 34 34 B/P 94/49 101/50 94/49 Pulse Ox 98 97 97 100 O2 Delivery Ventilator Ventilator Ventilator Ventilator 09/17/16 09/17/16 09/17/16 09/17/16 11:56 12:00 12:00 13:00 Temp 98.6 98.6 Pulse 110 104 Resp 34 30 B/P 94/52 99/52 Pulse Ox 100 94 100 O2 Delivery Ventilator Ventilator Mechanical Ventilator Ventilator 09/17/16 09/17/16 09/17/16 09/17/16 14:00 15:00 15:10 16:00 Temp 98.9 98.9 Pulse 103 103 104 Resp 18 27 30 B/P 94/51 95/53 99/59 Pulse Ox 99 99 85 95 O2 Delivery Ventilator Ventilator Ventilator Ventilator 09/17/16 09/17/16 09/17/16 09/17/16 16:00 17:00 18:00 19:00 Pulse 106 113 136 Resp 37 22 33 B/P 92/52 144/67 168/81 Pulse Ox 94 99 91 O2 Delivery Mechanical Ventilator Ventilator Ventilator Ventilator 09/17/16 09/17/16 09/17/16 09/17/16 19:30 20:00 20:00 20:15 Temp 98.4 98.4 Pulse 108 Resp 24 B/P 140/65 144/75 Pulse Ox 100 O2 Delivery Ventilator Mechanical Ventilator Ventilator 09/17/16 09/17/16 09/17/16 09/17/16 21:00 21:27 22:00 22:15 Pulse 100 102 Resp 24 24 B/P 147/77 81/51 169/79 183/88 Pulse Ox 100 100 O2 Delivery Ventilator Ventilator 09/17/16 09/17/16 09/17/16 09/17/16 22:30 23:00 23:15 23:19 Pulse 114 Resp 24 B/P 135/66 156/87 131/68 Pulse Ox 100 O2 Delivery Ventilator Ventilator 09/17/16 09/18/16 09/18/16 09/18/16 23:59 00:00 00:15 01:00 Temp 101.2 101.2 Pulse 113 111 Resp 24 24 B/P 132/68 116/62 102/59 Pulse Ox 100 100 O2 Delivery Mechanical Ventilator Ventilator Ventilator 09/18/16 09/18/16 09/18/16 09/18/16 01:42 01:45 02:00 03:00 Pulse 113 107 Resp 24 24 B/P 100/60 102/63 98/58 Pulse Ox 100 100 O2 Delivery Ventilator Ventilator Ventilator 09/18/16 09/18/16 09/18/16 09/18/16 03:58 04:00 04:00 04:15 Temp 99.5 99.5 Pulse 104 Resp 24 B/P 110/66 103/62 Pulse Ox 100 O2 Delivery Ventilator Mechanical Ventilator Ventilator 09/18/16 09/18/16 09/18/16 09/18/16 05:00 06:00 06:10 07:00 Pulse 108 105 106 Resp 24 24 24 B/P 96/63 108/62 102/62 Pulse Ox 100 100 100 O2 Delivery Ventilator Ventilator Ventilator Ventilator 09/18/16 07:27 O2 Delivery Ventilator Intake and Output 09/17/16 09/17/16 09/18/16 15:00 23:00 07:00 Intake Total 0 ml 1705 ml 2561 ml Output Total 20 ml 605 ml 185 ml Balance -20 ml 1100 ml 2376 ml CATHIE BALTAZAR MD Sep 18, 2016 07:49
--- NOTE | 2016-09-18 08:00 | PDOC ---
PROGRESS NOTES Subjective Subjective Patient coded yesterday and was recovered. CTA ordered by pulm medicine. Today patient responding to commands according to nursing and family. Patient will move toe and stop moving them when asked. Family understand critical nature of illness and has requested DNR status but wishes to continue vent and pressure support. Objective Objective Vital Signs Date Time Temp Pulse Resp B/P Pulse Ox O2 Delivery O2 Flow Rate FiO2 09/18/16 07:27 Ventilator 09/18/16 07:00 106 24 102/62 100 09/18/16 04:00 99.5 99.5 Intake and Output 09/18/16 07:00 Intake Total 4266 ml Output Total 810 ml Balance 3456 ml IV Total 1152 ml Tube Feeding 1000 ml Other 2114 ml Output Urine Total 810 ml Physical Exam Abdomen: Normal bowel sounds, Other (mildly tender abd but soft no DM 2 days) Heart: Other (irregular) Extremities: No edema General: Other (intubated sedated) Lungs: Other (clear anteriorly with coursness in bases) Assessment Assessment Problems Medical Problems: (1) Acute on chronic respiratory failure Status: Acute (2) CHF (congestive heart failure), NYHA class III Status: Acute (3) Respiratory failure Status: Acute 1. Recent cardiac arrest 2. Acute on chronic respiratory failure with AE COPD- s/p intubation 3. Leukocytosis with sepsis, POA 4. Fevers 5. Hypotension 6. Severe pulmonary hypertension 7. NANCY 8. Acute on chronic diastolic heart failure, compensated 9. Prior CVA with dysphagia s/p PEG placement Plan Plan of Care Await CTA Consider tranfusion HGB down to 7.1 Continue supportive care DNR ordered Palliative care consult Comment Review of Relevant I have reviewed the following items chon (where applicable) has been applied. Labs Laboratory Tests Test 09/16/16 08:00 09/16/16 11:10 09/17/16 05:00 09/17/16 08:00 O2 Saturation 91% (92-99) 87% (92-99) Arterial Blood pH 7.35 (7.35-7.45) 7.32 (7.35-7.45) Arterial Blood pCO2 at Patient Temp 66mmHg (35-46) 72mmHg (35-46) Arterial Blood pO2 at Patient Temp 67mmHg (65-108) 54mmHg (65-108) Arterial Blood HCO3 35mmol/L (21-28) 36mmol/L (21-28) Arterial Blood Base Excess 8mmol/L (-3-3) 9mmol/L (-3-3) FiO2 40 65 Urine Collection Type Unknown Urine Color Yellow Urine Clarity Cloudy Urine pH 5.5 Urine Specific [place] 1.020 Urine Protein Negativemg/dL (NEG-TRACE) Urine Glucose (UA) Negativemg/dL (NEG) Urine Ketones (Stick) Negativemg/dL (NEG) Urine Blood Negative (NEG) Urine Nitrite Negative (NEG) Urine Bilirubin Negative (NEG) Urine Urobilinogen Dipstick 1.0mg/dL (0.2 mg/dL) Urine Leukocyte Esterase Negative (NEG) Urine RBC 0/HPF (0-2) Urine WBC 0/HPF (0-4) Urine Squamous Epithelial Cells Occ/LPF Urine Bacteria 0/HPF (0-FEW) White Blood Count 15.2x10^3/uL (4.0-11.0) Red Blood Count 3.03x10^6/uL (3.50-5.40) Hemoglobin 7.9g/dL (12.0-15.5) Hematocrit 25.9% (36.0-47.0) Mean Corpuscular Volume 86fL (79-100) Mean Corpuscular Hemoglobin 26pg (25-35) Mean Corpuscular Hemoglobin Concent 31g/dL (31-37) Red Cell Distribution Width 15.0% (11.5-14.5) Platelet Count 168x10^3/uL (140-400) Neutrophils (%) (Auto) 84% (31-73) Lymphocytes (%) (Auto) 5% (24-48) Monocytes (%) (Auto) 10% (0-9) Eosinophils (%) (Auto) 1% (0-3) Basophils (%) (Auto) 0% (0-3) Neutrophils # (Auto) 12.8x10^3uL (1.8-7.7) Lymphocytes # (Auto) 0.8x10^3/uL (1.0-4.8) Monocytes # (Auto) 1.5x10^3/uL (0.0-1.1) Eosinophils # (Auto) 0.1x10^3/uL (0.0-0.7) Basophils # (Auto) 0.0x10^3/uL (0.0-0.2) Sodium Level 137mmol/L (136-145) Potassium Level 5.2mmol/L (3.5-5.1) Chloride Level 104mmol/L (98-107) Carbon Dioxide Level 28mmol/L (21-32) Anion Gap 5 (6-14) Blood Urea Nitrogen 17mg/dL (7-20) Creatinine 0.8mg/dL (0.6-1.0) Estimated GFR (Cockcroft-Gault) 87.1 Glucose Level 151mg/dL (70-99) Calcium Level 8.4mg/dL (8.5-10.1) Test 09/17/16 18:30 09/17/16 18:55 09/17/16 20:35 09/18/16 05:00 White Blood Count 14.2x10^3/uL (4.0-11.0) 17.3x10^3/uL (4.0-11.0) Red Blood Count 2.73x10^6/uL (3.50-5.40) 2.73x10^6/uL (3.50-5.40) Hemoglobin 7.1g/dL (12.0-15.5) 7.1g/dL (12.0-15.5) Hematocrit 23.9% (36.0-47.0) 22.9% (36.0-47.0) Mean Corpuscular Volume 88fL (79-100) 84fL (79-100) Mean Corpuscular Hemoglobin 26pg (25-35) 26pg (25-35) Mean Corpuscular Hemoglobin Concent 30g/dL (31-37) 31g/dL (31-37) Red Cell Distribution Width 15.3% (11.5-14.5) 14.9% (11.5-14.5) Platelet Count 155x10^3/uL (140-400) 172x10^3/uL (140-400) Neutrophils (%) (Auto) 75% (31-73) 83% (31-73) Lymphocytes (%) (Auto) 15% (24-48) 7% (24-48) Monocytes (%) (Auto) 9% (0-9) 10% (0-9) Eosinophils (%) (Auto) 1% (0-3) 0% (0-3) Basophils (%) (Auto) 1% (0-3) 0% (0-3) Neutrophils # (Auto) 10.7x10^3uL (1.8-7.7) 14.3x10^3uL (1.8-7.7) Lymphocytes # (Auto) 2.1x10^3/uL (1.0-4.8) 1.1x10^3/uL (1.0-4.8) Monocytes # (Auto) 1.2x10^3/uL (0.0-1.1) 1.8x10^3/uL (0.0-1.1) Eosinophils # (Auto) 0.1x10^3/uL (0.0-0.7) 0.0x10^3/uL (0.0-0.7) Basophils # (Auto) 0.1x10^3/uL (0.0-0.2) 0.1x10^3/uL (0.0-0.2) Sodium Level 141mmol/L (136-145) Potassium Level 4.5mmol/L (3.5-5.1) Chloride Level 104mmol/L (98-107) Carbon Dioxide Level 26mmol/L (21-32) Anion Gap 11 (6-14) Blood Urea Nitrogen 22mg/dL (7-20) Creatinine 1.3mg/dL (0.6-1.0) Estimated GFR (Cockcroft-Gault) 49.7 Glucose Level 381mg/dL (70-99) Lactic Acid Level 9.4mmol/L (0.4-2.0) 2.5mmol/L (0.4-2.0) Calcium Level 8.1mg/dL (8.5-10.1) Magnesium Level 2.2mg/dL (1.8-2.4) O2 Saturation 85% (92-99) 98% (92-99) Arterial Blood pH 7.25 (7.35-7.45) 7.39 (7.35-7.45) Arterial Blood pH (Temp corrected) 7.25 Arterial Blood pCO2 at Patient Temp 74mmHg (35-46) 55mmHg (35-46) Arterial Blood pCO2 (Temp correct) 75mmHg Arterial Blood pO2 at Patient Temp 56mmHg (65-108) 107mmHg (65-108) Arterial Blood pO2 (Temp corrected) 57mmHg Arterial Blood HCO3 32mmol/L (21-28) 33mmol/L (21-28) Arterial Blood Base Excess 3mmol/L (-3-3) 7mmol/L (-3-3) FiO2 100 Laboratory Tests Test 09/17/16 08:00 09/17/16 18:30 09/17/16 18:55 09/17/16 20:35 O2 Saturation 87% (92-99) 85% (92-99) 98% (92-99) Arterial Blood pH 7.32 (7.35-7.45) 7.25 (7.35-7.45) 7.39 (7.35-7.45) Arterial Blood pCO2 at Patient Temp 72mmHg (35-46) 74mmHg (35-46) 55mmHg (35-46) Arterial Blood pO2 at Patient Temp 54mmHg (65-108) 56mmHg (65-108) 107mmHg (65-108) Arterial Blood HCO3 36mmol/L (21-28) 32mmol/L (21-28) 33mmol/L (21-28) Arterial Blood Base Excess 9mmol/L (-3-3) 3mmol/L (-3-3) 7mmol/L (-3-3) FiO2 65 100 White Blood Count 14.2x10^3/uL (4.0-11.0) Red Blood Count 2.73x10^6/uL (3.50-5.40) Hemoglobin 7.1g/dL (12.0-15.5) Hematocrit 23.9% (36.0-47.0) Mean Corpuscular Volume 88fL (79-100) Mean Corpuscular Hemoglobin 26pg (25-35) Mean Corpuscular Hemoglobin Concent 30g/dL (31-37) Red Cell Distribution Width 15.3% (11.5-14.5) Platelet Count 155x10^3/uL (140-400) Neutrophils (%) (Auto) 75% (31-73) Lymphocytes (%) (Auto) 15% (24-48) Monocytes (%) (Auto) 9% (0-9) Eosinophils (%) (Auto) 1% (0-3) Basophils (%) (Auto) 1% (0-3) Neutrophils # (Auto) 10.7x10^3uL (1.8-7.7) Lymphocytes # (Auto) 2.1x10^3/uL (1.0-4.8) Monocytes # (Auto) 1.2x10^3/uL (0.0-1.1) Eosinophils # (Auto) 0.1x10^3/uL (0.0-0.7) Basophils # (Auto) 0.1x10^3/uL (0.0-0.2) Sodium Level 141mmol/L (136-145) Potassium Level 4.5mmol/L (3.5-5.1) Chloride Level 104mmol/L (98-107) Carbon Dioxide Level 26mmol/L (21-32) Anion Gap 11 (6-14) Blood Urea Nitrogen 22mg/dL (7-20) Creatinine 1.3mg/dL (0.6-1.0) Estimated GFR (Cockcroft-Gault) 49.7 Glucose Level 381mg/dL (70-99) Lactic Acid Level 9.4mmol/L (0.4-2.0) Calcium Level 8.1mg/dL (8.5-10.1) Magnesium Level 2.2mg/dL (1.8-2.4) Arterial Blood pH (Temp corrected) 7.25 Arterial Blood pCO2 (Temp correct) 75mmHg Arterial Blood pO2 (Temp corrected) 57mmHg Test 09/18/16 05:00 White Blood Count 17.3x10^3/uL (4.0-11.0) Red Blood Count 2.73x10^6/uL (3.50-5.40) Hemoglobin 7.1g/dL (12.0-15.5) Hematocrit 22.9% (36.0-47.0) Mean Corpuscular Volume 84fL (79-100) Mean Corpuscular Hemoglobin 26pg (25-35) Mean Corpuscular Hemoglobin Concent 31g/dL (31-37) Red Cell Distribution Width 14.9% (11.5-14.5) Platelet Count 172x10^3/uL (140-400) Neutrophils (%) (Auto) 83% (31-73) Lymphocytes (%) (Auto) 7% (24-48) Monocytes (%) (Auto) 10% (0-9) Eosinophils (%) (Auto) 0% (0-3) Basophils (%) (Auto) 0% (0-3) Neutrophils # (Auto) 14.3x10^3uL (1.8-7.7) Lymphocytes # (Auto) 1.1x10^3/uL (1.0-4.8) Monocytes # (Auto) 1.8x10^3/uL (0.0-1.1) Eosinophils # (Auto) 0.0x10^3/uL (0.0-0.7) Basophils # (Auto) 0.1x10^3/uL (0.0-0.2) Lactic Acid Level 2.5mmol/L (0.4-2.0) Microbiology 09/16/16 Blood Culture - Preliminary, Resulted NO GROWTH AFTER 1 DAY 09/12/16 Urine Culture - Final, Complete 09/12/16 Urine Culture Result 1 (CANDICE) - Final, Complete Medications Current Medications Furosemide (Lasix) 100 mg 1X ONCE IVP Last administered on 09/12/16 21:34; Start 09/12/16 at 21:00; Stop 09/12/16 at 21:01; Status DC Etomidate (Amidate) 20 mg 1X ONCE IV Last administered on 09/12/16 20:42; Start 09/12/16 at 20:45; Stop 09/12/16 at 20:46; Status DC Succinylcholine Chloride 50 mg 50 mg 1X ONCE IV Last administered on t 20:42; Start 09/12/16 at 20:45; Stop 09/12/16 at 20:46; Status DC Midazolam HCl (Versed 100mg/ 100ml Premix) 100 ml @ As Directed STK-MED ONCE IV ; Start 09/12/16 at 20:46; Stop 09/12/16 at 20:47; Status DC Ondansetron HCl (Zofran) 4 mg PRN Q8HRS PRN IV NAUSEA/VOMITING; Start 09/12/16 at 20:45; Stop 09/13/16 at 20:44; Status DC Fentanyl Citrate (Fentanyl 2ml Vial) 50 mcg PRN Q1HR PRN IV COMM; Start at 20:45 Chlorhexidine Gluconate 15 ml 15 ml BID MM Last administered on 09/15/16 21:57 ; Start 09/13/16 at 09:00; Stop 09/15/16 at 21:58; Status DC Midazolam HCl (Versed 100mg/ 100ml Premix) 100 ml @ 0 mls/hr CONT PRN IV PER PROTOCOL Last administered on 09/15/16 04:55; Start 09/12/16 at 20:45; Stop 09/15 at 19:09; Status DC Haloperidol Lactate (Haldol) 2.5 mg PRN Q15MIN PRN IVP AGITATION, DELIRIUM; Start 09/12/16 at 20:45 Diphenhydramine HCl (Benadryl) 25 mg PRN Q15MIN PRN IVP EPS Symptoms; Start at 20:45 Heparin Sodium (Porcine) 5000 unit 5,000 unit Q12HR SQ Last administered on 09/17 21:18; Start 09/13/16 at 09:00 Furosemide/Sodium Chloride (Lasix Drip/Iv Sodium Chloride 0.9% 100ml) 100 ml @ 0 mls/hr CONT PRN IV SEE I/O RECORD; Start 09/12/16 at 21:00; Stop 09/12/16 at 21:36; Status DC Albuterol Sulfate (Ventolin Neb Soln) 2.5 mg PRN Q4HRS PRN NEB SHORTNESS OF BREATH Last administered on 09/16/16 16:26; Start 09/12/16 at 21:45 Levofloxacin/ Dextrose 1 each 1 each PRN DAILY PRN MC SEE COMMENTS; Start 09/12 at 22:00; Stop 09/14/16 at 06:56; Status DC Levofloxacin/ Dextrose 100 ml @ 100 mls/hr ONCE ONCE IV Last administered on 09/12/16 22:05; Start 09/12/16 at 22:00; Stop 09/12/16 at 22:59; Status DC Sodium Chloride 500 ml @ 0 mls/hr 1X ONCE IV Last administered on 09/12/16 22 :10; Start 09/12/16 at 22:30; Stop 09/12/16 at 22:31; Status DC Levofloxacin/ Dextrose 50 ml @ 50 mls/hr Q24H IV Last administered on 22:27; Start 09/13/16 at 22:00; Stop 09/14/16 at 06:56; Status DC Sodium Chloride 500 ml @ 0 mls/hr 1X ONCE IV ; Start 09/12/16 at 22:30; Stop at 22:31; Status DC Sodium Chloride (Iv Sodium Chloride 0.9% 1000ml Bag) 1,000 ml @ 999 mls/hr 1X ONCE IV Last administered on 09/12/16 23:41; Start 09/12/16 at 23:30; Stop at 00:30; Status DC Furosemide 20 mg 20 mg 1X ONCE IVP Last administered on 09/13/16 00:49; Start 09/12/16 at 23:30; Stop 09/12/16 at 23:31; Status DC Norepinephrine Bitartrate 8 mg/ Sodium Chloride 258 ml @ 0 mls/hr CONT PRN IV SEE I/O RECORD Last administered on 09/17/16 23:51; Start 09/12/16 at 23:30 Linezolid 300 ml @ 300 mls/hr Q12HR IV Last administered on 09/17/16 21:17; Start 09/13/16 at 09:00 Piperacillin Sod/ Tazobactam Sod/ Sodium Chloride (Zosyn/Iv Sodium Chloride 0.9 % 50ml) 50 ml @ 100 mls/hr Q6HRS IV Last administered on 09/16/16 05:50; Start 09/13/16 at 07:45; Stop 09/16/16 at 07:44; Status DC Pantoprazole Sodium 40 mg 40 mg DAILYAC IVP Last administered on 09/17/16 08:37 ; Start 09/13/16 at 09:00 Levofloxacin/ Dextrose (LEVAQUIN 500mg PREMIX) 100 ml @ 100 mls/hr Q24H IV Last administered on 09/16/16 06:31; Start 09/14/16 at 07:00; Stop 09/16/16 at 07: 44; Status DC Potassium Chloride (KCl Oral Soln) 40 meq 1X ONCE PO Last administered on 08:24; Start 09/14/16 at 08:00; Stop 09/14/16 at 08:01; Status DC Erythromycin 250 mg 250 mg QIDACHS PO Last administered on 09/14/16 17:36; Start 09/14/16 at 16:30; Stop 09/14/16 at 21:17; Status DC Dextrose/Lactated Ringer's (Iv D5%-Lr) 1,000 ml @ 60 mls/hr [id number] IV Last administered on 09/17/16 05:36; Start 09/14/16 at 15:00; Stop 09/18/16 at 02:21; Status DC Metoclopramide HCl (Reglan) 10 mg PRN Q6HRS PRN IV NAUSEA/VOMITING Last administered on 09/14/16 17:35; Start 09/14/16 at 17:30; Stop 09/15/16 at 00:00; Status DC Metoclopramide HCl (Reglan) 5 mg Q6H IV Last administered on 09/18/16 05:48; Start 09/14/16 at 00:00 Erythromycin Ethylsuccinate 200 mg 200 mg Q6HRS PEG Last administered on 05:48; Start 09/15/16 at 00:00 Propofol (Diprivan) 100 ml @ 0 mls/hr CONT PRN IV SEE I/O RECORD Last administered on 09/16/16 20:06; Start 09/15/16 at 19:00 Chlorhexidine Gluconate (Peridex) 15 ml BID MM Last administered on 09/17/16 21 :17; Start 09/16/16 at 09:00 Famotidine 20 mg 20 mg DAILY IVP Last administered on 09/16/16 09:51; Start 09/16/16 at 09:00; Stop 09/17/16 at 08:13; Status DC Midazolam HCl 100 ml @ 0 mls/hr CONT PRN IV PER PROTOCOL; Start 09/15/16 at 22: 00 Metronidazole 100 ml @ 100 mls/hr Q8HRS IV Last administered on 09/18/16 05:48 ; Start 09/16/16 at 08:00 Cefepime HCl 1 gm/ Sodium Chloride 50 ml @ 100 mls/hr Q8HRS IV Last administered on 09/18/16 05:47; Start 09/16/16 at 08:00 Fluconazole/ Sodium Chloride (Diflucan 200mg/ 100ml Premix) 100 ml @ 100 mls/ hr Q24H IV Last administered on 09/17/16 08:37; Start 09/16/16 at 09:00 Docusate Sodium (Enemeez) 283 mg 1X ONCE WA Last administered on 09/16/16 12: 37; Start 09/16/16 at 10:00; Stop 09/16/16 at 10:01; Status DC Albuterol Sulfate 2.5 mg 2.5 mg TID IH Last administered on 09/18/16 07:26; Start 09/16/16 at 21:00 Dopamine HCl/ Dextrose 250 ml @ 10.717 mls/ hr CONT PRN IV SEE I/O RECORD; Start 09/17/16 at 18:30 Dopamine HCl/ Dextrose 250 ml @ 10.717 mls/ hr CONT PRN IV SEE I/O RECORD; Start 09/17/16 at 18:30; Status UNV Iohexol (Omnipaque 300 Mg/ml) 75 ml 1X ONCE IV ; Start 09/17/16 at 19:00; Stop 09/17/16 at 19:01; Status DC Info 1 each 1 each PRN DAILY PRN MC SEE COMMENTS; Start 09/17/16 at 18:45; Stop 09/19/16 at 18:44 Sodium Chloride (Iv Sodium Chloride 0.9% 1000ml Bag) 1,000 ml @ 80 mls/hr [id number] IV Last administered on 09/18/16 02:30; Start 09/18/16 at 02:30 Active Scripts Active Atorvastatin Calcium 20 Mg Tablet 20 Mg PO QHS 30 Days Aspirin 325 Mg Tablet 325 Mg PO [id number] 30 Days Furosemide 20 Mg Tablet 20 Mg GT DAILY 30 Days Potassium Chloride Oral Liquid (Potassium Chloride) 20 Meq/15 Ml Liquid 20 Meq PEG DAILY 30 Days Famotidine 20 Mg Tablet 20 Mg PO BID 30 Days Carvedilol 12.5 Mg Tablet 25 Mg PO BID@ 30 Days Acetaminophen 650 Mg/20.3 Ml Solution 325 Mg PEG PRN Q6HRS PRN 30 Days Albuterol Sulfate Neb Soln (Albuterol Sulfate) 2.5 Mg/3 Ml Vial.neb 2.5 Mg NEB RTQID 30 Days Vitals/I & O Vital Sign - Last 24 Hours 309/17/16 09/17/16 09/17/16 07:53 08:00 08:00 08:40 Temp 99.0 99.0 Pulse 105 Resp 28 B/P 97/55 Pulse Ox 85 95 100 O2 Delivery Ventilator Mechanical Ventilator Ventilator Ventilator 09/17/16 09/17/16 09/17/16 09/17/16 09:00 10:00 11:00 11:54 Pulse 106 107 107 Resp 28 34 34 B/P 94/49 101/50 94/49 Pulse Ox 98 97 97 100 O2 Delivery Ventilator Ventilator Ventilator Ventilator 09/17/16 09/17/16 09/17/16 09/17/16 11:56 12:00 12:00 13:00 Temp 98.6 98.6 Pulse 110 104 Resp 34 30 B/P 94/52 99/52 Pulse Ox 100 94 100 O2 Delivery Ventilator Ventilator Mechanical Ventilator Ventilator 09/17/16 09/17/16 09/17/16 09/17/16 14:00 15:00 15:10 16:00 Temp 98.9 98.9 Pulse 103 103 104 Resp 18 27 30 B/P 94/51 95/53 99/59 Pulse Ox 99 99 85 95 O2 Delivery Ventilator Ventilator Ventilator Ventilator 09/17/16 09/17/16 09/17/16 09/17/16 16:00 17:00 18:00 19:00 Pulse 106 113 136 Resp 37 22 33 B/P 92/52 144/67 168/81 Pulse Ox 94 99 91 O2 Delivery Mechanical Ventilator Ventilator Ventilator Ventilator 09/17/16 09/17/16 09/17/16 09/17/16 19:30 20:00 20:00 20:15 Temp 98.4 98.4 Pulse 108 Resp 24 B/P 140/65 144/75 Pulse Ox 100 O2 Delivery Ventilator Mechanical Ventilator Ventilator 09/17/16 09/17/16 09/17/16 09/17/16 21:00 21:27 22:00 22:15 Pulse 100 102 Resp 24 24 B/P 147/77 81/51 169/79 183/88 Pulse Ox 100 100 O2 Delivery Ventilator Ventilator 09/17/16 09/17/16 09/17/16 09/17/16 22:30 23:00 23:15 23:19 Pulse 114 Resp 24 B/P 135/66 156/87 131/68 Pulse Ox 100 O2 Delivery Ventilator Ventilator 09/17/16 09/18/16 09/18/16 09/18/16 23:59 00:00 00:15 01:00 Temp 101.2 101.2 Pulse 113 111 Resp 24 24 B/P 132/68 116/62 102/59 Pulse Ox 100 100 O2 Delivery Mechanical Ventilator Ventilator Ventilator 09/18/16 09/18/16 09/18/16 09/18/16 01:42 01:45 02:00 03:00 Pulse 113 107 Resp 24 24 B/P 100/60 102/63 98/58 Pulse Ox 100 100 O2 Delivery Ventilator Ventilator Ventilator 09/18/16 09/18/16 09/18/16 09/18/16 03:58 04:00 04:00 04:15 Temp 99.5 99.5 Pulse 104 Resp 24 B/P 110/66 103/62 Pulse Ox 100 O2 Delivery Ventilator Mechanical Ventilator Ventilator 09/18/16 09/18/16 09/18/16 09/18/16 05:00 06:00 06:10 07:00 Pulse 108 105 106 Resp 24 24 24 B/P 96/63 108/62 102/62 Pulse Ox 100 100 100 O2 Delivery Ventilator Ventilator Ventilator Ventilator 09/18/16 07:27 O2 Delivery Ventilator Intake and Output 09/17/16 09/17/16 09/18/16 15:00 23:00 07:00 Intake Total 0 ml 1705 ml 2561 ml Output Total 20 ml 605 ml 185 ml Balance -20 ml 1100 ml 2376 ml MATTHEW GRANDA MD Sep 18, 2016 08:00
--- NOTE | 2016-09-18 08:44 | PDOC ---
Infectious Disease Note Subjective Subjective coded last night, Hypotensive on pressor support Remains intubated/vent. FiO2 50% Off sedation Fever 101.2 Family present. Very supportive and attentive to her needs. They report that Kary responds to them, following simple commands like wiggling toes ROS ROS Unobtainable Vital Sign Vital Signs Vital Signs Date Time Temp Pulse Resp B/P Pulse Ox O2 Delivery O2 Flow Rate FiO2 09/18/16 07:27 Ventilator 09/18/16 07:00 106 24 102/62 100 09/18/16 04:00 99.5 99.5 Physical Exam PHYSICAL EXAM GENERAL: Intubated HEENT: ETT. OGT LUNGS: Clear HEART: S1S2, no gallop, no murmur ABD: Hypoactive BS, soft, no grimace to palpation : [place] EXT: No edema, no cyanosis [employer]: Unresponsive to verbal and tactile stimuli SKIN: No rash IV: ok Labs Lab Laboratory Tests Test 09/17/16 18:30 09/17/16 18:55 09/17/16 20:35 09/18/16 05:00 White Blood Count 14.2x10^3/uL (4.0-11.0) 17.3x10^3/uL (4.0-11.0) Red Blood Count 2.73x10^6/uL (3.50-5.40) 2.73x10^6/uL (3.50-5.40) Hemoglobin 7.1g/dL (12.0-15.5) 7.1g/dL (12.0-15.5) Hematocrit 23.9% (36.0-47.0) 22.9% (36.0-47.0) Mean Corpuscular Volume 88fL (79-100) 84fL (79-100) Mean Corpuscular Hemoglobin 26pg (25-35) 26pg (25-35) Mean Corpuscular Hemoglobin Concent 30g/dL (31-37) 31g/dL (31-37) Red Cell Distribution Width 15.3% (11.5-14.5) 14.9% (11.5-14.5) Platelet Count 155x10^3/uL (140-400) 172x10^3/uL (140-400) Neutrophils (%) (Auto) 75% (31-73) 83% (31-73) Lymphocytes (%) (Auto) 15% (24-48) 7% (24-48) Monocytes (%) (Auto) 9% (0-9) 10% (0-9) Eosinophils (%) (Auto) 1% (0-3) 0% (0-3) Basophils (%) (Auto) 1% (0-3) 0% (0-3) Neutrophils # (Auto) 10.7x10^3uL (1.8-7.7) 14.3x10^3uL (1.8-7.7) Lymphocytes # (Auto) 2.1x10^3/uL (1.0-4.8) 1.1x10^3/uL (1.0-4.8) Monocytes # (Auto) 1.2x10^3/uL (0.0-1.1) 1.8x10^3/uL (0.0-1.1) Eosinophils # (Auto) 0.1x10^3/uL (0.0-0.7) 0.0x10^3/uL (0.0-0.7) Basophils # (Auto) 0.1x10^3/uL (0.0-0.2) 0.1x10^3/uL (0.0-0.2) Sodium Level 141mmol/L (136-145) Potassium Level 4.5mmol/L (3.5-5.1) Chloride Level 104mmol/L (98-107) Carbon Dioxide Level 26mmol/L (21-32) Anion Gap 11 (6-14) Blood Urea Nitrogen 22mg/dL (7-20) Creatinine 1.3mg/dL (0.6-1.0) Estimated GFR (Cockcroft-Gault) 49.7 Glucose Level 381mg/dL (70-99) Lactic Acid Level 9.4mmol/L (0.4-2.0) 2.5mmol/L (0.4-2.0) Calcium Level 8.1mg/dL (8.5-10.1) Magnesium Level 2.2mg/dL (1.8-2.4) O2 Saturation 85% (92-99) 98% (92-99) Arterial Blood pH 7.25 (7.35-7.45) 7.39 (7.35-7.45) Arterial Blood pH (Temp corrected) 7.25 Arterial Blood pCO2 at Patient Temp 74mmHg (35-46) 55mmHg (35-46) Arterial Blood pCO2 (Temp correct) 75mmHg Arterial Blood pO2 at Patient Temp 56mmHg (65-108) 107mmHg (65-108) Arterial Blood pO2 (Temp corrected) 57mmHg Arterial Blood HCO3 32mmol/L (21-28) 33mmol/L (21-28) Arterial Blood Base Excess 3mmol/L (-3-3) 7mmol/L (-3-3) FiO2 100 Micro 09/16. BLOOD CULTURE Preliminary NO GROWTH AFTER 2 DAY Objective Assessment Sepsis - POA -procalcitonin <0.10 Fever Leukocytosis, in part reactive s/p code blue, 09/17 Resp failure - Intubated NANCY - better Plan Plan of Care Zyvox, cefepime, Flagyl & fluconazole CBC in am Monitor Temp D/w family Now DNR Critically ill Attending Co-Sign The patient was seen and interviewed as well as examined at the bedside. The chart was reviewed. The case was discussed. Agree with the plan of care. ADELIA MAYA APRN Sep 18, 2016 08:44 IQRA TAN MD Sep 18, 2016 13:08
[2016-09-18] MEDS: CHLORHEXIDINE 0.12% 15 ML MOUTHWASH. MM SCH ×2 (09:00→21:33)
[2016-09-18] MEDS: HEPARIN PF for SUB-Q USE 5,000 UNIT/0.5 ML VIAL. SQ SCH ×2 (09:39→21:33)
[2016-09-18] MEDS: FLUCONAZOLE 200MG/100ML PREMIX 100 ML IV SCH (09:40)
[2016-09-18 10:08] LABS: FIO2 ABG 100%
[2016-09-18 11:47] LABS: CALCIUM 8.2 mg/dL (8.5-10.1); CREATININE 1.2 mg/dL (0.6-1.0); GFR 54.6; POTASSIUM 4.5 mmol/L (3.5-5.1)
--- NOTE | 2016-09-18 13:42 | PDOC ---
PULMONARY PROGRESS NOTES Subjective PT S/P CODE BLUE YESTERDAY PEA Vitals Vital Signs Date Time Temp Pulse Resp B/P Pulse Ox O2 Delivery O2 Flow Rate FiO2 09/18/16 12:00 107 24 90/60 97 Ventilator 09/18/16 12:00 98.3 98.3 Lungs: Clear Cardiovascular: S1, S2 Abdomen: Soft, Non-tender Extremities: No Edema Labs Laboratory Tests Test 09/17/16 05:00 09/17/16 08:00 09/17/16 18:30 09/17/16 18:55 White Blood Count 15.2x10^3/uL (4.0-11.0) 14.2x10^3/uL (4.0-11.0) Red Blood Count 3.03x10^6/uL (3.50-5.40) 2.73x10^6/uL (3.50-5.40) Hemoglobin 7.9g/dL (12.0-15.5) 7.1g/dL (12.0-15.5) Hematocrit 25.9% (36.0-47.0) 23.9% (36.0-47.0) Mean Corpuscular Volume 86fL (79-100) 88fL (79-100) Mean Corpuscular Hemoglobin 26pg (25-35) 26pg (25-35) Mean Corpuscular Hemoglobin Concent 31g/dL (31-37) 30g/dL (31-37) Red Cell Distribution Width 15.0% (11.5-14.5) 15.3% (11.5-14.5) Platelet Count 168x10^3/uL (140-400) 155x10^3/uL (140-400) Neutrophils (%) (Auto) 84% (31-73) 75% (31-73) Lymphocytes (%) (Auto) 5% (24-48) 15% (24-48) Monocytes (%) (Auto) 10% (0-9) 9% (0-9) Eosinophils (%) (Auto) 1% (0-3) 1% (0-3) Basophils (%) (Auto) 0% (0-3) 1% (0-3) Neutrophils # (Auto) 12.8x10^3uL (1.8-7.7) 10.7x10^3uL (1.8-7.7) Lymphocytes # (Auto) 0.8x10^3/uL (1.0-4.8) 2.1x10^3/uL (1.0-4.8) Monocytes # (Auto) 1.5x10^3/uL (0.0-1.1) 1.2x10^3/uL (0.0-1.1) Eosinophils # (Auto) 0.1x10^3/uL (0.0-0.7) 0.1x10^3/uL (0.0-0.7) Basophils # (Auto) 0.0x10^3/uL (0.0-0.2) 0.1x10^3/uL (0.0-0.2) Sodium Level 137mmol/L (136-145) 141mmol/L (136-145) Potassium Level 5.2mmol/L (3.5-5.1) 4.5mmol/L (3.5-5.1) Chloride Level 104mmol/L (98-107) 104mmol/L (98-107) Carbon Dioxide Level 28mmol/L (21-32) 26mmol/L (21-32) Anion Gap 5 (6-14) 11 (6-14) Blood Urea Nitrogen 17mg/dL (7-20) 22mg/dL (7-20) Creatinine 0.8mg/dL (0.6-1.0) 1.3mg/dL (0.6-1.0) Estimated GFR (Cockcroft-Gault) 87.1 49.7 Glucose Level 151mg/dL (70-99) 381mg/dL (70-99) Calcium Level 8.4mg/dL (8.5-10.1) 8.1mg/dL (8.5-10.1) O2 Saturation 87% (92-99) 85% (92-99) Arterial Blood pH 7.32 (7.35-7.45) 7.25 (7.35-7.45) Arterial Blood pCO2 at Patient Temp 72mmHg (35-46) 74mmHg (35-46) Arterial Blood pO2 at Patient Temp 54mmHg (65-108) 56mmHg (65-108) Arterial Blood HCO3 36mmol/L (21-28) 32mmol/L (21-28) Arterial Blood Base Excess 9mmol/L (-3-3) 3mmol/L (-3-3) FiO2 65 Lactic Acid Level 9.4mmol/L (0.4-2.0) Magnesium Level 2.2mg/dL (1.8-2.4) Arterial Blood pH (Temp corrected) 7.25 Arterial Blood pCO2 (Temp correct) 75mmHg Arterial Blood pO2 (Temp corrected) 57mmHg Test 09/17/16 20:35 09/18/16 05:00 09/18/16 08:00 O2 Saturation 98% (92-99) 99% (92-99) Arterial Blood pH 7.39 (7.35-7.45) 7.44 (7.35-7.45) Arterial Blood pCO2 at Patient Temp 55mmHg (35-46) 46mmHg (35-46) Arterial Blood pO2 at Patient Temp 107mmHg (65-108) 322mmHg (65-108) Arterial Blood HCO3 33mmol/L (21-28) 31mmol/L (21-28) Arterial Blood Base Excess 7mmol/L (-3-3) 6mmol/L (-3-3) FiO2 100 100% White Blood Count 17.3x10^3/uL (4.0-11.0) Red Blood Count 2.73x10^6/uL (3.50-5.40) Hemoglobin 7.1g/dL (12.0-15.5) Hematocrit 22.9% (36.0-47.0) Mean Corpuscular Volume 84fL (79-100) Mean Corpuscular Hemoglobin 26pg (25-35) Mean Corpuscular Hemoglobin Concent 31g/dL (31-37) Red Cell Distribution Width 14.9% (11.5-14.5) Platelet Count 172x10^3/uL (140-400) Neutrophils (%) (Auto) 83% (31-73) Lymphocytes (%) (Auto) 7% (24-48) Monocytes (%) (Auto) 10% (0-9) Eosinophils (%) (Auto) 0% (0-3) Basophils (%) (Auto) 0% (0-3) Neutrophils # (Auto) 14.3x10^3uL (1.8-7.7) Lymphocytes # (Auto) 1.1x10^3/uL (1.0-4.8) Monocytes # (Auto) 1.8x10^3/uL (0.0-1.1) Eosinophils # (Auto) 0.0x10^3/uL (0.0-0.7) Basophils # (Auto) 0.1x10^3/uL (0.0-0.2) Sodium Level 143mmol/L (136-145) Potassium Level 4.5mmol/L (3.5-5.1) Chloride Level 106mmol/L (98-107) Carbon Dioxide Level 31mmol/L (21-32) Anion Gap 6 (6-14) Blood Urea Nitrogen 26mg/dL (7-20) Creatinine 1.2mg/dL (0.6-1.0) Estimated GFR (Cockcroft-Gault) 54.6 Glucose Level 164mg/dL (70-99) Lactic Acid Level 2.5mmol/L (0.4-2.0) Calcium Level 8.2mg/dL (8.5-10.1) Laboratory Tests Test 09/17/16 18:30 09/17/16 18:55 09/17/16 20:35 09/18/16 05:00 White Blood Count 14.2x10^3/uL (4.0-11.0) 17.3x10^3/uL (4.0-11.0) Red Blood Count 2.73x10^6/uL (3.50-5.40) 2.73x10^6/uL (3.50-5.40) Hemoglobin 7.1g/dL (12.0-15.5) 7.1g/dL (12.0-15.5) Hematocrit 23.9% (36.0-47.0) 22.9% (36.0-47.0) Mean Corpuscular Volume 88fL (79-100) 84fL (79-100) Mean Corpuscular Hemoglobin 26pg (25-35) 26pg (25-35) Mean Corpuscular Hemoglobin Concent 30g/dL (31-37) 31g/dL (31-37) Red Cell Distribution Width 15.3% (11.5-14.5) 14.9% (11.5-14.5) Platelet Count 155x10^3/uL (140-400) 172x10^3/uL (140-400) Neutrophils (%) (Auto) 75% (31-73) 83% (31-73) Lymphocytes (%) (Auto) 15% (24-48) 7% (24-48) Monocytes (%) (Auto) 9% (0-9) 10% (0-9) Eosinophils (%) (Auto) 1% (0-3) 0% (0-3) Basophils (%) (Auto) 1% (0-3) 0% (0-3) Neutrophils # (Auto) 10.7x10^3uL (1.8-7.7) 14.3x10^3uL (1.8-7.7) Lymphocytes # (Auto) 2.1x10^3/uL (1.0-4.8) 1.1x10^3/uL (1.0-4.8) Monocytes # (Auto) 1.2x10^3/uL (0.0-1.1) 1.8x10^3/uL (0.0-1.1) Eosinophils # (Auto) 0.1x10^3/uL (0.0-0.7) 0.0x10^3/uL (0.0-0.7) Basophils # (Auto) 0.1x10^3/uL (0.0-0.2) 0.1x10^3/uL (0.0-0.2) Sodium Level 141mmol/L (136-145) 143mmol/L (136-145) Potassium Level 4.5mmol/L (3.5-5.1) 4.5mmol/L (3.5-5.1) Chloride Level 104mmol/L (98-107) 106mmol/L (98-107) Carbon Dioxide Level 26mmol/L (21-32) 31mmol/L (21-32) Anion Gap 11 (6-14) 6 (6-14) Blood Urea Nitrogen 22mg/dL (7-20) 26mg/dL (7-20) Creatinine 1.3mg/dL (0.6-1.0) 1.2mg/dL (0.6-1.0) Estimated GFR (Cockcroft-Gault) 49.7 54.6 Glucose Level 381mg/dL (70-99) 164mg/dL (70-99) Lactic Acid Level 9.4mmol/L (0.4-2.0) 2.5mmol/L (0.4-2.0) Calcium Level 8.1mg/dL (8.5-10.1) 8.2mg/dL (8.5-10.1) Magnesium Level 2.2mg/dL (1.8-2.4) O2 Saturation 85% (92-99) 98% (92-99) Arterial Blood pH 7.25 (7.35-7.45) 7.39 (7.35-7.45) Arterial Blood pH (Temp corrected) 7.25 Arterial Blood pCO2 at Patient Temp 74mmHg (35-46) 55mmHg (35-46) Arterial Blood pCO2 (Temp correct) 75mmHg Arterial Blood pO2 at Patient Temp 56mmHg (65-108) 107mmHg (65-108) Arterial Blood pO2 (Temp corrected) 57mmHg Arterial Blood HCO3 32mmol/L (21-28) 33mmol/L (21-28) Arterial Blood Base Excess 3mmol/L (-3-3) 7mmol/L (-3-3) FiO2 100 Test 09/18/16 08:00 O2 Saturation 99% (92-99) Arterial Blood pH 7.44 (7.35-7.45) Arterial Blood pCO2 at Patient Temp 46mmHg (35-46) Arterial Blood pO2 at Patient Temp 322mmHg (65-108) Arterial Blood HCO3 31mmol/L (21-28) Arterial Blood Base Excess 6mmol/L (-3-3) FiO2 100% Medications Active Scripts Medications Dose Route/Sig Days Date Category Atorvastatin Calcium 20 Mg Tablet 20 Mg PO QHS 02/26/16 Rx Aspirin 325 Mg Tablet 325 Mg PO DAILYWBKFT 02/26/16 Rx Furosemide 20 Mg Tablet 20 Mg GT DAILY 30 09/09/15 Rx Potassium Chloride Oral Liquid (Potassium Chloride) 20 Meq/15 Ml Liquid 20 Meq PEG DAILY 30 08/27/15 Rx Famotidine 20 Mg Tablet 20 Mg PO BID 30 08/27/15 Rx Carvedilol 12.5 Mg Tablet 25 Mg PO BID@, 30 08/27/15 Rx Acetaminophen 650 Mg/20.3 Ml Solution 325 Mg PEG PRN Q6HRS PRN 30 08/27/15 Rx Albuterol Sulfate Neb Soln (Albuterol Sulfate) 2.5 Mg/3 Ml Vial.neb 2.5 Mg NEB RTQID 30 08/04/15 Rx Impression . 1. Acute on chronic hypercapnic hypoxemic respiratory failure, multifactorial. 2. Acute exacerbation of chronic obstructive pulmonary disease. 3. Sepsis, present upon admission. 4. Fever secondary to above. 5. Urinary tract infection causing sepsis. 6. Cerebrovascular accident status post percutaneous endoscopic gastrostomy tube placement. 7. History of Proteus infection. 8. Acute on chronic kidney failure. 9. Leukocytosis. 10. Severe secondary pulmonary hypertension with previous pulmonary artery pressure estimated at 94 mmHg. 11. S/P CODE DANYEL PEA Plan . I went over all of pt comorbid conditions with family, I told them that she would require a trach and I dont think she is extubatable anytime soon. I favor d/c support and allow natural , Pt family seems to agree, will let us know in AM. antibx per ID GI and DVT proph add erythromycin for GI motility tube feeding no need for CTA LAUREL HAMILTON MD Sep 18, 2016 13:41
--- NOTE | 2016-09-18 14:24 | RAD ---
Examination: Single portable chest. History: History of respiratory failure. Comparison: 09/14/2016 Findings: The ET tube, feeding tube are again identified. The cardio mediastinal silhouette grossly appears unremarkable. Mild prominence of bilateral interstitial lung markings could be chronic interstitial changes with mild congestive changes. Trace bilateral pleural effusions. Impression: 1. ET tube, feeding tube again identified. 2. Mild prominence of bilateral interstitial lung markings likely chronic with overlying mild congestive changes slightly increased compared to prior exam. Trace bilateral pleural effusions.
[2016-09-19] VITALS (27 sets, daily range): BP systolic 76–128; BP diastolic 48–73
[2016-09-19 04:46] LABS: BASO # 0.1 x10^3/uL (0.0-0.2); BASO % 0 % (0-3); EOS % 1 % (0-3); HEMATOCRIT 22.6 % (36.0-47.0); LYMPH # 1.4 x10^3/uL (1.0-4.8); LYMPH % 8 % (24-48); MEAN CORPUSCULAR HEMOGLOBIN 26 pg (25-35); MEAN CORPUSCULAR HGB CONC 31 g/dL (31-37); MEAN CORPUSCULAR VOLUME 83 fL (79-100); MONO % 12 % (0-9); NEUT % 79 % (31-73); PLATELET COUNT 170 x10^3/uL (140-400); RED BLOOD COUNT 2.72 x10^6/uL (3.50-5.40); WHITE BLOOD COUNT 16.9 x10^3/uL (4.0-11.0)
[2016-09-19 05:01] LABS: CALCIUM 8.2 mg/dL (8.5-10.1); GFR 67.3; POTASSIUM 4.3 mmol/L (3.5-5.1)
[2016-09-19] MEDS: IV NORMAL SALINE 1000ML BAG 1,000 ML IV SCH ×2 (05:12→16:39)
[2016-09-19] MEDS: METRONIDAZOLE 500mg PREMIX 100 ML IV SCH ×3 (05:32→22:32)
[2016-09-19] MEDS: METOCLOPRAMIDE HCL 10 MG/2 ML VIAL. IV SCH ×3 (05:33→19:22)
[2016-09-19] MEDS: ERYTHROMYCIN ETHYLSUCCINATE 200 MG/5 ML PEG SCH ×3 (05:33→19:22)
[2016-09-19] MEDS: CEFEPIME HCL 1 GM in IV NORMAL SALINE 50ML 50 ML IV SCH ×3 (05:33→22:07)
--- NOTE | 2016-09-19 08:23 | PDOC ---
Infectious Disease Note Subjective Subjective opens eyes, on vent ROS ROS unable to do low grade fever lose stool Vital Sign Vital Signs Vital Signs Date Time Temp Pulse Resp B/P Pulse Ox O2 Delivery O2 Flow Rate FiO2 09/19/16 06:00 114 24 113/66 97 Ventilator 09/19/16 04:00 98.5 98.5 Physical Exam PHYSICAL EXAM GENERAL: NAD, on vent HEENT: PERRL, OC/OP NECK: Supple, no JVD, no LN LUNGS: Clear HEART: S1S2, no gallop, no murmur ABD: Soft, NT, no organomegaly, no rebound EXT: No edema, no cyanosis [employer]: sedated on vent SKIN: No rash IV: ok Labs Lab Laboratory Tests Test 09/19/16 04:22 White Blood Count 16.9x10^3/uL (4.0-11.0) Red Blood Count 2.72x10^6/uL (3.50-5.40) Hemoglobin 7.0g/dL (12.0-15.5) Hematocrit 22.6% (36.0-47.0) Mean Corpuscular Volume 83fL (79-100) Mean Corpuscular Hemoglobin 26pg (25-35) Mean Corpuscular Hemoglobin Concent 31g/dL (31-37) Red Cell Distribution Width 15.0% (11.5-14.5) Platelet Count 170x10^3/uL (140-400) Neutrophils (%) (Auto) 79% (31-73) Lymphocytes (%) (Auto) 8% (24-48) Monocytes (%) (Auto) 12% (0-9) Eosinophils (%) (Auto) 1% (0-3) Basophils (%) (Auto) 0% (0-3) Neutrophils # (Auto) 13.4x10^3uL (1.8-7.7) Lymphocytes # (Auto) 1.4x10^3/uL (1.0-4.8) Monocytes # (Auto) 2.0x10^3/uL (0.0-1.1) Eosinophils # (Auto) 0.1x10^3/uL (0.0-0.7) Basophils # (Auto) 0.1x10^3/uL (0.0-0.2) Sodium Level 142mmol/L (136-145) Potassium Level 4.3mmol/L (3.5-5.1) Chloride Level 106mmol/L (98-107) Carbon Dioxide Level 30mmol/L (21-32) Anion Gap 6 (6-14) Blood Urea Nitrogen 33mg/dL (7-20) Creatinine 1.0mg/dL (0.6-1.0) Estimated GFR (Cockcroft-Gault) 67.3 Glucose Level 161mg/dL (70-99) Lactic Acid Level 2.4mmol/L (0.4-2.0) Calcium Level 8.2mg/dL (8.5-10.1) Objective Assessment Sepsis - POA -procalcitonin <0.10 Fever Leukocytosis, in part reactive s/p code blue, 3/4 Resp failure - Intubated NANCY - better Severe pulmonary HTN Plan Plan of Care Zyvox, cefepime, Flagyl & fluconazole CBC in am Monitor Temp D/w family Now DNR Critically ill palliative care meeting today IQRA TAN MD Sep 19, 2016 08:23
[2016-09-19] MEDS: PANTOPRAZOLE IV PUSH 40 MG VIAL. IVP SCH (08:27)
[2016-09-19] MEDS: CHLORHEXIDINE 0.12% 15 ML MOUTHWASH. MM SCH ×2 (08:29→20:00)
[2016-09-19] MEDS: HEPARIN PF for SUB-Q USE 5,000 UNIT/0.5 ML VIAL. SQ SCH ×2 (08:29→22:04)
[2016-09-19] MEDS: ALBUTEROL SULFATE 2.5 MG/3 ML NEBU. IH SCH ×3 (08:46→19:41)
--- NOTE | 2016-09-19 08:46 | PDOC ---
SUBJECTIVE Subjective Opens eyes minimally during exam. Family states she is able to communicate some with moving her head. They report that she denies pain. OBJECTIVE Vital Signs Vital Signs Date Time Temp Pulse Resp B/P Pulse Ox O2 Delivery O2 Flow Rate FiO2 09/19/16 06:00 114 24 113/66 97 Ventilator 09/19/16 05:49 100 Ventilator 09/19/16 05:00 115 24 90/62 98 Ventilator 09/19/16 04:00 98.5 117 24 93/57 98 Ventilator 98.5 09/19/16 04:00 Mechanical Ventilator 09/19/16 03:46 100 Ventilator 09/19/16 03:00 109 24 92/60 100 Ventilator 09/19/16 02:00 117 24 105/63 98 Ventilator 09/19/16 01:49 100 Ventilator 09/19/16 01:00 114 24 102/60 97 Ventilator 09/19/16 00:00 100.0 117 24 99/64 98 Ventilator 100.0 09/18/16 23:59 Mechanical Ventilator 09/18/16 23:25 100 Ventilator 09/18/16 23:00 112 24 95/62 100 Ventilator 09/18/16 22:00 116 24 101/59 97 Ventilator 09/18/16 21:00 117 24 101/61 95 Ventilator 09/18/16 20:10 100 Ventilator 09/18/16 20:00 99.7 114 24 98/61 98 Ventilator 99.7 09/18/16 20:00 Mechanical Ventilator 09/18/16 19:00 114 27 91/56 98 Ventilator 09/18/16 18:00 112 34 86/54 100 Ventilator 09/18/16 17:00 98.6 113 34 98/59 98 Ventilator 98.6 09/18/16 16:56 98 Ventilator 09/18/16 16:00 110 24 94/58 100 Ventilator 09/18/16 16:00 Mechanical Ventilator 09/18/16 15:42 98 Ventilator 09/18/16 15:00 110 24 100/57 100 Ventilator 09/18/16 14:00 108 24 102/61 100 Ventilator 09/18/16 13:14 96 Ventilator 09/18/16 13:00 110 24 100/59 99 Ventilator 09/18/16 12:00 107 24 90/60 97 Ventilator 09/18/16 12:00 Mechanical Ventilator 09/18/16 12:00 98.3 110 24 98/60 95 Ventilator 98.3 09/18/16 11:42 95 Ventilator 09/18/16 11:00 111 24 106/64 97 Ventilator 09/18/16 10:00 113 23 108/59 98 Ventilator 09/18/16 09:43 Ventilator 09/18/16 09:00 118 25 99/57 94 Ventilator I & O Intake and Output 09/19/16 07:00 Intake Total 3904 ml Output Total 590 ml Balance 3314 ml IV Total 1344 ml Tube Feeding 1124 ml Other 1436 ml Output Urine Total 590 ml # Bowel Movements 5 PHYSICAL EXAM Physical Exam General: No acute distress. Laying in bed. Intubated. Mental status: Minimally opens eyes with touch during the exam. Chest: Air movement: Okay anteriorly but decreased overall. Auscultation: clear anteriorly Cardiovascular: Rate: Slightly tachycardia. Rhythm: regular. Murmur: none. Abdomen: Bowel sounds: Occasional. Soft. Minimally distended. Tenderness: No apparent tenderness. Extremities: Trace of edema in the extremities. ASSESSMENT/PLAN Assessment/Plan 1. Recent cardiac arrest due to PEA: Continue per cardiology. 2. Acute on chronic respiratory failure with AE COPD- s/p intubation: Long- term prognosis is poor due to severe pulmonary hypertension, COPD. Would need trach. 3. Leukocytosis with sepsis, POA: Continue antibiotic per infectious disease. 4. Fevers: Persist. As above. 5. Hypotension: 6. Severe pulmonary hypertension: Continue per pulmonology and cardiology. 7. NANCY : Improved 8. Acute on chronic diastolic heart failure, compensated: 9. Prior CVA with dysphagia s/p PEG placement: Continue tube feedings. 10. CODE STATUS: Patient's family made the patient DNR at present. Consult palliative care for determining goals of care. Problems: COMMENT Lab Laboratory Tests Test 09/19/16 04:22 White Blood Count 16.9x10^3/uL (4.0-11.0) Red Blood Count 2.72x10^6/uL (3.50-5.40) Hemoglobin 7.0g/dL (12.0-15.5) Hematocrit 22.6% (36.0-47.0) Mean Corpuscular Volume 83fL (79-100) Mean Corpuscular Hemoglobin 26pg (25-35) Mean Corpuscular Hemoglobin Concent 31g/dL (31-37) Red Cell Distribution Width 15.0% (11.5-14.5) Platelet Count 170x10^3/uL (140-400) Neutrophils (%) (Auto) 79% (31-73) Lymphocytes (%) (Auto) 8% (24-48) Monocytes (%) (Auto) 12% (0-9) Eosinophils (%) (Auto) 1% (0-3) Basophils (%) (Auto) 0% (0-3) Neutrophils # (Auto) 13.4x10^3uL (1.8-7.7) Lymphocytes # (Auto) 1.4x10^3/uL (1.0-4.8) Monocytes # (Auto) 2.0x10^3/uL (0.0-1.1) Eosinophils # (Auto) 0.1x10^3/uL (0.0-0.7) Basophils # (Auto) 0.1x10^3/uL (0.0-0.2) Sodium Level 142mmol/L (136-145) Potassium Level 4.3mmol/L (3.5-5.1) Chloride Level 106mmol/L (98-107) Carbon Dioxide Level 30mmol/L (21-32) Anion Gap 6 (6-14) Blood Urea Nitrogen 33mg/dL (7-20) Creatinine 1.0mg/dL (0.6-1.0) Estimated GFR (Cockcroft-Gault) 67.3 Glucose Level 161mg/dL (70-99) Lactic Acid Level 2.4mmol/L (0.4-2.0) Calcium Level 8.2mg/dL (8.5-10.1) JENNIFER RIVERO MD Sep 19, 2016 08:46
[2016-09-19] MEDS: FLUCONAZOLE 200MG/100ML PREMIX 100 ML IV SCH (09:00)
--- NOTE | 2016-09-19 10:07 | PDOC ---
CARDIO Progress Notes Date and Time Date of Service 09/19/2016 Time of Evaluation 1100 Subjective Subjective: No Chest Pain, Other (intubated bu off sedation, shakes head no for discomfort) Vitals Vitals Vital Signs Date Time Temp Pulse Resp B/P Pulse Ox O2 Delivery O2 Flow Rate FiO2 09/19/16 08:46 100 Ventilator 09/19/16 08:42 98.1 96 24 111/60 98.1 Weight Weight [ ] Input and Output Intake and Output Intake and Output 09/19/16 07:00 Intake Total 3904 ml Output Total 590 ml Balance 3314 ml IV Total 1344 ml Tube Feeding 1124 ml Other 1436 ml Output Urine Total 590 ml # Bowel Movements 5 Laboratory Labs Laboratory Tests Test 09/19/16 04:22 White Blood Count 16.9x10^3/uL (4.0-11.0) Red Blood Count 2.72x10^6/uL (3.50-5.40) Hemoglobin 7.0g/dL (12.0-15.5) Hematocrit 22.6% (36.0-47.0) Mean Corpuscular Volume 83fL (79-100) Mean Corpuscular Hemoglobin 26pg (25-35) Mean Corpuscular Hemoglobin Concent 31g/dL (31-37) Red Cell Distribution Width 15.0% (11.5-14.5) Platelet Count 170x10^3/uL (140-400) Neutrophils (%) (Auto) 79% (31-73) Lymphocytes (%) (Auto) 8% (24-48) Monocytes (%) (Auto) 12% (0-9) Eosinophils (%) (Auto) 1% (0-3) Basophils (%) (Auto) 0% (0-3) Neutrophils # (Auto) 13.4x10^3uL (1.8-7.7) Lymphocytes # (Auto) 1.4x10^3/uL (1.0-4.8) Monocytes # (Auto) 2.0x10^3/uL (0.0-1.1) Eosinophils # (Auto) 0.1x10^3/uL (0.0-0.7) Basophils # (Auto) 0.1x10^3/uL (0.0-0.2) Sodium Level 142mmol/L (136-145) Potassium Level 4.3mmol/L (3.5-5.1) Chloride Level 106mmol/L (98-107) Carbon Dioxide Level 30mmol/L (21-32) Anion Gap 6 (6-14) Blood Urea Nitrogen 33mg/dL (7-20) Creatinine 1.0mg/dL (0.6-1.0) Estimated GFR (Cockcroft-Gault) 67.3 Glucose Level 161mg/dL (70-99) Lactic Acid Level 2.4mmol/L (0.4-2.0) Calcium Level 8.2mg/dL (8.5-10.1) Microbiology Micro Microbiology 09/16/16 Blood Culture - Preliminary, Resulted NO GROWTH AFTER 3 DAYS 09/12/16 Urine Culture - Final, Complete 09/12/16 Urine Culture Result 1 (CANDICE) - Final, Complete Physical Exam HEENT: Neck Supple W Full Motion Chest: Symmetric LUNGS: Other (DIminished with faint crackles; intubated with mechanical ventilation) Heart: S1S2, RRR (sinus tach 110s), other (tele SR/ST) Abdomen: Soft N/T Extremities: 2+ Dorsalis Pedis, No Calf Tenderness, Other (trace LE edema) Neurology: other (off sedation, drowsy but interacts with close ended questions ) Assessment Assessment 1. Acute on chronic diastolic heart failure: multifactorial. Currently appears compensated. 2. Acute on chronic respiratory failure with underlying COPD with severe pulmonary HTN 3. Metabolic/hypoxic encephalopathy: off sedation. Drowsy but responds to yes/ no questions 3. Sepsis 4. Hypotension with underlying anemia: BP stable at low end. 5. NANCY on CKD: improved. 6. Prior CVA with dysphagia s/p PEG placement 7. Post cardiac arrest noted with PEA: initially noted with respiratory distress and bradycardia on 09/17 8. Anemia of chronic disease: Hgb 7.0 contributing to tachycardia. Recommendations 1. Has been converted to DNR 2. Discussed significantly with family in regards to treatment plan and awaiting palliative meeting and family considering hospice. 3. Pt will likely need blood transfusion pending family decision. 4. Titrate levophed as warranted. 5. Remains intubated with vent, per pulmonary 6. Follow up CXR today, continue with supportive care. 7. RENATE Bell APRN Sep 19, 2016 10:07
--- NOTE | 2016-09-19 10:17 | PDOC ---
PULMONARY PROGRESS NOTES Subjective opens eyes withdraws to pain Vitals Vital Signs Date Time Temp Pulse Resp B/P Pulse Ox O2 Delivery O2 Flow Rate FiO2 09/19/16 10:00 98 24 108/66 98 Ventilator 09/19/16 08:42 98.1 98.1 General: No acute distress Lungs: Clear Cardiovascular: S1, S2 Abdomen: Soft, Non-tender Extremities: No Edema Skin: Warm Labs Laboratory Tests Test 09/17/16 18:30 09/17/16 18:55 09/17/16 20:35 09/18/16 05:00 White Blood Count 14.2x10^3/uL (4.0-11.0) 17.3x10^3/uL (4.0-11.0) Red Blood Count 2.73x10^6/uL (3.50-5.40) 2.73x10^6/uL (3.50-5.40) Hemoglobin 7.1g/dL (12.0-15.5) 7.1g/dL (12.0-15.5) Hematocrit 23.9% (36.0-47.0) 22.9% (36.0-47.0) Mean Corpuscular Volume 88fL (79-100) 84fL (79-100) Mean Corpuscular Hemoglobin 26pg (25-35) 26pg (25-35) Mean Corpuscular Hemoglobin Concent 30g/dL (31-37) 31g/dL (31-37) Red Cell Distribution Width 15.3% (11.5-14.5) 14.9% (11.5-14.5) Platelet Count 155x10^3/uL (140-400) 172x10^3/uL (140-400) Neutrophils (%) (Auto) 75% (31-73) 83% (31-73) Lymphocytes (%) (Auto) 15% (24-48) 7% (24-48) Monocytes (%) (Auto) 9% (0-9) 10% (0-9) Eosinophils (%) (Auto) 1% (0-3) 0% (0-3) Basophils (%) (Auto) 1% (0-3) 0% (0-3) Neutrophils # (Auto) 10.7x10^3uL (1.8-7.7) 14.3x10^3uL (1.8-7.7) Lymphocytes # (Auto) 2.1x10^3/uL (1.0-4.8) 1.1x10^3/uL (1.0-4.8) Monocytes # (Auto) 1.2x10^3/uL (0.0-1.1) 1.8x10^3/uL (0.0-1.1) Eosinophils # (Auto) 0.1x10^3/uL (0.0-0.7) 0.0x10^3/uL (0.0-0.7) Basophils # (Auto) 0.1x10^3/uL (0.0-0.2) 0.1x10^3/uL (0.0-0.2) Sodium Level 141mmol/L (136-145) 143mmol/L (136-145) Potassium Level 4.5mmol/L (3.5-5.1) 4.5mmol/L (3.5-5.1) Chloride Level 104mmol/L (98-107) 106mmol/L (98-107) Carbon Dioxide Level 26mmol/L (21-32) 31mmol/L (21-32) Anion Gap 11 (6-14) 6 (6-14) Blood Urea Nitrogen 22mg/dL (7-20) 26mg/dL (7-20) Creatinine 1.3mg/dL (0.6-1.0) 1.2mg/dL (0.6-1.0) Estimated GFR (Cockcroft-Gault) 49.7 54.6 Glucose Level 381mg/dL (70-99) 164mg/dL (70-99) Lactic Acid Level 9.4mmol/L (0.4-2.0) 2.5mmol/L (0.4-2.0) Calcium Level 8.1mg/dL (8.5-10.1) 8.2mg/dL (8.5-10.1) Magnesium Level 2.2mg/dL (1.8-2.4) O2 Saturation 85% (92-99) 98% (92-99) Arterial Blood pH 7.25 (7.35-7.45) 7.39 (7.35-7.45) Arterial Blood pH (Temp corrected) 7.25 Arterial Blood pCO2 at Patient Temp 74mmHg (35-46) 55mmHg (35-46) Arterial Blood pCO2 (Temp correct) 75mmHg Arterial Blood pO2 at Patient Temp 56mmHg (65-108) 107mmHg (65-108) Arterial Blood pO2 (Temp corrected) 57mmHg Arterial Blood HCO3 32mmol/L (21-28) 33mmol/L (21-28) Arterial Blood Base Excess 3mmol/L (-3-3) 7mmol/L (-3-3) FiO2 100 Test 09/18/16 08:00 09/19/16 04:22 O2 Saturation 99% (92-99) Arterial Blood pH 7.44 (7.35-7.45) Arterial Blood pCO2 at Patient Temp 46mmHg (35-46) Arterial Blood pO2 at Patient Temp 322mmHg (65-108) Arterial Blood HCO3 31mmol/L (21-28) Arterial Blood Base Excess 6mmol/L (-3-3) FiO2 100% White Blood Count 16.9x10^3/uL (4.0-11.0) Red Blood Count 2.72x10^6/uL (3.50-5.40) Hemoglobin 7.0g/dL (12.0-15.5) Hematocrit 22.6% (36.0-47.0) Mean Corpuscular Volume 83fL (79-100) Mean Corpuscular Hemoglobin 26pg (25-35) Mean Corpuscular Hemoglobin Concent 31g/dL (31-37) Red Cell Distribution Width 15.0% (11.5-14.5) Platelet Count 170x10^3/uL (140-400) Neutrophils (%) (Auto) 79% (31-73) Lymphocytes (%) (Auto) 8% (24-48) Monocytes (%) (Auto) 12% (0-9) Eosinophils (%) (Auto) 1% (0-3) Basophils (%) (Auto) 0% (0-3) Neutrophils # (Auto) 13.4x10^3uL (1.8-7.7) Lymphocytes # (Auto) 1.4x10^3/uL (1.0-4.8) Monocytes # (Auto) 2.0x10^3/uL (0.0-1.1) Eosinophils # (Auto) 0.1x10^3/uL (0.0-0.7) Basophils # (Auto) 0.1x10^3/uL (0.0-0.2) Sodium Level 142mmol/L (136-145) Potassium Level 4.3mmol/L (3.5-5.1) Chloride Level 106mmol/L (98-107) Carbon Dioxide Level 30mmol/L (21-32) Anion Gap 6 (6-14) Blood Urea Nitrogen 33mg/dL (7-20) Creatinine 1.0mg/dL (0.6-1.0) Estimated GFR (Cockcroft-Gault) 67.3 Glucose Level 161mg/dL (70-99) Lactic Acid Level 2.4mmol/L (0.4-2.0) Calcium Level 8.2mg/dL (8.5-10.1) Laboratory Tests Test 09/19/16 04:22 White Blood Count 16.9x10^3/uL (4.0-11.0) Red Blood Count 2.72x10^6/uL (3.50-5.40) Hemoglobin 7.0g/dL (12.0-15.5) Hematocrit 22.6% (36.0-47.0) Mean Corpuscular Volume 83fL (79-100) Mean Corpuscular Hemoglobin 26pg (25-35) Mean Corpuscular Hemoglobin Concent 31g/dL (31-37) Red Cell Distribution Width 15.0% (11.5-14.5) Platelet Count 170x10^3/uL (140-400) Neutrophils (%) (Auto) 79% (31-73) Lymphocytes (%) (Auto) 8% (24-48) Monocytes (%) (Auto) 12% (0-9) Eosinophils (%) (Auto) 1% (0-3) Basophils (%) (Auto) 0% (0-3) Neutrophils # (Auto) 13.4x10^3uL (1.8-7.7) Lymphocytes # (Auto) 1.4x10^3/uL (1.0-4.8) Monocytes # (Auto) 2.0x10^3/uL (0.0-1.1) Eosinophils # (Auto) 0.1x10^3/uL (0.0-0.7) Basophils # (Auto) 0.1x10^3/uL (0.0-0.2) Sodium Level 142mmol/L (136-145) Potassium Level 4.3mmol/L (3.5-5.1) Chloride Level 106mmol/L (98-107) Carbon Dioxide Level 30mmol/L (21-32) Anion Gap 6 (6-14) Blood Urea Nitrogen 33mg/dL (7-20) Creatinine 1.0mg/dL (0.6-1.0) Estimated GFR (Cockcroft-Gault) 67.3 Glucose Level 161mg/dL (70-99) Lactic Acid Level 2.4mmol/L (0.4-2.0) Calcium Level 8.2mg/dL (8.5-10.1) Medications Active Scripts Medications Dose Route/Sig Days Date Category Atorvastatin Calcium 20 Mg Tablet 20 Mg PO QHS 30 02/26/16 Rx Aspirin 325 Mg Tablet 325 Mg PO DAILYWBKFT 30 02/26/16 Rx Furosemide 20 Mg Tablet 20 Mg GT DAILY 30 09/09/15 Rx Potassium Chloride Oral Liquid (Potassium Chloride) 20 Meq/15 Ml Liquid 20 Meq PEG DAILY 30 08/27/15 Rx Famotidine 20 Mg Tablet 20 Mg PO BID 30 08/27/15 Rx Carvedilol 12.5 Mg Tablet 25 Mg PO BID@07,19 30 08/27/15 Rx Acetaminophen 650 Mg/20.3 Ml Solution 325 Mg PEG PRN Q6HRS PRN 30 08/27/15 Rx Albuterol Sulfate Neb Soln (Albuterol Sulfate) 2.5 Mg/3 Ml Vial.neb 2.5 Mg NEB RTQID 30 08/04/15 Rx Impression . 1. Acute on chronic hypercapnic hypoxemic respiratory failure, multifactorial. 2. Acute exacerbation of chronic obstructive pulmonary disease. 3. Sepsis, present upon admission. 4. Fever secondary to above. resolved 5. Urinary tract infection causing sepsis. 6. Cerebrovascular accident status post percutaneous endoscopic gastrostomy tube placement. 7. History of Proteus infection. 8. Acute on chronic kidney failure. 9. Leukocytosis. 10. Severe secondary pulmonary hypertension with previous pulmonary artery pressure estimated at 94 mmHg. 11. S/P CODE DANYEL PEA Plan . AC mode antibx per ID GI and DVT proph erythromycin for GI motility tube feeding no need for CTA mild right heart failure on cxr will discuss with family goals of care today and make further plans addend: d/w son and daughter. They agree for no trach. They do want to take her off. They will talk to other family members before deciding about timing. Palliative care to meet with rest of the family later cct 25 min MARCELINO ADAMSON MD Sep 19, 2016 10:17
--- NOTE | 2016-09-19 14:45 | RAD ---
EXAM: Chest one view. HISTORY: Congestive heart failure. COMPARISON: 09/18/2016. FINDINGS: A frontal view of the chest is obtained. An endotracheal tube has its tip 5 cm above the foreign. Hyperinflation is consistent with chronic obstructive pulmonary disease. The main pulmonary artery is prominent consistent with pulmonary arterial hypertension. Small pleural effusions are suspected. There is no pneumothorax. The heart is not enlarged. There are atherosclerotic calcifications of the aorta. IMPRESSION: 1. Advanced chronic obstructive pulmonary disease. 2. Small pleural effusions. 3. Findings consistent with pulmonary arterial hypertension.
[2016-09-19] MEDS: FENTANYL PF 100 MCG/2 ML VIAL. IV PRN ×2 (16:45→19:17)
--- NOTE | 2016-09-19 17:00 | PDOC2 ---
PALLIATIVE CARE Palliative Care Note Palliative Care Consult requested by Dr. Negro to address direction of care Patient remains on Vent 50%. (day # 8 intubation) Alert. Answers yes /no questions. Diagnosis: Respiratory Failure; COPD; A/C Heart Failure (Class III) compensated ; Hypotensive on Levophed low dose; Leukocytosis with sepsis--IV antibiotics; severe pulmonary hypertension. PMH: CVA --dysphagia /PEG tube. Met with daughter Krystal, son Ronit; Linnea, grandson Omar, Viet -cousin. Reviewed above medical condition; Patient has said that she would not want to be put on life support. This occurred however before family was able to voice this in the ER. She has been on life support before and improved as well as refused life support and improved. Family has discussed tracheostomy with physicians. Decision not to resuscitate has been made. Per family patient was walking with assistance /walker, enjoying her family visits, watching TV. Sayra: important to patient. 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 Patient would not want to be in a ch[facility]. Family has decided NO tracheostomy; NO re-intubation. They would like to have more family discussion. Asked to meet with more family on Monday at 1330. This will be so other family members are aware of the decisions and will have a chance to visit with patient. Family understands that patient will likely breath when extubated but unable to know how long she can continue without ventilatory support. Plan: Family meeting Monday; if patient declines they do not want to prolong her dying but accept some interventions that would make it possible for family to have a chance to say their "goodbyes" Family requests no tracheostomy; No re-intubation. No resuscitation ( chest compressions, shocks) Family considering comfort care on Monday. JOSE PARKER Sep 19, 2016 17:00
[2016-09-20] VITALS (22 sets, daily range): BP systolic 94–148; BP diastolic 54–92
[2016-09-20] MEDS: ERYTHROMYCIN ETHYLSUCCINATE 200 MG/5 ML PEG SCH ×5 (00:21→23:46)
[2016-09-20] MEDS: METOCLOPRAMIDE HCL 10 MG/2 ML VIAL. IV SCH ×5 (00:22→23:46)
[2016-09-20] MEDS: IV NORMAL SALINE 1000ML BAG 1,000 ML IV SCH (04:30)
[2016-09-20] MEDS: FENTANYL PF 100 MCG/2 ML VIAL. IV PRN (05:06)
[2016-09-20] MEDS: METRONIDAZOLE 500mg PREMIX 100 ML IV SCH (05:33)
[2016-09-20] MEDS: CEFEPIME HCL 1 GM in IV NORMAL SALINE 50ML 50 ML IV SCH ×3 (06:27→21:59)
--- NOTE | 2016-09-20 08:15 | PDOC ---
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
[2016-09-20] MEDS: ALBUTEROL SULFATE 2.5 MG/3 ML NEBU. IH SCH ×3 (08:19→20:07)
--- NOTE | 2016-09-20 08:25 | PDOC ---
SUBJECTIVE Subjective Intubated. Will open eyes to voice and move head. OBJECTIVE Vital Signs Vital Signs Date Time Temp Pulse Resp B/P Pulse Ox O2 Delivery O2 Flow Rate FiO2 09/20/16 07:00 119 24 125/63 97 Ventilator 09/20/16 06:00 117 24 105/59 97 Ventilator 09/20/16 05:35 24 96 09/20/16 05:06 24 96 Ventilator 09/20/16 05:03 95 Ventilator 09/20/16 05:00 122 24 115/64 96 Ventilator 09/20/16 05:00 Mechanical Ventilator 09/20/16 04:30 126 24 124/72 95 Ventilator 09/20/16 04:15 125 24 148/69 96 Ventilator 09/20/16 04:00 98.8 124 24 142/72 96 Ventilator 98.8 09/20/16 03:00 112 24 114/63 100 Ventilator 09/20/16 02:36 95 Ventilator 09/20/16 02:00 116 24 118/68 97 Ventilator 09/20/16 01:00 120 24 115/62 97 Ventilator 09/19/16 23:59 98.4 117 24 125/68 97 Ventilator 98.4 09/19/16 23:59 Mechanical Ventilator 09/19/16 23:25 94 Ventilator 09/19/16 23:00 122 24 128/69 95 Ventilator 09/19/16 22:00 122 24 104/64 95 Ventilator 09/19/16 21:32 96 Ventilator 09/19/16 21:00 122 24 111/58 95 Ventilator 09/19/16 20:00 98.1 126 24 114/62 96 Ventilator 98.1 09/19/16 20:00 Mechanical Ventilator 09/19/16 19:45 124 24 90/55 99 Ventilator 09/19/16 19:45 Ventilator 09/19/16 19:34 98 Ventilator 09/19/16 19:30 116 24 76/48 98 Ventilator 09/19/16 19:17 24 98 Ventilator 09/19/16 19:00 120 24 95/50 97 Ventilator 09/19/16 17:50 50.0 09/19/16 17:00 116 24 104/52 98 Ventilator 09/19/16 16:45 22 100 Ventilator 50.0 09/19/16 16:09 96 Ventilator 09/19/16 16:00 Mechanical Ventilator 09/19/16 16:00 98.5 120 31 106/73 97 Ventilator 98.5 09/19/16 15:00 112 24 110/64 98 Ventilator 09/19/16 14:30 99 Ventilator 09/19/16 14:00 102 23 100/62 96 Ventilator 09/19/16 13:03 104 22 103/64 100 09/19/16 12:40 100 Ventilator 09/19/16 12:00 98.2 114 24 117/66 95 Ventilator 98.2 09/19/16 12:00 Mechanical Ventilator 09/19/16 11:00 111 24 117/64 96 Ventilator 09/19/16 10:00 98 24 108/66 98 Ventilator 09/19/16 08:46 100 Ventilator 09/19/16 08:42 98.1 96 24 111/60 96 Ventilator 98.1 I & O Intake and Output 09/20/16 07:00 Intake Total 1777 ml Output Total 1015 ml Balance 762 ml Intake Oral 0 ml IV Total 1220 ml Tube Feeding 557 ml Output Urine Total 715 ml Urine/Stool Mix 300 ml # Bowel Movements 3 PHYSICAL EXAM Physical Exam General: No acute distress. Laying in bed. Intubated. Mental status: Open eyes to voice during the exam. Chest: Air movement: Okay anteriorly but decreased overall. Auscultation: clear anteriorly Cardiovascular: Rate: Slightly tachycardia. Rhythm: regular. Murmur: none. Abdomen: Bowel sounds: Occasional. Soft. Minimally distended. Tenderness: No apparent tenderness. Feeding tube in place. Extremities: Trace of edema in the extremities. ASSESSMENT/PLAN Assessment/Plan 1. Recent cardiac arrest due to PEA: Continue per cardiology. 2. Acute on chronic respiratory failure with AE COPD- s/p intubation: Long- term prognosis is poor due to severe pulmonary hypertension, COPD. family not probably interested in that. 3. Leukocytosis with sepsis, POA: Continue antibiotic per infectious disease. 4. Fevers: Improving. As above. 5. Hypotension: Stable 6. Severe pulmonary hypertension: Continue per pulmonology and cardiology. 7. NANCY : Improved 8. Acute on chronic diastolic heart failure, compensated: Stable 9. Prior CVA with dysphagia s/p PEG placement: Continue tube feedings. 10. CODE STATUS: Patient's family made the patient DNR at present. Appreciate palliative care input. Problems: JENNIFER RIVERO MD Sep 20, 2016 08:25
[2016-09-20] MEDS: FLUCONAZOLE 200MG/100ML PREMIX 100 ML IV SCH (09:00)
[2016-09-20] MEDS: PANTOPRAZOLE IV PUSH 40 MG VIAL. IVP SCH (09:14)
[2016-09-20] MEDS: CHLORHEXIDINE 0.12% 15 ML MOUTHWASH. MM SCH ×2 (09:15→20:30)
[2016-09-20] MEDS: HEPARIN PF for SUB-Q USE 5,000 UNIT/0.5 ML VIAL. SQ SCH ×2 (09:17→20:39)
--- NOTE | 2016-09-20 11:07 | PDOC ---
PULMONARY PROGRESS NOTES Subjective anxious/ dyspneic Vitals Vital Signs Date Time Temp Pulse Resp B/P Pulse Ox O2 Delivery O2 Flow Rate FiO2 09/20/16 10:00 11 27 97/57 92 Ventilator 09/20/16 08:00 98.6 98.6 09/19/16 17:50 50.0 General: Alert, No acute distress Lungs: Clear Cardiovascular: S1, S2 Abdomen: Soft, Non-tender Extremities: No Edema Skin: Warm Labs Laboratory Tests Test 09/19/16 04:22 White Blood Count 16.9x10^3/uL (4.0-11.0) Red Blood Count 2.72x10^6/uL (3.50-5.40) Hemoglobin 7.0g/dL (12.0-15.5) Hematocrit 22.6% (36.0-47.0) Mean Corpuscular Volume 83fL (79-100) Mean Corpuscular Hemoglobin 26pg (25-35) Mean Corpuscular Hemoglobin Concent 31g/dL (31-37) Red Cell Distribution Width 15.0% (11.5-14.5) Platelet Count 170x10^3/uL (140-400) Neutrophils (%) (Auto) 79% (31-73) Lymphocytes (%) (Auto) 8% (24-48) Monocytes (%) (Auto) 12% (0-9) Eosinophils (%) (Auto) 1% (0-3) Basophils (%) (Auto) 0% (0-3) Neutrophils # (Auto) 13.4x10^3uL (1.8-7.7) Lymphocytes # (Auto) 1.4x10^3/uL (1.0-4.8) Monocytes # (Auto) 2.0x10^3/uL (0.0-1.1) Eosinophils # (Auto) 0.1x10^3/uL (0.0-0.7) Basophils # (Auto) 0.1x10^3/uL (0.0-0.2) Sodium Level 142mmol/L (136-145) Potassium Level 4.3mmol/L (3.5-5.1) Chloride Level 106mmol/L (98-107) Carbon Dioxide Level 30mmol/L (21-32) Anion Gap 6 (6-14) Blood Urea Nitrogen 33mg/dL (7-20) Creatinine 1.0mg/dL (0.6-1.0) Estimated GFR (Cockcroft-Gault) 67.3 Glucose Level 161mg/dL (70-99) Lactic Acid Level 2.4mmol/L (0.4-2.0) Calcium Level 8.2mg/dL (8.5-10.1) Medications Active Scripts Medications Dose Route/Sig Days Date Category Atorvastatin Calcium 20 Mg Tablet 20 Mg PO QHS 30 02/26/16 Rx Aspirin 325 Mg Tablet 325 Mg PO DAILYWBKFT 30 02/26/16 Rx Furosemide 20 Mg Tablet 20 Mg GT DAILY 30 09/09/15 Rx Potassium Chloride Oral Liquid (Potassium Chloride) 20 Meq/15 Ml Liquid 20 Meq PEG DAILY 30 08/27/15 Rx Famotidine 20 Mg Tablet 20 Mg PO BID 30 08/27/15 Rx Carvedilol 12.5 Mg Tablet 25 Mg PO BID@, 30 08/27/15 Rx Acetaminophen 650 Mg/20.3 Ml Solution 325 Mg PEG PRN Q6HRS PRN 30 08/27/15 Rx Albuterol Sulfate Neb Soln (Albuterol Sulfate) 2.5 Mg/3 Ml Vial.neb 2.5 Mg NEB RTQID 30 08/04/15 Rx Impression . 1. Acute on chronic hypercapnic hypoxemic respiratory failure, multifactorial. 2. Acute exacerbation of chronic obstructive pulmonary disease. 3. Sepsis, present upon admission. 4. Fever secondary to above. resolved 5. Urinary tract infection causing sepsis. 6. Cerebrovascular accident status post percutaneous endoscopic gastrostomy tube placement. 7. History of Proteus infection. 8. Acute on chronic kidney failure. 9. Leukocytosis. 10. Severe secondary pulmonary hypertension with previous pulmonary artery pressure estimated at 94 mmHg. 11. S/P CODE DANYEL PEA Plan . AC mode prn sedation antibx per ID GI and DVT proph tube feeding mild right heart failure on cxr palliative meeting in am d/w son and daughter.09/19 . They agree for no trach. terminal weaning expected 09/21 MARCELINO ADAMSON MD Sep 20, 2016 11:07
--- NOTE | 2016-09-20 11:47 | PDOC ---
CARDIO Progress Notes Date and Time Date of Service 09/20/2016 Time of Evaluation 1040 Subjective Subjective: No Chest Pain, Other (intubated bu off sedation, shakes head no for discomfort) Vitals Vitals Vital Signs Date Time Temp Pulse Resp B/P Pulse Ox O2 Delivery O2 Flow Rate FiO2 09/20/16 10:00 11 27 97/57 92 Ventilator 09/20/16 08:00 98.6 98.6 09/19/16 17:50 50.0 Weight Weight [ ] Input and Output Intake and Output Intake and Output 09/20/16 07:00 Intake Total 1777 ml Output Total 1015 ml Balance 762 ml Intake Oral 0 ml IV Total 1220 ml Tube Feeding 557 ml Output Urine Total 715 ml Urine/Stool Mix 300 ml # Bowel Movements 3 Microbiology Micro Microbiology 09/16/16 Blood Culture - Preliminary, Resulted NO GROWTH AFTER 4 DAYS 09/12/16 Urine Culture - Final, Complete 09/12/16 Urine Culture Result 1 (CANDICE) - Final, Complete Physical Exam HEENT: Neck Supple W Full Motion Chest: Symmetric LUNGS: Other (DIminished with faint crackles; intubated with mechanical ventilation) Heart: S1S2, RRR (sinus tach 110s), other (tele SR/ST) Abdomen: Soft N/T Extremities: 2+ Dorsalis Pedis, No Calf Tenderness, Other (trace LE edema) Neurology: other (off sedation, drowsy but interacts with close ended questions ) Assessment Assessment 1. Acute on chronic diastolic heart failure: multifactorial. compensated 2. Acute on chronic respiratory failure with underlying COPD with severe pulmonary HTN 3. Metabolic/hypoxic encephalopathy: off sedation. more alert today 3. Sepsis 4. Hypotension with underlying anemia: BP stable at low end. 5. NANCY on CKD: improved. 6. Prior CVA with dysphagia s/p PEG placement 7. Post cardiac arrest noted with PEA: initially noted with respiratory distress and bradycardia on 09/17 8. Anemia of chronic disease: Hgb 7.0 contributing to tachycardia. Recommendations 1. Has been converted to DNR 2. Supportive family at the bedside. Pending final palliative meeting tomorrow. 3. Discussed with palliative care team and just awaiting family members and on track to finalized hospice care tomorrow. 4. Nothing further, pls call if any questions or changes. RENATE TURNER CIRCULATION MAN Sep 20, 2016 11:47
--- NOTE | 2016-09-20 13:39 | PDOC2 ---
PALLIATIVE CARE Palliative Care Note Palliative Care Patient seen at 1030 Patient alert. RR 28-30. use of accessory muscles. Fentanyl 50mcg given around 5am. Family at bedside. Yarelis RN will request order for respiratory distress. Plan family meeting tomorrow. Family has decided no tracheostomy. When extubated will not re-intubate. Family allowing time for other family members to come from out of town. JOSE PARKER Sep 20, 2016 13:39
[2016-09-20] MEDS: MORPHINE SULFATE 2 MG/ML DISP.SYRIN. IV PRN (20:35)
[2016-09-20 22:02] LABS: CALCIUM 8.4 mg/dL (8.5-10.1); CREATININE 1.1 mg/dL (0.6-1.0); GFR 60.3; MAGNESIUM 2.1 mg/dL (1.8-2.4); POTASSIUM 4.5 mmol/L (3.5-5.1)
[2016-09-21] VITALS (17 sets, daily range): BP systolic 94–117; BP diastolic 55–76
[2016-09-21] MEDS: MORPHINE SULFATE 2 MG/ML DISP.SYRIN. IV PRN ×2 (03:06→21:53)
[2016-09-21] MEDS: IV NORMAL SALINE 1000ML BAG 1,000 ML IV SCH (03:10)
[2016-09-21] MEDS: ERYTHROMYCIN ETHYLSUCCINATE 200 MG/5 ML PEG SCH ×2 (06:20→12:00)
[2016-09-21] MEDS: METOCLOPRAMIDE HCL 10 MG/2 ML VIAL. IV SCH ×2 (06:20→11:27)
[2016-09-21] MEDS: CEFEPIME HCL 1 GM in IV NORMAL SALINE 50ML 50 ML IV SCH ×2 (06:22→14:00)
--- NOTE | 2016-09-21 08:04 | PDOC ---
SUBJECTIVE Subjective Responding to questions while intubated by moving head. Denies pain. OBJECTIVE Vital Signs Vital Signs Date Time Temp Pulse Resp B/P Pulse Ox O2 Delivery O2 Flow Rate FiO2 09/21/16 07:00 122 24 107/70 99 Ventilator 09/21/16 06:00 119 24 97/60 100 Ventilator 09/21/16 05:35 98 Ventilator 09/21/16 05:00 114 24 95/55 99 Ventilator 09/21/16 04:00 98.6 122 24 112/63 98 Ventilator 98.6 09/21/16 04:00 Mechanical Ventilator 09/21/16 03:45 100 Ventilator 09/21/16 03:35 24 98 Ventilator 09/21/16 03:06 24 97 Ventilator 09/21/16 03:00 118 24 117/76 98 Ventilator 09/21/16 02:00 120 24 110/62 98 Ventilator 09/21/16 01:23 98 Ventilator 09/21/16 01:00 121 24 106/64 99 Ventilator 09/20/16 23:59 Mechanical Ventilator 09/20/16 23:59 98.5 124 24 117/69 98 Ventilator 98.5 09/20/16 23:20 98 Ventilator 09/20/16 23:00 122 24 102/59 99 Ventilator 09/20/16 22:00 122 24 107/54 99 Ventilator 09/20/16 21:25 100 Ventilator 09/20/16 21:00 120 24 94/57 98 Ventilator 09/20/16 20:35 24 99 Ventilator 09/20/16 20:07 96 Ventilator 09/20/16 20:00 Mechanical Ventilator 09/20/16 20:00 98.8 121 24 94/67 99 Ventilator 98.8 09/20/16 19:00 125 24 116/65 98 Ventilator 09/20/16 16:49 98 Ventilator 09/20/16 16:00 Mechanical Ventilator 09/20/16 14:00 26 132/ 09/20/16 13:47 96 Ventilator 09/20/16 13:00 97.5 30 104/55 97.5 09/20/16 12:00 Mechanical Ventilator 09/20/16 12:00 26 109/55 09/20/16 11:50 95 Ventilator 09/20/16 11:00 28 126/92 09/20/16 10:00 11 27 97/57 92 Ventilator 09/20/16 09:52 92 Ventilator 09/20/16 09:00 130 40 121/69 92 Ventilator 09/20/16 08:19 95 Ventilator I & O Intake and Output 09/21/16 07:00 Intake Total 1351 ml Output Total 290 ml Balance 1061 ml IV Total 586 ml Tube Feeding 765 ml Output Urine Total 290 ml Gastric Drainage Total 0 ml # Bowel Movements 2 PHYSICAL EXAM Physical Exam General: No acute distress. Laying in bed. Intubated. Mental status: Alert and appears to answer simple questions appropriately by moving head. Chest: Air movement: Okay anteriorly but decreased overall. Auscultation: clear anteriorly Cardiovascular: Rate: Tachycardia. Rhythm: regular. Murmur: none. Abdomen: Bowel sounds: Occasional. Soft. Minimally distended. Tenderness: No apparent tenderness. Feeding tube is in place. Extremities: Trace of edema in the extremities. ASSESSMENT/PLAN Assessment/Plan 1. Recent cardiac arrest due to PEA: Continue per cardiology. Stable at present 2. Acute on chronic respiratory failure with AE COPD- s/p intubation: Long- term prognosis is poor due to severe pulmonary hypertension, COPD. being seen by palliative care. No trach desired. Plan to await other family to come in for meeting later today. Probably planning to extubate. 3. Leukocytosis with sepsis, POA: Continue antibiotic per infectious disease. 4. Fevers: Improved. 5. Hypotension: Improved 6. Severe pulmonary hypertension: Continue per pulmonology and cardiology. 7. NANCY : Improved 8. Acute on chronic diastolic heart failure, compensated: Stable 9. Prior CVA with dysphagia s/p PEG placement: Continue tube feedings. 10. CODE STATUS: Patient's family made the patient DNR at present. Further plans to be determined with family meeting later today but it appears that we will probably extubate sometime soon and move to comfort care depending on how she does with extubation Problems: COMMENT Lab Laboratory Tests Test 09/20/16 21:40 Sodium Level 145mmol/L (136-145) Potassium Level 4.5mmol/L (3.5-5.1) Chloride Level 109mmol/L (98-107) Carbon Dioxide Level 26mmol/L (21-32) Anion Gap 10 (6-14) Blood Urea Nitrogen 37mg/dL (7-20) Creatinine 1.1mg/dL (0.6-1.0) Estimated GFR (Cockcroft-Gault) 60.3 Glucose Level 131mg/dL (70-99) Calcium Level 8.4mg/dL (8.5-10.1) Magnesium Level 2.1mg/dL (1.8-2.4) JENNIFER RIVERO MD Sep 21, 2016 08:04
--- NOTE | 2016-09-21 08:15 | PDOC ---
Infectious Disease Note Subjective Subjective awake, on vent ROS ROS unable to do Vital Sign Vital Signs Vital Signs Date Time Temp Pulse Resp B/P Pulse Ox O2 Delivery O2 Flow Rate FiO2 09/21/16 07:00 122 24 107/70 99 Ventilator 09/21/16 04:00 98.6 98.6 Physical Exam PHYSICAL EXAM GENERAL: NAD, Alert , on vent HEENT: PERRL, OC/OP NECK: Supple, no JVD, no LN LUNGS: Clear HEART: S1S2, no gallop, no murmur ABD: Soft, NT, no organomegaly, no rebound EXT: No edema, no cyanosis HEAD HOST/HOSTESS: Alert, on vent SKIN: No rash IV: ok Labs Lab Laboratory Tests Test 09/20/16 21:40 Sodium Level 145mmol/L (136-145) Potassium Level 4.5mmol/L (3.5-5.1) Chloride Level 109mmol/L (98-107) Carbon Dioxide Level 26mmol/L (21-32) Anion Gap 10 (6-14) Blood Urea Nitrogen 37mg/dL (7-20) Creatinine 1.1mg/dL (0.6-1.0) Estimated GFR (Cockcroft-Gault) 60.3 Glucose Level 131mg/dL (70-99) Calcium Level 8.4mg/dL (8.5-10.1) Magnesium Level 2.1mg/dL (1.8-2.4) Objective Assessment Sepsis - POA -procalcitonin <0.10 Fever Leukocytosis, in part reactive s/p code blue, 09/17 Resp failure - Intubated NANCY - better Severe pulmonary HTN Plan Plan of Care cont cefepime, CBC in am Monitor Temp D/w family Now DNR Critically ill palliative care meeting today IQRA TAN MD Sep 21, 2016 08:15
[2016-09-21] MEDS: ALBUTEROL SULFATE 2.5 MG/3 ML NEBU. IH SCH ×2 (08:55→14:00)
[2016-09-21] MEDS: PANTOPRAZOLE IV PUSH 40 MG VIAL. IVP SCH (09:05)
[2016-09-21] MEDS: CHLORHEXIDINE 0.12% 15 ML MOUTHWASH. MM SCH (09:05)
[2016-09-21] MEDS: HEPARIN PF for SUB-Q USE 5,000 UNIT/0.5 ML VIAL. SQ SCH (09:07)
[2016-09-21] MEDS: FLUCONAZOLE 200MG/100ML PREMIX 100 ML IV SCH (09:08)
--- NOTE | 2016-09-21 13:59 | PDOC ---
PULMONARY PROGRESS NOTES Subjective no soa Vitals Vital Signs Date Time Temp Pulse Resp B/P Pulse Ox O2 Delivery O2 Flow Rate FiO2 09/21/16 12:40 99 Ventilator 09/21/16 07:00 122 24 107/70 09/21/16 04:00 98.6 98.6 General: Alert, No acute distress Lungs: Clear Cardiovascular: S1, S2 Abdomen: Soft, Non-tender Extremities: No Edema Skin: Warm Labs Laboratory Tests Test 09/20/16 21:40 Sodium Level 145mmol/L (136-145) Potassium Level 4.5mmol/L (3.5-5.1) Chloride Level 109mmol/L (98-107) Carbon Dioxide Level 26mmol/L (21-32) Anion Gap 10 (6-14) Blood Urea Nitrogen 37mg/dL (7-20) Creatinine 1.1mg/dL (0.6-1.0) Estimated GFR (Cockcroft-Gault) 60.3 Glucose Level 131mg/dL (70-99) Calcium Level 8.4mg/dL (8.5-10.1) Magnesium Level 2.1mg/dL (1.8-2.4) Laboratory Tests Test 09/20/16 21:40 Sodium Level 145mmol/L (136-145) Potassium Level 4.5mmol/L (3.5-5.1) Chloride Level 109mmol/L (98-107) Carbon Dioxide Level 26mmol/L (21-32) Anion Gap 10 (6-14) Blood Urea Nitrogen 37mg/dL (7-20) Creatinine 1.1mg/dL (0.6-1.0) Estimated GFR (Cockcroft-Gault) 60.3 Glucose Level 131mg/dL (70-99) Calcium Level 8.4mg/dL (8.5-10.1) Magnesium Level 2.1mg/dL (1.8-2.4) Medications Active Scripts Medications Dose Route/Sig Days Date Category Atorvastatin Calcium 20 Mg Tablet 20 Mg PO QHS 30 02/26/16 Rx Aspirin 325 Mg Tablet 325 Mg PO DAILYWBKFT 30 02/26/16 Rx Furosemide 20 Mg Tablet 20 Mg GT DAILY 30 09/09/15 Rx Potassium Chloride Oral Liquid (Potassium Chloride) 20 Meq/15 Ml Liquid 20 Meq PEG DAILY 30 2/11/16 Rx Famotidine 20 Mg Tablet 20 Mg PO BID 30 08/27/15 Rx Carvedilol 12.5 Mg Tablet 25 Mg PO BID@, 30 08/27/15 Rx Acetaminophen 650 Mg/20.3 Ml Solution 325 Mg PEG PRN Q6HRS PRN 30 08/27/15 Rx Albuterol Sulfate Neb Soln (Albuterol Sulfate) 2.5 Mg/3 Ml Vial.neb 2.5 Mg NEB RTQID 30 08/04/15 Rx Impression . 1. Acute on chronic hypercapnic hypoxemic respiratory failure, multifactorial. 2. Acute exacerbation of chronic obstructive pulmonary disease. 3. Sepsis, present upon admission. 4. Fever secondary to above. resolved 5. Urinary tract infection causing sepsis. 6. Cerebrovascular accident status post percutaneous endoscopic gastrostomy tube placement. 7. History of Proteus infection. 8. Acute on chronic kidney failure. 9. Leukocytosis. 10. Severe secondary pulmonary hypertension with previous pulmonary artery pressure estimated at 94 mmHg. 11. S/P CODE DANYEL PEA Plan . AC mode prn sedation antibx per ID GI and DVT proph tube feeding mild right heart failure on cxr palliative meeting in am d/w son and daughter.09/19 . They agree for no trach. terminal weaning expected 09/21 MARCELINO ADAMSON MD Sep 21, 2016 13:59
--- NOTE | 2016-09-21 14:55 | PDOC2 ---
PALLIATIVE CARE Palliative Care Note Palliative Care Patient alert. Indicates that she wants the ET tube out. Met with family; Ariel; son Ronit; dtr Krystal; brother Arleth, niece Lenora and sister in law Irena Sloan per phone. Reviewed medical condition: Severe pulmonary HTN; Respiratory Failure; Heart Failure; Sepsis; hypotension; leukocytosis PMH: CVA with PEG/dysphagia. Family has made the decision to extubate and allow nature to take its course. Family understands that patient likely will breath when extubated--unknown how long she will sustain her breathing. Other family members still need to visit. Plan to change to comfort care around 6pm. Family will contact their Payroll [employer]. Will medicate prior to extubation. Will hold tube feedings for now --could resume later if patient does well. Georgette TANNER aware of plan. JOSE PARKER Sep 21, 2016 14:55
[2016-09-21] MEDS ORDERED: MORPHINE SULFATE 2 MG/ML DISP.SYRIN. IV PRN (17:00)
[2016-09-21] MEDS ORDERED: MORPHINE SULFATE 4 MG/ML DISP.SYRIN. IV PRN ×2 (17:00→19:30)
[2016-09-21] MEDS ORDERED: LORAZEPAM 2 MG/ML VIAL IV PRN ×2 (17:00)
[2016-09-22] VITALS: BP 84/50
[2016-09-22 04:00] VITALS: BP 102/60
[2016-09-22 07:00] VITALS: BP 114/53
[2016-09-22 08:00] VITALS: BP 95/50
--- NOTE | 2016-09-22 08:13 | PDOC ---
Infectious Disease Note Subjective Subjective extubated, unresponsive on VM ROS ROS unable to do Vital Sign Vital Signs Vital Signs Date Time Temp Pulse Resp B/P Pulse Ox O2 Delivery O2 Flow Rate FiO2 09/22/16 04:00 98.4 97 25 102/60 97 NonRebreather Mask 15.0 98.4 Physical Exam PHYSICAL EXAM GENERAL: unresponsive HEENT: PERRL, OC/OP NECK: Supple, no JVD, no LN LUNGS: Clear HEART: S1S2, no gallop, no murmur ABD: Soft, NT, no organomegaly, no rebound EXT: No edema, no cyanosis SLUBBER TENDER: unresponsive on VM SKIN: No rash IV: ok Objective Assessment Sepsis - POA -procalcitonin <0.10 Fever Leukocytosis, in part reactive s/p code blue, 3/4 Resp failure - Intubated NANCY - better Severe pulmonary HTN Plan Plan of Care cont supportive care hospice decided will s/o IQRA TAN MD Sep 22, 2016 08:12
--- NOTE | 2016-09-22 08:13 | PDOC ---
SUBJECTIVE Subjective On nonrebreather mask. Not responding to questions. OBJECTIVE Vital Signs Vital Signs Date Time Temp Pulse Resp B/P Pulse Ox O2 Delivery O2 Flow Rate FiO2 09/22/16 04:00 98.4 97 25 102/60 97 NonRebreather Mask 15.0 98.4 09/22/16 00:00 98.4 112 11 84/50 97 NonRebreather Mask 15.0 98.4 09/21/16 21:53 92 Venturi Mask 09/21/16 20:00 Venturi Mask 15.0 09/21/16 20:00 98.3 122 117/60 92 Venturi Mask 15.0 98.3 09/21/16 18:25 Nasal Cannula 4.0 09/21/16 18:22 Ventilator 09/21/16 16:00 Mechanical Ventilator 09/21/16 16:00 99.8 116 25 117/67 100 Ventilator 99.8 09/21/16 15:05 99 Ventilator 09/21/16 15:00 108 24 94/62 100 Ventilator 09/21/16 14:00 116 112/59 09/21/16 13:00 120 24 113/59 100 Ventilator 09/21/16 12:40 99 Ventilator 09/21/16 12:00 98.1 116 24 110/64 99 Ventilator 98.1 09/21/16 12:00 Mechanical Ventilator 09/21/16 11:00 118 24 105/62 100 Ventilator 09/21/16 10:45 99 Ventilator 09/21/16 10:00 122 24 109/68 98 Ventilator 09/21/16 09:00 118 24 105/63 99 Ventilator 09/21/16 08:45 99 Ventilator I & O Intake and Output 09/22/16 07:00 Intake Total 647 ml Output Total 395 ml Balance 252 ml IV Total 627 ml Tube Feeding 20 ml Output Urine Total 395 ml Gastric Drainage Total 0 ml # Bowel Movements 3 PHYSICAL EXAM Physical Exam General: Increased respiratory effort. Laying in bed. On nonrebreather mask. Using abdominal muscles for breathing. Mental status: Not responsive. Chest: Air movement: Okay anteriorly with decreased. Auscultation: clear anteriorly. Using accessory muscles for breathing. Cardiovascular: Rate: Slightly tachycardia. Rhythm: regular. Murmur: none. Abdomen: Bowel sounds: Decreased. Soft. Tenderness: No apparent tenderness. Extremities: Trace of edema in the extremities. Cool to touch in the feet. ASSESSMENT/PLAN Assessment/Plan 1. Recent cardiac arrest due to PEA: Continue per cardiology. Stable at present 2. Acute on chronic respiratory failure with AE COPD- s/p intubation: Very poor prognosis due to severe pulmonary hypertension, COPD. being seen by palliative care. Extubated yesterday afternoon. She is having progressive respiratory decline. Comfort care. 3. Leukocytosis with sepsis, POA: Off antibiotics 4. Fevers: Improved. 5. Hypotension: Worsening again 6. Severe pulmonary hypertension: Continue per pulmonology and cardiology. 7. NANCY : Improved 8. Acute on chronic diastolic heart failure, compensated: Stable 9. Prior CVA with dysphagia s/p PEG placement: Holding feedings for right now and moving to comfort care. If she improves we could restart the feedings 10. CODE STATUS: Patient's family made the patient DNR at present. Comfort care. At present it appears that she will not improve. Continue with palliative care and family support. Problems: JENNIFER RIVERO MD Sep 22, 2016 08:13
[2016-09-22] MEDS: MORPHINE SULFATE 2 MG/ML DISP.SYRIN. IV PRN ×4 (08:16→11:29)
[2016-09-22 09:00] VITALS: BP 79/47
[2016-09-22 10:00] VITALS: BP 92/52
--- NOTE | 2016-09-22 10:33 | PDOC ---
PULMONARY PROGRESS NOTES Subjective terminally extubated Vitals Vital Signs Date Time Temp Pulse Resp B/P Pulse Ox O2 Delivery O2 Flow Rate FiO2 09/22/16 10:10 35 100 Venturi Mask 09/22/16 08:00 15.0 09/22/16 04:00 98.4 97 102/60 98.4 Lungs: Clear Cardiovascular: S1, S2 Abdomen: Soft, Non-tender Extremities: No Edema Skin: Warm Labs Laboratory Tests Test 09/20/16 21:40 Sodium Level 145mmol/L (136-145) Potassium Level 4.5mmol/L (3.5-5.1) Chloride Level 109mmol/L (98-107) Carbon Dioxide Level 26mmol/L (21-32) Anion Gap 10 (6-14) Blood Urea Nitrogen 37mg/dL (7-20) Creatinine 1.1mg/dL (0.6-1.0) Estimated GFR (Cockcroft-Gault) 60.3 Glucose Level 131mg/dL (70-99) Calcium Level 8.4mg/dL (8.5-10.1) Magnesium Level 2.1mg/dL (1.8-2.4) Medications Active Scripts Medications Dose Route/Sig Days Date Category Atorvastatin Calcium 20 Mg Tablet 20 Mg PO QHS 30 02/26/16 Rx Aspirin 325 Mg Tablet 325 Mg PO DAILYWBKFT 30 02/26/16 Rx Furosemide 20 Mg Tablet 20 Mg GT DAILY 30 09/09/15 Rx Potassium Chloride Oral Liquid (Potassium Chloride) 20 Meq/15 Ml Liquid 20 Meq PEG DAILY 30 08/27/15 Rx Famotidine 20 Mg Tablet 20 Mg PO BID 30 08/27/15 Rx Carvedilol 12.5 Mg Tablet 25 Mg PO BID@ 30 08/27/15 Rx Acetaminophen 650 Mg/20.3 Ml Solution 325 Mg PEG PRN Q6HRS PRN 30 08/27/15 Rx Albuterol Sulfate Neb Soln (Albuterol Sulfate) 2.5 Mg/3 Ml Vial.neb 2.5 Mg NEB RTQID 30 08/04/15 Rx Impression . 1. Acute on chronic hypercapnic hypoxemic respiratory failure, multifactorial. 2. Acute exacerbation of chronic obstructive pulmonary disease. 3. Sepsis, present upon admission. 4. Fever secondary to above. resolved 5. Urinary tract infection causing sepsis. 6. Cerebrovascular accident status post percutaneous endoscopic gastrostomy tube placement. 7. History of Proteus infection. 8. Acute on chronic kidney failure. 9. Leukocytosis. 10. Severe secondary pulmonary hypertension with previous pulmonary artery pressure estimated at 94 mmHg. 11. S/P CODE DANYEL PEA Plan . terminally extubated d/c 100%FIO2 only nasal canula d/w comfort care will sign off MARCELINO ADAMSON MD Sep 22, 2016 10:33
== END 2016-09-22 11:40 | disposition expired | DRG 870 ==
LOC: ER 20:03 → 1 WEST ICU 20:51
PROVIDERS: ADMIT Family Medicine; ATTEND Family Medicine
PROC: 0BH17EZ Insertion of Endotracheal Airway into Trachea, Via Natural or Artificial Opening (ICD-10-PCS; principal; 2016-09-13)
PROC: 5A1955Z Respiratory Ventilation, Greater than 96 Consecutive Hours (ICD-10-PCS; 2016-09-21)
DX: A41.9 Sepsis, unspecified organism (principal); J96.00 Acute respiratory failure, unspecified whether with hypoxia or hypercapnia; I50.43 Acute on chronic combined systolic (congestive) and diastolic (congestive) heart failure; J96.21 Acute and chronic respiratory failure with hypoxia; J96.22 Acute and chronic respiratory failure with hypercapnia; G93.1 Anoxic brain damage, not elsewhere classified; J44.1 Chronic obstructive pulmonary disease with (acute) exacerbation; N17.9 Acute kidney failure, unspecified; N39.0 Urinary tract infection, site not specified; D63.8 Anemia in other chronic diseases classified elsewhere; E78.00 Pure hypercholesterolemia, unspecified; E78.5 Hyperlipidemia, unspecified; I12.9 Hypertensive chronic kidney disease with stage 1 through stage 4 chronic kidney disease, or unspecified chronic kidney disease; I27.2 Other secondary pulmonary hypertension; K31.84 Gastroparesis; K59.00 Constipation, unspecified; N18.9 Chronic kidney disease, unspecified; R13.19 Other dysphagia; Z51.5 Encounter for palliative care; Z66 Do not resuscitate; Z82.49 Family history of ischemic heart disease and other diseases of the circulatory system; Z86.73 Personal history of transient ischemic attack (TIA), and cerebral infarction without residual deficits; Z86.74 Personal history of sudden cardiac arrest; Z87.01 Personal history of pneumonia (recurrent); Z87.440 Personal history of urinary (tract) infections; Z87.891 Personal history of nicotine dependence; Z93.1 Gastrostomy status; Z99.81 Dependence on supplemental oxygen; M19.90 Unspecified osteoarthritis, unspecified site
CPT/HCPCS: 31500; 36415; 36600; 51702; 71010; 74000; 80048; 80053; 81001; 82805; 83605; 83735; 83880; 84100; 84145; 84484; 85007; 85027; 87040; 87086; 87641; 87804; 93005; 94002; 94003; 94640; 94660; 96361; 96374; 96375; C9113; J0171; J0330; J0692; J1265; J1450; J1630; J1956; J2020; J2060; J2250; J2270; J2543; J2704; J2765; J3010; J3490; J7030; J7040; J7050; S0028; 99291-25